=== PATIENT | female | born 1950 | race Caucasian/White ===

== ENCOUNTER 2019-08-10 14:31 | Outpatient (CLI) | payer MEDICARE, MEDICAID, SELFPAY ==
[2019-08-10 15:06] LABS: Hematocrit 40.8 % (37.0-47.0); Hemoglobin 13.3 g/dL (12.0-15.0); Mean Corpuscular HGB Conc 32.6 g/dl (32-36); Mean Corpuscular Hemoglobin 29.4 pg (26-34); Mean Corpuscular Volume 90.1 fl (80-100); Mean Platelet Volume 9.1 fl (7.4-10.4); Platelet Count Result 313 k/mm3 (150-375); Red Blood Count 4.53 M/mm3 (4.2-5.4); Red Cell Distribution Width 15.8 % (11.5-14.5); White Blood Count 11.6 K/mm3 (4.5-10.0)
[2019-08-10 15:21] LABS: Prothrombin Time 12.5 Seconds (11.1-14.7)
[2019-08-10 15:22] LABS: Partial Thromboplastin Time 32.5 SECONDS (22.3-36.8)
[2019-08-10 15:43] LABS: Blood Urea Nitrogen 17 mg/dL (7-17); Carbon Dioxide 32 mmol/L (22-30); Chloride 99 mmol/L (98-107); Estimated Glomerular Filt Rate 49; Glucose 97 mg/dL (65-105); Potassium 4.3 mmol/L (3.4-5.0); Sodium 138 mmol/L (137-145)
== END 2019-08-10 14:32 | disposition home or self-care (01) ==
PROVIDERS: PCP Family Medicine; Visit Provider Specialist
DX: I25.10 Atherosclerotic heart disease of native coronary artery without angina pectoris (principal)
CPT/HCPCS: 36415; 80048; 85027; 85610; 85730

== ENCOUNTER → 2020-06-03 10:10 | Outpatient (CLI) | payer MEDICARE, MEDICAID, SELFPAY ==
--- NOTE | ~2020-06-03 | MM_ITS ---
EXAMINATION: MM screening nils BI w tova HISTORY: Screening TECHNIQUE: Craniocaudal and mediolateral oblique 3-D tomosynthesis images were obtained and synthetic 2-D images were generated. CAD analysis was submitted and interpreted. COMPARISON: No prior mammogram is available for comparison at this institution. BREAST PARENCHYMAL COMPOSITION: There are scattered areas of fibroglandular density. FINDINGS: There is no evidence of suspicious mass, calcification, or architectural distortion to sugg est malignancy in either breast. There has been no suspicious interval change. IMPRESSION: 1. No mammographic evidence of malignancy. 2. Recommend routine screening mammography in one year. BI-RADS Category 1: Negative Reviewed, dictated and finalized at location A. RESS TRUCKER
== END ==
PROVIDERS: Visit Provider Nurse Practitioner Family
DX: Z12.31 Encounter for screening mammogram for malignant neoplasm of breast (principal); Z78.0 Asymptomatic menopausal state
CPT/HCPCS: 77063; 77067

== ENCOUNTER 2020-10-23 13:41 | Outpatient (CLI) | payer MEDICARE, MEDICAID, SELFPAY ==
--- NOTE | ~2020-10-23 | XR_ITS ---
XR foot RT min 3V DATE: 10/23/2020 14:07 INDICATION: Lateral right foot pain following recent injury TECHNIQUE: 4 views COMPARISON: None FINDINGS: There is hallux valgus and bunion deformity, mild osteoarthritis at the first metatarsophal angeal joint. There is a transverse lucency of the proximal shaft of the metatarsal bone consistent with nondisplac ed fracture. IMPRESSION: Transverse nondisplaced fracture of the proximal shaft of the fifth metatarsal bone Hallux valgus and bunion deformity Osteoarthritis at first metatarsophalangeal joint Reviewed, dictated and finalized at location A.
== END 2020-10-23 13:42 | disposition home or self-care (01) ==
LOC: ANHIMG 13:52
PROVIDERS: PCP Family Medicine; Visit Provider Family Medicine
DX: S92.354A Nondisplaced fracture of fifth metatarsal bone, right foot, initial encounter for closed fracture (principal); X58.XXXA Exposure to other specified factors, initial encounter; M20.11 Hallux valgus (acquired), right foot; M19.071 Primary osteoarthritis, right ankle and foot
CPT/HCPCS: 73630

== ENCOUNTER 2021-04-06 12:07 | Emergency (ER) | payer MEDICARE, MEDICAID, SELFPAY ==
--- NOTE | ~2021-04-06 | XR_ITS ---
EXAMINATION: XR chest 2V DATE: 04/06/2021 14:17 INDICATION: Cough and shortness of breath TECHNIQUE: frontal and lateral views of the chest were obtained. COMPARISON: Chest radiograph and CT dated 09/21/2018 FINDINGS: Opacities at the bilateral lung bases with dependent predominance. No pleural effusion or pneumothora x. The cardiomediastinal silhouette is normal. Median sternotomy wires and mediastinal surgical clips are seen, likely from prior coronary artery bypass grafting. Moderate thoracic and upper lumbar spon dylosis. IMPRESSION: 1. Bibasilar opacities which could represent pneumonia, pulmonary edema or some atelectasis or some c ombination thereof. Reviewed, dictated and finalized at location B. EDWARDS IMPRESSION: 1. Bibasilar opacities which could represent pneumonia, pulmonary edema or some atelectasis or some combination thereof.
[2021-04-06 13:57] VITALS: BP 160/73; PULSE 55; RESP 32; TEMP 36.7; O2SAT 87
--- NOTE | 2021-04-06 14:09 | ED.GENADULT ---
HPI - General Adult General Chief complaint: Upper Respiratory Infection Stated complaint: sob,cough Time Seen by Provider: 04/06/21 13:59 Source: patient, family and RN notes reviewed Mode of arrival: ambulatory Limitations: no limitations History of Present Illness HPI narrative: Patient presents today complaining of a 2-week history of cough that has been worsening since onset. She is now experiencing shortness of breath, pains in her right upper chest. Patient states she feels sputum in her chest, but cannot expectorate. Reports fevers initially, but has not had them for at least a week. She has been vaccinated against COVID-19, but has not had a flu shot. She has been taking Mucinex D. History of pneumonia. Denies history of asthma or COPD. She is a former smoker. Pulse ox upon arrival was 87% on room air, respirations were 32. MD complaint: Cough, shortness of breath Related Data Home Medications Medication Instructions Recorded Confirmed aspirin 81 mg tablet,delayed 81 mg PO DAILY 04/05/19 03/12/21 release cholecalciferol (vitamin D3) 50 50 mcg PO DAILY 03/07/20 03/12/21 mcg (2,000 unit) capsule fexofenadine 180 mg tablet 180 mg PO DAILY tablet 09/11/20 03/12/21 acetaminophen 650 mg 1,300 mg PO Q12H tablet 10/23/20 03/12/21 tablet,extended release melatonin 10 mg tablet 10 mg PO DAILY tablet 10/23/20 03/12/21 metoprolol succinate 50 mg 50 mg PO BID tablet 10/23/20 03/12/21 tablet,extended release 24 hr sertraline 100 mg tablet 100 mg PO DAILY tablet 10/23/20 03/12/21 Allergies Allergy/AdvReac Type Severity Reaction Status Date / Time Penicillins Allergy Unknown Urticaria Verified 04/06/21 14:11 Review of Systems Review of Systems: CONSTITUTIONAL: Denies body aches, fever, chills, or sweats. EYES: Denies visual changes, redness, or discharge. ENT: Denies rhinorrhea, congestion, sore throat, or otalgia. CARDIOVASCULAR: Denies palpitations, or edema.+ Right upper chest pain RESPIRATORY: + Cough, shortness of breath GASTROINTESTINAL: Denies abdominal pain, nausea, vomiting, or diarrhea. GENITOURINARY: Denies dysuria or hematuria. SKIN: Denies rash, itching, or wounds. MUSCULOSKELETAL: Denies back pain, joint pain, or myalgia. NEUROLOGIC: Denies headache, numbness, tingling, or weakness. PSYCH: Denies depression or anxiety. [facility] Past Medical History Medical History CAD (coronary artery disease) (~10/2018) Chronic low back pain CKD (chronic kidney disease) stage 3, GFR 30-59 ml/min Depression with anxiety Environmental allergies [place] (hard of hearing) Hyperkalemia Hyperlipidemia Hypertension Insomnia Normal colonoscopy (~07/2010) Normal mammography (~06/03/20) OAB (overactive bladder) Osteoarthritis Osteopenia Peripheral neuropathy Surgical History Surgical History History of left knee surgery 2017 - ORIF of left knee fracture History of surgery on left wrist 2018 - ORIF of left wrist fracture S/P CABG x 3 (~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 Pt moved in with sister in 2019, moved here from [place]. Comments At time of signature, I have reviewed and agree with nursing past medical, surgical, social and family history unless otherwise noted. Please see nursing chart for further information. There is no relevant family history pertinent to the presenting complaint Exam Narrative: GENERAL: Ill-appearing, well-nourished. HEAD: Normocephalic, atraumatic. EYES: EOMI. No redness or drainage. Conjunctivae normal. ENT: Mucous membranes pink and moist. Nares mildly congested. No
[2021-04-06 14:48] VITALS: PULSE 84; RESP 28; O2SAT 94
== END 2021-04-06 14:52 | disposition short-term general hospital (02) ==
PROVIDERS: Emergency Provider Nurse Practitioner; PCP Family Medicine
DX: R09.02 Hypoxemia (principal); J18.1 Lobar pneumonia, unspecified organism; Z20.822 Contact with and (suspected) exposure to COVID-19; I25.10 Atherosclerotic heart disease of native coronary artery without angina pectoris; I12.9 Hypertensive chronic kidney disease with stage 1 through stage 4 chronic kidney disease, or unspecified chronic kidney disease; N18.30 Chronic kidney disease, stage 3 unspecified; E78.2 Mixed hyperlipidemia; M19.90 Unspecified osteoarthritis, unspecified site; M81.0 Age-related osteoporosis without current pathological fracture; G62.9 Polyneuropathy, unspecified; Z79.82 Long term (current) use of aspirin; F41.8 Other specified anxiety disorders
CPT/HCPCS: 71046; 87426; 87804; 99215; C9803; G0463

== ENCOUNTER 2021-04-06 15:48 | Inpatient (IN) | payer MEDICARE, MEDICAID, SELFPAY ==
[2021-04-06] VITALS (7 sets, daily range): BP systolic 121–156; BP diastolic 50–57; PULSE 58–79; RESP 20–24; TEMP 36.3; O2SAT 87–99
--- NOTE | ~2021-04-06 | XR_ITS ---
EXAMINATION: XR chest 1V portable EXAM DATE: 04/06/2021 18:58 INDICATION: SOB W/ Productive Cough X 2wks. TECHNIQUE: Portable AP frontal chest x-ray was obtained. Comparison is made to prior examination from 04/06/2021. FINDINGS: Sternotomy wires are present without findings to suggest sternal dehiscence. Small amount o f bibasilar atelectasis, edema or pneumonia. Mild cardiomegaly. Mild hyperinflation. No pneumothorax. Small right effusion not excludable. No change compared to study from 2:15 this afternoon. IMPRESSION: Small amount bibasilar ill-defined atelectasis, edema or pneumonia. Reviewed, dictated and finalized at location A. E GAMES MANAGER IMPRESSION: Small amount bibasilar ill-defined atelectasis, edema or pneumonia .
--- NOTE | ~2021-04-06 | CT_ITS ---
EXAMINATION: CTA chest PE protocol EXAM DATE: 04/06/2021 21:44 INDICATION: Shortness of breath. TECHNIQUE: Spiral CTA of the chest (pulmonary arteries) was performed with 100 cc Omnipaque 350 intr avenous contrast injection. Images were acquired during the pulmonary arterial phase. Coronal maxi mum intensity projection 3D-reconstructions were created by the technologist on dedicated workstation . Axial, coronal and sagittal reformatted images were reviewed. The dose-length product (DLP) for t his examination was 261.30 mGy-cm. The exposure was tailored according to patient size (auto mA exp osure control), and iterative reconstruction (ASIR) was used as additional dose reduction technique. Comparison is made to prior examination from 09/29/2018. FINDINGS: There are no pulmonary emboli in the 1st through 3rd order (central and interlobar) pulmon yana arteries. Some loss of attenuation in the segmental pulmonary arteries from respiratory motion, some segmental regions not confidently evaluated. No intraluminal filling defects identified. No th oracic aortic dissection. There is moderate emphysema. Right lower lobe bronchus and its segments are occluded, filled with muc us. There is right lower lobe airspace disease with volume loss, multi segmental atelectasis with pos sibility of superimposed pneumonia or postobstructive pneumonia from underlying right infrahilar john paul gnancy. There is right hilar adenopathy with a lymph node measuring 2.2 x 1.4 cm, reactive versus met astatic. Subsegmental left basilar atelectasis. There are no pleural or pericardial effusions. There is no pneumothorax. Cardiomegaly. The main, central pulmonary arteries are dilated which can indicate elevated pulmonary arterial pressure, pulmo nary arterial hypertension. There are sternotomy wires, and cardiac/coronary surgical changes. Corre late with prior history. Upper abdomen is unremarkable. There is thoracic spondylosis without oste oblastic or osteolytic lesions identified. IMPRESSION: 1. Limited segmental evaluation, but no pulmonary emboli are suspected. 2. Multisegmental right lower lobe atelectasis, occluded bronchi. Superimposed pneumonia, postobstru ctive pneumonia from malignancy not excludable. Consider treating for pneumonia and obtaining 1 month follow-up, or bronchoscopy. 3. Right hilar lymphadenopathy reactive versus metastatic. 4. Cardiomegaly, pulmonary arterial hypertension. 5. Moderate emphysema. Reviewed, dictated and finalized at location A. INER IMPRESSION: 1. Limited segmental evaluation, but no pulmonary emboli are suspected. 2. Multisegmental right lower lobe atelectasis, occluded bronchi. Superimposed pneumonia, postobstructive pneumonia from malignancy not excludable. Consider treating for pneumonia and obtaining 1 month follow-up, or bronchoscopy. 3. Right hilar lymphadenopathy reactive versus metastatic. 4. Cardiomegaly, pulmonary arterial hypertension. 5. Moderate emphysema.
--- NOTE | ~2021-04-06 | XR_ITS ---
EXAMINATION: XR chest 2V DATE: 04/09/2021 08:44 INDICATION: Pneumonia TECHNIQUE: PA and lateral views of the chest were obtained. COMPARISON: Chest radiograph and CT dated 04/06/2021 FINDINGS: Bronchial wall thickening and increased interstitial pattern in the bilateral mid and lower lung zone s. Patchy airspace opacities in the right lower lung zone. No pneumothorax or pleural effusion. Cardi omegaly. Median sternotomy wires and mediastinal surgical clips are seen, likely from prior coronary artery bypass grafting. Moderate thoracic spondylosis. IMPRESSION: 1. Bilateral dependent predominant increased interstitial pattern and patchy airspace opacities in th e right lower lung zone which could represent pulmonary edema, pneumonia, atelectasis or some combina tion thereof. 2. Cardiomegaly. Reviewed, dictated and finalized at location B. ICIAN OFFICE NURSE IMPRESSION: 1. Bilateral dependent predominant increased interstitial pattern and patchy ai rspace opacities in the right lower lung zone which could represent pulmonary e frank, pneumonia, atelectasis or some combination thereof. 2. Cardiomegaly.
--- NOTE | ~2021-04-06 | XR_ITS ---
EXAMINATION: XR chest 2V DATE: 04/11/2021 14:16 INDICATION: Pneumonia. TECHNIQUE: Frontal and lateral views of the chest were obtained. COMPARISON: Chest 2 views 04/09/2021, chest CT 04/06/2021 FINDINGS: There are lucencies in the lungs, consistent with emphysema. There are airspace opacities i n right mid and lower lung zones and left lower lung zone. There is a small right pleural effusion. N o pneumothorax. The heart size is normal. Median sternotomy wires and mediastinal surgical clips are seen, likely from prior coronary artery bypass grafting. IMPRESSION: 1. Stable airspace opacities in right mid and lower lung zones and left lower lung zone, consistent w ith pneumonia. 2. Worsened small right pleural effusion. 3. Emphysema. Reviewed, dictated and finalized at location A. ERN DEVELOPER IMPRESSION: 1. Stable airspace opacities in right mid and lower lung zones and left lower l henrik zone, consistent with pneumonia. 2. Worsened small right pleural effusion. 3. Emphysema.
--- NOTE | 2021-04-06 18:45 | ECG_ITS ---
Measurements Intervals [place] Rate: 75 P: 73 ME: 164 QRS: 53 QRSD: 147 T: 22 QT: 413 QTc: 462 Interpretive Statements SINUS RHYTHM RIGHT BUNDLE BRANCH BLOCK BASELINE ARTIFACT- I, II, III, AVR, AVL, AVF, V1-V3 ABNORMAL ECG Electronically Signed On 04-06-2021 20:10:46 CONTROL EQUIPMENT ELECTRICIAN by Melvin Contreras D.O.
--- NOTE | 2021-04-06 18:55 | ED.GENADULT ---
HPI - General Adult General Chief complaint: Shortness of Breath/Dyspnea Stated complaint: dyspnea Time Seen by Provider: 04/06/21 18:39 Source: patient and RN notes reviewed History of Present Illness HPI narrative: Patient is a 70 y/o female complaining of cough, SOB for 2 week. She also has some right sided chest pain. She was seen at urgent care and found to be hypoxic with pulse ox of 87% on RA and sent here. Xray at urgent care showed bibasilar opacities. She was placed on O2. Related Data Home Medications Medication Instructions Recorded Confirmed aspirin 81 mg tablet,delayed 81 mg PO DAILY 04/05/19 04/07/21 release cholecalciferol (vitamin D3) 50 50 mcg PO DAILY 03/07/20 04/07/21 mcg (2,000 unit) capsule fexofenadine 180 mg tablet 180 mg PO DAILY tablet 09/11/20 04/07/21 acetaminophen 650 mg 1,300 mg PO Q12H tablet 10/23/20 04/07/21 tablet,extended release melatonin 10 mg tablet 10 mg PO DAILY tablet 10/23/20 04/07/21 metoprolol succinate 50 mg 50 mg PO BID tablet 10/23/20 04/07/21 tablet,extended release 24 hr sertraline 100 mg tablet 100 mg PO DAILY tablet 10/23/20 04/07/21 Allergies Allergy/AdvReac Type Severity Reaction Status Date / Time Penicillins Allergy Unknown Urticaria Verified 04/06/21 20:32 Review of Systems Constitutional: Constitutional: Denies chills, Denies fever(s), Denies headache(s) and Denies weakness Eyes: Eyes: Denies blurry vision ENT: Denies headache(s) and Denies neck pain Cardiovascular: Cardiovascular: Reports chest pain and Reports dyspnea Respiratory: Respiratory: Reports cough and Reports dyspnea Gastrointestinal: Gastrointestinal: Denies abdominal pain, Denies diarrhea, Denies nausea and Denies vomiting Genitourinary: Genitourinary: Denies hematuria and Denies dysuria Musculoskeletal: Musculoskeletal: Denies back pain and Denies neck pain Neurologic: Denies headache(s) and Denies weakness [facility] Past Medical History Medical History CAD (coronary artery disease) (~10/2018) Chronic low back pain CKD (chronic kidney disease) stage 3, GFR 30-59 ml/min Depression with anxiety Environmental allergies [place] (hard of hearing) Hyperkalemia Hyperlipidemia Hypertension Insomnia Normal colonoscopy (~07/2010) Normal mammography (~06/03/20) OAB (overactive bladder) Osteoarthritis Osteopenia Peripheral neuropathy Surgical History Surgical History History of left knee surgery 2017 - ORIF of left knee fracture History of surgery on left wrist 2018 - ORIF of left wrist fracture S/P CABG x 3 (~10/09/18) Family History Family History Father Family history of alcoholism Family history of malignant neoplasm Social History Social History Social History: , passed 2019. Pt moved in with sister in 2019, moved here from [place]. Smoking status: Never smoker Alcohol intake: never Substance use: never Substance use type: does not use Spiritual care concerns: No Exam Const: General: no acute distress and well developed Orientation/consciousness: oriented to person, oriented to place, oriented to time and patient oriented x3 HENMT: Head: normocephalic Ears: external ears normal General nose exam: Normal external nose present Eyes: General: appearance normal, both eyes and all related structures Conjunctivae: conjunctivae normal Neck: Neck: normal visual inspection and full ROM Chest: Chest palpation & inspection: normal inspection of the chest and no tenderness Resp: Effort & Inspection: normal respiratory effort Auscultation: clear to auscultation bilaterally Cardio: Rate: regular rate Rhythm: regular rhythm GI: GI Palp: No abdominal tenderness and Yes Soft to palpation Skin: General skin exam: normal color
[2021-04-06 19:46] LABS: Basophils Absolute Auto 0.1 K/mm3 (0.0-0.1); Basophils Percent Auto 0.3 % (0.2-1.2); Hematocrit 37.1 % (37.0-47.0); Hemoglobin 12.6 g/dL (12.0-15.0); Immature Granulocyte Absolute 0.16 K/mm3 (0.00-0.031); Immature Granulocyte Percent A 0.7 % (0-0.5); Lymphocytes Percent Auto 7.7 % (18.3-44.2); Mean Corpuscular Hemoglobin 28.6 pg (26-34); Mean Corpuscular Volume 84.1 fl (80-100); Mean Platelet Volume 8.7 fl (7.4-10.4); Monocytes Absolute Auto 2.4 K/mm3 (0.1-0.6); Monocytes Percent Auto 10.4 % (2.6-8.5); Neutrophils Absolute Auto 18.9 K/mm3 (1.3-6.7); Neutrophils Percent Auto 80.9 % (45.5-73.1); Platelet Count Result 351 k/mm3 (150-375); Red Blood Count 4.41 M/mm3 (4.2-5.4); Red Cell Distribution Width 14.9 % (11.5-14.5); White Blood Count 23.4 K/mm3 (4.5-10.0)
[2021-04-06 20:21] LABS: D Dimer 0.78 ug/mL (<0.48)
[2021-04-06 20:41] LABS: Alanine Aminotransferase 28 U/L (4-35); Albumin Level 4.2 g/dL (3.5-5.1); Alkaline Phosphatase 117 U/L (38-126); Anion Gap 9 mmol/L (8-16); Aspartate Amino Transferase 38 U/L (14-36); Bilirubin,Total 0.7 mg/dL (0.2-1.3); Blood Urea Nitrogen 15 mg/dL (7-17); Calcium 9.6 mg/dL (8.4-10.2); Carbon Dioxide 26 mmol/L (22-30); Chloride 95 mmol/L (98-107); Estimated CRCL calculation 43 ml/min; Estimated Glomerular Filt Rate > 60; Glucose 103 mg/dL (65-110); Potassium 4.7 mmol/L (3.4-5.0); Sodium 130 mmol/L (137-145)
[2021-04-06 20:52] LABS: NT Pro B Type Natriuretic Pept 1070 pg/mL (5-100); Troponin I < 0.012 ng/mL (0.000-0.034)
[2021-04-06 21:24] LABS: EDCOVIDSCREEN Negative (Negative)
[2021-04-07] VITALS (15 sets, daily range): BP systolic 98–163; BP diastolic 56–80; PULSE 74–92; RESP 16–20; TEMP 36.6–37.6; O2SAT 89–97; BMI 26.4
[2021-04-07 00:15] LABS: Troponin I < 0.012 ng/mL (0.000-0.034)
[2021-04-07 03:22] LABS: Troponin I < 0.012 ng/mL (0.000-0.034)
--- NOTE | 2021-04-07 08:00 | PC.NURSE ---
0605 Pt arrived from the ED per wheelchair to room 311 with a DX of dyspnea. Pt has 026L/min/nc in place , no acute respiratory difficulty. Encouraged to inform nurse if need assist with anything and plan of care discussed, verbalize understanding.
[2021-04-07 08:19] LABS: Basophils Absolute Auto 0.1 K/mm3 (0.0-0.1); Basophils Percent Auto 0.2 % (0.2-1.2); Eosinophils Percent Auto 0.1 % (0-4.4); Hematocrit 35.4 % (37.0-47.0); Hemoglobin 12.1 g/dL (12.0-15.0); Immature Granulocyte Absolute 0.22 K/mm3 (0.00-0.031); Lymphocytes Absolute Auto 1.41 K/mm3 (0.9-3.2); Lymphocytes Percent Auto 6.6 % (18.3-44.2); Mean Corpuscular HGB Conc 34.2 g/dl (32-36); Mean Corpuscular Hemoglobin 28.5 pg (26-34); Mean Corpuscular Volume 83.3 fl (80-100); Mean Platelet Volume 8.5 fl (7.4-10.4); Monocytes Absolute Auto 2.4 K/mm3 (0.1-0.6); Neutrophils Absolute Auto 17.4 K/mm3 (1.3-6.7); Neutrophils Percent Auto 81.1 % (45.5-73.1); Platelet Count Result 340 k/mm3 (150-375); Red Blood Count 4.25 M/mm3 (4.2-5.4); White Blood Count 21.4 K/mm3 (4.5-10.0)
[2021-04-07 08:27] LABS: Alanine Aminotransferase 36 U/L (4-35); Albumin Level 3.7 g/dL (3.5-5.1); Alkaline Phosphatase 126 U/L (38-126); Anion Gap 10 mmol/L (8-16); Aspartate Amino Transferase 54 U/L (14-36); Bilirubin,Total 0.6 mg/dL (0.2-1.3); Blood Urea Nitrogen 14 mg/dL (7-17); Calcium 8.8 mg/dL (8.4-10.2); Carbon Dioxide 24 mmol/L (22-30); Chloride 94 mmol/L (98-107); Estimated CRCL calculation 48 ml/min; Estimated Glomerular Filt Rate > 60; Glucose 109 mg/dL (65-110); Sodium 128 mmol/L (137-145)
[2021-04-07 08:31] LABS: Magnesium 1.9 mg/dL (1.6-2.3)
[2021-04-07 09:52] LABS: CRP 22.1 mg/dL (<1.0)
[2021-04-07] MEDS: SERTRALINE HCL 50 MG TABLET 100 MG PO (10:39)
[2021-04-07] MEDS: GABAPENTIN 300 MG CAPSULE PO ×2 (10:39→20:40)
[2021-04-07] MEDS: MAGNESIUM OXIDE 400 MG TABLET PO (10:40)
[2021-04-07] MEDS: CHOLECALCIFEROL 1,000 UNITS TABLET 2000 UNITS PO (10:40)
[2021-04-07] MEDS: CLOPIDOGREL BISULFATE 75 MG TABLET PO (10:40)
[2021-04-07] MEDS: ASPIRIN 81 MG ENTERIC TABLET PO (10:40)
--- NOTE | 2021-04-07 13:08 | PM.IMHP ---
H&P: HPI History of Present Illness Date/Time: 04/07/21 13:08 Chief Complaint: Cough Narrative: Date of service: 04/07/21 Aminah Mark is a 70-year-old female with a history of CAD, hypertension, hyperlipidemia, CKD, COPD, and tobacco abuse who presented to the emergency department on 04/06/2021 after being transported from urgent care. Her sister took her to urgent care yesterday after the patient was experiencing 2 weeks of productive cough and generally feeling unwell. She says her cough had never been so bad before in her life and she had excessive amounts of green phlegm. Notes that her cough has improved and now her phlegm is white in color. Also complained of nasal congestion with rhinorrhea. She was also endorsing shortness of breath, but states that this has improved. She notes a decreased appetite. She has been feeling lightheaded and this is worse upon standing. She has been feeling overall weak and somewhat unsteady on her feet, though states she always has poor balance due to her inner ear issues. She still has her sense of taste and smell. She denies nausea or vomiting. She denies chest pain or palpitations. She reports that she had contact with her nephew who was found to be positive for COVID-19.] Patient has been admitted to the hospitalist service as an inpatient. Supervising physician for this history and physical is Dr. Amada Levine. Review of Systems Review of Systems: All systems reviewed & are unremarkable except as noted in HPI and below PMFSH Past Medical History Medical History (Updated 04/07/21 @ 13:42 by Aneta Graham PA-C) CAD (coronary artery disease) (~10/2018) Chronic low back pain CKD (chronic kidney disease) stage 3, GFR 30-59 ml/min COPD (chronic obstructive pulmonary disease) Depression with anxiety Environmental allergies [place] (hard of hearing) Hyperlipidemia Hypertension Inner ear disease Established with ENT, awaiting surgical repair Insomnia Normal colonoscopy (~07/2010) Normal mammography (~06/03/20) OAB (overactive bladder) Osteoarthritis Osteopenia Peripheral neuropathy Tobacco abuse Surgical History Surgical History (Updated 04/07/21 @ 13:15 by Aneta Graham PA-C) History of ear surgery x4 History of left knee surgery 2017 - ORIF of left knee fracture History of surgery on left wrist 2018 - ORIF of left wrist fracture S/P CABG x 3 (~10/09/18) Family History Family History (Updated 04/07/21 @ 13:15 by Aneta Graham PA-C) Father Family history of alcoholism Family history of malignant neoplasm Heart disease Mother Diabetes mellitus Social History Social History (Updated 04/07/21 @ 13:17 by Aneta Graham PA-C) Social History: Ms. Mark lives at home with her sister. She is independent in her daily activities but no longer drives. Her PCP is Dr. Armstrong. She designates her sister, Cyndy, as her surrogate decision maker and she would like to be a DNR. Smoking packs per day: 2 Smoking cigarettes per day: 40.0 Years smoked: 30 Smoking pack-years: 60.00 Additional smoking assessment comments: Quit smoking 30 years ago at age 39. Alcohol intake: never Substance use: never Substance use type: does not use Living arrangements: with family Spiritual care concerns: No Meds Home Medications and Allergies Home Medications Medication Instructions Recorded Confirmed Type aspirin 81 mg tablet,delayed 81 mg PO DAILY 04/05/19 04/07/21 History release albuterol sulfate 90 mcg/actuation 1 inh INHALATION Q4H PRN #6.7 gm 03/06/20 04/07/21 Rx aerosol inhaler cholecalciferol (vitamin D3) 50 50 mcg PO DAILY 03/07/20 04/07/21 History mcg (2,000 unit) capsule fexofenadine 180 mg tablet 180 mg PO DAILY tablet 09/11/20 04/07/21 History acetaminophen 650 mg 1,300 mg PO Q12H tablet 10/23/20 04/07/21 History tablet,extended release melatonin 10 mg tablet 10 mg PO DAILY tablet 10/23/20 04/07/21 History meto
[2021-04-07 13:54] LABS: SARS-CoV-2 RNA PCR Negative
[2021-04-07] MEDS: IPRATROPIUM BR 0.02% INH SOLN 0.5 MG/2.5 ML VIAL INHALATION ×2 (14:11→21:00)
[2021-04-07] MEDS: ALBUTEROL SULFATE NEB 2.5 MG/0.5 ML INH INHALATION ×2 (14:11→21:00)
[2021-04-07 14:14] LABS: Sodium 128 mmol/L (137-145)
[2021-04-07] MEDS: METOPROLOL SUCCINATE EXT REL 50 MG TABCR PO (17:28)
[2021-04-07] MEDS: ATORVASTATIN 40 MG TABLET PO (20:40)
[2021-04-08] VITALS (18 sets, daily range): BP systolic 104–146; BP diastolic 50–75; PULSE 62–79; RESP 16–22; TEMP 36.9–37.9; O2SAT 92–96
[2021-04-08] MEDS: IPRATROPIUM BR 0.02% INH SOLN 0.5 MG/2.5 ML VIAL INHALATION ×4 (02:30→21:18)
[2021-04-08] MEDS: ALBUTEROL SULFATE NEB 2.5 MG/0.5 ML INH INHALATION ×4 (02:30→21:18)
[2021-04-08 07:22] LABS: Influenza Control Positive
[2021-04-08 07:41] LABS: Hematocrit 35.3 % (37.0-47.0); Hemoglobin 11.9 g/dL (12.0-15.0); Mean Corpuscular HGB Conc 33.7 g/dl (32-36); Mean Corpuscular Hemoglobin 28.3 pg (26-34); Mean Corpuscular Volume 83.8 fl (80-100); Mean Platelet Volume 8.5 fl (7.4-10.4); Platelet Count Result 396 k/mm3 (150-375); Red Blood Count 4.21 M/mm3 (4.2-5.4); Red Cell Distribution Width 15.2 % (11.5-14.5); White Blood Count 17.1 K/mm3 (4.5-10.0)
[2021-04-08 08:12] LABS: Alanine Aminotransferase 66 U/L (4-35); Albumin Level 3.7 g/dL (3.5-5.1); Alkaline Phosphatase 147 U/L (38-126); Anion Gap 11 mmol/L (8-16); Aspartate Amino Transferase 74 U/L (14-36); Bilirubin,Total 0.7 mg/dL (0.2-1.3); Blood Urea Nitrogen 13 mg/dL (7-17); CRP 23.2 mg/dL (<1.0); Calcium 8.7 mg/dL (8.4-10.2); Carbon Dioxide 26 mmol/L (22-30); Chloride 92 mmol/L (98-107); Estimated CRCL calculation 43 ml/min; Estimated Glomerular Filt Rate > 60; Glucose 103 mg/dL (65-110); Potassium 4.5 mmol/L (3.4-5.0); Sodium 129 mmol/L (137-145)
[2021-04-08] MEDS: lisinopriL 20 MG TABLET PO (08:56)
[2021-04-08] MEDS: ENOXAPARIN 40 MG/0.4 ML SYRINGE SUB-Q (08:56)
[2021-04-08] MEDS: CLOPIDOGREL BISULFATE 75 MG TABLET PO (08:56)
[2021-04-08] MEDS: CHOLECALCIFEROL 1,000 UNITS TABLET 2000 UNITS PO (08:56)
[2021-04-08] MEDS: METOPROLOL SUCCINATE EXT REL 50 MG TABCR PO ×2 (08:56→17:09)
[2021-04-08] MEDS: MAGNESIUM OXIDE 400 MG TABLET PO (08:56)
[2021-04-08] MEDS: ASPIRIN 81 MG ENTERIC TABLET PO (08:57)
[2021-04-08] MEDS: OFLOXACIN 0.3% OPHTH SOLN 5 ML BTL 5 DROP EACH EAR (08:57)
[2021-04-08] MEDS: FLUTICASONE PROPIONATE 0.05% NA SPR 16 GM BTL (*BKC) 2 SPRAY NASAL (08:57)
[2021-04-08] MEDS: SERTRALINE HCL 50 MG TABLET 100 MG PO (08:57)
[2021-04-08] MEDS: GABAPENTIN 300 MG CAPSULE PO ×2 (09:01→21:54)
[2021-04-08 11:12] LABS: Sodium Urine Random 10 meq/L
[2021-04-08 11:13] LABS: Creatinine Urine 163.3 mg/dL
[2021-04-08] MEDS: ACETAMINOPHEN 325 MG TABLET 650 MG PO (15:23)
--- NOTE | 2021-04-08 15:35 | PM.IMPN ---
Progress Note: A&P Assessment and Plan (1) Acute respiratory failure with hypoxia: Code(s): J96.01 - Acute respiratory failure with hypoxia Status: Acute Assessment and Plan: Patient hypoxic on presentation down to 87%, secondary to pneumonia. Continue supplemental O2 as needed with goal saturation 92% or above. Wean oxygen to goal Currently requiring 5 L per nasal cannula. CTA negative for PE (2) Pneumonia of right lower lobe due to infectious organism: Code(s): J18.9 - Pneumonia, unspecified organism Status: Acute Assessment and Plan: Presented with cough x2 weeks. CTA showed multi segmental right lower lobe atelectasis, occluded bronchi, superimposed pneumonia, concerning for postobstructive pneumonia from malignancy. Also with right hilar lymphadenopathy, reactive vs metastatic Continue ceftriaxone and azithromycin #3 Marked leukocytosis is improving. Low-grade fever 100.4 today Trend inflammatory markers. Concern for malignancy in light of heavy tobacco abuse. Discussed case with pulmonology. Recommend repeat CXR tomorrow to assess for improvement and contact if worsening. Follow up outpatient for CT scan in 6-8 weeks Incentive spirometry Supportive care to include bronchodilators, CPT, antipyretics Influenza negative, COVID-19 PCR negative legionella and pneumococcal antigens pending Blood cultures pending, negative to date Sputum culture pending (3) COPD (chronic obstructive pulmonary disease): Code(s): J44.9 - Chronic obstructive pulmonary disease, unspecified Status: Acute Assessment and Plan: No acute issues, no wheezing on exam. Albuterol and ipratropium nebs q6h (4) Hyponatremia: Code(s): E87.1 - Hypo-osmolality and hyponatremia Status: Acute Assessment and Plan: Sodium 129. FENa is 0.9%. Begin gentle rehydration, monitoring volume status closely given respiratory illness Monitor BMP (5) Transaminitis: Code(s): R74.01 - Elevation of levels of liver transaminase levels Status: Acute Assessment and Plan: LFTs slightly elevated May be due to acute infection Will check hepatitis panel Trend LFTs Subjective Date/time seen: 04/08/21 15:35 Interval history: Date of service: 04/08/2021 Aminah Mark is a 70-year-old female with a history of CAD, hypertension, hyperlipidemia, CKD, COPD, and tobacco abuse who is seen in follow-up for pneumonia. She is feeling ?a lot better? today. She still endorses cough productive of grayish white sputum, occasionally with faint pink streaks. Also endorses nasal congestion and has been blowing her nose frequently. She does have some pleuritic discomfort and abdominal soreness when she coughs. Denies chest pain. Denies WADE. Denies orthopnea. No palpitations. Denies fevers, chills, nausea, vomiting. States her appetite is improving and she ate a good lunch today. Denies urinary symptoms. Denies diarrhea. Review of Systems Review of Systems: All systems reviewed & are unremarkable except as noted in HPI and below Exam Narrative: Ms. Mark is a thin, well-appearing 70-year-old female who is lying supine in bed. She appears comfortable and is in NARD. Neuro: awake, alert and oriented x4, speech clear, no focal neuro deficits noted HEENMT: normocephalic, atraumatic, EOMI, sclerae anicteric, hard of hearing, wearing hearing aid in left ear Neck: supple, no lymphadenopathy Respiratory: Diminished breath sounds bilaterally with rhonchi in right lung base, no wheezes. Nonlabored breathing, able to speak in complete sentences Cardio: regular rate, regular rhythm with S1-S2 Abdomen: nondistended, normoactive bowel sounds, soft, nontender to palpation Extremities: no edema, erythema, or tenderness to palpation, DP pulses 2+ bilaterally Skin: no rashes or lesions, warm and dry Psych: appropriate mood and affect, judgment and insight intact Obj
[2021-04-08] MEDS: SODIUM CHLORIDE 0.9% IV 1,000 ML 65 ML IV CONT (17:09)
[2021-04-08] MEDS: ATORVASTATIN 40 MG TABLET PO (21:54)
[2021-04-09] VITALS (12 sets, daily range): BP systolic 108–130; BP diastolic 54–62; PULSE 62–78; RESP 18–20; TEMP 36.6–37.6; O2SAT 93–99
[2021-04-09] MEDS: ALBUTEROL SULFATE NEB 2.5 MG/0.5 ML INH INHALATION ×3 (02:33→14:15)
[2021-04-09] MEDS: IPRATROPIUM BR 0.02% INH SOLN 0.5 MG/2.5 ML VIAL INHALATION ×3 (02:33→14:15)
[2021-04-09 07:08] LABS: Hematocrit 34.3 % (37.0-47.0); Hemoglobin 11.7 g/dL (12.0-15.0); Mean Corpuscular HGB Conc 34.1 g/dl (32-36); Mean Corpuscular Hemoglobin 28.7 pg (26-34); Mean Corpuscular Volume 84.1 fl (80-100); Mean Platelet Volume 8.3 fl (7.4-10.4); Platelet Count Result 389 k/mm3 (150-375); Red Blood Count 4.08 M/mm3 (4.2-5.4); Red Cell Distribution Width 14.8 % (11.5-14.5); White Blood Count 15.9 K/mm3 (4.5-10.0)
[2021-04-09 08:08] LABS: Alanine Aminotransferase 113 U/L (4-35); Albumin Level 3.7 g/dL (3.5-5.1); Alkaline Phosphatase 161 U/L (38-126); Anion Gap 8 mmol/L (8-16); Aspartate Amino Transferase 139 U/L (14-36); Bilirubin,Total 0.6 mg/dL (0.2-1.3); Blood Urea Nitrogen 9 mg/dL (7-17); CRP 18.4 mg/dL (<1.0); Calcium 8.5 mg/dL (8.4-10.2); Carbon Dioxide 29 mmol/L (22-30); Chloride 92 mmol/L (98-107); Estimated CRCL calculation 63 ml/min; Estimated Glomerular Filt Rate > 60; Glucose 101 mg/dL (65-110); Potassium 3.8 mmol/L (3.4-5.0); Sodium 129 mmol/L (137-145)
[2021-04-09 08:19] LABS: Hepatitis B Surface Antigen Negative (Negative)
[2021-04-09 08:24] LABS: HAV RESULT Negative (Negative); Hepatitis B Core IgM Result Negative (Negative)
[2021-04-09 08:36] LABS: Hepatitis C Virus Antibody Negative (Negative)
[2021-04-09] MEDS: SODIUM CHLORIDE 0.9% IV 1,000 ML 65 ML IV CONT (09:20)
[2021-04-09] MEDS: SERTRALINE HCL 50 MG TABLET 100 MG PO (09:23)
[2021-04-09] MEDS: OFLOXACIN 0.3% OPHTH SOLN 5 ML BTL 5 DROP EACH EAR (09:23)
[2021-04-09] MEDS: CHOLECALCIFEROL 1,000 UNITS TABLET 2000 UNITS PO (09:23)
[2021-04-09] MEDS: METOPROLOL SUCCINATE EXT REL 50 MG TABCR PO ×2 (09:23→18:28)
[2021-04-09] MEDS: GABAPENTIN 300 MG CAPSULE PO ×2 (09:23→20:45)
[2021-04-09] MEDS: lisinopriL 20 MG TABLET PO (09:23)
[2021-04-09] MEDS: ENOXAPARIN 40 MG/0.4 ML SYRINGE SUB-Q (09:23)
[2021-04-09] MEDS: CLOPIDOGREL BISULFATE 75 MG TABLET PO (09:23)
[2021-04-09] MEDS: FLUTICASONE PROPIONATE 0.05% NA SPR 16 GM BTL (*BKC) 2 SPRAY NASAL (09:23)
[2021-04-09] MEDS: MAGNESIUM OXIDE 400 MG TABLET PO (09:24)
--- NOTE | 2021-04-09 10:09 | P.PNIM_ITS ---
Progress Note: A&P Assessment and Plan (1) Acute respiratory failure with hypoxia: Code(s): J96.01 - Acute respiratory failure with hypoxia Status: Acute Assessment and Plan: Patient hypoxic on presentation down to 87%, secondary to pneumonia. * Continue supplemental O2 as needed with goal saturation 92% or above. Wean oxygen to goal * Currently requiring 5 L per nasal cannula. * CTA negative for PE * She will likely require home oxygen. Plan for home O2 eval when closer to discharge (2) Pneumonia of right lower lobe due to infectious organism: Code(s): J18.9 - Pneumonia, unspecified organism Status: Acute Assessment and Plan: Presented with cough x2 weeks. CTA showed multi segmental right lower lobe atelectasis, occluded bronchi, superimposed pneumonia, concerning for postobstructive pneumonia from malignancy. Also with right hilar lymphadenop athy, reactive vs metastatic * Continue ceftriaxone and azithromycin #4 * Marked leukocytosis is improving. Low-grade fever 100.2 yesterday, afebrile today. Trend inflammatory markers. * Concern for malignancy in light of heavy tobacco abuse. Discussed case with pulmonology. Follow up outpatient for CT scan in 6-8 weeks * CXR with slightly worsening with increased interstitial pattern with patchy a irspace opacities of the right lower lung zone. Discussed with pulmonology. Clinically patient is improving. Continue treatment plan. Will plan to complete 10 days of antibiotic therapy * Supportive care to include bronchodilators, CPT, antipyretics, incentive spirometry * Influenza negative, COVID-19 PCR negative, legionella and pneumococcal antigens pending * Blood cultures pending, negative to date * Sputum culture pending (3) COPD (chronic obstructive pulmonary disease): Code(s): J44.9 - Chronic obstructive pulmonary disease, unspecified Status: Acute Assessment and Plan: No acute issues, no wheezing on exam. * Albuterol and ipratropium nebs q6h (4) Hyponatremia: Code(s): E87.1 - Hypo-osmolality and hyponatremia Status: Acute Assessment and Plan: Sodium ranging 128-130. * FENa is 0.9%. No change in sodium with IV fluid rehydration. Will discontinue fluids as patient is tolerating oral intake and do not want to overload given respiratory illness * Reviewing prior labs suggests this to be a chronic issue. May be related to sertraline use. * Monitor BMP (5) Transaminitis: Code(s): R74.01 - Elevation of levels of liver transaminase levels Status: Acute Assessment and Plan: LFTs trending upward * May be due to acute infection * Hepatitis panel negative * Trend LFTs * Consider RUQ US if worsening * Hold atorvastatin Subjective Date/time seen: 04/09/21 10:09 Interval history: Date of service: 04/09/2021 Aminah Mark is a 70-year-old female with a history of CAD, hypertension, hyperlipidemia, CKD, COPD, and tobacco abuse who is seen in follow-up for pneumonia. Continues to feel improved today. Her shortness of breath is improving, though she still endorses WADE and conversational dyspnea. Reports she is coughing less frequently but is still having coughing spells that are severe and cause her to have chest and abdominal soreness. Cough is productive of scant amount of milky white sputum. She complains of dry mouth and nasal passages. Denies chest pain or palpitations. No nausea, vomiting, fever, chills, dizziness, lightheadedness, diarrhea, abdominal pain. Eating well. Getting around independently.
--- NOTE | 2021-04-09 10:09 | PM.IMPN ---
Progress Note: A&P Assessment and Plan (1) Acute respiratory failure with hypoxia: Code(s): J96.01 - Acute respiratory failure with hypoxia Status: Acute Assessment and Plan: Patient hypoxic on presentation down to 87%, secondary to pneumonia. Continue supplemental O2 as needed with goal saturation 92% or above. Wean oxygen to goal Currently requiring 5 L per nasal cannula. CTA negative for PE She will likely require home oxygen. Plan for home O2 eval when closer to discharge (2) Pneumonia of right lower lobe due to infectious organism: Code(s): J18.9 - Pneumonia, unspecified organism Status: Acute Assessment and Plan: Presented with cough x2 weeks. CTA showed multi segmental right lower lobe atelectasis, occluded bronchi, superimposed pneumonia, concerning for postobstructive pneumonia from malignancy. Also with right hilar lymphadenopathy, reactive vs metastatic Continue ceftriaxone and azithromycin #4 Marked leukocytosis is improving. Low-grade fever 100.2 yesterday, afebrile today. Trend inflammatory markers. Concern for malignancy in light of heavy tobacco abuse. Discussed case with pulmonology. Follow up outpatient for CT scan in 6-8 weeks CXR with slightly worsening with increased interstitial pattern with patchy airspace opacities of the right lower lung zone. Discussed with pulmonology. Clinically patient is improving. Continue treatment plan. Will plan to complete 10 days of antibiotic therapy Supportive care to include bronchodilators, CPT, antipyretics, incentive spirometry Influenza negative, COVID-19 PCR negative, legionella and pneumococcal antigens pending Blood cultures pending, negative to date Sputum culture pending (3) COPD (chronic obstructive pulmonary disease): Code(s): J44.9 - Chronic obstructive pulmonary disease, unspecified Status: Acute Assessment and Plan: No acute issues, no wheezing on exam. Albuterol and ipratropium nebs q6h (4) Hyponatremia: Code(s): E87.1 - Hypo-osmolality and hyponatremia Status: Acute Assessment and Plan: Sodium ranging 128-130. FENa is 0.9%. No change in sodium with IV fluid rehydration. Will discontinue fluids as patient is tolerating oral intake and do not want to overload given respiratory illness Reviewing prior labs suggests this to be a chronic issue. May be related to sertraline use. Monitor BMP (5) Transaminitis: Code(s): R74.01 - Elevation of levels of liver transaminase levels Status: Acute Assessment and Plan: LFTs trending upward May be due to acute infection Hepatitis panel negative Trend LFTs Consider RUQ US if worsening Hold atorvastatin Subjective Date/time seen: 04/09/21 10:09 Interval history: Date of service: 04/09/2021 Aminah Mark is a 70-year-old female with a history of CAD, hypertension, hyperlipidemia, CKD, COPD, and tobacco abuse who is seen in follow-up for pneumonia. Continues to feel improved today. Her shortness of breath is improving, though she still endorses WADE and conversational dyspnea. Reports she is coughing less frequently but is still having coughing spells that are severe and cause her to have chest and abdominal soreness. Cough is productive of scant amount of milky white sputum. She complains of dry mouth and nasal passages. Denies chest pain or palpitations. No nausea, vomiting, fever, chills, dizziness, lightheadedness, diarrhea, abdominal pain. Eating well. Getting around independently. Review of Systems Review of Systems: All systems reviewed & are unremarkable except as noted in HPI and below Exam Narrative: Ms. Mark is a thin, well-appearing 70-year-old female who is lying supine in bed. She appears comfortable and is in NARD. Neuro: awake, alert and oriented x4, speech clear, no focal neuro deficits noted HEENMT: normocephalic, atraumatic, EOMI, sclerae anicteric, hard
--- NOTE | 2021-04-09 11:19 | PC.NURSE ---
patient to cxr per w/c at 0820 and returned to floor at 0830
[2021-04-09] MEDS: ACETAMINOPHEN 325 MG TABLET 650 MG PO (14:12)
[2021-04-09] MEDS: ATORVASTATIN 40 MG TABLET PO (20:45)
--- NOTE | 2021-04-09 23:26 | PCRCNOTE ---
Albuterol & atrovent nebulizer treatment scheduled for 04/09/21 at 20:00 not administered. RT unavailable due to priorities in the Emergency Department.
[2021-04-10] VITALS (16 sets, daily range): BP systolic 113–127; BP diastolic 69–77; PULSE 59–78; RESP 16–20; TEMP 36.6–37.1; O2SAT 94–96
[2021-04-10] MEDS: IPRATROPIUM BR 0.02% INH SOLN 0.5 MG/2.5 ML VIAL INHALATION ×4 (02:03→19:01)
[2021-04-10] MEDS: ALBUTEROL SULFATE NEB 2.5 MG/0.5 ML INH INHALATION ×4 (02:03→19:01)
[2021-04-10 06:41] LABS: Hematocrit 32.2 % (37.0-47.0); Mean Corpuscular HGB Conc 34.2 g/dl (32-36); Mean Corpuscular Hemoglobin 28.1 pg (26-34); Mean Corpuscular Volume 82.1 fl (80-100); Mean Platelet Volume 8.6 fl (7.4-10.4); Platelet Count Result 446 k/mm3 (150-375); Red Blood Count 3.92 M/mm3 (4.2-5.4); Red Cell Distribution Width 14.7 % (11.5-14.5); White Blood Count 14.6 K/mm3 (4.5-10.0)
[2021-04-10 07:15] LABS: Alanine Aminotransferase 105 U/L (4-35); Albumin Level 3.3 g/dL (3.5-5.1); Alkaline Phosphatase 138 U/L (38-126); Anion Gap 5 mmol/L (8-16); Aspartate Amino Transferase 97 U/L (14-36); Bilirubin,Total 0.5 mg/dL (0.2-1.3); Blood Urea Nitrogen 6 mg/dL (7-17); CRP 13.2 mg/dL (<1.0); Calcium 8.3 mg/dL (8.4-10.2); Carbon Dioxide 26 mmol/L (22-30); Chloride 96 mmol/L (98-107); Estimated CRCL calculation 63 ml/min; Estimated Glomerular Filt Rate > 60; Glucose 98 mg/dL (65-110); Sodium 127 mmol/L (137-145)
--- NOTE | 2021-04-10 09:40 | P.PNIM_ITS ---
Progress Note: A&P Assessment and Plan (1) Acute respiratory failure with hypoxia: Code(s): J96.01 - Acute respiratory failure with hypoxia Status: Acute Assessment and Plan: Patient hypoxic on presentation down to 87%, secondary to pneumonia. * Continue supplemental O2 as needed with goal saturation 92% or above. Wean oxygen to goal * Currently requiring 5 L per nasal cannula. * CTA negative for PE * She will likely require home oxygen. Plan for home O2 eval when closer to discharge (2) Pneumonia of right lower lobe due to infectious organism: Code(s): J18.9 - Pneumonia, unspecified organism Status: Acute Assessment and Plan: Presented with cough x2 weeks. CTA showed multi segmental right lower lobe atelectasis, occluded bronchi, superimposed pneumonia, concerning for postobstructive pneumonia from malignancy. Also with right hilar lymphadenop athy, reactive vs metastatic * Continue ceftriaxone and azithromycin. * Sputum culture with growth of Staph aureus. Add vancomycin. Await susceptibilities. * Marked leukocytosis is improving. Low grade fever 100.2, afebrile >24 hours. Trend inflammatory markers. * Concern for malignancy in light of heavy tobacco abuse. Discussed case with pulmonology. Follow up outpatient for CT scan in 6-8 weeks * CXR 04/09/20 with slightly worsening with increased interstitial pattern with patchy airspace opacities of the right lower lung zone. Discussed with pulmonology. Clinically patient is improving. Continue treatment plan. Will plan to complete 10 days of antibiotic therapy * Supportive care to include bronchodilators, CPT, antipyretics, incentive spirometry * Influenza negative, COVID-19 PCR negative, legionella and pneumococcal antigens pending * Blood cultures pending, negative to date (3) COPD (chronic obstructive pulmonary disease): Code(s): J44.9 - Chronic obstructive pulmonary disease, unspecified Status: Acute Assessment and Plan: No acute issues, no wheezing on exam. * Albuterol and ipratropium nebs q6h (4) Hyponatremia: Code(s): E87.1 - Hypo-osmolality and hyponatremia Status: Acute Assessment and Plan: Sodium ranging 127-130. 127 this morning. * Urine sodium 10. FENa is 0.9%. IV fluids discontinued to avoid volume overload given respiratory illness * Reviewing prior labs suggests this to be a chronic issue. May be related to sertraline use. Hold sertraline. * Recheck sodium this afternoon to ensure remaining stable. * Monitor BMP (5) Transaminitis: Code(s): R74.01 - Elevation of levels of liver transaminase levels Status: Acute Assessment and Plan: LFTs elevated with downward trend today * May be due to acute infection * Hepatitis panel negative * Trend LFTs * Consider RUQ US if worsening * Hold atorvastatin Subjective Date/time seen: 04/10/21 09:40 Interval history: Date of service: 04/10/2021 Aminah Mark is a 70-year-old female with a history of CAD, hypertension, hyperlipidemia, CKD, COPD, and tobacco abuse who is seen in follow-up for pneumonia. Overall she is feeling better today. She is coughing more frequently but cough is less productive. Still with some sputum production. She is able to breathe better when she is sitting up. She also developed a sore throat this morning and feels that she is a bit hoarse. She still endorses conversational dyspnea as well as WADE but she is able to get around without significant limitations. Denies pleuritic pain. Her appetite has improved. She denies nausea
--- NOTE | 2021-04-10 09:40 | PM.IMPN ---
Progress Note: A&P Assessment and Plan (1) Acute respiratory failure with hypoxia: Code(s): J96.01 - Acute respiratory failure with hypoxia Status: Acute Assessment and Plan: Patient hypoxic on presentation down to 87%, secondary to pneumonia. Continue supplemental O2 as needed with goal saturation 92% or above. Wean oxygen to goal Currently requiring 5 L per nasal cannula. CTA negative for PE She will likely require home oxygen. Plan for home O2 eval when closer to discharge (2) Pneumonia of right lower lobe due to infectious organism: Code(s): J18.9 - Pneumonia, unspecified organism Status: Acute Assessment and Plan: Presented with cough x2 weeks. CTA showed multi segmental right lower lobe atelectasis, occluded bronchi, superimposed pneumonia, concerning for postobstructive pneumonia from malignancy. Also with right hilar lymphadenopathy, reactive vs metastatic Continue ceftriaxone and azithromycin. Sputum culture with growth of Staph aureus. Add vancomycin. Await susceptibilities. Marked leukocytosis is improving. Low grade fever 100.2, afebrile >24 hours. Trend inflammatory markers. Concern for malignancy in light of heavy tobacco abuse. Discussed case with pulmonology. Follow up outpatient for CT scan in 6-8 weeks CXR 04/09/20 with slightly worsening with increased interstitial pattern with patchy airspace opacities of the right lower lung zone. Discussed with pulmonology. Clinically patient is improving. Continue treatment plan. Will plan to complete 10 days of antibiotic therapy Supportive care to include bronchodilators, CPT, antipyretics, incentive spirometry Influenza negative, COVID-19 PCR negative, legionella and pneumococcal antigens pending Blood cultures pending, negative to date (3) COPD (chronic obstructive pulmonary disease): Code(s): J44.9 - Chronic obstructive pulmonary disease, unspecified Status: Acute Assessment and Plan: No acute issues, no wheezing on exam. Albuterol and ipratropium nebs q6h (4) Hyponatremia: Code(s): E87.1 - Hypo-osmolality and hyponatremia Status: Acute Assessment and Plan: Sodium ranging 127-130. 127 this morning. Urine sodium 10. FENa is 0.9%. IV fluids discontinued to avoid volume overload given respiratory illness Reviewing prior labs suggests this to be a chronic issue. May be related to sertraline use. Hold sertraline. Recheck sodium this afternoon to ensure remaining stable. Monitor BMP (5) Transaminitis: Code(s): R74.01 - Elevation of levels of liver transaminase levels Status: Acute Assessment and Plan: LFTs elevated with downward trend today May be due to acute infection Hepatitis panel negative Trend LFTs Consider RUQ US if worsening Hold atorvastatin Subjective Date/time seen: 04/10/21 09:40 Interval history: Date of service: 04/10/2021 Aminah Mark is a 70-year-old female with a history of CAD, hypertension, hyperlipidemia, CKD, COPD, and tobacco abuse who is seen in follow-up for pneumonia. Overall she is feeling better today. She is coughing more frequently but cough is less productive. Still with some sputum production. She is able to breathe better when she is sitting up. She also developed a sore throat this morning and feels that she is a bit hoarse. She still endorses conversational dyspnea as well as WADE but she is able to get around without significant limitations. Denies pleuritic pain. Her appetite has improved. She denies nausea or vomiting. No fever or chills. She has been using her Cornet valve but she said she didn't know if she was doing it correctly. Educated her on proper use. Review of Systems Review of Systems: All systems reviewed & are unremarkable except as noted in HPI and below Exam Narrative: Ms. Mark is a thin, well-appearing 70-year-old female who is lying supine in bed. She appears comfort
[2021-04-10] MEDS: CLOPIDOGREL BISULFATE 75 MG TABLET PO (09:57)
[2021-04-10] MEDS: CHOLECALCIFEROL 1,000 UNITS TABLET 2000 UNITS PO (09:57)
[2021-04-10] MEDS: MAGNESIUM OXIDE 400 MG TABLET PO (09:57)
[2021-04-10] MEDS: ENOXAPARIN 40 MG/0.4 ML SYRINGE SUB-Q (09:57)
[2021-04-10] MEDS: lisinopriL 20 MG TABLET PO (09:57)
[2021-04-10] MEDS: GABAPENTIN 300 MG CAPSULE PO ×2 (09:57→20:32)
[2021-04-10] MEDS: FLUTICASONE PROPIONATE 0.05% NA SPR 16 GM BTL (*BKC) 2 SPRAY NASAL (09:58)
[2021-04-10] MEDS: METOPROLOL SUCCINATE EXT REL 50 MG TABCR PO ×2 (09:58→17:54)
[2021-04-10] MEDS: OFLOXACIN 0.3% OPHTH SOLN 5 ML BTL 5 DROP EACH EAR (09:59)
[2021-04-10 15:38] LABS: Sodium 130 mmol/L (137-145)
[2021-04-10] MEDS: ATORVASTATIN 40 MG TABLET PO (20:32)
[2021-04-10] MEDS: AZITHROMYCIN 250 MG TABLET 500 MG PO (21:32)
[2021-04-11] VITALS (13 sets, daily range): BP systolic 109–136; BP diastolic 50–64; PULSE 54–86; RESP 14–20; TEMP 36.4–36.7; O2SAT 91–97
[2021-04-11] MEDS: ALBUTEROL SULFATE NEB 2.5 MG/0.5 ML INH INHALATION ×3 (02:00→19:36)
[2021-04-11] MEDS: IPRATROPIUM BR 0.02% INH SOLN 0.5 MG/2.5 ML VIAL INHALATION ×3 (02:00→19:36)
[2021-04-11 09:22] LABS: Hematocrit 37.4 % (37.0-47.0); Hemoglobin 12.1 g/dL (12.0-15.0); Mean Corpuscular HGB Conc 32.4 g/dl (32-36); Mean Corpuscular Hemoglobin 27.8 pg (26-34); Mean Platelet Volume 8.2 fl (7.4-10.4); Platelet Count Result 470 k/mm3 (150-375); Red Blood Count 4.35 M/mm3 (4.2-5.4); Red Cell Distribution Width 15.1 % (11.5-14.5); White Blood Count 17.5 K/mm3 (4.5-10.0)
[2021-04-11] MEDS: DOXYCYCLINE IV 100 MG in SODIUM CHLORIDE 0.9% IV 100 ML IVPB ×2 (09:25→21:24)
[2021-04-11] MEDS: CLOPIDOGREL BISULFATE 75 MG TABLET PO (09:26)
[2021-04-11] MEDS: FLUTICASONE PROPIONATE 0.05% NA SPR 16 GM BTL (*BKC) 2 SPRAY NASAL (09:26)
[2021-04-11] MEDS: GABAPENTIN 300 MG CAPSULE PO ×2 (09:26→20:25)
[2021-04-11] MEDS: ENOXAPARIN 40 MG/0.4 ML SYRINGE SUB-Q (09:26)
[2021-04-11] MEDS: METOPROLOL SUCCINATE EXT REL 50 MG TABCR PO ×2 (09:27→18:17)
[2021-04-11] MEDS: MAGNESIUM OXIDE 400 MG TABLET PO (09:27)
[2021-04-11] MEDS: CHOLECALCIFEROL 1,000 UNITS TABLET 2000 UNITS PO (09:27)
[2021-04-11] MEDS: OFLOXACIN 0.3% OPHTH SOLN 5 ML BTL 5 DROP EACH EAR (09:28)
[2021-04-11] MEDS: lisinopriL 20 MG TABLET PO (09:28)
[2021-04-11 09:39] LABS: Alanine Aminotransferase 106 U/L (4-35); Albumin Level 3.7 g/dL (3.5-5.1); Alkaline Phosphatase 144 U/L (38-126); Anion Gap 10 mmol/L (8-16); Aspartate Amino Transferase 85 U/L (14-36); Bilirubin,Total 0.6 mg/dL (0.2-1.3); Blood Urea Nitrogen 5 mg/dL (7-17); Calcium 8.9 mg/dL (8.4-10.2); Carbon Dioxide 26 mmol/L (22-30); Chloride 91 mmol/L (98-107); Estimated CRCL calculation 55 ml/min; Estimated Glomerular Filt Rate > 60; Glucose 115 mg/dL (65-110); Potassium 4.3 mmol/L (3.4-5.0); Sodium 127 mmol/L (137-145)
[2021-04-11 09:43] LABS: CRP 4.7 mg/dL (<1.0)
--- NOTE | 2021-04-11 12:09 | PCRCNOTE ---
Window of time for administration has passed. See next scheduled administration.
--- NOTE | 2021-04-11 12:41 | P.PNIM_ITS ---
Progress Note: A&P Assessment and Plan (1) Acute respiratory failure with hypoxia: Code(s): J96.01 - Acute respiratory failure with hypoxia Status: Acute Assessment and Plan: Patient hypoxic on presentation down to 87%, secondary to pneumonia. * Continue supplemental O2 as needed with goal saturation 92% or above. Wean oxygen to goal * Currently requiring 5 L per nasal cannula. * CTA negative for PE * She will likely require home oxygen. Plan for home O2 eval when closer to discharge (2) Pneumonia of right lower lobe due to infectious organism: Code(s): J18.9 - Pneumonia, unspecified organism Status: Acute Assessment and Plan: Presented with cough x2 weeks. CTA showed multi segmental right lower lobe atelectasis, occluded bronchi, superimposed pneumonia, concerning for postobstructive pneumonia from malignancy. Also with right hilar lymphadenop athy, reactive vs metastatic * Continue ceftriaxone and azithromycin. * Sputum culture with growth of Staph aureus. Started on vancomycin, transition to doxycycline today based on susceptibilities * Marked leukocytosis on presentation improved with slight increased today up to 17,000. Afebrile >48 hours. CRP trending down, platelets increasing * Repeat CXR to assess for improvement * Concern for malignancy in light of heavy tobacco abuse based on CTA findings. Discussed case with pulmonology. Follow up outpatient for CT scan in 6-8 weeks * CXR 04/09/20 with slightly worsening with increased interstitial pattern with patchy airspace opacities of the right lower lung zone. Discussed with pulmonology. Clinically patient is improving. Continue treatment plan. Will plan to complete 10 days of antibiotic therapy * Supportive care to include bronchodilators, CPT, antipyretics, incentive spirometry * Influenza negative, COVID-19 PCR negative, pneumococcal antigen negative, Legionella antigen pending * Blood cultures negative to date (3) COPD (chronic obstructive pulmonary disease): Code(s): J44.9 - Chronic obstructive pulmonary disease, unspecified Status: Acute Assessment and Plan: No acute issues, no wheezing on exam. * Albuterol and ipratropium nebs q6h (4) Hyponatremia: Code(s): E87.1 - Hypo-osmolality and hyponatremia Status: Acute Assessment and Plan: Sodium ranging 127-130. * Urine sodium 10. FENa is 0.9%. IV fluids discontinued to avoid volume overload given respiratory illness * Reviewing prior labs suggests this to be a chronic issue. May be related to sertraline use. Holding sertraline. * Recheck sodium this evening to ensure remaining stable. * Monitor BMP (5) Transaminitis: Code(s): R74.01 - Elevation of levels of liver transaminase levels Status: Acute Assessment and Plan: LFTs elevated but slowly improving * May be due to acute infection * Hepatitis panel negative * Trend LFTs * Consider RUQ US if worsening * Hold atorvastatin Subjective Date/time seen: 04/11/21 12:41 Interval history: Date of service: 04/10/2021 Aminah Mark is a 70-year-old female with a history of CAD, hypertension, hyperlipidemia, CKD, COPD, and tobacco abuse who is seen in follow-up for pneumonia. Feels a bit better today. Still having significant coughing spells where she is coughing up white, milky sputum. She is able to get up and walk around, though still endorses mild WADE. Denies chest pain or palpitations. Eating and drinking well. No nausea or vomiting. Complains of dry nasal passages. No additional concerns.
--- NOTE | 2021-04-11 12:41 | PM.IMPN ---
Progress Note: A&P Assessment and Plan (1) Acute respiratory failure with hypoxia: Code(s): J96.01 - Acute respiratory failure with hypoxia Status: Acute Assessment and Plan: Patient hypoxic on presentation down to 87%, secondary to pneumonia. Continue supplemental O2 as needed with goal saturation 92% or above. Wean oxygen to goal Currently requiring 5 L per nasal cannula. CTA negative for PE She will likely require home oxygen. Plan for home O2 eval when closer to discharge (2) Pneumonia of right lower lobe due to infectious organism: Code(s): J18.9 - Pneumonia, unspecified organism Status: Acute Assessment and Plan: Presented with cough x2 weeks. CTA showed multi segmental right lower lobe atelectasis, occluded bronchi, superimposed pneumonia, concerning for postobstructive pneumonia from malignancy. Also with right hilar lymphadenopathy, reactive vs metastatic Continue ceftriaxone and azithromycin. Sputum culture with growth of Staph aureus. Started on vancomycin, transition to doxycycline today based on susceptibilities Marked leukocytosis on presentation improved with slight increased today up to 17,000. Afebrile >48 hours. CRP trending down, platelets increasing Repeat CXR to assess for improvement Concern for malignancy in light of heavy tobacco abuse based on CTA findings. Discussed case with pulmonology. Follow up outpatient for CT scan in 6-8 weeks CXR 04/09/20 with slightly worsening with increased interstitial pattern with patchy airspace opacities of the right lower lung zone. Discussed with pulmonology. Clinically patient is improving. Continue treatment plan. Will plan to complete 10 days of antibiotic therapy Supportive care to include bronchodilators, CPT, antipyretics, incentive spirometry Influenza negative, COVID-19 PCR negative, pneumococcal antigen negative, Legionella antigen pending Blood cultures negative to date (3) COPD (chronic obstructive pulmonary disease): Code(s): J44.9 - Chronic obstructive pulmonary disease, unspecified Status: Acute Assessment and Plan: No acute issues, no wheezing on exam. Albuterol and ipratropium nebs q6h (4) Hyponatremia: Code(s): E87.1 - Hypo-osmolality and hyponatremia Status: Acute Assessment and Plan: Sodium ranging 127-130. Urine sodium 10. FENa is 0.9%. IV fluids discontinued to avoid volume overload given respiratory illness Reviewing prior labs suggests this to be a chronic issue. May be related to sertraline use. Holding sertraline. Recheck sodium this evening to ensure remaining stable. Monitor BMP (5) Transaminitis: Code(s): R74.01 - Elevation of levels of liver transaminase levels Status: Acute Assessment and Plan: LFTs elevated but slowly improving May be due to acute infection Hepatitis panel negative Trend LFTs Consider RUQ US if worsening Hold atorvastatin Subjective Date/time seen: 04/11/21 12:41 Interval history: Date of service: 04/10/2021 Aminah Mark is a 70-year-old female with a history of CAD, hypertension, hyperlipidemia, CKD, COPD, and tobacco abuse who is seen in follow-up for pneumonia. Feels a bit better today. Still having significant coughing spells where she is coughing up white, milky sputum. She is able to get up and walk around, though still endorses mild WADE. Denies chest pain or palpitations. Eating and drinking well. No nausea or vomiting. Complains of dry nasal passages. No additional concerns. At the patient's request, I spoke with her sister Cyndy via phone to provide updates and answer questions. Cyndy stated that several of her family members have been calling for updates because the patient has a hard time talking on the phone due to her hearing impairment. I told her that we request one family member to be the designated contact center assistant to streamline updates. Review of Systems Leona
[2021-04-11 12:53] LABS: Pneumococcal Antigen Urine Not Detected (Not Detected)
[2021-04-11 18:41] LABS: Sodium 128 mmol/L (137-145)
[2021-04-11] MEDS: ATORVASTATIN 40 MG TABLET PO (20:25)
[2021-04-11] MEDS: AZITHROMYCIN 250 MG TABLET 500 MG PO (20:25)
[2021-04-12] VITALS (11 sets, daily range): BP systolic 129–155; BP diastolic 65–72; PULSE 62–75; RESP 16–20; TEMP 36.2–36.4; O2SAT 90–95
[2021-04-12 04:15] LABS: Legionella pneumophila Ag Ur Not Detected (Not Detected)
[2021-04-12 06:50] LABS: Basophils Absolute Auto 0.1 K/mm3 (0.0-0.1); Basophils Percent Auto 0.7 % (0.2-1.2); Eosinophils Absolute Auto 0.4 K/mm3 (0-0.3); Eosinophils Percent Auto 2.9 % (0-4.4); Hematocrit 33.9 % (37.0-47.0); Hemoglobin 11.5 g/dL (12.0-15.0); Immature Granulocyte Absolute 0.72 K/mm3 (0.00-0.031); Immature Granulocyte Percent A 4.8 % (0-0.5); Lymphocytes Absolute Auto 1.95 K/mm3 (0.9-3.2); Mean Corpuscular HGB Conc 33.9 g/dl (32-36); Mean Corpuscular Hemoglobin 28.6 pg (26-34); Mean Corpuscular Volume 84.3 fl (80-100); Mean Platelet Volume 8.3 fl (7.4-10.4); Monocytes Absolute Auto 1.4 K/mm3 (0.1-0.6); Monocytes Percent Auto 9.2 % (2.6-8.5); Neutrophils Absolute Auto 10.5 K/mm3 (1.3-6.7); Neutrophils Percent Auto 69.4 % (45.5-73.1); Platelet Count Result 453 k/mm3 (150-375); Red Blood Count 4.02 M/mm3 (4.2-5.4)
[2021-04-12 06:55] LABS: Alanine Aminotransferase 88 U/L (4-35); Albumin Level 3.2 g/dL (3.5-5.1); Alkaline Phosphatase 118 U/L (38-126); Anion Gap 8 mmol/L (8-16); Aspartate Amino Transferase 54 U/L (14-36); Bilirubin,Total 0.4 mg/dL (0.2-1.3); Blood Urea Nitrogen 6 mg/dL (7-17); Calcium 8.7 mg/dL (8.4-10.2); Carbon Dioxide 23 mmol/L (22-30); Chloride 96 mmol/L (98-107); Estimated CRCL calculation 55 ml/min; Estimated Glomerular Filt Rate > 60; Glucose 100 mg/dL (65-110); Potassium 4.4 mmol/L (3.4-5.0); Sodium 127 mmol/L (137-145)
[2021-04-12] MEDS: IPRATROPIUM BR 0.02% INH SOLN 0.5 MG/2.5 ML VIAL INHALATION ×2 (08:24→14:12)
[2021-04-12] MEDS: ALBUTEROL SULFATE NEB 2.5 MG/0.5 ML INH INHALATION ×2 (08:24→14:12)
[2021-04-12] MEDS: CLOPIDOGREL BISULFATE 75 MG TABLET PO (09:41)
[2021-04-12] MEDS: FLUTICASONE PROPIONATE 0.05% NA SPR 16 GM BTL (*BKC) 2 SPRAY NASAL (09:41)
[2021-04-12] MEDS: CHOLECALCIFEROL 1,000 UNITS TABLET 2000 UNITS PO (09:41)
[2021-04-12] MEDS: MAGNESIUM OXIDE 400 MG TABLET PO (09:42)
[2021-04-12] MEDS: lisinopriL 20 MG TABLET PO (09:42)
[2021-04-12] MEDS: METOPROLOL SUCCINATE EXT REL 50 MG TABCR PO ×2 (09:42→17:41)
[2021-04-12] MEDS: GABAPENTIN 300 MG CAPSULE PO ×2 (09:43→20:27)
[2021-04-12] MEDS: SALINE 0.65% NAS SOLN 44 ML BTL 1 SPRAY NASAL (09:43)
[2021-04-12] MEDS: ENOXAPARIN 40 MG/0.4 ML SYRINGE SUB-Q (09:44)
[2021-04-12] MEDS: DOXYCYCLINE IV 100 MG in SODIUM CHLORIDE 0.9% IV 100 ML IVPB ×2 (09:44→21:14)
[2021-04-12 10:48] LABS: Add Urine Microscopic? NO; Appearance Urine Clear (Clear); Bilirubin Urine Negative (Negative); Blood Urine Negative (Negative); Color Urine Straw (Yellow); Glucose Urine UA Negative (Negative); Ketones Urine Negative (Negative); Leukocyte Esterase Ur Negative LEU/UL (Negative); Nitrate Urine Negative (Negative); Protein Urine Negative (Negative); Specific Grav Ur 1.005 (1.001-1.035); Urobilinogen Urine Negative mg/dL (<2.0)
--- NOTE | 2021-04-12 15:37 | P.PNIM_ITS ---
Progress Note: A&P Assessment and Plan (1) Acute respiratory failure with hypoxia: Code(s): J96.01 - Acute respiratory failure with hypoxia Status: Acute Assessment and Plan: Patient hypoxic on presentation down to 87%, secondary to pneumonia. * Continue supplemental O2 as needed with goal saturation 92% or above. Wean oxygen to goal * She is requiring 5 L per nasal cannula. * CTA negative for PE * She will likely require home oxygen. Plan for home O2 eval tomorrow with plans for discharge if continued improvement (2) Pneumonia of right lower lobe due to infectious organism: Code(s): J18.9 - Pneumonia, unspecified organism Status: Acute Assessment and Plan: Presented with cough x2 weeks. CTA showed multi segmental right lower lobe atelectasis, occluded bronchi, superimposed pneumonia, concerning for postobstructive pneumonia from malignancy. Also with right hilar lymphadenopathy, reactive vs metastatic * Continue ceftriaxone and azithromycin. * Sputum culture with growth of MSSA. Continue doxycycline. * Plan to complete 10 days of antibiotic therapy * Marked leukocytosis on presentation improved with slight increased yesterday. Trending down again today. Afebrile >72 hours. CRP trending down * Repeat CXR 04/11/21 showed stable airspace opacities * Concern for malignancy in light of heavy tobacco abuse based on CTA findings. Discussed case with pulmonology. Follow up outpatient for CT scan in 6-8 weeks * Supportive care to include bronchodilators, CPT, antipyretics, incentive spirometry * Influenza negative, COVID-19 PCR negative, pneumococcal and legionella antigen negative * Blood cultures negative (3) COPD (chronic obstructive pulmonary disease): Code(s): J44.9 - Chronic obstructive pulmonary disease, unspecified Status: Acute Assessment and Plan: No acute issues, no wheezing on exam. * Albuterol and ipratropium nebs. Change to prn. She has been refusing some of the scheduled treatments (4) Hyponatremia: Code(s): E87.1 - Hypo-osmolality and hyponatremia Status: Acute Assessment and Plan: Sodium ranging 127-130. * Urine sodium 10. FENa is 0.9%. IV fluids discontinued to avoid volume overload given respiratory illness * Reviewing prior labs suggests this to be a chronic issue. May be related to sertraline use. Holding sertraline. * Monitor BMP (5) Transaminitis: Code(s): R74.01 - Elevation of levels of liver transaminase levels Status: Acute Assessment and Plan: LFTs elevated but slowly improving * May be due to acute infection * Hepatitis panel negative * Trend LFTs * Hold atorvastatin Subjective Date/time seen: 04/12/21 15:37 Interval history: Date of service: 04/12/2021 Aminah Mark is a 70-year-old female with a history of CAD, hypertension, hyperlipidemia, CKD, COPD, and tobacco abuse who is seen in follow-up for pneumonia. She is feeling pretty well today. Overall endorses improvement. Continues to endorse cough but states her sputum is now clear in color. She previously had a sore throat but this has resolved. Notes her shortness of breath has improved and now she only has very few episodes of dyspnea with exe rtion. She did have a bit of a headache this morning she thought it might be due to her oxygen. She took her nasal cannula often said that she felt a little bit better. Discussed with her she is continue her oxygen continuously and was instructed by nursing staff. She denies nasal or sinus congestion. She has been eating well. Denies nausea,
--- NOTE | 2021-04-12 15:37 | PM.IMPN ---
Progress Note: A&P Assessment and Plan (1) Acute respiratory failure with hypoxia: Code(s): J96.01 - Acute respiratory failure with hypoxia Status: Acute Assessment and Plan: Patient hypoxic on presentation down to 87%, secondary to pneumonia. Continue supplemental O2 as needed with goal saturation 92% or above. Wean oxygen to goal She is requiring 5 L per nasal cannula. CTA negative for PE She will likely require home oxygen. Plan for home O2 eval tomorrow with plans for discharge if continued improvement (2) Pneumonia of right lower lobe due to infectious organism: Code(s): J18.9 - Pneumonia, unspecified organism Status: Acute Assessment and Plan: Presented with cough x2 weeks. CTA showed multi segmental right lower lobe atelectasis, occluded bronchi, superimposed pneumonia, concerning for postobstructive pneumonia from malignancy. Also with right hilar lymphadenopathy, reactive vs metastatic Continue ceftriaxone and azithromycin. Sputum culture with growth of MSSA. Continue doxycycline. Plan to complete 10 days of antibiotic therapy Marked leukocytosis on presentation improved with slight increased yesterday. Trending down again today. Afebrile >72 hours. CRP trending down Repeat CXR 04/11/21 showed stable airspace opacities Concern for malignancy in light of heavy tobacco abuse based on CTA findings. Discussed case with pulmonology. Follow up outpatient for CT scan in 6-8 weeks Supportive care to include bronchodilators, CPT, antipyretics, incentive spirometry Influenza negative, COVID-19 PCR negative, pneumococcal and legionella antigen negative Blood cultures negative (3) COPD (chronic obstructive pulmonary disease): Code(s): J44.9 - Chronic obstructive pulmonary disease, unspecified Status: Acute Assessment and Plan: No acute issues, no wheezing on exam. Albuterol and ipratropium nebs. Change to prn. She has been refusing some of the scheduled treatments (4) Hyponatremia: Code(s): E87.1 - Hypo-osmolality and hyponatremia Status: Acute Assessment and Plan: Sodium ranging 127-130. Urine sodium 10. FENa is 0.9%. IV fluids discontinued to avoid volume overload given respiratory illness Reviewing prior labs suggests this to be a chronic issue. May be related to sertraline use. Holding sertraline. Monitor BMP (5) Transaminitis: Code(s): R74.01 - Elevation of levels of liver transaminase levels Status: Acute Assessment and Plan: LFTs elevated but slowly improving May be due to acute infection Hepatitis panel negative Trend LFTs Hold atorvastatin Subjective Date/time seen: 04/12/21 15:37 Interval history: Date of service: 04/12/2021 Aminah Mark is a 70-year-old female with a history of CAD, hypertension, hyperlipidemia, CKD, COPD, and tobacco abuse who is seen in follow-up for pneumonia. She is feeling pretty well today. Overall endorses improvement. Continues to endorse cough but states her sputum is now clear in color. She previously had a sore throat but this has resolved. Notes her shortness of breath has improved and now she only has very few episodes of dyspnea with exertion. She did have a bit of a headache this morning she thought it might be due to her oxygen. She took her nasal cannula often said that she felt a little bit better. Discussed with her she is continue her oxygen continuously and was instructed by nursing staff. She denies nasal or sinus congestion. She has been eating well. Denies nausea, vomiting. No fevers or chills. Feels a bit better today. Still having significant coughing spells where she is coughing up white, milky sputum. She is able to get up and walk around, though still endorses mild WADE. Denies chest pain or palpitations. Eating and drinking well. No nausea or vomiting. Complains of dry nasal passages. No additional concerns. Review of Systems
[2021-04-12] MEDS: ATORVASTATIN 40 MG TABLET PO (20:27)
[2021-04-12] MEDS: AZITHROMYCIN 250 MG TABLET 500 MG PO (20:28)
[2021-04-13] VITALS (10 sets, daily range): BP systolic 135–159; BP diastolic 49–59; PULSE 58–82; RESP 15–18; TEMP 36.4–36.5; O2SAT 86–96
[2021-04-13 08:13] LABS: Hematocrit 37.3 % (37.0-47.0); Hemoglobin 12.8 g/dL (12.0-15.0); Mean Corpuscular HGB Conc 34.3 g/dl (32-36); Mean Corpuscular Hemoglobin 28.3 pg (26-34); Mean Corpuscular Volume 82.3 fl (80-100); Mean Platelet Volume 8.4 fl (7.4-10.4); Platelet Count Result 582 k/mm3 (150-375); Red Blood Count 4.53 M/mm3 (4.2-5.4); Red Cell Distribution Width 14.9 % (11.5-14.5); White Blood Count 16.8 K/mm3 (4.5-10.0)
[2021-04-13 08:28] LABS: Anion Gap 12 mmol/L (8-16); Blood Urea Nitrogen 6 mg/dL (7-17); Calcium 9.4 mg/dL (8.4-10.2); Carbon Dioxide 26 mmol/L (22-30); Chloride 93 mmol/L (98-107); Estimated CRCL calculation 63 ml/min; Estimated Glomerular Filt Rate > 60; Glucose 95 mg/dL (65-110); Potassium 4.4 mmol/L (3.4-5.0); Sodium 131 mmol/L (137-145)
[2021-04-13] MEDS: OFLOXACIN 0.3% OPHTH SOLN 5 ML BTL 5 DROP EACH EAR (08:44)
[2021-04-13] MEDS: CHOLECALCIFEROL 1,000 UNITS TABLET 2000 UNITS PO (08:45)
[2021-04-13] MEDS: MAGNESIUM OXIDE 400 MG TABLET PO (08:45)
[2021-04-13] MEDS: METOPROLOL SUCCINATE EXT REL 50 MG TABCR PO ×2 (08:45→16:48)
[2021-04-13] MEDS: lisinopriL 20 MG TABLET PO (08:45)
[2021-04-13] MEDS: FLUTICASONE PROPIONATE 0.05% NA SPR 16 GM BTL (*BKC) 2 SPRAY NASAL (08:45)
[2021-04-13] MEDS: ENOXAPARIN 40 MG/0.4 ML SYRINGE SUB-Q (08:45)
[2021-04-13] MEDS: CLOPIDOGREL BISULFATE 75 MG TABLET PO (08:45)
[2021-04-13] MEDS: GABAPENTIN 300 MG CAPSULE PO (08:45)
[2021-04-13] MEDS: DOXYCYCLINE IV 100 MG in SODIUM CHLORIDE 0.9% IV 100 ML IVPB (08:54)
--- NOTE | 2021-04-13 09:57 | PCNWS ---
Weekly nutritional screen. Pt screened in for 7 day length of stay. Patient is tolerating current diet with adequate intake. No weight loss reported. Recommend reweighing pt prior to d/c. No nutritional needs at this time.
--- NOTE | 2021-04-13 13:44 | P.DS_ITS ---
DS: Admitting Diagnosis Discharge Date 04/13/2021 Admitting Diagnosis Pneumonia DS: Discharge Diagnosis Discharge Diagnosis (1) Acute respiratory failure with hypoxia: Code(s): J96.01 - Acute respiratory failure with hypoxia Status: Acute Assessment and Plan: Patient hypoxic on presentation down to 87%, secondary to pneumonia. * Required up to 5 L per nasal cannula * Home O2 eval performed and she needs 4 L of oxygen with activity and 2 L with rest * Discussed with pulmonology who recommended 4 L of oxygen when sleeping, consistent with her activity requirements * CTA negative for PE (2) Pneumonia of right lower lobe due to infectious organism: Code(s): J18.9 - Pneumonia, unspecified organism Status: Acute Assessment and Plan: Presented with cough x2 weeks. CTA showed multi segmental right lower lobe atelectasis, occluded bronchi, superimposed pneumonia, concerning for postobstructive pneumonia from malignancy. Also with right hilar lymphadenopathy, reactive vs metastatic * Case was discussed with pulmonology * She received IV ceftriaxone and azithromycin during admission * Sputum culture with growth of MSSA for which she was started on vancomycin and was transition to doxycycline based on susceptibilities * She will continue doxycycline to complete 10 days of therapy * She will also continue Levaquin to complete 10 days from initiation of ceftriaxone per pulmonology recommendations * She had marked leukocytosis on presentation which did improve overall but with some slight fluctuation. She should obtain a repeat CBC in 2 weeks with follow-up to PCP. CRP improved. * Repeat follow-up CXR was monitored which did eventually show some mild improvement/stable airspace opacities * Concern for malignancy in light of heavy tobacco abuse based on CTA findings. Discussed case with pulmonology. Follow up outpatient for CT scan in 6-8 weeks * Supportive care provided including bronchodilators, CPT, antipyretics, incent della spirometry * Influenza negative, COVID-19 PCR negative, pneumococcal and legionella antigen negative. Blood cultures negative (3) COPD (chronic obstructive pulmonary disease): Code(s): J44.9 - Chronic obstructive pulmonary disease, unspecified Status: Acute Assessment and Plan: No acute issues, no wheezing on exam. * Albuterol and ipratropium nebs administer during hospitalization * Albuterol rescue inhaler as needed (4) Hyponatremia: Code(s): E87.1 - Hypo-osmolality and hyponatremia Status: Acute Assessment and Plan: Sodium was slightly decreased ranging 127-131 * Urine sodium 10. FENa is 0.9%. She did receive IV fluids and was appropriately hydrated * Reviewing prior labs suggests this to be a chronic issue. May be related to sertraline use. (5) Transaminitis: Code(s): R74.01 - Elevation of levels of liver transaminase levels Status: Acute Assessment and Plan: LFTs elevated with slow improvement * Likely related to acute infection * Hepatitis panel negative * Atorvastatin was held but was able to be resumed on discharge as LFTs trended down DS: Summary Hospital Course Hospital Course: Date of admission: 04/07/2021 Date of discharge: 04/13/2021 Aminah Mark is a 70-year-old female with a history of CAD, hypertension, hyperlipidemia, CKD, COPD, and tobacco abuse who presented to the emergency department on 04/06/2021 after being transported from urgent care with complaints of2 weeks of productive cough and generally feeling unwell. O
--- NOTE | 2021-04-13 13:44 | PM.DS ---
DS: Admitting Diagnosis Discharge Date 04/13/2021 Admitting Diagnosis Pneumonia DS: Discharge Diagnosis Discharge Diagnosis (1) Acute respiratory failure with hypoxia: Code(s): J96.01 - Acute respiratory failure with hypoxia Status: Acute Assessment and Plan: Patient hypoxic on presentation down to 87%, secondary to pneumonia. Required up to 5 L per nasal cannula Home O2 eval performed and she needs 4 L of oxygen with activity and 2 L with rest Discussed with pulmonology who recommended 4 L of oxygen when sleeping, consistent with her activity requirements CTA negative for PE (2) Pneumonia of right lower lobe due to infectious organism: Code(s): J18.9 - Pneumonia, unspecified organism Status: Acute Assessment and Plan: Presented with cough x2 weeks. CTA showed multi segmental right lower lobe atelectasis, occluded bronchi, superimposed pneumonia, concerning for postobstructive pneumonia from malignancy. Also with right hilar lymphadenopathy, reactive vs metastatic Case was discussed with pulmonology She received IV ceftriaxone and azithromycin during admission Sputum culture with growth of MSSA for which she was started on vancomycin and was transition to doxycycline based on susceptibilities She will continue doxycycline to complete 10 days of therapy She will also continue Levaquin to complete 10 days from initiation of ceftriaxone per pulmonology recommendations She had marked leukocytosis on presentation which did improve overall but with some slight fluctuation. She should obtain a repeat CBC in 2 weeks with follow-up to PCP. CRP improved. Repeat follow-up CXR was monitored which did eventually show some mild improvement/stable airspace opacities Concern for malignancy in light of heavy tobacco abuse based on CTA findings. Discussed case with pulmonology. Follow up outpatient for CT scan in 6-8 weeks Supportive care provided including bronchodilators, CPT, antipyretics, incentive spirometry Influenza negative, COVID-19 PCR negative, pneumococcal and legionella antigen negative. Blood cultures negative (3) COPD (chronic obstructive pulmonary disease): Code(s): J44.9 - Chronic obstructive pulmonary disease, unspecified Status: Acute Assessment and Plan: No acute issues, no wheezing on exam. Albuterol and ipratropium nebs administer during hospitalization Albuterol rescue inhaler as needed (4) Hyponatremia: Code(s): E87.1 - Hypo-osmolality and hyponatremia Status: Acute Assessment and Plan: Sodium was slightly decreased ranging 127-131 Urine sodium 10. FENa is 0.9%. She did receive IV fluids and was appropriately hydrated Reviewing prior labs suggests this to be a chronic issue. May be related to sertraline use. (5) Transaminitis: Code(s): R74.01 - Elevation of levels of liver transaminase levels Status: Acute Assessment and Plan: LFTs elevated with slow improvement Likely related to acute infection Hepatitis panel negative Atorvastatin was held but was able to be resumed on discharge as LFTs trended down DS: Summary Hospital Course Hospital Course: Date of admission: 04/07/2021 Date of discharge: 04/13/2021 Aminah Mark is a 70-year-old female with a history of CAD, hypertension, hyperlipidemia, CKD, COPD, and tobacco abuse who presented to the emergency department on 04/06/2021 after being transported from urgent care with complaints of2 weeks of productive cough and generally feeling unwell. On presentation to the ER, her vital signs are stable, she was afebrile, WBC 40084, sodium 128, additional CBC and BMP unremarkable, CXR and CTA consistent with pneumonia. She was admitted to the hospitalist service for further evaluation and management. Please see above for further details. She received IV antibiotics for treatment of pneumonia and will continue antibiotics as an outpatient. Repeat CT scan
--- NOTE | 2021-04-13 14:44 | HOMEO2EVAL ---
Evaluation was performed at [facility] Home Oxygen Evaluation RC: Home Oxygen (O2) Evaluation Start: 04/13/21 11:41 Freq: ONCE Status: Active Protocol: RPE Activity Type Activity Date Activity User E-Sign Co-Sign Detail Recorded Client Recorded Date Recorded By Document 04/13/21 12:30 [email or web address] [email or web address] 04/13/21 14:44 KRM Document 04/13/21 12:31 [email or web address] [email or web address] 04/13/21 14:44 KRM Document 04/13/21 12:35 [email or web address] [email or web address] 04/13/21 14:44 KRM Document 04/13/21 12:37 [email or web address] [email or web address] 04/13/21 14:44 KRM Document 04/13/21 14:43 [email or web address] [email or web address] 04/13/21 14:44 KRM Document 04/13/21 14:44 [email or web address] [email or web address] 04/13/21 14:44 KRM 04/13/21 04/13/21 04/13/21 12:30 12:31 12:35 Home O2 Evaluation Test Phase Resting Resting Resting Oxygen Delivery Room Air Nasal Cannula Nasal Cannula Oxygen Flow Rate (L/min) 1 2 Pulse Oximetry (90-100 %) 86 L 88 L 92 Pulse Rate (60-100 beats/min) 64 64 60 Activity Tolerance Ambulation Distance (feet) Ambulation Distance (meters) Home Oxygen Evaluation Comments Treatment Charges O2 Evaluation - Inpatient 04/13/21 04/13/21 04/13/21 12:37 14:43 14:44 Home O2 Evaluation Test Phase Exercise Exercise Exercise Oxygen Delivery Nasal Cannula Nasal Cannula Nasal Cannula Oxygen Flow Rate (L/min) 2 3 4 Pulse Oximetry (90-100 %) 87 L 87 L 90 Pulse Rate (60-100 beats/min) 75 80 82 Activity Tolerance Fair Ambulation Distance (feet) 100 Ambulation Distance (meters) 30.47 Home Oxygen Evaluation Comments 2LPM AT REST, 4LPM WITH ACTIVITY. Treatment Charges
--- NOTE | 2021-04-13 14:53 | PCRCNOTE ---
PT. REQUIRES 2LPM OXYGEN AT REST AND 4LPM WITH ACTIVITY. SET PT. UP WITH [facility]. [facility] WILL DELIVER TANK TODAY.
== END 2021-04-13 17:30 | disposition home or self-care (01) | DRG 193 ==
LOC: ANHED 19:01 → ANH3MEDSUR 04-07 05:10
PROVIDERS: Admitting Provider Internal Medicine; Emergency Provider Emergency Medicine; PCP Family Medicine; Visit Provider Physician Assistant
DX: J18.9 Pneumonia, unspecified organism (principal); J96.01 Acute respiratory failure with hypoxia; J44.0 Chronic obstructive pulmonary disease with (acute) lower respiratory infection; E87.1 Hypo-osmolality and hyponatremia; T43.225A Adverse effect of selective serotonin reuptake inhibitors, initial encounter; Z20.822 Contact with and (suspected) exposure to COVID-19; B95.61 Methicillin susceptible Staphylococcus aureus infection as the cause of diseases classified elsewhere; I25.10 Atherosclerotic heart disease of native coronary artery without angina pectoris; I12.9 Hypertensive chronic kidney disease with stage 1 through stage 4 chronic kidney disease, or unspecified chronic kidney disease; N18.30 Chronic kidney disease, stage 3 unspecified; F41.8 Other specified anxiety disorders; E78.5 Hyperlipidemia, unspecified; M85.80 Other specified disorders of bone density and structure, unspecified site; G62.9 Polyneuropathy, unspecified; M19.90 Unspecified osteoarthritis, unspecified site; N32.81 Overactive bladder; Z66 Do not resuscitate; Z87.891 Personal history of nicotine dependence; Z79.82 Long term (current) use of aspirin; Z95.1 Presence of aortocoronary bypass graft
CPT/HCPCS: 36415; 71045; 71046; 71275; 80048; 80053; 80074; 81003; 82570; 82728; 83735; 83880; 84295; 84300; 84484; 85025; 85027; 85380; 86140; 87040; 87070; 87147; 87186; 87205; 87426; 87449; 87804; 87899; 93005; 94618; 94640; 96365; 96367; 99215; 99223; 99291; A9270; C9803; G0463; J0456; J0696; J1650; J3370; J7030; Q9967; U0003; U0005

== ENCOUNTER → 2021-06-04 10:22 | Outpatient (CLI) | payer MEDICARE, MEDICAID, SELFPAY ==
--- NOTE | ~2021-06-04 | CT_ITS ---
EXAMINATION:CT diagnostic chest w con DATE: 06/04/2021 10:54 INDICATION: Chronic obstructive percent pulmonary disease, unspecified. Shortness of breath. TECHNIQUE: Computed tomography (CT) of the chest was performed with 75 mL Omnipaque 350 intravenous c ontrast. Automated exposure control and iterative reconstruction technique were employed. The dose-le ngth product (DLP) was 188.49 mGy-cm. COMPARISON: Chest CT 04/06/2021 FINDINGS: There is moderate emphysema. There is peripheral septal thickening in the lungs with a lowe r lung predominance with interval worsening, consistent with mild pulmonary edema. There is a 3 mm no dule in right upper lobe, likely benign. No pleural effusion. There is left atrial enlargement of the heart. There are coronary artery calcifications. There are changes of coronary artery bypass graftin g. No pericardial effusion. There is mild mediastinal and bilateral hilar lymphadenopathy. For exampl e, a right hilar node measures 14 x 13 mm. The central pulmonary arteries are enlarged, consistent wi th pulmonary arterial hypertension. There is cortical thinning of the kidneys. There is severe cervic al and lumbar spondylosis and moderate thoracic spondylosis. IMPRESSION: 1. Mild mediastinal and bilateral hilar lymphadenopathy, likely reactive. 2. Moderate emphysema. 3. Mild pulmonary edema. Reviewed, dictated and finalized at location A. COURIER
[2021-06-04 10:42] LABS: Estimated Glomerular Filt Rate 55
== END ==
PROVIDERS: Visit Provider Family Medicine
DX: J18.9 Pneumonia, unspecified organism (principal); J44.9 Chronic obstructive pulmonary disease, unspecified; J96.01 Acute respiratory failure with hypoxia; J43.9 Emphysema, unspecified; J81.1 Chronic pulmonary edema
CPT/HCPCS: 71260; Q9967

== ENCOUNTER 2021-08-20 09:17 | Outpatient (CLI) | payer MEDICARE, MEDICAID, SELFPAY ==
--- NOTE | 2021-08-21 11:20 | WPDPFTINT ---
PFT Procedure Performed PFT Procedure Performed Spirometry with Pre/Post Bronchodilator Plethysmography (Lung Vol) Diffusing Cap (DLCO) Flow Vol Loop PFT Interpretation Lung volumes were measured with the body plethysmography method. Lung volumes are unremarkable. Spirometry showed normal expiratory flow rates and a normal FEV1 to FVC ratio of 76%. Following administration of a bronchodilator, the expiratory flow rates did not change. DLCO was not measured despite multiple attempts due to patient's lack of cooperation. Impression: Spirometry and lung volumes within the normal range.
--- NOTE | 2021-08-21 11:23 | WPDSIXMINUTE ---
Six Minute Walk Procedure Procedure Performed Pulmonary Stress Test (6 min walk) Six Minute Walk This 6 minute walk test was carried out with the patient breathing room air. At baseline, the hemoglobin saturation was 99%. The patient walked 1100 ft with no pauses during testing. During the walk, the oxyhemoglobin saturation remained over 95%. Impression: No evidence of oxyhemoglobin desaturation on this testing.
== END 2021-08-20 09:18 | disposition home or self-care (01) ==
LOC: ANHPFT 09:19
PROVIDERS: PCP Family Medicine; Visit Provider Internal Medicine Pulmonary Disease
DX: J44.9 Chronic obstructive pulmonary disease, unspecified (principal); Z87.891 Personal history of nicotine dependence
CPT/HCPCS: 94060; 94618; 94726

== ENCOUNTER 2021-09-02 13:38 | Outpatient (CLI) | payer MEDICARE, MEDICAID, SELFPAY ==
--- NOTE | ~2021-09-02 | US_ITS ---
EXAMINATION: US renal BI DATE: 09/02/2021 14:21 INDICATION: Stage III chronic kidney disease TECHNIQUE: Multiple ultrasound grayscale images of the kidneys were obtained. COMPARISON: None. FINDINGS: The right kidney measures 8.5 x 3.6 x 4.6 cm. The left kidney measures 10.8 x 4.5 x 4.7 cm. The kidne ys demonstrate normal echogenicity. Mildly prominent right renal pelvis but without dena hydronephro sis. No left-sided hydronephrosis. No stones identified. The bladder is normal. IMPRESSION: 1. Normal kidneys with mildly prominent right renal pelvis without dena hydronephrosis. Reviewed, dictated and finalized at location B. IMPRESSION: 1. Normal kidneys with mildly prominent right renal pelvis without dena hydro nephrosis.
== END 2021-09-02 13:39 | disposition home or self-care (01) ==
LOC: ANHIMG 13:41
PROVIDERS: PCP Family Medicine; Visit Provider Internal Medicine Nephrology
DX: N18.31 Chronic kidney disease, stage 3a (principal)
CPT/HCPCS: 76775

== ENCOUNTER 2021-10-10 11:14 | Emergency (ER) | payer MEDICARE, MEDICAID, SELFPAY ==
[2021-10-10 11:28] VITALS: BP 154/50; PULSE 50; RESP 20; TEMP 36.4; O2SAT 100
--- NOTE | 2021-10-10 12:02 | ED.GENADULT ---
HPI - General Adult General Chief complaint: Skin/Abscess/Foreign Body Stated complaint: spider bite Time Seen by Provider: 10/10/21 12:02 Source: patient Mode of arrival: ambulatory Limitations: no limitations History of Present Illness HPI narrative: 71-year-old female patient presents to the [facility] with complaints of a wound to the right foot. Patient states she got bit by a spider about 2 days ago. Patient states she dug out the poison and states she is here to get the rest of the poison out. Patient denies any fevers, body aches or chills. Patient states she is been putting antibiotic ointment on the area and keeping it covered. Related Data Home Medications Medication Instructions Recorded Confirmed aspirin 81 mg tablet,delayed 81 mg PO DAILY 04/05/19 09/03/21 release (Adult Aspirin Regimen) cholecalciferol (vitamin D3) 50 50 mcg PO DAILY 03/07/20 09/03/21 mcg (2,000 unit) capsule fexofenadine 180 mg tablet 180 mg PO DAILY 09/11/20 09/03/21 (Allergy Relief (fexofenadine)) acetaminophen 650 mg 1,300 mg PO Q12H 10/23/20 09/03/21 tablet,extended release melatonin 10 mg tablet 10 mg PO DAILY 10/23/20 09/03/21 ciprofloxacin 0.3 %-dexamethasone 4 drp EACH EAR Q12H 06/19/21 09/03/21 0.1 % ear drops,suspension Allergies Allergy/AdvReac Type Severity Reaction Status Date / Time Penicillins Allergy Unknown Urticaria Verified 09/23/21 11:34 Review of Systems Review of Systems: CONSTITUTIONAL: Denies fever, chills, or sweats. EYES: Denies visual changes, redness, or discharge. ENT: Denies rhinorrhea, congestion, sore throat, or otalgia. CARDIOVASCULAR: Denies chest pain, palpitations, or edema. RESPIRATORY: Denies cough or dyspnea. GASTROINTESTINAL: Denies abdominal pain, nausea, vomiting, or diarrhea. GENITOURINARY: Denies dysuria or hematuria. SKIN: Denies rash or itching. Positive wound to right top of the foot MUSCULOSKELETAL: Denies back pain, joint pain, or myalgia. NEUROLOGIC: Denies headache, numbness, or weakness. PSYCHIATRIC: Denies anxiety or depression. [facility] Past Medical History Medical History CAD (coronary artery disease) (~10/2018) Chronic low back pain CKD (chronic kidney disease) stage 3, GFR 30-59 ml/min COPD (chronic obstructive pulmonary disease) Depression with anxiety Environmental allergies [place] (hard of hearing) Hyperlipidemia Hypertension Inner ear disease Established with ENT, awaiting surgical repair Insomnia Normal colonoscopy (~07/2010) Normal mammography (~06/03/20) OAB (overactive bladder) Osteoarthritis Osteopenia Peripheral neuropathy Tobacco abuse Surgical History Surgical History History of ear surgery x4 History of left knee surgery 2017 - ORIF of left knee fracture History of surgery on left wrist 2018 - ORIF of left wrist fracture S/P CABG x 3 (~10/09/18) Family History Family History Father Family history of alcoholism Family history of malignant neoplasm Heart disease Mother Diabetes mellitus Social History Social History Social History: Ms. Mark lives at home with her sister. She is independent in her daily activities but no longer drives. Her PCP is Dr. Armstrong. She designates her sister, Cyndy, as her surrogate decision maker and she would like to be a DNR. Smoking packs per day: 2 Smoking cigarettes per day: 40.0 Years smoked: 30 Smoking pack-years: 60.00 Smoking status: Former smoker Additional smoking assessment comments: Quit smoking 30 years ago at age 39. Alcohol intake: never Substance use: never Substance use type: does not use Spiritual care concerns: No Comments At the time of my signature I agree with nursing past medical history, surgical, social, and family history. There is no
== END 2021-10-10 12:28 | disposition home or self-care (01) ==
PROVIDERS: Emergency Provider Nurse Practitioner Family; PCP Family Medicine
DX: S80.861A Insect bite (nonvenomous), right lower leg, initial encounter (principal); W57.XXXA Bitten or stung by nonvenomous insect and other nonvenomous arthropods, initial encounter; I12.9 Hypertensive chronic kidney disease with stage 1 through stage 4 chronic kidney disease, or unspecified chronic kidney disease; N18.30 Chronic kidney disease, stage 3 unspecified; J44.9 Chronic obstructive pulmonary disease, unspecified; E78.5 Hyperlipidemia, unspecified; M19.90 Unspecified osteoarthritis, unspecified site; M85.80 Other specified disorders of bone density and structure, unspecified site; G62.9 Polyneuropathy, unspecified; I25.10 Atherosclerotic heart disease of native coronary artery without angina pectoris; Z79.82 Long term (current) use of aspirin
CPT/HCPCS: 99213; G0463

== ENCOUNTER 2021-10-15 12:17 | Outpatient (CLI) | payer MEDICARE, MEDICAID, SELFPAY | END 2021-10-15 12:18 | disposition home or self-care (01) | PROVIDERS: PCP Family Medicine; Visit Provider Family Medicine | DX: I12.9 Hypertensive chronic kidney disease with stage 1 through stage 4 chronic kidney disease, or unspecified chronic kidney disease (principal); N18.30 Chronic kidney disease, stage 3 unspecified | CPT/HCPCS: 99199; 36415 ==

== ENCOUNTER 2022-03-16 12:47 | Outpatient (CLI) | payer MEDICARE, MEDICAID, SELFPAY ==
[2022-03-16 19:46] LABS: Alanine Aminotransferase 20 U/L (6-35); Albumin Level 4.1 g/dL (3.5-5.1); Alkaline Phosphatase 133 U/L (38-126); Anion Gap 5 mmol/L (8-16); Aspartate Amino Transferase 31 U/L (14-36); Bilirubin,Total 0.4 mg/dL (0.2-1.3); Blood Urea Nitrogen 18 mg/dL (7-17); Calcium 8.9 mg/dL (8.4-10.2); Carbon Dioxide 29 mmol/L (22-30); Chloride 98 mmol/L (98-107); Cholesterol 84 mg/dL (0-200); Estimated Glomerular Filt Rate > 60; Glucose 77 mg/dL (65-110); HDL Direct 37 mg/dL; Potassium 4.4 mmol/L (3.4-5.0); Sodium 132 mmol/L (137-145); Triglycerides 119 mg/dL (<150)
[2022-03-16 20:07] LABS: Basophils Absolute Auto 0.1 K/mm3 (0.0-0.1); Basophils Percent Auto 0.8 % (0.2-1.2); Eosinophils Absolute Auto 0.4 K/mm3 (0-0.3); Eosinophils Percent Auto 3.9 % (0-4.4); Hematocrit 35.2 % (37.0-47.0); Hemoglobin 11.4 g/dL (12.0-15.0); Immature Granulocyte Absolute 0.03 K/mm3 (0.00-0.031); Immature Granulocyte Percent A 0.3 % (0-0.5); Lymphocytes Absolute Auto 2.76 K/mm3 (0.9-3.2); Lymphocytes Percent Auto 26.1 % (18.3-44.2); Mean Corpuscular HGB Conc 32.4 g/dl (32-36); Mean Corpuscular Hemoglobin 26.7 pg (26-34); Mean Corpuscular Volume 82.4 fl (80-100); Mean Platelet Volume 9.4 fl (7.4-10.4); Monocytes Absolute Auto 0.9 K/mm3 (0.1-0.6); Monocytes Percent Auto 8.1 % (2.6-8.5); Neutrophils Absolute Auto 6.4 K/mm3 (1.3-6.7); Neutrophils Percent Auto 60.8 % (45.5-73.1); Platelet Count Result 355 k/mm3 (150-375); Red Blood Count 4.27 M/mm3 (4.2-5.4); Red Cell Distribution Width 15.5 % (11.5-14.5); White Blood Count 10.6 K/mm3 (4.5-10.0)
[2022-03-16 20:32] LABS: LDL Cholesterol Direct < 30 mg/dL
[2022-03-16 21:28] LABS: Vitamin D 25 Hydroxy 74.8 ng/mL
[2022-03-16 21:53] LABS: Hemoglobin A1C 5.6 % (<5.7)
== END 2022-03-16 12:48 | disposition home or self-care (01) ==
LOC: ANHGOSHLAB 12:49
PROVIDERS: PCP Family Medicine; Visit Provider Family Medicine
DX: E78.5 Hyperlipidemia, unspecified (principal); I10 Essential (primary) hypertension; E53.8 Deficiency of other specified B group vitamins; E55.9 Vitamin D deficiency, unspecified; R73.9 Hyperglycemia, unspecified
CPT/HCPCS: 36415; 80053; 80061; 82306; 82607; 83036; 84443; 85025

== ENCOUNTER → 2022-08-03 10:13 | Outpatient (CLI) | payer MEDICARE, SELFPAY ==
--- NOTE | ~2022-08-03 | MM_ITS ---
EXAMINATION: MM screening nils BI w tova HISTORY: Screening mammogram, family history of breast cancer in her sister. TECHNIQUE: Craniocaudal and mediolateral oblique 3-D tomosynthesis images were obtained and synthetic 2-D images were generated. CAD analysis was submitted and interpreted. COMPARISON: 06/03/2020 BREAST PARENCHYMAL COMPOSITION: There are scattered areas of fibroglandular density. FINDINGS: No suspicious mass, calcification, or architectural distortion are identified in either gerard ast to suggest malignancy. There has been no suspicious interval change. IMPRESSION: 1. No mammographic evidence of malignancy. 2. Recommend routine screening mammography in one year. BI-RADS Category 1: Negative Reviewed, dictated and finalized at location A.
--- NOTE | ~2022-08-03 | DEXA_ITS ---
Bone Density Report Name: PRESLEY ROWLEY I Age: 71 Sex: Female Ethnicity: White Date of : 1950 Indication: osteopenia; height loss; prior fracture; hysterectomy; postmenopausal Referring Provider: Benito Armstrong Study: Bone densitometry was performed. Exam Date: August 03, 2022 Accession number: [id number] Bone Density: Region BMD T-score Z-score Classification AP Spine (L1-L4) 1.088 0.4 2.6 Normal Femoral Neck (Left) 0.644 -1.9 0.1 Osteopenia Total Hip (Left) 0.721 -1.8 -0.2 Osteopenia Femoral Neck (Right) 0.617 -2.1 -0.1 Osteopenia Total Hip (Right) 0.727 -1.8 -0.1 Osteopenia Total Hip Mean 0.724 -1.8 -0.2 Osteopenia World Health Organization criteria for BMD impression classify patients as: Normal (T-score at or above -1.0), Osteopenia (T-score between -1.0 and -2.5), or Osteoporosis (T-score at or below -2.5). 10-year Fracture Risk(1): Major Osteoporotic Fracture 20% Hip Fracture 7.0% Reported Risk Factors: [place] (), Neck BMD=0.617, BMI=23.7, previous fracture, smoking (1) FRAX(R) Version 3.08. Fracture probability calculated for an untreated patient. Fracture probability may be lower if the patient has received treatment. Previous Exams: Region Exam Age BMD T-score BMD Change BMD Change Date g/cm2 vs Baseline vs Previous AP Spine(L1-L4) 08/03/2022 71 1.088 0.4 0.033* 0.033* 12/19/2018 68 1.054 0.1 Total Hip(Left) 08/03/2022 71 0.721 -1.8 -0.039* -0.039* 12/19/2018 68 0.760 -1.5 Total Hip(Right) 08/03/2022 71 0.727 -1.8 -0.039* -0.039* 12/19/2018 68 0.766 -1.4 *Denotes significance at 95% confidence level, LSC for AP Spine = 0.022 g/cm2, LSC for Total Hip = 0.027 g/cm2 Clinical Information Provided by Patient: Has had a low trauma fracture Smokes Has used the following medications: Vitamin D, Calcium, MTV Has the following medical conditions: Hysterectomy Patient maximum height was 65.5 Menopause Age: 31 Drinks caffeinated beverages Onset of menses at age 13 Number of children 3 Impression: The patient has low bone mass, based on the Right Femoral Neck T-score. The patient has an estimated ten-year risk of hip fracture of 7% and an estimated ten-year risk of major fracture of 20%, based on the WHO FRAX algorithm. The patient has risk factors, including: smoking, previous fracture. The BMD for the Total Hip(Left) decreased, changing b
== END ==
PROVIDERS: PCP Family Medicine; Visit Provider Family Medicine
DX: Z12.31 Encounter for screening mammogram for malignant neoplasm of breast (principal); Z78.0 Asymptomatic menopausal state; M85.852 Other specified disorders of bone density and structure, left thigh; M85.851 Other specified disorders of bone density and structure, right thigh
CPT/HCPCS: 77063; 77067; 77080

== ENCOUNTER → 2022-08-03 10:17 | Outpatient (CLI) | payer MEDICARE, SELFPAY ==
--- NOTE | ~2022-08-03 | US_ITS ---
EXAMINATION: US renal BI DATE: 08/03/2022 11:36 INDICATION: Abnormal result kidney function test TECHNIQUE: Multiple ultrasound grayscale images of the kidneys were obtained. COMPARISON: None. FINDINGS: The right kidney measures 10.3 x 4.0 x 3.8 cm. The left kidney is suboptimally visualized measuring a t least 8.1 cm in length with the cephalad margin of the upper pole of the left kidney obscured. The kidney measures 5.2 x 3.5 cm maximal orthogonal dimensions. The kidneys demonstrate normal echogenici ty. Unchanged mild increased prominence of the right renal pelvis. No dena hydronephrosis. No stone s identified. The bladder is normal. IMPRESSION: 1. Normal kidneys with no change on the prominent right renal pelvis without dena hydronephrosis.. Reviewed, dictated and finalized at location L. IMPRESSION: 1. Normal kidneys with no change on the prominent right renal pelvis without f rank hydronephrosis..
== END ==
PROVIDERS: PCP Family Medicine; Visit Provider Internal Medicine Nephrology
DX: R94.4 Abnormal results of kidney function studies (principal)
CPT/HCPCS: 76775

== ENCOUNTER 2022-09-01 13:01 | Observation (INO) | payer MEDICARE, MEDICAID, SELFPAY ==
[2022-09-01] VITALS (16 sets, daily range): BP systolic 91–127; BP diastolic 42–79; PULSE 50–60; RESP 15–20; TEMP 36.1–36.8; O2SAT 92–100
--- NOTE | ~2022-09-01 | US_ITS ---
EXAMINATION: US abdomen limited DATE: 09/02/2022 09:06 INDICATION: Abnormal liver function tests. TECHNIQUE: Multiple grayscale and Doppler ultrasound images of the abdomen were obtained. COMPARISON: Chest CT 06/04/2021 FINDINGS: The visualized portions of the head and body of the pancreas are normal. The liver is andrei l without focal lesion. No liver surface nodularity. There is biphasic, predominantly antegrade flow in main portal vein. The gallbladder is contracted. No gallstones or sonographic Smith sign. The com mon duct is normal and measures 2 mm. IMPRESSION: 1. No etiology for abnormal liver function tests. Reviewed, dictated and finalized at location A.
--- NOTE | ~2022-09-01 | US_ITS ---
EXAMINATION: US venous doppler [facility] DATE: 09/02/2022 09:01 INDICATION: Lower limb edema. TECHNIQUE: Grayscale ultrasound images without and with compression and Doppler ultrasound images of the bilateral lower extremity veins were obtained. COMPARISON: None. FINDINGS: The visualized portions of right common femoral vein, profunda (deep) femoral vein, femoral vein, pop liteal vein, peroneal veins, posterior tibial veins, and greater saphenous vein outflow are patent. The visualized portions of left common femoral vein, profunda femoral vein, femoral vein, popliteal v ein, peroneal veins, posterior tibial veins, and greater saphenous vein outflow are patent. IMPRESSION: 1. No deep venous thrombosis. Reviewed, dictated and finalized at location A.
--- NOTE | ~2022-09-01 | XR_ITS ---
Clinical Indication: Shortness of breath PA and lateral views of the chest: Comparison: 04/11/2021 Findings: The lungs are clear, without evidence of focal consolidation or pleural effusion. Possible COPD. Cardiomediastinal silhouette is stable, status post median sternotomy. Bones and soft tissues a re unremarkable. Impression: Possible COPD. No acute consolidation or pleural effusion. Reviewed, dictated and finalized at location . Impression: Possible COPD. No acute consolidation or pleural effusion.
--- NOTE | ~2022-09-01 | XR_ITS ---
EXAMINATION: XR chest 2V DATE: 09/03/2022 10:42 INDICATION: Increased oxygen demand TECHNIQUE: PA and lateral views of the chest are obtained. COMPARISON: 09/01/2022 FINDINGS: There is moderate emphysema. There are patchy opacities of the lung apices and lung bases. There are small pleural effusions. There is no pneumothorax. Median sternotomy wires and mediastinal surgical clips are seen, likely from prior coronary artery bypass grafting. The heart size is normal. IMPRESSION: 1. Moderate emphysema. 2. Patchy opacities of the lung apices and lung bases, consistent with atelectasis versus pneumonia. 3. Small pleural effusions. Reviewed, dictated and finalized at location B. IMPRESSION: 1. Moderate emphysema. 2. Patchy opacities of the lung apices and lung bases, consistent with atelecta sis versus pneumonia. 3. Small pleural effusions.
--- NOTE | ~2022-09-01 | US_ITS ---
EXAMINATION: US renal BI DATE: 09/02/2022 09:06 INDICATION: Acute kidney injury. TECHNIQUE: Multiple ultrasound grayscale images of the kidneys were obtained. COMPARISON: Ultrasound kidneys 08/03/2022 FINDINGS: The right kidney measures 11.9 x 5.7 x 4.5 cm. The left kidney measures 9.0 x 3.8 x 4.0 cm. There is cortical thinning of the kidneys. The kidneys demonstrate normal parenchymal echogenicity. There is n o hydronephrosis. The bladder is normal. IMPRESSION: 1. Cortical thinning of the kidneys. No hydronephrosis. Reviewed, dictated and finalized at location A.
--- NOTE | 2022-09-01 13:07 | ECG_ITS ---
Measurements Intervals [place] Rate: 54 P: 50 CA: 179 QRS: 87 QRSD: 149 T: -63 QT: 516 QTc: 491 Interpretive Statements SINUS BRADYCARDIA RIGHT BUNDLE BRANCH BLOCK ST-T WAVE ABNORMALITY IN ANT/INF LEADS- CONSIDER ISCHEMIA BASELINE ARTIFACT- I, III, AVR, AVL ABNORMAL ECG COMPARED TO ECG 04/06/2021 19:24:58 SINUS BRADYCARDIA NOW PRESENT ST-T WAVE ABNORMALITY NOW PRESENT Electronically Signed On 09-01-2022 14:47:13 CDT by Melvin Contreras D.O.
[2022-09-01 13:27] LABS: Basophils Percent Auto 0.3 % (0.2-1.2); Eosinophils Percent Auto 0.1 % (0-4.4); Hematocrit 21.2 % (37.0-47.0); Immature Granulocyte Absolute 0.04 K/mm3 (0.00-0.031); Immature Granulocyte Percent A 0.6 % (0-0.5); Lymphocytes Absolute Auto 0.98 K/mm3 (0.9-3.2); Lymphocytes Percent Auto 13.5 % (18.3-44.2); Mean Corpuscular HGB Conc 31.6 g/dl (32-36); Mean Corpuscular Hemoglobin 23.8 pg (26-34); Mean Corpuscular Volume 75.4 fl (80-100); Mean Platelet Volume 9.5 fl (7.4-10.4); Monocytes Absolute Auto 0.6 K/mm3 (0.1-0.6); Neutrophils Absolute Auto 5.6 K/mm3 (1.3-6.7); Neutrophils Percent Auto 77.5 % (45.5-73.1); Nucleated Red Blood Cells Absolute Auto 0.3 K/mm3 (0.0-0.012); Nucleated Red Blood Cells Perc 3.7 % (0.0-0.2); Platelet Count Result 170 k/mm3 (150-375); Red Blood Count 2.81 M/mm3 (4.2-5.4); White Blood Count 7.2 K/mm3 (4.5-10.0)
[2022-09-01 13:38] LABS: Alanine Aminotransferase 215 U/L (6-35); Albumin Level 3.7 g/dL (3.5-5.1); Alkaline Phosphatase 177 U/L (38-126); Anion Gap 12 mmol/L (8-16); Aspartate Amino Transferase 128 U/L (14-36); Bilirubin,Total 0.9 mg/dL (0.2-1.3); Blood Urea Nitrogen 53 mg/dL (7-17); Calcium 8.4 mg/dL (8.4-10.2); Carbon Dioxide 20 mmol/L (22-30); Chloride 99 mmol/L (98-107); Estimated CRCL calculation 19 ml/min; Estimated Glomerular Filt Rate 23; Glucose 100 mg/dL (65-110); Potassium 4.9 mmol/L (3.4-5.0); Sodium 131 mmol/L (137-145)
[2022-09-01 13:39] LABS: Hemoglobin 6.7 g/dL (12.0-15.0)
[2022-09-01 13:41] LABS: INR 1.5; Prothrombin Time 19.1 Seconds (11.1-14.7)
[2022-09-01 13:42] LABS: Partial Thromboplastin Time 36.2 SECONDS (22.3-36.8)
[2022-09-01 13:50] LABS: NT Pro B Type Natriuretic Pept 5230 pg/mL (19.9-100); Troponin I 0.032 ng/mL (0.000-0.034)
--- NOTE | 2022-09-01 14:37 | ED.GENADULT ---
HPI - General Adult General Chief complaint: Shortness of Breath/Dyspnea Stated complaint: SOB Time Seen by Provider: 09/01/22 13:45 History of Present Illness HPI narrative: 71-year-old female with history of COPD, CHF presented to the emergency department for evaluation of 2 weeks worsening shortness of breath and 2 days of lower extremity swelling. Patient states that she does wear 2 L of oxygen as needed at home. Patient denies any prior history of gastritis, patient denies vomiting blood and denies passing any blood in her stool. Patient denies any vaginal bleeding Related Data Home Medications Medication Instructions Recorded Confirmed aspirin 81 mg tablet,delayed 81 mg PO DAILY 04/05/19 09/01/22 release (Adult Aspirin Regimen) cholecalciferol (vitamin D3) 50 50 mcg PO DAILY 03/07/20 09/01/22 mcg (2,000 unit) capsule acetaminophen 650 mg 1,300 mg PO Q12H 10/23/20 09/01/22 tablet,extended release melatonin 10 mg tablet 10 mg PO QHS 03/16/22 09/01/22 ofloxacin 0.3 % ear drops in a 5 drp EACH EAR BID PRN Drainage 09/01/22 09/01/22 dropperette Allergies Allergy/AdvReac Type Severity Reaction Status Date / Time Penicillins Allergy Unknown Urticaria Verified 09/01/22 13:12 Review of Systems Review of Systems: All systems reviewed & are unremarkable except as noted in HPI and below PMFSH Past Medical History Medical History CAD (coronary artery disease) (~10/2018) Chronic low back pain CKD (chronic kidney disease) stage 3, GFR 30-59 ml/min COPD (chronic obstructive pulmonary disease) Depression with anxiety Environmental allergies [place] (hard of hearing) Hyperlipidemia Hypertension Inner ear disease Established with ENT, awaiting surgical repair Insomnia Normal colonoscopy (~07/2010) Normal mammography (~06/03/20) OAB (overactive bladder) Osteoarthritis Osteopenia Peripheral neuropathy Tobacco abuse Surgical History Surgical History History of ear surgery x4 History of left knee surgery 2017 - ORIF of left knee fracture History of surgery on left wrist 2018 - ORIF of left wrist fracture S/P CABG x 3 (~07/08/19) Family History Family History Father Family history of alcoholism Family history of malignant neoplasm Heart disease Mother Diabetes mellitus Social History Social History Social History: Ms. Mark lives at [facility] in [place]. She is independent in her daily activities but no longer drives. Her PCP is Dr. Armstrong. She designates her sister, Cyndy, as her surrogate decision maker and she would like to be a DNR. Smoking packs per day: 2 Smoking cigarettes per day: 40.0 Years smoked: 30 Smoking pack-years: 60.00 Smoking status: Current every day smoker Tobacco type: cigarettes Additional smoking assessment comments: 3-4 cigarettes a day Alcohol intake: current Drinks per week: 1 Substance use: never Substance use type: marijuana Lack of Transportation: YES Lack of Food: Never True Current Housing: I Have Housing Concerned About Future Housing: No Difficulty Paying Gas/Electric Bills: No Difficulty Paying for Meds: No Currently Unemployed: No Education: High School Diploma/GED Difficulty w/ Childcare or Family Care: No Living arrangements: alone Additional living arrangements comments: [facility] in [place] Occupation/Education: retired Gender identity (if verbalized by the patient): Female Spiritual care concerns: No Agree to blood products: Yes Exam Narrative: APPEARANCE: Well appearing, no pain, no distress, well-nourished. HEAD: normocephalic, atraumatic. EYES: PERRLA/EOMI, conjunctivae clear. NOSE: Normal no drainage NECK: Supple. No adenopathy, no masses. RESPIRATOR
[2022-09-01 15:04] LABS: Hematocrit 21.3 % (37.0-47.0)
[2022-09-01 15:07] LABS: Hemoglobin 6.7 g/dL (12.0-15.0)
[2022-09-01] MEDS: FUROSEMIDE INJ 40 MG/4 ML VIAL IV PUSH (16:33)
--- NOTE | 2022-09-01 17:19 | ADMGEN ---
This patient, Aminah Mark, was admitted to 2 Medical Room 240-01. Patient/family oriented to hospital policies and general routines including ID bracelet, bed and alarms, visiting hours, pain management, procedures, bathroom and other care routines, personal items, smoking policy, room service/diet, and visiting hours. Information on how to activate the Rapid Response Team has been discussed. Patient/Family are encouraged to report perceived risks to care and to ask questions if they do not understand what they are told or what they should do.
[2022-09-01] MEDS: SODIUM CHLORIDE 0.9% IV 250 ML 30 ML IV CONT (18:20)
[2022-09-01] MEDS: TUBING, BLOOD PLUM PUMP TUBING 1 EACH XX (18:20)
[2022-09-02] VITALS (14 sets, daily range): BP systolic 110–128; BP diastolic 54–88; PULSE 50–67; RESP 14–20; TEMP 36.2–36.6; O2SAT 93–100
--- NOTE | 2022-09-02 01:14 | PM.IMHP ---
H&P: HPI History of Present Illness Date/Time: 09/01/22 23:45 Chief Complaint: Shortness of breath. Narrative: This is a 71-year-old female with COPD, hypertension, hyperlipidemia, chronic kidney disease, and coronary artery disease with history of bypass who presented to the emergency department for evaluation of shortness of breath. The patient provides the following history. She gave up smoking 2 weeks ago ?because COPD hit me in the face.? With further questioning she has become increasingly short of breath and she did use did not want to go on smoking anymore if this is how her breathing was going to be. She was previously on oxygen however gave it up about a year ago because she did not want to carry it around however she think she probably needs the oxygen again. In addition to the shortness of breath the last couple of weeks she has also developed edema in her feet and legs in the last several days. Because of the symptoms she came to the ER for evaluation. Her blood pressures have been stable since arrival. Her labs were significant for microcytic anemia with a hemoglobin and hematocrit of 6.7 and 21.3% respectively, sodium 131, BUN 53, creatinine 2.10, AST 128, ALT 215, alkaline phosphatase 177, total bilirubin 0.9, proBNP 5230, albumin 3.7. She has not noticed any blood loss and specifically denies epistaxis, gingival bleeding, hemoptysis, hematemesis, melena, hematochezia, and hematuria. Stool was Hemoccult negative in the emergency department. She is being admitted in this setting for blood transfusion and further evaluation of the anemia, acute on chronic renal failure, transaminitis, and lower extremity swelling. At the time my evaluation she is resting comfortably and has no specific complaints. She denies lightheadedness, dizziness, weakness, chest pain, pleuritic pain, epigastric and abdominal pain, bloating, belching, calf pain, dysuria, and change in urine output. She also denies fever, chills, and sweats. No recent cold or flu symptoms. No recent travel or sick contacts. Review of Systems Review of Systems: Twelve systems were reviewed and are negative except for as per HPI. [facility] Past Medical History Medical History (Updated 09/02/22 @ 01:58 by Gillian Cruz PA-C) Chronic kidney disease Chronic low back pain Chronic obstructive pulmonary disease Chronic respiratory failure with hypoxia, on home oxygen therapy Coronary artery disease (10/2018) Depression with anxiety Environmental allergies Hearing loss Hyperlipidemia Hypertension Insomnia Normal colonoscopy (07/2010) Normal mammography (06/03/20) Osteoarthritis Osteopenia Overactive bladder Peripheral neuropathy Tobacco abuse Surgical History Surgical History (Updated 09/02/22 @ 01:23 by Gillian Cruz PA-C) History of arthroscopy of right knee History of cochlear implant History of coronary artery bypass graft x 3 (10/09/18) History of ear surgery x4 History of open reduction and internal fixation (ORIF) procedure Repair left knee fracture in 2017. Repair left wrist fracture in 2018. Family History Family History Father Family history of alcoholism Family history of malignant neoplasm Heart disease Mother Diabetes mellitus Social History Social History (Updated 09/02/22 @ 01:18 by Gillian Cruz PA-C) Social History: Ms. Mark lives at [facility] in [place]. She is independent in her daily activities but no longer drives. Her PCP is Dr. Armstrong. She designates her sister, Cyndy, as her surrogate decision maker and she would like to be a DNR. Smoking packs per day: 2 Smoking cigarettes per day: 40.0 Years smoked: 30 Smoking pack-years: 60.00 Smoking status: Current every day smoker Tobacco type: cigarettes Additional smoking assessment comments: 3-4 cigarettes a day Alcohol intake: current Drinks per week: 1 Substance use: never Substa
--- NOTE | 2022-09-02 02:05 | ECHO_ITS ---
Patient Info Name: Aminah Mark Age: 71 years : 1950 Gender: Female Ht: 64 in Wt: 137 lbs BSA: 1.68 m2 HR: 50 bpm BP: 128 / 88 mmHg Heart Rhythm: Bradycardia, Sinus Rhythm Technical Quality: Fair Exam Date: 09/02/2022 11:10 AM Exam Location: [facility] Pulmonary Patient Status: Outpatient Admit Date: 09/01/2022 Staff Ordering Physician: Gillian Cruz PA-C Ophthalmic Medical Technician: Petty Solorzano RDCS Attending Provider: Latonia Nino MD Referring Physician: Anthony MAGAÑA; Exam Type: CA echo doppler color flow Study Info Indications - elevated bnp/edema Complete two-dimensional, color flow and Doppler transthoracic echocardiogram is performed. Summary 1. Complete two-dimensional, color flow and Doppler transthoracic echocardiogram is performed. 2. Left ventricular chamber dimension is normal. 3. Left ventricular systolic function is normal, estimated at 50-55%. 4. The left ventricular diastolic function is grade III diastolic dysfunction. 5. Right ventricular chamber dimension is severely enlarged. 6. Right ventricular systolic function is reduced. 7. Flattening of the ventricular septum in mid to late diastole consistent with right ventricular volume overload. 8. Left atrial chamber dimension is severely enlarged. 9. Right atrial chamber dimension is severely enlarged. 10. There is mild aortic valve regurgitation. 11. There is moderate mitral valve regurgitation. 12. There is severe tricuspid valve regurgitation. 13. Pulmonary hypertension with estimated pulmonary arterial systolic pressure is 65 mmHg. 14. There is mild pulmonic regurgitation. 15. Dilated inferior vena cava with >50% collapse upon inspiration consistent with elevated right atrial pressure, 15 mmHg. Left Ventricle Left ventricular chamber dimension is normal. Left ventricular systolic function is normal, estimated at 50-55%. There is no increased left ventricular wall thickness. The left ventricular diastolic function is grade III diastolic dysfunction. Right Ventricle Flattening of the ventricular septum in mid to late diastole consistent with right ventricular volume overload. Right ventricular chamber dimension is severely enlarged. Right ventricular systolic function is reduced. Left Atria Left atrial chamber dimension is severely enlarged. Right Atria Right atrial chamber dimension is severely enlarged. Atrial Septum Intact interatrial septum visualized by color flow imaging. Aortic Valve The aortic valve is trileaflet. There is mild aortic valve sclerosis. There is no aortic valve stenosis. There is mild aortic valve regurgitation. Pulmonic Valve The pulmonic valve is not well visualized. There is mild pulmonic regurgitation. Mitral Valve There is moderate mitral valve regurgitation. Tricuspid Valve There is severe tricuspid valve regurgitation. Pulmonary hypertension with estimated pulmonary arterial systolic pressure is 65 mmHg. Pericardium/Pleural There is no pericardial effusion. Inferior Vena Cava Dilated inferior vena cava with >50% collapse upon inspiration consistent with elevated right atrial pressure, 15 mmHg. Aorta The aortic root size at the sinus of Valsalva is normal. Left Ventricular Outflow Tract Name Value Normal LVOT 2D LVOT Diameter 2.0 cm
[2022-09-02] MEDS: MELATONIN 5 MG TABLET 10 MG PO ×2 (02:21→20:29)
[2022-09-02 05:17] LABS: Hemoglobin 8.8 g/dL (12.0-15.0); Mean Corpuscular HGB Conc 32.6 g/dl (32-36); Mean Corpuscular Hemoglobin 25.7 pg (26-34); Mean Corpuscular Volume 78.7 fl (80-100); Mean Platelet Volume 9.4 fl (7.4-10.4); Platelet Count Result 149 k/mm3 (150-375); Red Blood Count 3.43 M/mm3 (4.2-5.4); Red Cell Distribution Width 18.7 % (11.5-14.5); White Blood Count 8.4 K/mm3 (4.5-10.0)
[2022-09-02 05:19] LABS: Reticulocyte Hemoglobin Conten 20.6 pg (28.2-35.7); Reticulocyte Percent 1.98 % (0.7-4.3); Reticulocytes Absolute 0.07 M/mm3 (0.02-0.1)
[2022-09-02 05:29] LABS: Lactate Dehydrogenase 292 U/L (120-246)
[2022-09-02 05:30] LABS: Bilirubin,Total 0.8 mg/dL (0.2-1.3)
[2022-09-02 05:32] LABS: Alanine Aminotransferase 192 U/L (6-35); Albumin Level 3.1 g/dL (3.5-5.1); Alkaline Phosphatase 177 U/L (38-126); Anion Gap 6 mmol/L (8-16); Aspartate Amino Transferase 96 U/L (14-36); Bilirubin,Total 0.7 mg/dL (0.2-1.3); Blood Urea Nitrogen 52 mg/dL (7-17); Carbon Dioxide 24 mmol/L (22-30); Chloride 100 mmol/L (98-107); Creatine Kinase 406 U/L (30-135); Estimated CRCL calculation 25 ml/min; Estimated Glomerular Filt Rate 28; Glucose 119 mg/dL (65-110); Potassium 4.6 mmol/L (3.4-5.0); Sodium 130 mmol/L (137-145)
[2022-09-02 05:36] LABS: Transferrin 261 mg/dL (206-381)
[2022-09-02 05:41] LABS: Iron 18 ug/dL (37-170)
[2022-09-02 05:50] LABS: Percent Iron Saturation 5 % (20-50)
[2022-09-02 06:18] LABS: Ferritin 9.51 ng/mL (11.1-264)
[2022-09-02 06:28] LABS: Hepatitis B Surface Antigen Negative (Negative)
[2022-09-02 06:34] LABS: HAV RESULT Negative (Negative); Hepatitis B Core IgM Result Negative (Negative)
[2022-09-02 06:36] LABS: Folic Acid 12.7 ng/mL (2.76->20)
[2022-09-02 06:46] LABS: Hepatitis C Virus Antibody Negative (Negative)
--- NOTE | 2022-09-02 09:00 | P.PNIM_ITS ---
Progress Note: A&P Assessment and Plan (1) Symptomatic anemia: Code(s): D64.9 - Anemia, unspecified Status: Acute Assessment and Plan: * H/H is was low upon arrival at 6.7/21.3 * Received one unit of PRBC * Current H/H is 8.8/27.0 * Continue to trend labs * Appears to be related to iron deficiency anemia * Iron infusion given * Oral iron started * Iron 18, TIBC 391, % sat 5, Transferrin 261, Ferritin 9.51, B12 969, Folate 12.7 * Transfuse as indicated (2) Transaminitis: Code(s): R74.01 - Elevation of levels of liver transaminase levels Status: Acute Assessment and Plan: * AST/ALT 128/215 on admission currently 96/192 * Hep panel is negative * RUQ ultra sound negative * Continue to trend * Currently trending down (3) Acute on chronic kidney failure: Qualifiers: Acute renal failure type: unspecified Chronic kidney disease stage: unspecified stage Qualified Code(s): N17.9 - Acute kidney failure, unspecified; N18.9 - Chronic kidney disease, unspecified Code(s): N17.9 - Acute kidney failure, unspecified; N18.9 - Chronic kidney disease, unspecified Status: Acute Assessment and Plan: * BUN/Cr elevated at 53/2.10 upon admission * Currently at 52/1.80 * Baseline creatinine appears to be 0.8-1.20 * Continue to trend labs * IV fluids continued * Avoid nephrotoxic medications * Could be related to elevated mild rhabdo, CHF exacerbation * Renal ultrasound cortical thinning (4) Congestive heart failure: Qualifiers: Heart failure type: diastolic Heart failure chronicity: acute on chronic Qualified Code(s): I50.33 - Acute on chronic diastolic (congestive) heart failure Code(s): I50.9 - Heart failure, unspecified Status: Acute Assessment and Plan: * Appears to be acute on chronic diastolic heart failure in exacerbation * Reported Shortness of breath, significant edema, hyponatremia * Echo ordered * Trend urine output * Lasix 40mg IV BID x 3 doses * Daily weights (5) Chronic obstructive pulmonary disease: Qualifiers: COPD type: unspecified COPD Qualified Code(s): J44.9 - Chronic obstructive pulmonary disease, unspecified Code(s): J44.9 - Chronic obstructive pulmonary disease, unspecified Status: Acute Assessment and Plan: * Seen on the xray * Neb treatments * Supplemental oxygen as indicated * Continue to trend resp status (6) Coronary artery disease: Onset Date: 10/2018 Qualifiers: Coronary Disease-Associated Artery/Lesion type: [place] artery [place] vs. transplanted heart: [place] heart Associated angina: without angina Qualified Code(s): I25.10 - Atherosclerotic heart disease of [place] coronary artery without angina pectoris Code(s): I25.10 - Atherosclerotic heart disease of [place] coronary artery without angina pectoris Status: Acute Time Spent With Patient Time: 51 minutes Time with patient: Greater than 35 minutes Subjective Date/time seen: 09/02/22899 Interval history: 09/02/22899 patient is lying in bed. She denies any current chest pain, shortness a breath, nausea, vomiting, diarrhea constipation. She also stated that she feels a lot better. She did state, I started smoking again, however that was really dumb of me. she also stated that when she came to the ED she she does need some oxygen. Currently oxygen has been titrated off and
--- NOTE | 2022-09-02 09:00 | PM.IMPN ---
Progress Note: A&P Assessment and Plan (1) Symptomatic anemia: Code(s): D64.9 - Anemia, unspecified Status: Acute Assessment and Plan: H/H is was low upon arrival at 6.7/21.3 Received one unit of PRBC Current H/H is 8.8/27.0 Continue to trend labs Appears to be related to iron deficiency anemia Iron infusion given Oral iron started Iron 18, TIBC 391, % sat 5, Transferrin 261, Ferritin 9.51, B12 969, Folate 12.7 Transfuse as indicated (2) Transaminitis: Code(s): R74.01 - Elevation of levels of liver transaminase levels Status: Acute Assessment and Plan: AST/ALT 128/215 on admission currently 96/192 Hep panel is negative RUQ ultra sound negative Continue to trend Currently trending down (3) Acute on chronic kidney failure: Qualifiers: Acute renal failure type: unspecified Chronic kidney disease stage: unspecified stage Qualified Code(s): N17.9 - Acute kidney failure, unspecified; N18.9 - Chronic kidney disease, unspecified Code(s): N17.9 - Acute kidney failure, unspecified; N18.9 - Chronic kidney disease, unspecified Status: Acute Assessment and Plan: BUN/Cr elevated at 53/2.10 upon admission Currently at 52/1.80 Baseline creatinine appears to be 0.8-1.20 Continue to trend labs IV fluids continued Avoid nephrotoxic medications Could be related to elevated mild rhabdo, CHF exacerbation Renal ultrasound cortical thinning (4) Congestive heart failure: Qualifiers: Heart failure type: diastolic Heart failure chronicity: acute on chronic Qualified Code(s): I50.33 - Acute on chronic diastolic (congestive) heart failure Code(s): I50.9 - Heart failure, unspecified Status: Acute Assessment and Plan: Appears to be acute on chronic diastolic heart failure in exacerbation Reported Shortness of breath, significant edema, hyponatremia Echo ordered Trend urine output Lasix 40mg IV BID x 3 doses Daily weights (5) Chronic obstructive pulmonary disease: Qualifiers: COPD type: unspecified COPD Qualified Code(s): J44.9 - Chronic obstructive pulmonary disease, unspecified Code(s): J44.9 - Chronic obstructive pulmonary disease, unspecified Status: Acute Assessment and Plan: Seen on the xray Neb treatments Supplemental oxygen as indicated Continue to trend resp status (6) Coronary artery disease: Onset Date: 10/2018 Qualifiers: Coronary Disease-Associated Artery/Lesion type: [place] artery [place] vs. transplanted heart: [place] heart Associated angina: without angina Qualified Code(s): I25.10 - Atherosclerotic heart disease of [place] coronary artery without angina pectoris Code(s): I25.10 - Atherosclerotic heart disease of [place] coronary artery without angina pectoris Status: Acute Time Spent With Patient Time: 51 minutes Time with patient: Greater than 35 minutes Subjective Date/time seen: 09/02/22899 Interval history: 09/02/22899 patient is lying in bed. She denies any current chest pain, shortness a breath, nausea, vomiting, diarrhea constipation. She also stated that she feels a lot better. She did state, I started smoking again, however that was really dumb of me. she also stated that when she came to the ED she she does need some oxygen. Currently oxygen has been titrated off and patient is currently on room air. She currently appears stable and she is doing well. 09/01/22? 23:45 This is a 71-year-old female with COPD, hypertension, hyperlipidemia, chronic kidney disease, and coronary artery disease with history of bypass who presented to the emergency department for evaluation of shortness of breath. The patient provides the following history. She gave up smoking 2 weeks ago ?because COPD hit me in the face.? With further questioning she has become increasingly short
[2022-09-02] MEDS: ESCITALOPRAM OXALATE 10 MG TABLET 20 MG PO (09:14)
[2022-09-02] MEDS: busPIRone HCL 10 MG TABLET PO ×3 (09:14→16:30)
[2022-09-02] MEDS: GABAPENTIN 300 MG CAPSULE PO ×3 (09:14→16:29)
[2022-09-02] MEDS: oxyBUTYnin CHLORIDE XL 5 MG TAB.ER.24 10 MG PO ×2 (09:14→20:29)
[2022-09-02] MEDS: IRON SUCROSE COMPLEX 500 MG in SODIUM CHLORIDE 0.9% IV 250 ML 78.57 MG IVPB (09:41)
[2022-09-02] MEDS: FERROUS SULFATE 324 MG TABLET PO (16:29)
[2022-09-02] MEDS: FUROSEMIDE INJ 40 MG/4 ML VIAL IV PUSH (16:30)
[2022-09-02 17:25] LABS: Appearance Urine Clear (Clear); Bacteria Urine None Seen /hpf; Bilirubin Urine Negative (Negative); Blood Urine Trace (Negative); Color Urine Yellow (Yellow); Glucose Urine UA Negative (Negative); Ketones Urine Negative (Negative); Leukocyte Esterase Ur 2+ LEU/UL (Negative); Nitrate Urine Negative (Negative); Non Pathogenic Casts 0-2; Protein Urine 1+ mg/dL (Negative); RBC Urine 0-2 /hpf (0-2); Specific Grav Ur 1.014 (1.001-1.035); Squamous Epithelial Cell Urine Occasional /hpf (Few); Urobilinogen Urine 0.2 mg/dL (<2.0)
[2022-09-02 17:30] LABS: Add Urine Microscopic? YES
[2022-09-02 19:30] LABS: IFOB Positive Control Positive; Immunochemical Fecal Occult Bl Negative (N)
[2022-09-03] VITALS (10 sets, daily range): BP systolic 100–124; BP diastolic 48–83; PULSE 59–77; RESP 18; TEMP 36.3–36.8; O2SAT 90–100
[2022-09-03 05:14] LABS: Basophils Percent Auto 0.3 % (0.2-1.2); Eosinophils Absolute Auto 0.3 K/mm3 (0-0.3); Eosinophils Percent Auto 2.4 % (0-4.4); Hematocrit 27.7 % (37.0-47.0); Hemoglobin 8.9 g/dL (12.0-15.0); Immature Granulocyte Absolute 0.11 K/mm3 (0.00-0.031); Lymphocytes Absolute Auto 1.34 K/mm3 (0.9-3.2); Lymphocytes Percent Auto 12.6 % (18.3-44.2); Mean Corpuscular HGB Conc 32.1 g/dl (32-36); Mean Corpuscular Hemoglobin 25.2 pg (26-34); Mean Corpuscular Volume 78.5 fl (80-100); Mean Platelet Volume 9.9 fl (7.4-10.4); Monocytes Absolute Auto 1.1 K/mm3 (0.1-0.6); Monocytes Percent Auto 10.7 % (2.6-8.5); Neutrophils Absolute Auto 7.7 K/mm3 (1.3-6.7); Nucleated Red Blood Cells Absolute Auto 0.4 K/mm3 (0.0-0.012); Nucleated Red Blood Cells Perc 3.7 % (0.0-0.2); Platelet Count Result 160 k/mm3 (150-375); Red Blood Count 3.53 M/mm3 (4.2-5.4); Red Cell Distribution Width 18.9 % (11.5-14.5); White Blood Count 10.6 K/mm3 (4.5-10.0)
[2022-09-03 05:25] LABS: Alanine Aminotransferase 160 U/L (6-35); Albumin Level 2.9 g/dL (3.5-5.1); Alkaline Phosphatase 165 U/L (38-126); Anion Gap 0 mmol/L (8-16); Aspartate Amino Transferase 74 U/L (14-36); Bilirubin,Total 0.7 mg/dL (0.2-1.3); Blood Urea Nitrogen 36 mg/dL (7-17); Calcium 7.8 mg/dL (8.4-10.2); Carbon Dioxide 32 mmol/L (22-30); Chloride 97 mmol/L (98-107); Creatine Kinase 227 U/L (30-135); Estimated CRCL calculation 35 ml/min; Estimated Glomerular Filt Rate 49; Glucose 91 mg/dL (65-110); Magnesium 1.7 mg/dL (1.6-2.3); Potassium 4.2 mmol/L (3.4-5.0); Sodium 129 mmol/L (137-145)
--- NOTE | 2022-09-03 08:15 | P.PNIM_ITS ---
Progress Note: A&P Assessment and Plan (1) Symptomatic anemia: Code(s): D64.9 - Anemia, unspecified Status: Acute Assessment and Plan: * H/H is was low upon arrival at 6.7/21.3 * Received one unit of PRBC * Current H/H is 8.9/27.7 * Continue to trend labs * Appears to be related to iron deficiency anemia * Iron infusion 09/02/22 * Oral iron started * Iron 18, TIBC 391, % sat 5, Transferrin 261, Ferritin 9.51, B12 969, Folate 12.7 * Transfuse as indicated (2) Transaminitis: Code(s): R74.01 - Elevation of levels of liver transaminase levels Status: Acute Assessment and Plan: * AST/ALT 128/215 on admission currently 74/160 * Hep panel is negative * RUQ ultra sound negative * Continue to trend * Currently trending down (3) Acute on chronic kidney failure: Qualifiers: Acute renal failure type: unspecified Chronic kidney disease stage: unspecified stage Qualified Code(s): N17.9 - Acute kidney failure, unspecified; N18.9 - Chronic kidney disease, unspecified Code(s): N17.9 - Acute kidney failure, unspecified; N18.9 - Chronic kidney disease, unspecified Status: Acute Assessment and Plan: * BUN/Cr elevated at 53/2.10 upon admission * Currently at 36/1.10 * Baseline creatinine appears to be 0.8-1.20 * Continue to trend labs * IV fluids continued * Avoid nephrotoxic medications * Could be related to elevated mild rhabdo, CHF exacerbation * Renal ultrasound cortical thinning (4) Congestive heart failure: Qualifiers: Heart failure chronicity: acute on chronic Heart failure type: diastolic Qualified Code(s): I50.33 - Acute on chronic diastolic (congestive) heart failure Code(s): I50.9 - Heart failure, unspecified Status: Acute Assessment and Plan: * Appears to be acute on chronic diastolic heart failure in exacerbation * Reported Shortness of breath, significant edema, hyponatremia * Echo ordered * Trend urine output * Lasix 40mg IV BID x 3 doses * Daily weights * Improving, edema is better (5) Chronic obstructive pulmonary disease: Qualifiers: COPD type: unspecified COPD Qualified Code(s): J44.9 - Chronic obstructive pulmonary disease, unspecified Code(s): J44.9 - Chronic obstructive pulmonary disease, unspecified Status: Acute Assessment and Plan: * Seen on the xray * Neb treatments * Supplemental oxygen as indicated * Continue to trend resp status * Requiring more oxygen * Chest xray ordered (6) Coronary artery disease: Onset Date: 10/2018 Qualifiers: Associated angina: without angina Coronary Disease-Associated Artery/Lesion type: [place] artery [place] vs. transplanted heart: [place] heart Qualified Code(s): I25.10 - Atherosclerotic heart disease of [place] coronary artery without angina pectoris Code(s): I25.10 - Atherosclerotic heart disease of [place] coronary artery without angina pectoris Status: Acute Assessment and Plan: * Stable and chronic * Continue aspirin, Plavix, metoprolol * DC tele Time Spent With Patient Time: 46 minutes Time with patient: Greater than 35 minutes Subjective Date/time seen: 09/03/22 07:22 Interval history: 09/03/22 0815 Patient is resting in bed comfortably currently. She
--- NOTE | 2022-09-03 08:15 | PM.IMPN ---
Progress Note: A&P Assessment and Plan (1) Symptomatic anemia: Code(s): D64.9 - Anemia, unspecified Status: Acute Assessment and Plan: H/H is was low upon arrival at 6.7/21.3 Received one unit of PRBC Current H/H is 8.9/27.7 Continue to trend labs Appears to be related to iron deficiency anemia Iron infusion 09/02/22 Oral iron started Iron 18, TIBC 391, % sat 5, Transferrin 261, Ferritin 9.51, B12 969, Folate 12.7 Transfuse as indicated (2) Transaminitis: Code(s): R74.01 - Elevation of levels of liver transaminase levels Status: Acute Assessment and Plan: AST/ALT 128/215 on admission currently 74/160 Hep panel is negative RUQ ultra sound negative Continue to trend Currently trending down (3) Acute on chronic kidney failure: Qualifiers: Acute renal failure type: unspecified Chronic kidney disease stage: unspecified stage Qualified Code(s): N17.9 - Acute kidney failure, unspecified; N18.9 - Chronic kidney disease, unspecified Code(s): N17.9 - Acute kidney failure, unspecified; N18.9 - Chronic kidney disease, unspecified Status: Acute Assessment and Plan: BUN/Cr elevated at 53/2.10 upon admission Currently at 36/1.10 Baseline creatinine appears to be 0.8-1.20 Continue to trend labs IV fluids continued Avoid nephrotoxic medications Could be related to elevated mild rhabdo, CHF exacerbation Renal ultrasound cortical thinning (4) Congestive heart failure: Qualifiers: Heart failure chronicity: acute on chronic Heart failure type: diastolic Qualified Code(s): I50.33 - Acute on chronic diastolic (congestive) heart failure Code(s): I50.9 - Heart failure, unspecified Status: Acute Assessment and Plan: Appears to be acute on chronic diastolic heart failure in exacerbation Reported Shortness of breath, significant edema, hyponatremia Echo ordered Trend urine output Lasix 40mg IV BID x 3 doses Daily weights Improving, edema is better (5) Chronic obstructive pulmonary disease: Qualifiers: COPD type: unspecified COPD Qualified Code(s): J44.9 - Chronic obstructive pulmonary disease, unspecified Code(s): J44.9 - Chronic obstructive pulmonary disease, unspecified Status: Acute Assessment and Plan: Seen on the xray Neb treatments Supplemental oxygen as indicated Continue to trend resp status Requiring more oxygen Chest xray ordered (6) Coronary artery disease: Onset Date: 10/2018 Qualifiers: Associated angina: without angina Coronary Disease-Associated Artery/Lesion type: [place] artery [place] vs. transplanted heart: [place] heart Qualified Code(s): I25.10 - Atherosclerotic heart disease of [place] coronary artery without angina pectoris Code(s): I25.10 - Atherosclerotic heart disease of [place] coronary artery without angina pectoris Status: Acute Assessment and Plan: Stable and chronic Continue aspirin, Plavix, metoprolol DC tele Time Spent With Patient Time: 46 minutes Time with patient: Greater than 35 minutes Subjective Date/time seen: 09/03/22 07:22 Interval history: 09/03/22 0815 Patient is resting in bed comfortably currently. She stated that her only issue was oxygenation and she figured she would need oxygen to go home. She reports her legs looking better not so swollen. She denies any current chest pain, nausea, vomiting, diarrhea constipation. Telemetry review patient has been stable will take telemetry off at this time. 09/02/22 0900 patient is lying in bed. She denies any current chest pain, shortness a breath, nausea, vomiting, diarrhea constipation. She also stated that she feels a lot better. She did state, I started smoking again, however that was really dumb of me. she also stated that when she
[2022-09-03] MEDS: ESCITALOPRAM OXALATE 10 MG TABLET 20 MG PO (08:19)
[2022-09-03] MEDS: busPIRone HCL 10 MG TABLET PO ×3 (08:19→16:45)
[2022-09-03] MEDS: FUROSEMIDE INJ 40 MG/4 ML VIAL IV PUSH ×2 (08:19→16:46)
[2022-09-03] MEDS: FERROUS SULFATE 324 MG TABLET PO ×2 (08:19→16:46)
[2022-09-03] MEDS: oxyBUTYnin CHLORIDE XL 5 MG TAB.ER.24 10 MG PO ×2 (08:20→20:31)
[2022-09-03] MEDS: GABAPENTIN 300 MG CAPSULE PO ×3 (08:20→16:46)
[2022-09-03] MEDS: TRIAMCINOLONE ACET 0.1% CREAM 15 GM TUBE 1 APPLIC TOPICAL (16:46)
[2022-09-03] MEDS: MELATONIN 5 MG TABLET 10 MG PO (20:31)
[2022-09-04 04:26] VITALS: BP 121/66; PULSE 80; RESP 18; TEMP 36.7; O2SAT 94
[2022-09-04 08:41] LABS: Basophils Percent Auto 0.4 % (0.2-1.2); Eosinophils Absolute Auto 0.2 K/mm3 (0-0.3); Eosinophils Percent Auto 2.2 % (0-4.4); Hematocrit 32.3 % (37.0-47.0); Hemoglobin 10.5 g/dL (12.0-15.0); Immature Granulocyte Absolute 0.07 K/mm3 (0.00-0.031); Immature Granulocyte Percent A 0.6 % (0-0.5); Lymphocytes Absolute Auto 1.46 K/mm3 (0.9-3.2); Lymphocytes Percent Auto 13.3 % (18.3-44.2); Mean Corpuscular HGB Conc 32.5 g/dl (32-36); Mean Corpuscular Hemoglobin 25.8 pg (26-34); Mean Corpuscular Volume 79.4 fl (80-100); Mean Platelet Volume 9.1 fl (7.4-10.4); Monocytes Absolute Auto 1.1 K/mm3 (0.1-0.6); Monocytes Percent Auto 9.8 % (2.6-8.5); Neutrophils Absolute Auto 8.1 K/mm3 (1.3-6.7); Neutrophils Percent Auto 73.7 % (45.5-73.1); Nucleated Red Blood Cells Absolute Auto 0.3 K/mm3 (0.0-0.012); Nucleated Red Blood Cells Perc 2.4 % (0.0-0.2); Platelet Count Result 195 k/mm3 (150-375); Red Blood Count 4.07 M/mm3 (4.2-5.4); Red Cell Distribution Width 19.9 % (11.5-14.5)
[2022-09-04] MEDS: FERROUS SULFATE 324 MG TABLET PO (08:59)
[2022-09-04] MEDS: ESCITALOPRAM OXALATE 10 MG TABLET 20 MG PO (09:00)
[2022-09-04] MEDS: oxyBUTYnin CHLORIDE XL 5 MG TAB.ER.24 10 MG PO (09:00)
[2022-09-04] MEDS: GABAPENTIN 300 MG CAPSULE PO ×2 (09:00→13:06)
[2022-09-04] MEDS: busPIRone HCL 10 MG TABLET PO ×2 (09:00→13:06)
[2022-09-04] MEDS: TRIAMCINOLONE ACET 0.1% CREAM 15 GM TUBE 1 APPLIC TOPICAL (09:01)
[2022-09-04 09:03] LABS: Alanine Aminotransferase 132 U/L (6-35); Albumin Level 3.6 g/dL (3.5-5.1); Alkaline Phosphatase 166 U/L (38-126); Anion Gap 7 mmol/L (8-16); Aspartate Amino Transferase 62 U/L (14-36); Bilirubin,Total 0.9 mg/dL (0.2-1.3); Blood Urea Nitrogen 20 mg/dL (7-17); Calcium 8.1 mg/dL (8.4-10.2); Carbon Dioxide 34 mmol/L (22-30); Chloride 89 mmol/L (98-107); Estimated CRCL calculation 43 ml/min; Estimated Glomerular Filt Rate > 60; Glucose 110 mg/dL (65-110); Potassium 3.6 mmol/L (3.4-5.0); Sodium 130 mmol/L (137-145)
--- NOTE | 2022-09-04 10:00 | P.DS_ITS ---
DS: Admitting Diagnosis Discharge Date 09/04/22 1000 Admitting Diagnosis Symptomatic anemia, transaminitis, ESTRELLITA DS: Discharge Diagnosis Discharge Diagnosis (1) Symptomatic anemia: Code(s): D64.9 - Anemia, unspecified Status: Acute Assessment and Plan: * H/H is was low upon arrival at 6.7/21.3 * Received one unit of PRBC * Current H/H is 10.5/32.3 * Continue to trend labs * Appears to be related to iron deficiency anemia * Iron infusion 09/02/22 * Oral iron started * Iron 18, TIBC 391, % sat 5, Transferrin 261, Ferritin 9.51, B12 969, Folate 12.7 * Transfuse as indicated (2) Transaminitis: Code(s): R74.01 - Elevation of levels of liver transaminase levels Status: Acute Assessment and Plan: * AST/ALT 128/215 on admission currently 62/132 * Hep panel is negative * RUQ ultra sound negative * Continue to trend * Currently trending down (3) Acute on chronic kidney failure: Qualifiers: Acute renal failure type: unspecified Chronic kidney disease stage: unspecified stage Qualified Code(s): N17.9 - Acute kidney failure, unspecified; N18.9 - Chronic kidney disease, unspecified Code(s): N17.9 - Acute kidney failure, unspecified; N18.9 - Chronic kidney disease, unspecified Status: Acute Assessment and Plan: * BUN/Cr elevated at 53/2.10 upon admission * Currently at 20/0.90 * Baseline creatinine appears to be 0.8-1.20 * Continue to trend labs * IV fluids continued * Avoid nephrotoxic medications * Could be related to elevated mild rhabdo, CHF exacerbation * Renal ultrasound cortical thinning (4) Congestive heart failure: Qualifiers: Heart failure chronicity: acute on chronic Heart failure type: diastolic Qualified Code(s): I50.33 - Acute on chronic diastolic (congestive) heart failure Code(s): I50.9 - Heart failure, unspecified Status: Acute Assessment and Plan: * Appears to be acute on chronic diastolic heart failure in exacerbation * Reported Shortness of breath, significant edema, hyponatremia * Echo EF 55-60% grade 3 diastolic dysfunction * Trend urine output * Lasix 40mg IV BID x 3 doses, change to PO lasix for home a small dose of 20mg PO Daily * Daily weights * Improving, edema is better (5) Chronic obstructive pulmonary disease: Qualifiers: COPD type: unspecified COPD Qualified Code(s): J44.9 - Chronic obstructive pulmonary disease, unspecified Code(s): J44.9 - Chronic obstructive pulmonary disease, unspecified Status: Acute Assessment and Plan: * Seen on the xray * Neb treatments * Supplemental oxygen as indicated * Continue to trend resp status * Requiring more oxygen * Chest xray ordered (6) Coronary artery disease: Onset Date: 10/2018 Qualifiers: Associated angina: without angina Coronary Disease-Associated Artery/Lesion type: [place] artery [place] vs. transplanted heart: [place] heart Qualified Code(s): I25.10 - Atherosclerotic heart disease of [place] coronary artery without angina pectoris Code(s): I25.10 - Atherosclerotic heart disease of [place] coronary artery without angina pectoris Status: Acute Assessment and Plan: * Stable and chronic * Continue aspirin, Plavix, metoprolol * DC tele DS: Summary Hosp
--- NOTE | 2022-09-04 10:00 | PM.DS ---
DS: Admitting Diagnosis Discharge Date 09/04/22 1000 Admitting Diagnosis Symptomatic anemia, transaminitis, ESTRELLITA DS: Discharge Diagnosis Discharge Diagnosis (1) Symptomatic anemia: Code(s): D64.9 - Anemia, unspecified Status: Acute Assessment and Plan: H/H is was low upon arrival at 6.7/21.3 Received one unit of PRBC Current H/H is 10.5/32.3 Continue to trend labs Appears to be related to iron deficiency anemia Iron infusion 09/02/22 Oral iron started Iron 18, TIBC 391, % sat 5, Transferrin 261, Ferritin 9.51, B12 969, Folate 12.7 Transfuse as indicated (2) Transaminitis: Code(s): R74.01 - Elevation of levels of liver transaminase levels Status: Acute Assessment and Plan: AST/ALT 128/215 on admission currently 62/132 Hep panel is negative RUQ ultra sound negative Continue to trend Currently trending down (3) Acute on chronic kidney failure: Qualifiers: Acute renal failure type: unspecified Chronic kidney disease stage: unspecified stage Qualified Code(s): N17.9 - Acute kidney failure, unspecified; N18.9 - Chronic kidney disease, unspecified Code(s): N17.9 - Acute kidney failure, unspecified; N18.9 - Chronic kidney disease, unspecified Status: Acute Assessment and Plan: BUN/Cr elevated at 53/2.10 upon admission Currently at 20/0.90 Baseline creatinine appears to be 0.8-1.20 Continue to trend labs IV fluids continued Avoid nephrotoxic medications Could be related to elevated mild rhabdo, CHF exacerbation Renal ultrasound cortical thinning (4) Congestive heart failure: Qualifiers: Heart failure chronicity: acute on chronic Heart failure type: diastolic Qualified Code(s): I50.33 - Acute on chronic diastolic (congestive) heart failure Code(s): I50.9 - Heart failure, unspecified Status: Acute Assessment and Plan: Appears to be acute on chronic diastolic heart failure in exacerbation Reported Shortness of breath, significant edema, hyponatremia Echo EF 55-60% grade 3 diastolic dysfunction Trend urine output Lasix 40mg IV BID x 3 doses, change to PO lasix for home a small dose of 20mg PO Daily Daily weights Improving, edema is better (5) Chronic obstructive pulmonary disease: Qualifiers: COPD type: unspecified COPD Qualified Code(s): J44.9 - Chronic obstructive pulmonary disease, unspecified Code(s): J44.9 - Chronic obstructive pulmonary disease, unspecified Status: Acute Assessment and Plan: Seen on the xray Neb treatments Supplemental oxygen as indicated Continue to trend resp status Requiring more oxygen Chest xray ordered (6) Coronary artery disease: Onset Date: 10/2018 Qualifiers: Associated angina: without angina Coronary Disease-Associated Artery/Lesion type: [place] artery [place] vs. transplanted heart: [place] heart Qualified Code(s): I25.10 - Atherosclerotic heart disease of [place] coronary artery without angina pectoris Code(s): I25.10 - Atherosclerotic heart disease of [place] coronary artery without angina pectoris Status: Acute Assessment and Plan: Stable and chronic Continue aspirin, Plavix, metoprolol DC tele DS: Summary Hospital Course Hospital Course: Patient is a 71-year-old female with a past medical history of COPD, hypertension, hyperlipidemia, chronic kidney disease and coronary artery disease that presented to the ED with complaints of shortness of breath. Upon arrival it was noted that her hemoglobin hematocrit were 6.7/21.3. Sodium was 131 BUN and creatinine were slightly elevated 53/2.10. She also displayed transaminitis and her BNP was 5230. She did have an echocardiogram while she was here which did show an EF of 55-60% with a grade 3 diastolic dysfunction. Liver enzymes have been trendin
[2022-09-04] MEDS: FUROSEMIDE 40 MG TABLET PO (10:46)
[2022-09-04 14:30] VITALS: PULSE 83; O2SAT 86
[2022-09-04 14:31] VITALS: PULSE 89; O2SAT 89
[2022-09-04 14:32] VITALS: BP 120/63; PULSE 90; RESP 18; TEMP 36.9; O2SAT 96
[2022-09-04 14:33] VITALS: PULSE 90; O2SAT 94
--- NOTE | 2022-09-04 15:16 | HOMEO2EVAL ---
Evaluation was performed at [facility] Home Oxygen Evaluation RC: Home Oxygen (O2) Evaluation Start: 09/04/22 11:48 Freq: ONCE Status: Active Protocol: RPE Activity Type Activity Date Activity User E-sign Co-sign Detail Recorded Client Recorded Date Recorded By Document 09/04/22 14:30 MDW [email or web address] 09/04/22 15:12 MDW Document 09/04/22 14:31 MDW [email or web address] 09/04/22 15:12 MDW Document 09/04/22 14:33 [email or web address] [email or web address] 09/04/22 15:12 MDW 09/04/22 09/04/22 09/04/22 14:30 14:31 14:33 Home O2 Evaluation [Oxygen] -Test Phase Resting Exercise Exercise -Oxygen Delivery Nasal Cannula Nasal Cannula Nasal Cannula -Oxygen Flow Rate (L/min) 1 2 3 -Fraction of Inspired Oxygen (%) 24 28 32 [Pulse Oximetry] -Pulse Oximetry (90-100 %) 86 L 89 L 94 [Pulse Rate] -Pulse Rate (60-100 beats/min) 83 89 90 [Evaluation] -Activity Tolerance Fair Fair Fair -Rating of Perceived Dyspnea (PD) +1 Mild, +2 Mild, Some +2 Mild, Some Noticeable to Difficulty, Difficulty, the Participant Noticeable to Noticeable to but Not to an the Observer the Observer Observer -Rate of Perceived Exertion (PE) 6 Very, very 13 Somewhat 13 Somewhat Query Text:Click the Protocol Button light Hard Hard to View the RPE Scale [Exercise] -Ambulation Distance (feet) 0 20 30 -Ambulation Distance (meters) 6.09 9.14 [Charges] -Treatment Charges O2 Evaluation - Inpatient
[2022-09-07 20:26] LABS: Haptoglobin 147 mg/dL (43-212)
== END 2022-09-04 17:00 ==
LOC: ANHED 16:16 → ANH2MED 16:55
PROVIDERS: Nurse Practitioner; Physician Assistant; Admitting Provider Family Medicine; Emergency Provider Emergency Medicine; PCP Family Medicine; Visit Provider Internal Medicine
DX: I12.9 Hypertensive chronic kidney disease with stage 1 through stage 4 chronic kidney disease, or unspecified chronic kidney disease (principal); N18.30 Chronic kidney disease, stage 3 unspecified; I50.33 Acute on chronic diastolic (congestive) heart failure; D63.1 Anemia in chronic kidney disease; N17.9 Acute kidney failure, unspecified; R74.01 Elevation of levels of liver transaminase levels; J44.9 Chronic obstructive pulmonary disease, unspecified; I25.10 Atherosclerotic heart disease of native coronary artery without angina pectoris; Z95.1 Presence of aortocoronary bypass graft; Z99.81 Dependence on supplemental oxygen; G89.29 Other chronic pain; M54.50 Low back pain, unspecified; F41.8 Other specified anxiety disorders; R91.8 Other nonspecific abnormal finding of lung field; H91.90 Unspecified hearing loss, unspecified ear; E78.5 Hyperlipidemia, unspecified; N32.81 Overactive bladder; I08.3 Combined rheumatic disorders of mitral, aortic and tricuspid valves; M19.90 Unspecified osteoarthritis, unspecified site; R94.5 Abnormal results of liver function studies; I27.20 Pulmonary hypertension, unspecified; R79.89 Other specified abnormal findings of blood chemistry; M85.80 Other specified disorders of bone density and structure, unspecified site; G62.9 Polyneuropathy, unspecified; F17.210 Nicotine dependence, cigarettes, uncomplicated; F10.90 Alcohol use, unspecified, uncomplicated; Z66 Do not resuscitate; Z79.82 Long term (current) use of aspirin; Z79.1 Long term (current) use of non-steroidal anti-inflammatories (NSAID); Z79.899 Other long term (current) drug therapy; Z82.49 Family history of ischemic heart disease and other diseases of the circulatory system
CPT/HCPCS: 36415; 36430; 71046; 76705; 76775; 80053; 80074; 81001; 82247; 82248; 82274; 82550; 82607; 82728; 82746; 83010; 83540; 83550; 83615; 83735; 83880; 84443; 84466; 84484; 85014; 85018; 85025; 85027; 85046; 85610; 85730; 86850; 86880; 86900; 86901; 86923; 87086; 87088; 93005; 93306; 93970; 94618; 96374; 96376; 99285; A9270; G0378; J1756; J1940; J7050; P9016

== ENCOUNTER 2022-09-27 11:32 | Outpatient (CLI) | payer MEDICARE, MEDICAID, SELFPAY ==
[2022-09-27 15:57] LABS: Basophils Absolute Auto 0.1 K/mm3 (0.0-0.1); Basophils Percent Auto 1.1 % (0.2-1.2); Eosinophils Absolute Auto 0.2 K/mm3 (0-0.3); Eosinophils Percent Auto 2.7 % (0-4.4); Hemoglobin 12.4 g/dL (12.0-15.0); Immature Granulocyte Absolute 0.03 K/mm3 (0.00-0.031); Immature Granulocyte Percent A 0.3 % (0-0.5); Lymphocytes Absolute Auto 1.78 K/mm3 (0.9-3.2); Mean Corpuscular Hemoglobin 27.1 pg (26-34); Mean Corpuscular Volume 87.3 fl (80-100); Mean Platelet Volume 8.9 fl (7.4-10.4); Monocytes Absolute Auto 0.8 K/mm3 (0.1-0.6); Monocytes Percent Auto 9.2 % (2.6-8.5); Neutrophils Absolute Auto 5.9 K/mm3 (1.3-6.7); Neutrophils Percent Auto 66.7 % (45.5-73.1); Platelet Count Result 302 k/mm3 (150-375); Red Blood Count 4.58 M/mm3 (4.2-5.4); White Blood Count 8.9 K/mm3 (4.5-10.0)
[2022-09-27 16:32] LABS: Platelet Estimate Adequate (Adequate); Schistocytes None Seen (NORMAL)
[2022-09-27 16:33] LABS: Anisocytosis 3+ (NORMAL); Hypochromasia 1+ (NORMAL)
[2022-09-27 17:51] LABS: Alanine Aminotransferase 24 U/L (6-35); Albumin Level 4.4 g/dL (3.5-5.1); Alkaline Phosphatase 126 U/L (38-126); Anion Gap 9 mmol/L (8-16); Aspartate Amino Transferase 43 U/L (14-36); Blood Urea Nitrogen 12 mg/dL (7-17); Calcium 9.7 mg/dL (8.4-10.2); Carbon Dioxide 32 mmol/L (22-30); Chloride 93 mmol/L (98-107); Estimated Glomerular Filt Rate > 60; Glucose 88 mg/dL (65-110); Potassium 3.9 mmol/L (3.4-5.0); Sodium 134 mmol/L (137-145)
== END 2022-09-27 11:33 | disposition home or self-care (01) ==
LOC: ANHGOSHLAB 11:34
PROVIDERS: PCP Family Medicine; Visit Provider Family Medicine
DX: I10 Essential (primary) hypertension (principal)
CPT/HCPCS: 36415; 80053; 85025

== ENCOUNTER 2022-09-27 11:43 | Outpatient (CLI) | payer MEDICARE, MEDICAID, SELFPAY ==
--- NOTE | ~2022-09-27 | XR_ITS ---
EXAM: XR knee LT min 4V DATE: 09/27/2022 12:19 HISTORY: M25.562 - Pain in left knee . COMPARISON: None available. FINDINGS: Uncomplicated tibial fixation hardware. Severe demineralization mineralization. No fracture or dislocation. No lytic or blastic lesion. Moderate medial and lateral joint space narrowing. Moder ate tricompartmental osteophytosis. Moderate volume joint fluid. No erosion or periosteal change. Sof t tissues within normal limits. IMPRESSION: No radiographic evidence of hardware-related complication. Severe osteopenia. Moderate tr icompartmental osteophytosis. Moderate joint effusion. Reviewed, dictated and finalized at [facility]. IMPRESSION: No radiographic evidence of hardware-related complication. Severe o steopenia. Moderate tricompartmental osteophytosis. Moderate joint effusion.
--- NOTE | ~2022-09-27 | XR_ITS ---
Clinical Indication: Hypoxemia PA and lateral views of the chest: Comparison: 09/03/2022 Findings: Probable minimal pulmonary edema present. No pleural effusion. Cardiomediastinal silhouett e is prominent, status post median sternotomy. Bones and soft tissues are unremarkable. Impression: Probable minimal pulmonary edema, or minimal chronic interstitial disease. Status post median sternotomy. Reviewed, dictated and finalized at [facility]. Impression: Probable minimal pulmonary edema, or minimal chronic interstitial disease. Status post median sternotomy.
== END 2022-09-27 11:44 ==
LOC: GOSHIMG 11:44
PROVIDERS: PCP Family Medicine; Visit Provider Family Medicine
DX: R09.02 Hypoxemia (principal); M85.862 Other specified disorders of bone density and structure, left lower leg; M25.462 Effusion, left knee; R91.8 Other nonspecific abnormal finding of lung field
CPT/HCPCS: 71046; 73564

== ENCOUNTER 2023-04-24 09:11 | Emergency (ER) | payer OTHER, SELFPAY ==
--- NOTE | ~2023-04-24 | CT_ITS ---
EXAMINATION: CT brain wo con DATE: 04/24/2023 09:51 INDICATION: Head trauma. Fell from couch, struck forehead. Patient taking aspiration and anticoagulan t. TECHNIQUE: Computed tomography (CT) of the head was performed without intravenous contrast. The mA wa s adjusted according to patient size. Iterative reconstruction technique was employed. Exam dose: 60 5.33 mGy-cm total exam DLP. COMPARISON: 09/29/2018 CT brain FINDINGS: Right cochlear implant with some associated streak artifact. Bilateral vertebral artery, basilar artery and bilateral carotid siphon and supraclinoid internal car otid artery calcifications. There is nonspecific diminished attenuation of the cerebral white matter, likely due to chronic small vessel ischemic changes. No intracranial mass lesion or hemorrhage, midline shift or mass effect. No subdural or epidural mono julia. There are diffuse left mastoid effusions. Unremarkable right mastoid air cells. IMPRESSION: Right cochlear implant Cerebral atherosclerosis No skull fracture or acute intracranial finding Reviewed, dictated and finalized at [facility]. Reviewed, dictated and finalized at location A. RATORY SECRETARY
[2023-04-24 09:17] VITALS: BP 159/97; PULSE 54; RESP 159; O2SAT 92
--- NOTE | 2023-04-24 09:46 | ED.WOUNDLAC ---
HPI - Wound/Laceration General Chief Complaint: Wound/Laceration Stated Complaint: L HAND INJURY Time Seen by Provider: 04/24/23 09:14 History of Present Illness HPI narrative: Patient had fallen asleep on the couch, and accidentally rolled off, with a blue caution her head with her hand when she fell but did notice that her left hand started bleeding extensively. Denies pain anywhere. Did hit her head on the carpet. Related Data Home Medications Medication Instructions Recorded Confirmed aspirin 81 mg tablet,delayed 81 mg PO DAILY 04/05/19 04/13/23 release (Adult Aspirin Regimen) cholecalciferol (vitamin D3) 50 50 mcg PO DAILY 03/07/20 04/13/23 mcg (2,000 unit) capsule acetaminophen 650 mg 1,300 mg PO Q12H 10/23/20 04/13/23 tablet,extended release melatonin 10 mg tablet 10 mg PO QHS 03/16/22 04/13/23 potassium chloride 10 mEq 10 meq PO DAILY 04/13/23 04/13/23 capsule,extended release Allergies Allergy/AdvReac Type Severity Reaction Status Date / Time Penicillins Allergy Unknown Urticaria Verified 04/13/23 11:30 Review of Systems Review of Systems: CONST: No fever. HEENT: No sore throat C/V: No chest pain RESP: No cough GI: No nausea or vomiting : No dysuria. M/S: No joint pain. SKIN: cut to left hand NEURO: [No headache or focal numbness or weakness] PSYCH: [No depression] PMFSH Past Medical History Medical History Chronic kidney disease Chronic low back pain Chronic obstructive pulmonary disease Chronic respiratory failure with hypoxia, on home oxygen therapy Coronary artery disease (10/2018) Depression with anxiety Environmental allergies Hearing loss Hyperlipidemia Hypertension Insomnia Normal colonoscopy (07/2010) Normal mammography (06/03/20) Osteoarthritis Osteopenia Overactive bladder Peripheral neuropathy Tobacco abuse Surgical History Surgical History History of arthroscopy of right knee History of cochlear implant History of coronary artery bypass graft x 3 (10/09/18) History of ear surgery x4 History of open reduction and internal fixation (ORIF) procedure Repair left knee fracture in 2017. Repair left wrist fracture in 2018. Family History Family History Father Family history of alcoholism Family history of malignant neoplasm Heart disease Mother Diabetes mellitus Social History Social History Social History: Ms. Mark lives at [facility] in [place]. She is independent in her daily activities but no longer drives. Her PCP is Dr. Armstrong. She designates her sister, Cyndy, as her surrogate decision maker and she would like to be a DNR. Smoking packs per day: 2 Smoking cigarettes per day: 40.0 Years smoked: 30 Smoking pack-years: 60.00 Smoking status: Current some day smoker Tobacco type: cigarettes Additional smoking assessment comments: 3-4 cigarettes a day Alcohol intake: current Drinks per week: 1 Substance use: never Substance use type: marijuana Lack of Transportation: YES Lack of Food: Never True Current Housing: I Have Housing Concerned About Future Housing: No Difficulty Paying Gas/Electric Bills: No Difficulty Paying for Meds: No Currently Unemployed: No Education: High School Diploma/GED Difficulty w/ Childcare or Family Care: No Living arrangements: alone Additional living arrangements comments: [facility] in [place]. Occupation/Education: retired Spiritual care concerns: No Agree to blood products: Yes Exam Narrative: EXAMINATION OF ORGAN SYSTEMS/BODY AREAS: Constitutional: Vital signs per nursing GENERAL:[No acute distress, non-toxic appearing.] HEAD: Normal with no signs of head trauma. EYES: EOMI, conjunctiva normal ENT: Heari
[2023-04-24] MEDS: TETANUS,DIPHTHERIA,AC PERTUSSIS ADULT (0.5 ML) BOOSTRIX IM (10:03)
[2023-04-24 10:56] VITALS: BP 159/97; PULSE 56; RESP 18; O2SAT 93
== END 2023-04-24 10:57 | disposition home or self-care (01) ==
LOC: ANHED 10:46
PROVIDERS: Emergency Provider Emergency Medicine; PCP Family Medicine
DX: S61.412A Laceration without foreign body of left hand, initial encounter (principal); S09.90XA Unspecified injury of head, initial encounter; Z23 Encounter for immunization; I12.9 Hypertensive chronic kidney disease with stage 1 through stage 4 chronic kidney disease, or unspecified chronic kidney disease; N18.9 Chronic kidney disease, unspecified; J44.9 Chronic obstructive pulmonary disease, unspecified; J96.11 Chronic respiratory failure with hypoxia; Z99.81 Dependence on supplemental oxygen; I25.10 Atherosclerotic heart disease of native coronary artery without angina pectoris; E78.5 Hyperlipidemia, unspecified; N32.81 Overactive bladder; M19.90 Unspecified osteoarthritis, unspecified site; M85.80 Other specified disorders of bone density and structure, unspecified site; G62.9 Polyneuropathy, unspecified; Z66 Do not resuscitate; Z96.21 Cochlear implant status; Z95.1 Presence of aortocoronary bypass graft; Z79.82 Long term (current) use of aspirin; W08.XXXA Fall from other furniture, initial encounter
CPT/HCPCS: 12002; 70450; 90471; 90715; 99284

== ENCOUNTER 2023-05-03 12:09 | Outpatient (CLI) | payer OTHER, SELFPAY ==
--- NOTE | ~2023-05-03 | CT_ITS ---
CT Scan of the Chest without Contrast: Clinical Indication: Hypoxemia Technique: Contiguous sections were acquired throughout the chest without intravenous contrast. Dose reduction technique was used on this scan by utilizing automated exposure control and iterative recon struction technique. The dose-length product (DLP) was 128.56 mGy-cm. COMPARISON: 06/04/2021 Findings: There is no evidence of any significant mediastinal, hilar or axillary lymphadenopathy. There are ath erosclerotic calcifications of the aorta and coronary arteries. There is no evidence of pleural or pericardial effusion. There is moderate emphysema. No suspicious pulmonary nodule identified. Images through the upper abdomen reveal no abnormalities. Impression: Moderate emphysema. Reviewed, dictated and finalized at location . E COVERER Impression: Moderate emphysema.
[2023-05-03 12:30] VITALS: PULSE 55; O2SAT 83
[2023-05-03 12:31] VITALS: O2SAT 86
[2023-05-03 12:32] VITALS: O2SAT 90
[2023-05-03 12:35] VITALS: PULSE 83; O2SAT 87
[2023-05-03 12:36] VITALS: O2SAT 91
[2023-05-03 12:45] VITALS: PULSE 63; O2SAT 92
--- NOTE | 2023-05-03 13:20 | HOMEO2EVAL ---
Evaluation was performed at [facility] Home Oxygen Evaluation RC: Home Oxygen (O2) Evaluation Start: 05/03/23 13:17 Freq: Status: Active Protocol: RPE Activity Type Activity Date Activity User E-sign Co-sign Detail Recorded Client Recorded Date Recorded By Document 05/03/23 12:30 JESUS [id number] 05/03/23 13:20 JESUS Document 05/03/23 12:31 JESUS [id number] 05/03/23 13:20 JESUS Document 05/03/23 12:32 JESUS [id number] 05/03/23 13:20 JESUS Document 05/03/23 12:35 JESUS [id number] 05/03/23 13:20 JESUS Document 05/03/23 12:36 JESUS [id number] 05/03/23 13:20 JESUS Document 05/03/23 12:45 JESUS [id number] 05/03/23 13:20 JESUS 05/03/23 05/03/23 05/03/23 12:30 12:31 12:32 Home O2 Evaluation [Oxygen] -Test Phase Resting Resting Resting -Oxygen Delivery Room Air Nasal Cannula Nasal Cannula -Oxygen Flow Rate (L/min) 2 3 [Pulse Oximetry] -Pulse Oximetry (90-100 %) 83 L 86 L 90 [Pulse Rate] -Pulse Rate (60-100 beats/min) 55 L [Exercise] -Ambulation Distance (feet) -Ambulation Distance (meters) [Comments] -Home Oxygen Evaluation Comments [Charges] -Evaluation Charges O2 Evaluation by Pulmonary 05/03/23 05/03/23 05/03/23 12:35 12:36 12:45 Home O2 Evaluation [Oxygen] -Test Phase Exercise Exercise Resting -Oxygen Delivery Nasal Cannula Nasal Cannula Nasal Cannula -Oxygen Flow Rate (L/min) 3 4 3 [Pulse Oximetry] -Pulse Oximetry (90-100 %) 87 L 91 92 [Pulse Rate] -Pulse Rate (60-100 beats/min) 83 63 [Exercise] -Ambulation Distance (feet) 500 -Ambulation Distance (meters) 152.39 [Comments] -Home Oxygen Evaluation Comments PT REQUIRES 3L REST AND 4 L WITH ACTIVITY [Charges] -Evaluation Charges
--- NOTE | 2023-05-03 13:20 | PCRCNOTE ---
HOME O2 EVAL COMPLETED IN PLACE OF 6MWT DUE TO THE NEED FOR O2 TITRATION. HOME O2 EVAL FAXED TO [facility]
--- NOTE | 2023-05-04 16:39 | WPDPFTINT ---
PFT Procedure Performed PFT Procedure Performed Spirometry with Pre/Post Bronchodilator Plethysmography (Lung Vol) Diffusing Cap (DLCO) Flow Vol Loop PFT Interpretation This is a pulmonary function test with pre and post-bronchodilator spirometry, plethysmography and diffusing capacity. The test was performed and results interpreted in accordance with the 2019 and 2005 ATS/ERS Task Force guidelines respectively using the Global Lung Function Initiative-2012 reference equations. Patient demonstrated good effort and cooperation. Reproducibility criteria were met. The quality of the pre bronchodilator spirometry maneuver was Grade A and post bronchodilator spirometry maneuver was Grade A. Findings: Spirometry: The contour the expiratory flow tracing is notched in all 3 pre bronchodilator efforts and in 1 of 3 post bronchodilator efforts. The contour the inspiratory flow tracing is normal. The pre bronchodilator FVC is 2.08 L, 75% predicted. The pre bronchodilator FEV1 is 1.60 L, 75% predicted. The pre bronchodilator FEV1: FVC ratio 77%. The post bronchodilator FVC is 2.29 L, representing a 10% increase. The post bronchodilator FEV1 is 1.68 L, representing a 4% increase. The post bronchodilator FEV1: FVC ratio 73%. Plethysmography: The total lung capacity is 4.58 L, 90% predicted. The functional residual capacity is 2.85 L, 98% predicted. The residual volume is 2.32 L, 103% predicted. Diffusing capacity: The diffusing capacity unadjusted for hemoglobin and carboxyhemoglobin is 6.6, 33% predicted. The diffusing capacity adjusted for alveolar volume is 1.75, 41% predicted. In comparison to previous pulmonary function testing on 08/20/2021 in which spirometry and plethysmography were performed the notched expiratory flow tracing was not present on 08/20/2021. The post bronchodilator FVC has decreased from 2.28 L to 2.29 L. The post bronchodilator FEV1 has decreased from 2.21 L to 1.68 L. The total lung capacity is unchanged from 5.04 L to 4.58 L. The functional residual capacity is unchanged from 3.10 L to 2.85 L. The residual volume is unchanged from 2.31 L to 2.32 L. Impression: The expiratory flow tracing demonstrates a reproducible notched pattern in all 3 pre bronchodilator efforts and 1 of 3 post bronchodilator efforts. The notched pattern has been described with coughing or tracheobronchomalacia. Clinical correlation is recommended. Otherwise, the spirometry is normal without evidence of an obstructive abnormality. There is no significant improvement after inhaling a single dose of albuterol. The lung volumes are normal. The diffusing capacity unadjusted for hemoglobin and carboxyhemoglobin is severely decreased and remains moderately decreased when adjusted for alveolar volume. In comparison to previous pulmonary function testing on 08/20/2021 the notched expiratory flow tracing is new. There has been a greater than anticipated time dependent decrease in the FVC and FEV1 with no significant change in the total lung capacity, functional residual capacity or residual volume. Clinical correlation is recommended.
== END 2023-05-03 12:10 | disposition home or self-care (01) ==
LOC: ANHPFT 12:10
PROVIDERS: PCP Family Medicine; Visit Provider Family Medicine
DX: J96.11 Chronic respiratory failure with hypoxia (principal); Z99.81 Dependence on supplemental oxygen; J43.9 Emphysema, unspecified; R94.2 Abnormal results of pulmonary function studies
CPT/HCPCS: 71250; 94060; 94618; 94726; 94729

== ENCOUNTER 2023-06-16 09:49 | Emergency (ER) | payer OTHER, SELFPAY ==
[2023-06-16 09:49] VITALS: BP 129/71; PULSE 52; RESP 17; TEMP 37; O2SAT 97
[2023-06-16 09:53] VITALS: O2SAT 97
--- NOTE | 2023-06-16 09:56 | ED.EPISTAXIS ---
HPI - Epistaxis General Chief complaint: Epistaxis Stated complaint: nose bleed, on blood thinners Time Seen by Provider: 06/16/23 09:54 Source: patient Mode of arrival: ambulatory Limitations: no limitations History of Present Illness HPI Narrative: Aminah is a 72-year-old female patient presenting to the ER today with complaints of right-sided epistaxis since 2:00 a.m. this morning. Reports she tried to rinse her nose out and is started bleeding. Nose clamp was applied upon evaluation. Patient has blood clots in the right nose and in her mouth. Patient is from [facility]. States she has had bypass surgery and is on Plavix. She denies any injury. Related Data Home Medications Medication Instructions Recorded Confirmed aspirin 81 mg tablet,delayed 81 mg PO DAILY 04/05/19 04/13/23 release (Adult Aspirin Regimen) cholecalciferol (vitamin D3) 50 50 mcg PO DAILY 03/07/20 04/13/23 mcg (2,000 unit) capsule acetaminophen 650 mg 1,300 mg PO Q12H 10/23/20 04/13/23 tablet,extended release melatonin 10 mg tablet 10 mg PO QHS 03/16/22 04/13/23 potassium chloride 10 mEq 10 meq PO DAILY 04/13/23 04/13/23 capsule,extended release furosemide 20 mg tablet 40 mg PO DAILY 05/11/23 Allergies Allergy/AdvReac Type Severity Reaction Status Date / Time Penicillins Allergy Unknown Urticaria Verified 06/16/23 09:54 Review of Systems Review of Systems: Pertinent positives per HPI. Patient denies any fever, chills, rash, headache, visual changes, dizziness, cough, shortness of breath, chest pain, palpitations, nausea, vomiting, diarrhea, constipation, abdominal pain, or any urinary issues. [facility] Past Medical History Medical History Chronic kidney disease Chronic low back pain Chronic obstructive pulmonary disease Chronic respiratory failure with hypoxia, on home oxygen therapy Coronary artery disease (10/2018) Depression with anxiety Environmental allergies Hearing loss Hyperlipidemia Hypertension Insomnia Normal colonoscopy (07/2010) Normal mammography (06/03/20) Osteoarthritis Osteopenia Overactive bladder Peripheral neuropathy Tobacco abuse Surgical History Surgical History History of arthroscopy of right knee History of cochlear implant History of coronary artery bypass graft x 3 (10/09/18) History of ear surgery x4 History of open reduction and internal fixation (ORIF) procedure Repair left knee fracture in 2017. Repair left wrist fracture in 2018. Family History Family History Father Family history of alcoholism Family history of malignant neoplasm Heart disease Mother Diabetes mellitus Social History Social History Social History: Ms. Mark lives at [facility]. She is independent in her daily activities but no longer drives. Her PCP is Dr. Armstrong. She designates her sister, Cyndy, as her surrogate decision maker and she would like to be a DNR. Smoking packs per day: 2 Smoking cigarettes per day: 40.0 Years smoked: 30 Smoking pack-years: 60.00 Smoking status: Current some day smoker Tobacco type: cigarettes Additional smoking assessment comments: 3-4 cigarettes a day Alcohol intake: current Drinks per week: 1 Substance use: never Substance use type: marijuana Lack of Transportation: YES Lack of Food: Never True Current Housing: I Have Housing Concerned About Future Housing: No Difficulty Paying Gas/Electric Bills: No Difficulty Paying for Meds: No Currently Unemployed: No Education: High School Diploma/GED Difficulty w/ Childcare or Family Care: No Living arrangements: alone Additional living arrangements comments: [facility] in [place]. Occupation/Education: retired Spiritual care c
[2023-06-16 11:45] LABS: Basophils Absolute Auto 0.1 K/mm3 (0.0-0.1); Basophils Percent Auto 0.6 % (0.2-1.2); Eosinophils Absolute Auto 0.2 K/mm3 (0-0.3); Eosinophils Percent Auto 1.6 % (0-4.4); Hematocrit 36.9 % (37.0-47.0); Immature Granulocyte Absolute 0.07 K/mm3 (0.00-0.031); Immature Granulocyte Percent A 0.5 % (0-0.5); Lymphocytes Absolute Auto 2.23 K/mm3 (0.9-3.2); Lymphocytes Percent Auto 16.5 % (18.3-44.2); Mean Corpuscular HGB Conc 32.5 g/dl (32-36); Mean Corpuscular Hemoglobin 30.9 pg (26-34); Mean Corpuscular Volume 95.1 fl (80-100); Mean Platelet Volume 8.9 fl (7.4-10.4); Monocytes Absolute Auto 0.8 K/mm3 (0.1-0.6); Monocytes Percent Auto 6.1 % (2.6-8.5); Neutrophils Absolute Auto 10.1 K/mm3 (1.3-6.7); Neutrophils Percent Auto 74.7 % (45.5-73.1); Platelet Count Result 242 k/mm3 (150-375); Red Blood Count 3.88 M/mm3 (4.2-5.4); Red Cell Distribution Width 14.1 % (11.5-14.5); White Blood Count 13.5 K/mm3 (4.5-10.0)
[2023-06-16 11:57] LABS: Alanine Aminotransferase 29 U/L (6-35); Alkaline Phosphatase 94 U/L (38-126); Anion Gap 1 mmol/L (8-16); Aspartate Amino Transferase 36 U/L (14-36); Bilirubin,Total 0.7 mg/dL (0.2-1.3); Blood Urea Nitrogen 33 mg/dL (7-17); Calcium 9.2 mg/dL (8.4-10.2); Carbon Dioxide 34 mmol/L (22-30); Chloride 98 mmol/L (98-107); Estimated CRCL calculation 35 ml/min; Estimated Glomerular Filt Rate 49; Glucose 93 mg/dL (65-110); Potassium 4.5 mmol/L (3.4-5.0); Sodium 133 mmol/L (137-145)
[2023-06-16 12:01] LABS: INR 1.1; Prothrombin Time 14.3 Seconds (11.1-14.7)
[2023-06-16 12:02] LABS: Partial Thromboplastin Time 32.5 Seconds (22.3-36.8)
[2023-06-16 13:27] VITALS: BP 144/80; PULSE 59; RESP 18; O2SAT 99
== END 2023-06-16 13:36 ==
PROVIDERS: Emergency Provider Nurse Practitioner Family; PCP Family Medicine
DX: R04.0 Epistaxis (principal); I12.9 Hypertensive chronic kidney disease with stage 1 through stage 4 chronic kidney disease, or unspecified chronic kidney disease; N18.9 Chronic kidney disease, unspecified; J44.9 Chronic obstructive pulmonary disease, unspecified; J96.11 Chronic respiratory failure with hypoxia; Z99.81 Dependence on supplemental oxygen; I25.10 Atherosclerotic heart disease of native coronary artery without angina pectoris; E78.5 Hyperlipidemia, unspecified; N32.81 Overactive bladder; M19.90 Unspecified osteoarthritis, unspecified site; M85.80 Other specified disorders of bone density and structure, unspecified site; G62.9 Polyneuropathy, unspecified; F41.8 Other specified anxiety disorders; F17.210 Nicotine dependence, cigarettes, uncomplicated; Z66 Do not resuscitate; Z95.1 Presence of aortocoronary bypass graft; Z79.02 Long term (current) use of antithrombotics/antiplatelets; Z79.82 Long term (current) use of aspirin
CPT/HCPCS: 30901; 36415; 80053; 85025; 85610; 85730; 99283

== ENCOUNTER 2023-07-18 14:56 | Emergency (ER) | payer OTHER, SELFPAY ==
[2023-07-18 15:54] VITALS: BP 158/90; PULSE 58; RESP 20; TEMP 36.8; O2SAT 94
[2023-07-18 20:54] VITALS: BP 216/75; PULSE 87; RESP 19; O2SAT 92
--- NOTE | 2023-07-18 21:18 | ED.EPISTAXIS ---
HPI - Epistaxis General Chief complaint: Epistaxis Stated complaint: EPISTAXIS Time Seen by Provider: 07/18/23 20:53 History of Present Illness HPI Narrative: Patient presenting with nosebleed that started this morning, she was putting a nose cream prescribed by her ENT. Denies any shortness of breath, dizziness, or any other concerns. Right nostril Related Data Home Medications Medication Instructions Recorded Confirmed aspirin 81 mg tablet,delayed 81 mg PO DAILY 04/05/19 07/11/23 release (Adult Aspirin Regimen) cholecalciferol (vitamin D3) 50 50 mcg PO DAILY 03/07/20 07/11/23 mcg (2,000 unit) capsule acetaminophen 650 mg 1,300 mg PO Q12H 10/23/20 07/11/23 tablet,extended release melatonin 10 mg tablet 10 mg PO QHS 03/16/22 07/11/23 potassium chloride 10 mEq 10 meq PO DAILY 04/13/23 07/11/23 capsule,extended release furosemide 20 mg tablet 40 mg PO DAILY 05/11/23 07/11/23 Allergies Allergy/AdvReac Type Severity Reaction Status Date / Time Penicillins Allergy Unknown Urticaria Verified 07/11/23 12:59 Review of Systems Review of Systems: CONST: No fever. HEENT: No sore throat C/V: No chest pain RESP: No cough GI: No abdominal pain : No dysuria. M/S: No joint pain. SKIN: No rash. NEURO: [No headache or focal numbness or weakness] PSYCH: [No depression] [facility] Past Medical History Medical History Chronic kidney disease Chronic low back pain Chronic obstructive pulmonary disease Chronic respiratory failure with hypoxia, on home oxygen therapy Coronary artery disease (10/2018) Depression with anxiety Environmental allergies Hearing loss Hyperlipidemia Hypertension Insomnia Normal colonoscopy (07/2010) Normal mammography (06/03/20) Osteoarthritis Osteopenia Overactive bladder Peripheral neuropathy Tobacco abuse Surgical History Surgical History History of arthroscopy of right knee History of cochlear implant History of coronary artery bypass graft x 3 (10/09/18) History of ear surgery x4 History of open reduction and internal fixation (ORIF) procedure Repair left knee fracture in 2017. Repair left wrist fracture in 2018. Family History Family History Father Family history of alcoholism Family history of malignant neoplasm Heart disease Mother Diabetes mellitus Social History Social History Social History: Ms. Mark lives at [facility] in [place]. She is independent in her daily activities but no longer drives. Her PCP is Dr. Armstrong. She designates her sister, Cyndy, as her surrogate decision maker and she would like to be a DNR. Smoking packs per day: 2 Smoking cigarettes per day: 40.0 Years smoked: 30 Smoking pack-years: 60.00 Smoking status: Current some day smoker Tobacco type: cigarettes Additional smoking assessment comments: 3-4 cigarettes a day Alcohol intake: current Drinks per week: 1 Substance use: never Substance use type: marijuana Lack of Transportation: YES Lack of Food: Never True Current Housing: I Have Housing Concerned About Future Housing: No Difficulty Paying Gas/Electric Bills: No Difficulty Paying for Meds: No Currently Unemployed: No Education: High School Diploma/GED Difficulty w/ Childcare or Family Care: No Living arrangements: alone Additional living arrangements comments: [facility] in [place]. Occupation/Education: retired Spiritual care concerns: No Agree to blood products: Yes Course Vital Signs Vital signs: Vital Signs Temperature 98.3 F 07/18/23 15:54 Pulse Rate 58 L 07/18/23 15:54 Respiratory Rate 20 07/18/23 15:54 Blood Pressure 158/90 H 07/18/23 15:54 Pulse Oximetry 94 07/18/23 15:54 Temperature 98.0 F 07/18/23 22:13
[2023-07-18 22:13] VITALS: BP 166/89; PULSE 64; RESP 16; TEMP 36.7; O2SAT 95
== END 2023-07-18 22:00 ==
LOC: ANHED 21:33
PROVIDERS: Emergency Provider Emergency Medicine; PCP Family Medicine
DX: R04.0 Epistaxis (principal); I13.0 Hypertensive heart and chronic kidney disease with heart failure and stage 1 through stage 4 chronic kidney disease, or unspecified chronic kidney disease; I50.9 Heart failure, unspecified; N18.9 Chronic kidney disease, unspecified; J44.9 Chronic obstructive pulmonary disease, unspecified; J96.11 Chronic respiratory failure with hypoxia; Z99.81 Dependence on supplemental oxygen; I25.10 Atherosclerotic heart disease of native coronary artery without angina pectoris; E78.5 Hyperlipidemia, unspecified; N32.81 Overactive bladder; M19.90 Unspecified osteoarthritis, unspecified site; M85.80 Other specified disorders of bone density and structure, unspecified site; G62.9 Polyneuropathy, unspecified; F41.8 Other specified anxiety disorders; F17.210 Nicotine dependence, cigarettes, uncomplicated; Z66 Do not resuscitate; Z95.1 Presence of aortocoronary bypass graft; Z79.02 Long term (current) use of antithrombotics/antiplatelets; Z79.82 Long term (current) use of aspirin
CPT/HCPCS: 30901; 99282

== ENCOUNTER 2023-07-27 08:46 | Emergency (ER) | payer OTHER, SELFPAY ==
--- NOTE | ~2023-07-27 | CT_ITS ---
CT head without contrast Indication: Status post fall COMPARISON: 04/24/2023 Technique: Serial scans were obtained through the brain without the administration of contrast. Dose reduction technique was used on this scan by utilizing automated exposure control and iterative recon struction technique. The dose-length product (DLP) was 605.33 mGy-cm. Findings: There is no evidence of intracranial hemorrhage, mass lesion, or acute infarct. The ventri cles and subarachnoid spaces are dilated, consistent with mild to moderate atrophy. Low attenuation regions are seen within the periventricular white matter bilaterally, likely representing changes fro m chronic microvascular ischemic disease. There is no evidence of edema, mass effect or midline shif t. There is partially imaged bilateral maxillary sinus disease. The remaining visualized paranasal si nuses and mastoid air cells are clear. Soft tissue swelling noted in the frontal scalp. Impression: No intracranial hemorrhage, mass, or acute infarct. Atrophy and chronic white matter changes, as above. Soft tissue swelling in the frontal scalp. Partially imaged bilateral maxillary sinus disease. Reviewed, dictated and finalized at location . Impression: No intracranial hemorrhage, mass, or acute infarct. Atrophy and chronic white matter changes, as above. Soft tissue swelling in the frontal scalp. Partially imaged bilateral maxillary sinus disease.
--- NOTE | ~2023-07-27 | CT_ITS ---
EXAMINATION: CT cervical spine wo con DATE: 07/27/2023 09:27 INDICATION: Neck pain TECHNIQUE: Computed tomography (CT) of the cervical spine was performed without intravenous contrast. The dose-length product was 2:15 mGy-cm. Automated exposure control and iterative reconstruction sanjuana hnique were employed. COMPARISON: None FINDINGS: There is degenerative anterolisthesis at C2-3. Odontoid process is unremarkable. Craniovert ebral junction is normal. There is moderate degenerative disc disease and endplate sclerosis at C3-4 through C6-7. There is advanced multilevel uncinate and facet hypertrophy. Severe emphysema of the penelope ng apices. There is carotid atherosclerosis. IMPRESSION: 1. No acute abnormality of the cervical spine. 2: Severe cervical spondylosis. Reviewed, dictated and finalized at location B.
[2023-07-27 08:50] VITALS: BP 123/42; PULSE 47; RESP 16; TEMP 37.1; O2SAT 97
--- NOTE | 2023-07-27 10:20 | ED.FALL ---
HPI - Fall General Chief Complaint: Fall <Roman Em PA-C - Last Filed: 07/27/23 14:33> Stated Complaint: fall last noc <Roman Em PA-C - Last Filed: 07/27/23 14:33> Time Seen by Provider: 07/27/23 10:16 <Roman Em PA-C - Last Filed: 07/27/23 14:33> Source: patient <MICHAEL Castellon Last Filed: 07/27/23 14:33> Mode of arrival: EMS <Roman Em PA-C - Last Filed: 07/27/23 14:33> Limitations: no limitations <Roman Em PA-C - Last Filed: 07/27/23 14:33> History of Present Illness HPI Narrative: This is a 72-year-old female who presents to the ED via EMS from residential for chief complaint of a fall today. Patient reports that she fell asleep while sitting on the toilet and fell over to the side. Patient reports that she has done this in the past and states ?the toilets need a seatbelt. Patient reports bruising in a cut just below the eye. She has no headache currently. Denies any site of pain or any further signs of injury. She wears 4 L nasal cannula chronically. Denies any preceding chest pain, shortness of breath or palpitations. <Roman Em PA-C - Last Filed: 07/27/23 14:33> Related Data Home Medications: Home Medications Medication Instructions Recorded Confirmed aspirin 81 mg tablet,delayed 81 mg PO DAILY 04/05/19 07/21/23 release (Adult Aspirin Regimen) cholecalciferol (vitamin D3) 50 50 mcg PO DAILY 03/07/20 07/21/23 mcg (2,000 unit) capsule acetaminophen 650 mg 1,300 mg PO Q12H 10/23/20 07/21/23 tablet,extended release melatonin 10 mg tablet 10 mg PO QHS 03/16/22 07/21/23 potassium chloride 10 mEq 10 meq PO DAILY 04/13/23 07/21/23 capsule,extended release furosemide 20 mg tablet 40 mg PO DAILY 05/11/23 07/21/23 <Roman Em PA-C - Last Filed: 07/27/23 14:33> Allergies/Adverse Reactions: Allergies Allergy/AdvReac Type Severity Reaction Status Date / Time Penicillins Allergy Unknown Urticaria Verified 07/21/23 14:06 <Roman Em PA-C - Last Filed: 07/27/23 14:33> Review of Systems Review of Systems: All systems as dictated in HPI <Roman Em PA-C - Last Filed: 07/27/23 14:33> [facility] Past Medical History Medical History: Medical History Chronic kidney disease Chronic low back pain Chronic obstructive pulmonary disease Chronic respiratory failure with hypoxia, on home oxygen therapy Coronary artery disease (10/2018) Depression with anxiety Environmental allergies Hearing loss Hyperlipidemia Hypertension Insomnia Normal colonoscopy (07/2010) Normal mammography (06/03/20) Osteoarthritis Osteopenia Overactive bladder Peripheral neuropathy Tobacco abuse <Roman Em PA-C - Last Filed: 07/27/23 14:33> Surgical History Surgical History: Surgical History History of arthroscopy of right knee History of cochlear implant History of coronary artery bypass graft x 3 (10/09/18) History of ear surgery x4 History of open reduction and internal fixation (ORIF) procedure Repair left knee fracture in 2017. Repair left wrist fracture in 2018. <Roman Em PA-C - Last Filed: 07/27/23 14:33> Family History Family History: Family History Father Family history of alcoholism Family history of malignant neoplasm Heart disease Mother Diabetes mellitus <MICHAEL Castellon Last Filed: 07/27/23 14:33> Social History Social History: Social History Social History: Ms. Mark lives at [facility] in [place]. She is independent in her daily activities but no longer drives. Her PCP is Dr. Armstrong. She designates her sister, Cyndy, as her surrogate decision maker and she would like to be a DNR. Smoking packs per day: 2 Smoking c
[2023-07-27 10:31] VITALS: PULSE 52; RESP 11; O2SAT 79
[2023-07-27 10:39] VITALS: BP 164/64; PULSE 47; RESP 14
--- NOTE | 2023-07-27 10:40 | ECG_ITS ---
SEE SCANNED COPY FOR CONFIRMED REPORT MTDD
[2023-07-27 10:45] VITALS: PULSE 50; RESP 10
[2023-07-27 10:46] VITALS: BP 174/54; PULSE 49; RESP 16
[2023-07-27 12:24] VITALS: BP 142/99; PULSE 51; RESP 27; O2SAT 92
== END 2023-07-27 12:40 | disposition home or self-care (01) ==
PROVIDERS: Emergency Provider Physician Assistant; PCP Family Medicine
DX: S01.412A Laceration without foreign body of left cheek and temporomandibular area, initial encounter (principal); S00.83XA Contusion of other part of head, initial encounter; I12.9 Hypertensive chronic kidney disease with stage 1 through stage 4 chronic kidney disease, or unspecified chronic kidney disease; N18.9 Chronic kidney disease, unspecified; J44.9 Chronic obstructive pulmonary disease, unspecified; J96.11 Chronic respiratory failure with hypoxia; Z99.81 Dependence on supplemental oxygen; I25.10 Atherosclerotic heart disease of native coronary artery without angina pectoris; E78.5 Hyperlipidemia, unspecified; M19.90 Unspecified osteoarthritis, unspecified site; M85.80 Other specified disorders of bone density and structure, unspecified site; N32.81 Overactive bladder; G62.9 Polyneuropathy, unspecified; Z66 Do not resuscitate; Z96.21 Cochlear implant status; Z95.1 Presence of aortocoronary bypass graft; Z79.82 Long term (current) use of aspirin; I45.10 Unspecified right bundle-branch block; R00.1 Bradycardia, unspecified; W18.11XA Fall from or off toilet without subsequent striking against object, initial encounter
CPT/HCPCS: 12011; 70450; 72125; 93005; 99284

== ENCOUNTER 2023-11-17 07:07 | Outpatient (CLI) | payer OTHER, SELFPAY ==
--- NOTE | 2023-12-08 13:15 | WPDSLEEPSTUD ---
Sleep Study Date of Study: 11/17/23 Ordering Provider: RAYA Rosa Interpreting Physician: Mary Silva DO Sleep Study Type: Polysomnogram Height: 1.63 m Weight: 64.864 kg Body Mass Index: 24.5 Neck Circumference (inches): 15 [place]: 0 Reason for Sleep Study Nocturnal oximetry on current oxygen settings showed low oxygen readings Sleep History The patient is a 73-year-old female with COPD oxygen dependent that a sleep study the pulmonary group for evaluation sleep a nocturnal hypoxemia despite supplemental oxygen use. The patient denies awakening from sleep short of breath. She denies awakening at with heartburn belching or. She denies snoring. She denies having trouble sleeping when she has a cold. She denies waking up gasping for air throughout. She denies having breathing problems observed by herself or others. He denies sweating excessively at. She denies having heart palpitations irregular heartbeats during. She occasionally asleep during the day she denies sleep paralysis / hallucinations. She at school work due to sleepiness. She denies feeling afraid of going to sleep. She occasionally. She occasionally remembers her dreams. She frequently has racing. She rarely feels or depressed. She constantly has anxiety. She occasionally has muscular tension. She rarely notices parts of her body. He frequently has crawling and aching feelings in her legs but rarely has leg pain during the night. She denies awakening with morning jaw pain. She is constantly bothered by pain during the day and occasionally awakened by pain during the night. She constantly wakes up feeling stiff in morning. She constantly wakes up with sore or achy muscles. She constantly wakes up with pain in the neck spine joints. She goes to bed between 2-4 a.m. on both weekdays and weekends. It takes her long time to fall asleep. She does not typically wake up during the night. The patient wakes up at 7:00 a.m. on weekdays and between 7-9 weekends. She typically does not stay in bed after waking up. She denies consuming any caffeinated beverages within 2 hours of bedtime. She denies engaging in physical exercise before bedtime. He will watch television until she feels drowsy and then will go to bed. She is a former smoker. She consumes 3 caffeinated beverages per day. She denies alcohol recreational drug use. [facility] Past Medical History Medical History Chronic kidney disease Chronic low back pain Chronic obstructive pulmonary disease with hypoxia Cochlear implant in place right ear Coronary artery disease (10/2018) Dependence on continuous supplemental oxygen Depression with anxiety Environmental allergies Hearing loss Hyperlipidemia Hypertension Insomnia Normal colonoscopy (07/2010) Normal mammography (06/03/20) Osteoarthritis Osteopenia Otorrhea, left ear Overactive bladder Peripheral neuropathy Tobacco abuse Surgical History Surgical History History of arthroscopy of right knee History of cochlear implant History of coronary artery bypass graft x 3 (10/09/18) History of ear surgery x4 History of open reduction and internal fixation (ORIF) procedure Repair left knee fracture in 2017. Repair left wrist fracture in 2018. Family History Family History Father Family history of alcoholism Family history of malignant neoplasm Heart disease Mother Diabetes mellitus Social History Social History Social History: Ms. Mark lives at [facility] in [place]. She is independent in her daily activities but no longer drives. Her PCP is Dr. Armstrong. She designates her sister, Cyndy, as her surrogate decision maker and she would like to be a DNR. Smoking packs per day: 2 Smoking ci
[2023-12-08 13:17] VITALS: BMI 24.5
== END 2023-11-18 07:23 | disposition home or self-care (01) ==
PROVIDERS: PCP Family Medicine; Visit Provider Physician Assistant
DX: R09.02 Hypoxemia (principal)
CPT/HCPCS: 95810

== ENCOUNTER 2024-01-22 04:56 | Observation (INO) | payer OTHER, SELFPAY ==
[2024-01-22] VITALS (11 sets, daily range): BP systolic 100–163; BP diastolic 54–108; PULSE 55–124; RESP 16–20; TEMP 36.2–36.6; O2SAT 91–98; BMI 25.8
--- NOTE | ~2024-01-22 | XR_ITS ---
Portable chest x-ray Comparison: 09/27/2029 Clinical History: Shortness of breath Findings: There is probable COPD pattern of the lungs. There is mild bibasilar sagittal prominence. Cardiomediastinal silhouette is stable. Bones and soft tissues are unremarkable. Impression: COPD. Possible chronic bibasilar interstitial change versus minimal interstitial edema. Correlate clinicall y. Reviewed, dictated and finalized at location . Impression: COPD. Possible chronic bibasilar interstitial change versus minimal interstitial donna a. Correlate clinically.
[2024-01-22 05:15] LABS: Basophils Absolute Auto 0.1 K/mm3 (0.0-0.1); Basophils Percent Auto 0.6 % (0.2-1.2); Eosinophils Absolute Auto 0.1 K/mm3 (0-0.3); Eosinophils Percent Auto 0.9 % (0-4.4); Hematocrit 44.9 % (37.0-47.0); Immature Granulocyte Absolute 0.03 K/mm3 (0.00-0.031); Immature Granulocyte Percent A 0.3 % (0-0.5); Immature Platelet Fraction Pct 3.4 % (0.9-11.2); Lymphocytes Absolute Auto 1.43 K/mm3 (0.9-3.2); Mean Corpuscular HGB Conc 33.4 g/dl (32-36); Mean Corpuscular Hemoglobin 32.4 pg (26-34); Mean Platelet Volume 10.4 fl (7.4-10.4); Monocytes Percent Auto 11.2 % (2.6-8.5); Neutrophils Absolute Auto 6.4 K/mm3 (1.3-6.7); Platelet Count Result 87 k/mm3 (150-375); Red Blood Count 4.63 M/mm3 (4.2-5.4); Red Cell Distribution Width 18.4 % (11.5-14.5)
[2024-01-22 05:24] LABS: Alanine Aminotransferase 47 U/L (6-35); Alkaline Phosphatase 122 U/L (38-126); Anion Gap 5 mmol/L (4-12); Aspartate Amino Transferase 61 U/L (14-36); Bilirubin,Total 1.2 mg/dL (0.2-1.3); Blood Urea Nitrogen 29 mg/dL (7-17); Calcium 8.7 mg/dL (8.4-10.2); Carbon Dioxide 34 mmol/L (22-30); Chloride 93 mmol/L (98-107); Estimated CRCL calculation 34 ml/min; Estimated Glomerular Filt Rate 49; Glucose 84 mg/dL (65-110); Potassium 4.2 mmol/L (3.4-5.0); Sodium 132 mmol/L (137-145)
--- NOTE | 2024-01-22 05:28 | ED.GENADULT ---
HPI - General Adult General Chief complaint: Unspecified Stated complaint: edema Time Seen by Provider: 01/22/24 04:58 History of Present Illness HPI narrative: Patient is a 73-year-old female who presents to the emergency department this morning complaining of worsening bilateral lower extremity edema. Patient admits that she does have a history of CHF any supposed to be on Lasix but has not been taking it since she ran out of it. When asked when she ran out of her Lasix, patient states at least a month. Patient is supposed to be taking 40 mg of Lasix daily although our chart states that she was on it twice a day. Patient does wear oxygen at home 3 L all the time and up to 7 L at night. Patient's oxygen requirement has not increased. She is denying any chest pain or shortness of breath, denies any nausea, vomiting or abdominal pain. Denies any fevers or chills at home. No additional symptoms or concerns at this time. Related Data Home Medications Medication Instructions Recorded Confirmed aspirin 81 mg tablet,delayed 81 mg PO DAILY 04/05/19 01/17/24 release (Adult Aspirin Regimen) cholecalciferol (vitamin D3) 50 50 mcg PO DAILY 03/07/20 01/17/24 mcg (2,000 unit) capsule acetaminophen 650 mg 1,300 mg PO Q12H 10/23/20 01/17/24 tablet,extended release melatonin 10 mg tablet 10 mg PO QHS 03/16/22 01/17/24 guaifenesin 600 mg tablet, 600 mg PO BID 10/26/23 01/17/24 extended release 12 hr (Mucinex) cholecalciferol (vitamin D3) 50 50 mcg PO DAILY 01/17/24 01/17/24 mcg (2,000 unit) tablet furosemide 40 mg tablet 40 mg PO BID 01/17/24 01/17/24 gabapentin 300 mg capsule 300 mg PO TID 01/17/24 01/17/24 Allergies Allergy/AdvReac Type Severity Reaction Status Date / Time Penicillins Allergy Unknown Urticaria Verified 01/22/24 05:07 Review of Systems Review of Systems: All systems are reviewed and are negative unless stated otherwise in the HPI. [facility] Past Medical History Medical History Chronic kidney disease Chronic low back pain Chronic obstructive pulmonary disease with hypoxia Chronic venous insufficiency of lower extremity Cochlear implant in place right ear Coronary artery disease (10/2018) Dependence on continuous supplemental oxygen Depression with anxiety Environmental allergies Hearing loss Hyperlipidemia Hypertension Insomnia Normal colonoscopy (07/2010) Normal mammography (06/03/20) Osteoarthritis Osteopenia Otorrhea, left ear Overactive bladder Peripheral neuropathy Tobacco abuse Surgical History Surgical History History of arthroscopy of right knee History of cochlear implant History of coronary artery bypass graft x 3 (10/09/18) History of ear surgery x4 History of open reduction and internal fixation (ORIF) procedure Repair left knee fracture in 2017. Repair left wrist fracture in 2018. Family History Family History Father Family history of alcoholism Family history of malignant neoplasm Heart disease Mother Diabetes mellitus Social History Social History Social History: Ms. Mark lives at [facility] in [place]. She is independent in her daily activities but no longer drives. Her PCP is Dr. Armstrong. She designates her sister, Cyndy, as her surrogate decision maker and she would like to be a DNR. Smoking packs per day: 2 Smoking cigarettes per day: 40.0 Years smoked: 30 Smoking pack-years: 60.00 Smoking status: Former smoker Tobacco type: cigarettes Additional smoking assessment comments: 3-4 cigarettes a day Alcohol intake: current Drinks per week: 1 Substance use: never Substance use type: marijuana Lack of Transportation: YES Lack of Food: Never True Current Housing: I Have Housing Concerned About Future Ho
[2024-01-22 05:32] LABS: NT Pro B Type Natriuretic Pept 11700 pg/mL (19.9-100)
[2024-01-22 05:38] LABS: Platelet Estimate Decreased (Adequate)
[2024-01-22 05:39] LABS: Anisocytosis 1+; Crenated RBC 1+; Schistocytes None Seen
[2024-01-22] MEDS: FUROSEMIDE INJ 40 MG/4 ML VIAL IV PUSH ×2 (05:52→20:35)
--- NOTE | 2024-01-22 06:47 | PM.IMHP ---
H&P: HPI History of Present Illness Date/Time: 01/22/24 06:47 Chief Complaint: bilateral leg swelling Narrative: This is a 73-year-old female a significant past medical history of CHF, pulmonary hypertension, COPD with baseline O2 requirement of 3 L, chronic kidney disease, cochlear implant, coronary artery disease, depression with anxiety, hypertension, hyperlipidemia, osteopenia, peripheral neuropathy, chronic venous insufficiency, coronary artery bypass graft x3 vessel, former smoker, marijuana abuse who presents with worsening bilateral lower extremity edema and acute respiratory failure with hypoxia. Patient states that she ran out of her water pill medication and potassium at her living facility and has not received her Lasix for over 1 month. She recently seen her primary care doctor and her call or contact centre team leader who put her back on her regular regimen. Since that time she has lost 6 pounds of water weight. Overnight she states she was trying to ambulate to the bathroom and noticed that her clothes were all saturated from her legs weeping. She wrapped them and then called the tech to call for an ambulance to the hospital for further evaluation. Workup in the hospital included a chest x-ray which shown COPD, possible chronic bibasilar interstitial changes versus minimal interstitial edema. Last echo was reviewed from 09/02/2022 which shown normal LV systolic function with an estimated EF of 50-55%, grade 3 diastolic dysfunction, reduced RV systolic function, pulmonary hypertension with estimated pulmonary arterial systolic pressure 65 mmHg, moderate mitral valve regurgitation and severe tricuspid valve regurgitation. Initial labs showed a normal white blood cell count of 9.0, platelet count 87, sodium 132, chloride 93, bicarb 34, creatinine 1.10, EGFR 49, AST 61, ALT 47, proBNP 50347. Review of Systems Review of Systems: All systems reviewed & are unremarkable except as noted in HPI and below Constitutional: Constitutional: Reports as per HPI and Reports no additional constitutional complaints Eyes: Eyes: Reports as per HPI and Reports no additional eye complaints ENT: Reports system reviewed and no additional complaints, except as documented and Reports as per HPI Cardiovascular: Cardiovascular: Reports as per HPI and Reports no additional cardiovascular complaints Respiratory: Respiratory: Reports as per HPI and Reports no additional respiratory complaints Gastrointestinal: Gastrointestinal: Reports as per HPI and Reports no additional gastrointestinal complaints Genitourinary: Genitourinary: Reports no additional female genitourinary complaints and Reports as per HPI Musculoskeletal: Musculoskeletal: Reports no additional musculoskeletal complaints and Reports as per HPI Integumentary/Breasts: Skin/Breast: Reports system reviewed and no additional complaints, except as docu and Reports as per HPI Neurologic: Reports system reviewed and no additional complaints, except as documented and Reports as per HPI Psychiatric: Psychiatric: Reports no additional psychiatric complaints and Reports as per HPI [facility] Past Medical History Medical History Chronic kidney disease Chronic low back pain Chronic obstructive pulmonary disease with hypoxia Chronic venous insufficiency of lower extremity Cochlear implant in place right ear Coronary artery disease (10/2018) Dependence on continuous supplemental oxygen Depression with anxiety Environmental allergies Hearing loss Hyperlipidemia Hypertension Insomnia Normal colonoscopy (07/2010) Normal mammography (06/03/20) Osteoarthritis Osteopenia Otorrhea, left ear Overactive bladder Peripheral neuropathy Tobacco abuse Surgical History Surgical History History of arthroscopy of right knee History of cochlear implant History of coronary artery bypass graft x 3 (10/09/18) History of ear orellana
--- NOTE | 2024-01-22 07:00 | ADMGEN ---
This patient, Aminah Mark, was admitted to Medical Room 340-01. Patient/family oriented to hospital policies and general routines including ID bracelet, bed and alarms, visiting hours, pain management, procedures, bathroom and other care routines, personal items, smoking policy, room service/diet, and visiting hours. Information on how to activate the Rapid Response Team has been discussed. Patient/Family are encouraged to report perceived risks to care and to ask questions if they do not understand what they are told or what they should do.
[2024-01-22 07:36] LABS: Cholesterol 83 mg/dL (0-200); HDL Direct 47 mg/dL; Triglycerides 62 mg/dL (<150)
[2024-01-22 07:49] LABS: Troponin I 0.034 ng/mL (0.000-0.034)
[2024-01-22 08:01] LABS: Alveolar/Arterial O2 Gradient 157.8 mmHg; Base Excess ABG 5.2 mEq/l (+/-2.0); Fractional Inspired Oxygen 40 %; HCO3 ABG 30.1 mEq/l (22.0-26.0); Oxygen Content ABG 22.4 %vol (16.0-22.0); Oxygen Saturation ABG 95.7 % (95.0-100.0); Oxyhemoglobin 94.5 % THb (90.0-100.0); PCO2 ABG 44.6 mmHg (35.0-45.0); PO2 ABG 76.1 mmHg (80.0-100.0); Total Hemoglobin 16.9 g/dL (12.0-18.0); pH ABG 7.447 (7.350-7.450)
[2024-01-22 08:02] LABS: Modified Allen's Test Pass; Site Drawn RIGHT RADIAL
[2024-01-22 08:03] LABS: Device NASAL CANNULA
[2024-01-22] MEDS: ACETAMINOPHEN 325 MG TABLET 650 MG PO (09:10)
[2024-01-22 09:27] LABS: LDL Cholesterol Direct < 30 mg/dL
[2024-01-22 10:02] LABS: Influenza A QL RT-PCR Negative (Negative); Influenza B QL RT-PCR Negative (Negative); RSV RNA, RT-PCR Negative (Negative); SARS-CoV-2 RNA PCR Negative (Negative)
[2024-01-22] MEDS: traMADol HCL (*CRX) 50 MG TABLET PO ×2 (10:40→20:34)
[2024-01-22] MEDS: ESCITALOPRAM OXALATE 10 MG TABLET 20 MG PO (10:41)
[2024-01-22] MEDS: CLOPIDOGREL BISULFATE 75 MG TABLET PO (10:41)
[2024-01-22] MEDS: ASPIRIN 81 MG ENTERIC TABLET PO (10:42)
[2024-01-22] MEDS: MAGNESIUM OXIDE 400 MG TABLET PO (10:42)
[2024-01-22] MEDS: CHOLECALCIFEROL 1,000 UNITS TABLET 2000 UNITS PO (10:42)
[2024-01-22] MEDS: METOPROLOL SUCCINATE EXT REL 50 MG TABCR PO ×2 (10:45→20:35)
[2024-01-22] MEDS: oxyBUTYnin CHLORIDE XL 5 MG TAB.ER.24 10 MG PO ×2 (10:46→20:34)
[2024-01-22 11:04] LABS: T4 Thyroxine 5.36 ug/dL (5.53-11.0)
[2024-01-22] MEDS: busPIRone HCL 10 MG TABLET PO ×2 (12:48→16:46)
[2024-01-22] MEDS: GABAPENTIN 300 MG CAPSULE PO ×2 (12:48→20:38)
[2024-01-22] MEDS: ATORVASTATIN 40 MG TABLET PO (20:34)
[2024-01-22] MEDS: MELATONIN 5 MG TABLET 10 MG PO (20:35)
[2024-01-23] VITALS (11 sets, daily range): BP systolic 90–128; BP diastolic 54–86; PULSE 55–83; RESP 16–18; TEMP 36.2–36.8; O2SAT 92–94
[2024-01-23 06:02] LABS: Basophils Percent Auto 0.4 % (0.2-1.2); Eosinophils Absolute Auto 0.2 K/mm3 (0-0.3); Eosinophils Percent Auto 1.6 % (0-4.4); Hematocrit 43.7 % (37.0-47.0); Hemoglobin 14.7 g/dL (12.0-15.0); Immature Granulocyte Absolute 0.03 K/mm3 (0.00-0.031); Immature Granulocyte Percent A 0.3 % (0-0.5); Immature Platelet Fraction Pct 4.3 % (0.9-11.2); Lymphocytes Absolute Auto 1.22 K/mm3 (0.9-3.2); Lymphocytes Percent Auto 12.2 % (18.3-44.2); Mean Corpuscular HGB Conc 33.6 g/dl (32-36); Mean Corpuscular Hemoglobin 32.7 pg (26-34); Mean Corpuscular Volume 97.3 fl (80-100); Mean Platelet Volume 10.8 fl (7.4-10.4); Monocytes Percent Auto 10.1 % (2.6-8.5); Neutrophils Absolute Auto 7.5 K/mm3 (1.3-6.7); Neutrophils Percent Auto 75.4 % (45.5-73.1); Platelet Count Result 69 k/mm3 (150-375); Red Blood Count 4.49 M/mm3 (4.2-5.4); Red Cell Distribution Width 17.8 % (11.5-14.5)
[2024-01-23 06:14] LABS: Alanine Aminotransferase 41 U/L (6-35); Albumin Level 3.5 g/dL (3.5-5.1); Alkaline Phosphatase 110 U/L (38-126); Anion Gap 6 mmol/L (4-12); Aspartate Amino Transferase 47 U/L (14-36); Bilirubin,Total 1.5 mg/dL (0.2-1.3); Blood Urea Nitrogen 22 mg/dL (7-17); Calcium 8.3 mg/dL (8.4-10.2); Carbon Dioxide 32 mmol/L (22-30); Chloride 94 mmol/L (98-107); Estimated CRCL calculation 42 ml/min; Estimated Glomerular Filt Rate > 60; Glucose 80 mg/dL (65-110); Potassium 3.4 mmol/L (3.4-5.0); Sodium 132 mmol/L (137-145)
--- NOTE | 2024-01-23 08:53 | P.PNIM_ITS ---
Progress Note: A&P Assessment and Plan (1) Acute respiratory failure with hypoxia: Code(s): J96.01 - Acute respiratory failure with hypoxia Status: Resolved Assessment and Plan: 01/22/24: * Likely secondary to a combination of Acute CHF and Acute COPD exacerbation * Presents with hypoxia requiring increased O2 requirements and bilateral lower extremity edema * CXR revealed COPD with possible chronic bibasilar interstitial change versus minimal interstitial edema * proBNP 95265, Troponin 0.034 * Respiratory panel negative * ABG shown normal ph 7.447, pCO2 44.6, pO2 76.1, Bicarb 30.1 * Patient was given 40 mg IVP lasix while in the ER * Continue to wean O2 for a saturation greater than 92%, currently on 5L NC at rest 01/23/24: * Patient currently 3 L nasal cannula which is her baseline * Continue IV Lasix as long as blood pressure will allow (2) CHF exacerbation: Code(s): I50.9 - Heart failure, unspecified Status: Acute Assessment and Plan: 01/22/24: * Last echo was reviewed from 09/02/22 which revealed normal LV systolic function with an estimated EF of 50-55%, LV diastolic function is grade III diastolic dysfunction, severely enlarged right ventricle, moderate mitral and severe tricuspid valve regurgitation, pulmonary hypertension with estimated pulmonary artery systolic pressure of 65mmHg. * pro BNP 64067 * Continue IV lasix, hold p.o. Lasix * Continue metoprolol * Continuous cardiac monitoring ordered * Heart healthy diet 01/23/24: * No change to current treatment plan (3) Chronic obstructive pulmonary disease with hypoxia: Code(s): J44.9 - Chronic obstructive pulmonary disease, unspecified Status: Acute Assessment and Plan: 01/22/24: * Former 2 pack per day smoker * Currently on 5L NC. * Baseline O2 requirement is 3L during the day and up to 7L at night. 01/23/24: * Currently on 3 L nasal cannula which is her baseline (4) Pulmonary hypertension: Code(s): I27.20 - Pulmonary hypertension, unspecified Status: Chronic Assessment and Plan: 01/22/24: * history of pulmonary hypertension diagnosed on last Echo, see above for details. 01/23/24: * No change (5) Hypertension: Qualifiers: Hypertension type: primary hypertension Qualified Code(s): I10 - Essential (primary) hypertension Code(s): I10 - Essential (primary) hypertension Status: Chronic Assessment and Plan: 01/22/24: * Blood pressures [id number] * Continue metoprolol 50 mg extended release b.i.d. 01/23/24: * Continue with current treatment plan (6) Hyperlipidemia: Qualifiers: Hyperlipidemia type: mixed hyperlipidemia Qualified Code(s): E78.2 - Mixed hyperlipidemia Code(s): E78.5 - Hyperlipidemia, unspecified Status: Chronic Assessment and Plan: 01/22/24: * Continue aspirin and atorvastatin 01/23/24: * Continue with current treatment plan (7) Depression with anxiety: Code(s): F41.8 - Other specified anxiety disorders Status: Chronic Assessment and Plan: 01/22/24: * Continue BuSpar, hydroxyzine, Lexapro 01/23/24: * Continue with current treatment plan (8) Elevated liver enzymes: Code(s): R74.8 - Abnormal levels of other serum enzymes Status: Chronic Assessment and Plan: 01/22/24: * Appears to be chronic * Hepatitis panel in the past was negative * Ultrasound of the abdomen showed no etiology for abnormal liver fun
--- NOTE | 2024-01-23 08:53 | PM.IMPN ---
Progress Note: A&P Assessment and Plan (1) Acute respiratory failure with hypoxia: Code(s): J96.01 - Acute respiratory failure with hypoxia Status: Resolved Assessment and Plan: 01/22/24: Likely secondary to a combination of Acute CHF and Acute COPD exacerbation Presents with hypoxia requiring increased O2 requirements and bilateral lower extremity edema CXR revealed COPD with possible chronic bibasilar interstitial change versus minimal interstitial edema proBNP 19109, Troponin 0.034 Respiratory panel negative ABG shown normal ph 7.447, pCO2 44.6, pO2 76.1, Bicarb 30.1 Patient was given 40 mg IVP lasix while in the ER Continue to wean O2 for a saturation greater than 92%, currently on 5L NC at rest 01/23/24: Patient currently 3 L nasal cannula which is her baseline Continue IV Lasix as long as blood pressure will allow (2) CHF exacerbation: Code(s): I50.9 - Heart failure, unspecified Status: Acute Assessment and Plan: 01/22/24: Last echo was reviewed from 09/02/22 which revealed normal LV systolic function with an estimated EF of 50-55%, LV diastolic function is grade III diastolic dysfunction, severely enlarged right ventricle, moderate mitral and severe tricuspid valve regurgitation, pulmonary hypertension with estimated pulmonary artery systolic pressure of 65mmHg. pro BNP 98914 Continue IV lasix, hold p.o. Lasix Continue metoprolol Continuous cardiac monitoring ordered Heart healthy diet 01/23/24: No change to current treatment plan (3) Chronic obstructive pulmonary disease with hypoxia: Code(s): J44.9 - Chronic obstructive pulmonary disease, unspecified Status: Acute Assessment and Plan: 01/22/24: Former 2 pack per day smoker Currently on 5L NC. Baseline O2 requirement is 3L during the day and up to 7L at night. 01/23/24: Currently on 3 L nasal cannula which is her baseline (4) Pulmonary hypertension: Code(s): I27.20 - Pulmonary hypertension, unspecified Status: Chronic Assessment and Plan: 01/22/24: history of pulmonary hypertension diagnosed on last Echo, see above for details. 01/23/24: No change (5) Hypertension: Qualifiers: Hypertension type: primary hypertension Qualified Code(s): I10 - Essential (primary) hypertension Code(s): I10 - Essential (primary) hypertension Status: Chronic Assessment and Plan: 01/22/24: Blood pressures [id number] Continue metoprolol 50 mg extended release b.i.d. 01/23/24: Continue with current treatment plan (6) Hyperlipidemia: Qualifiers: Hyperlipidemia type: mixed hyperlipidemia Qualified Code(s): E78.2 - Mixed hyperlipidemia Code(s): E78.5 - Hyperlipidemia, unspecified Status: Chronic Assessment and Plan: 01/22/24: Continue aspirin and atorvastatin 01/23/24: Continue with current treatment plan (7) Depression with anxiety: Code(s): F41.8 - Other specified anxiety disorders Status: Chronic Assessment and Plan: 01/22/24: Continue BuSpar, hydroxyzine, Lexapro 01/23/24: Continue with current treatment plan (8) Elevated liver enzymes: Code(s): R74.8 - Abnormal levels of other serum enzymes Status: Chronic Assessment and Plan: 01/22/24: Appears to be chronic Hepatitis panel in the past was negative Ultrasound of the abdomen showed no etiology for abnormal liver function tests Patient does drink alcohol on occasion AST 61, ALT 47 01/23/24: AST 47, ALT 41, total bilirubin 1.5 Time Spent With Patient Time with patient: 25 - 35 minutes Subjective Date/time seen: 01/23/24 08:53 Interval history: Interval history: This is a 73-year-old female a significant past medical history of CHF, pulmonary hypertension, COPD with baseline O2 requirement of 3 L, chronic kidney disease, cochlear implant, coronary artery disease, depression with
[2024-01-23] MEDS: traMADol HCL (*CRX) 50 MG TABLET PO ×3 (09:40→20:57)
[2024-01-23] MEDS: ESCITALOPRAM OXALATE 10 MG TABLET 20 MG PO (09:41)
[2024-01-23] MEDS: oxyBUTYnin CHLORIDE XL 5 MG TAB.ER.24 10 MG PO ×2 (09:41→20:57)
[2024-01-23] MEDS: FUROSEMIDE INJ 40 MG/4 ML VIAL IV PUSH (09:41)
[2024-01-23] MEDS: CHOLECALCIFEROL 1,000 UNITS TABLET 2000 UNITS PO (09:42)
[2024-01-23] MEDS: MAGNESIUM OXIDE 400 MG TABLET PO (09:42)
[2024-01-23] MEDS: ASPIRIN 81 MG ENTERIC TABLET PO (09:42)
[2024-01-23] MEDS: CLOPIDOGREL BISULFATE 75 MG TABLET PO (09:42)
[2024-01-23] MEDS: METOPROLOL SUCCINATE EXT REL 50 MG TABCR PO ×2 (09:42→20:57)
[2024-01-23] MEDS: busPIRone HCL 10 MG TABLET PO ×3 (09:42→17:48)
[2024-01-23] MEDS: GABAPENTIN 300 MG CAPSULE PO ×2 (09:47→13:07)
[2024-01-23] MEDS: MELATONIN 5 MG TABLET 10 MG PO (20:57)
[2024-01-23] MEDS: ATORVASTATIN 40 MG TABLET PO (20:57)
[2024-01-23] MEDS: GABAPENTIN 300 MG CAPSULE 600 MG PO (21:01)
[2024-01-24] VITALS (12 sets, daily range): BP systolic 136–140; BP diastolic 70–81; PULSE 56–74; RESP 19–20; TEMP 36.6–36.9; O2SAT 92–98
--- NOTE | 2024-01-24 | ECHO_ITS ---
Patient Info Name: Aminah Mark Age: 73 years : 1950 Gender: Female Ht: 64 in Wt: 144 lbs BSA: 1.73 m2 HR: 63 bpm BP: 136 / 81 mmHg Heart Rhythm: Sinus Rhythm Technical Quality: Fair Exam Date: 01/24/2024 11:24 AM Exam Location: Echo Lab Patient Status: Inpatient Admit Date: 01/22/2024 Staff Ordering Physician: Cheryl Grace PA-C Flame Gouger: Nancy Adams RDCS Attending Provider: Cheryl Grace PA-C Referring Physician: Sanjay ALVA; Exam Type: CA echo doppler color flow Study Info Indications I50.20 - Unspecified systolic (congestive) heart failure Complete two-dimensional, color flow and Doppler transthoracic echocardiogram is performed. Summary 1. Left ventricular chamber dimension is normal. 2. Left ventricular systolic function is normal, estimated at 55-60%. 3. The left ventricular diastolic function is grade I diastolic dysfunction. 4. Right ventricular chamber dimension is severely enlarged. 5. Flattening of the septum in systole consistent with right ventricular pressure overload. 6. Right ventricular systolic function is reduced. 7. Severe biatrial enlargement, right > left. 8. There is mild aortic valve regurgitation. 9. There is severe tricuspid valve regurgitation. 10. Severe pulmonary hypertension, estimated pulmonary arterial systolic pressure is 69 mmHg. Left Ventricle Left ventricular chamber dimension is normal. Left ventricular systolic function is normal, estimated at 55-60%. There is no increased left ventricular wall thickness. Left ventricular septal wall motion is abnormal with septal motion related to bundle branch block. The left ventricular diastolic function is grade I diastolic dysfunction. Right Ventricle Flattening of the septum in systole consistent with right ventricular pressure overload. Right ventricular chamber dimension is severely enlarged. Right ventricular systolic function is reduced. Left Atria Left atrial chamber dimension is severely enlarged. Right Atria Right atrial chamber dimension is severely enlarged. Atrial Septum Intact interatrial septum visualized by color flow imaging. Aortic Valve The aortic valve is trileaflet. There is no aortic valve stenosis. There is mild aortic valve regurgitation. Pulmonic Valve The pulmonic valve is normal. There is trace pulmonic regurgitation. Mitral Valve There is trace mitral valve regurgitation. Tricuspid Valve There is severe tricuspid valve regurgitation. Severe pulmonary hypertension, estimated pulmonary arterial systolic pressure is 69 mmHg. Pericardium/Pleural There is no pericardial effusion. Inferior Vena Cava Normal inferior vena cava with >50% collapse upon inspiration consistent with normal right atrial pressure, 3 mmHg. Aorta The aortic root size at the sinus of Valsalva is normal. Left Ventricular Outflow Tract Name Value Normal LVOT 2D LVOT Diameter 2.0 cm LVOT Doppler LVOT Peak Gradient 4 mmHg LVOT Mean Gradient 1 mmHg LVOT VTI 19 cm LVOT VTI/AV VTI Ratio 0.8 LVOT Stroke Volume 58 ml
[2024-01-24 05:33] LABS: Basophils Absolute Auto 0.1 K/mm3 (0.0-0.1); Basophils Percent Auto 0.7 % (0.2-1.2); Eosinophils Absolute Auto 0.2 K/mm3 (0-0.3); Eosinophils Percent Auto 2.1 % (0-4.4); Hematocrit 47.3 % (37.0-47.0); Hemoglobin 15.3 g/dL (12.0-15.0); Immature Granulocyte Absolute 0.05 K/mm3 (0.00-0.031); Immature Granulocyte Percent A 0.5 % (0-0.5); Immature Platelet Fraction Pct 6.1 % (0.9-11.2); Lymphocytes Absolute Auto 1.68 K/mm3 (0.9-3.2); Lymphocytes Percent Auto 16.6 % (18.3-44.2); Mean Corpuscular HGB Conc 32.3 g/dl (32-36); Mean Corpuscular Hemoglobin 31.7 pg (26-34); Mean Corpuscular Volume 98.1 fl (80-100); Mean Platelet Volume 10.9 fl (7.4-10.4); Monocytes Absolute Auto 1.1 K/mm3 (0.1-0.6); Monocytes Percent Auto 10.7 % (2.6-8.5); Neutrophils Absolute Auto 7.1 K/mm3 (1.3-6.7); Neutrophils Percent Auto 69.4 % (45.5-73.1); Platelet Count Result 69 k/mm3 (150-375); Red Blood Count 4.82 M/mm3 (4.2-5.4); Red Cell Distribution Width 18.2 % (11.5-14.5); White Blood Count 10.2 K/mm3 (4.5-10.0)
[2024-01-24 05:46] LABS: Alanine Aminotransferase 47 U/L (6-35); Alkaline Phosphatase 139 U/L (38-126); Anion Gap 6 mmol/L (4-12); Aspartate Amino Transferase 51 U/L (14-36); Bilirubin,Total 1.4 mg/dL (0.2-1.3); Blood Urea Nitrogen 23 mg/dL (7-17); Calcium 9.3 mg/dL (8.4-10.2); Carbon Dioxide 35 mmol/L (22-30); Chloride 92 mmol/L (98-107); Estimated CRCL calculation 38 ml/min; Estimated Glomerular Filt Rate 54; Glucose 105 mg/dL (65-110); Potassium 4.6 mmol/L (3.4-5.0); Sodium 133 mmol/L (137-145)
[2024-01-24] MEDS: oxyBUTYnin CHLORIDE XL 5 MG TAB.ER.24 10 MG PO ×2 (08:33→20:05)
[2024-01-24] MEDS: ESCITALOPRAM OXALATE 10 MG TABLET 20 MG PO (08:33)
[2024-01-24] MEDS: busPIRone HCL 10 MG TABLET PO ×3 (08:33→17:06)
--- NOTE | 2024-01-24 08:33 | P.PNIM_ITS ---
Progress Note: A&P Assessment and Plan (1) Acute respiratory failure with hypoxia: Code(s): J96.01 - Acute respiratory failure with hypoxia Status: Resolved Assessment and Plan: Presents with hypoxia requiring increased O2 requirements of 5 L NC (3 L NC baseline) and bilateral lower extremity edema. Likely secondary to a combination of Acute CHF and Acute COPD exacerbation * CXR revealed COPD with possible chronic bibasilar interstitial change versus minimal interstitial edema * proBNP 18026, Troponin 0.034 * Respiratory panel negative * ABG shown normal ph 7.447, pCO2 44.6, pO2 76.1, Bicarb 30.1 * Patient was given 40 mg IVP lasix while in the ER, remains on lasix 40 IV daily * Continue to wean O2 for a saturation greater than 92%, back to baseline 3 L NC * Continue IV Lasix as long as blood pressure will allow (2) CHF exacerbation: Code(s): I50.9 - Heart failure, unspecified Status: Acute Assessment and Plan: Presents with hypoxia requiring increased O2 requirements of 5 L NC (3 L NC baseline) and bilateral lower extremity edema. Likely secondary to a combination of Acute CHF and Acute COPD exacerbation - pro BNP 10948 - Chest XR:COPD. Possible chronic bibasilar interstitial change versus minimal interstitial edema. Correlate clinically. - Last echo was reviewed from 09/02/22 which revealed normal LV systolic function with an estimated EF of 50-55%, LV diastolic function is grade III diastolic dysfunction, severely enlarged right ventricle, moderate mitral and severe tricuspid valve regurgitation, pulmonary hypertension with estimated pulmonary artery systolic pressure of 65mmHg. - Echo LVEF 55-60% with grade I diastolic dysfunction and severe pulmonary hypertension with PAS 69 - Lasix 40 mg IV daily, holding home lasix - Metoprolol 50 mg daily - Tele monitor - Heart healthy diet - Monitor vital signs, I&Os, BUN/creatinine, daily weights, neuro status and patient is a fall risk - Monitor serum electrolytes, Keep serum Potassium>4 and serum Magnesium>2 and CBC (3) Chronic obstructive pulmonary disease with hypoxia: Code(s): J44.9 - Chronic obstructive pulmonary disease, unspecified Status: Acute Assessment and Plan: 01/22/24: * Former 2 pack per day smoker * Currently on 5L NC. * Baseline O2 requirement is 3L during the day and up to 7L at night. 01/24/24: * Currently on 3 L nasal cannula which is her baseline (4) Pulmonary hypertension: Code(s): I27.20 - Pulmonary hypertension, unspecified Status: Chronic Assessment and Plan: * history of pulmonary hypertension diagnosed on last Echo, see above for details. (5) Hypertension: Qualifiers: Hypertension type: primary hypertension Qualified Code(s): I10 - Essential (primary) hypertension Code(s): I10 - Essential (primary) hypertension Status: Chronic Assessment and Plan: Chronic, continue home medications. * Lasix 40 mg daily IV for CHF exacerbation * Continue metoprolol 50 mg extended release b.i.d. * Monitor (6) Elevated liver enzymes: Code(s): R74.8 - Abnormal levels of other serum enzymes Status: Chronic Assessment and Plan: 01/22/24: * Appears to be chronic * Tot bili 1.4, AST 51, ALT 47, Alk phos 139 on am labs * Hepatitis panel 09/2022 in the past was negative * Ultrasound of the abdomen 09/2022 showed no etiology for abnormal liver function tests * Patient does drink alcohol on occasion (7) Hyperlipidemia: Qualifiers: Hyperlipidemia type: mix
--- NOTE | 2024-01-24 08:33 | PM.IMPN ---
Progress Note: A&P Assessment and Plan (1) Acute respiratory failure with hypoxia: Code(s): J96.01 - Acute respiratory failure with hypoxia Status: Resolved Assessment and Plan: Presents with hypoxia requiring increased O2 requirements of 5 L NC (3 L NC baseline) and bilateral lower extremity edema. Likely secondary to a combination of Acute CHF and Acute COPD exacerbation CXR revealed COPD with possible chronic bibasilar interstitial change versus minimal interstitial edema proBNP 57939, Troponin 0.034 Respiratory panel negative ABG shown normal ph 7.447, pCO2 44.6, pO2 76.1, Bicarb 30.1 Patient was given 40 mg IVP lasix while in the ER, remains on lasix 40 IV daily Continue to wean O2 for a saturation greater than 92%, back to baseline 3 L NC Continue IV Lasix as long as blood pressure will allow (2) CHF exacerbation: Code(s): I50.9 - Heart failure, unspecified Status: Acute Assessment and Plan: Presents with hypoxia requiring increased O2 requirements of 5 L NC (3 L NC baseline) and bilateral lower extremity edema. Likely secondary to a combination of Acute CHF and Acute COPD exacerbation - pro BNP 38333 - Chest XR:COPD. Possible chronic bibasilar interstitial change versus minimal interstitial edema. Correlate clinically. - Last echo was reviewed from 09/02/22 which revealed normal LV systolic function with an estimated EF of 50-55%, LV diastolic function is grade III diastolic dysfunction, severely enlarged right ventricle, moderate mitral and severe tricuspid valve regurgitation, pulmonary hypertension with estimated pulmonary artery systolic pressure of 65mmHg. - Echo LVEF 55-60% with grade I diastolic dysfunction and severe pulmonary hypertension with PAS 69 - Lasix 40 mg IV daily, holding home lasix - Metoprolol 50 mg daily - Tele monitor - Heart healthy diet - Monitor vital signs, I&Os, BUN/creatinine, daily weights, neuro status and patient is a fall risk - Monitor serum electrolytes, Keep serum Potassium>4 and serum Magnesium>2 and CBC (3) Chronic obstructive pulmonary disease with hypoxia: Code(s): J44.9 - Chronic obstructive pulmonary disease, unspecified Status: Acute Assessment and Plan: 01/22/24: Former 2 pack per day smoker Currently on 5L NC. Baseline O2 requirement is 3L during the day and up to 7L at night. 01/24/24: Currently on 3 L nasal cannula which is her baseline (4) Pulmonary hypertension: Code(s): I27.20 - Pulmonary hypertension, unspecified Status: Chronic Assessment and Plan: history of pulmonary hypertension diagnosed on last Echo, see above for details. (5) Hypertension: Qualifiers: Hypertension type: primary hypertension Qualified Code(s): I10 - Essential (primary) hypertension Code(s): I10 - Essential (primary) hypertension Status: Chronic Assessment and Plan: Chronic, continue home medications. Lasix 40 mg daily IV for CHF exacerbation Continue metoprolol 50 mg extended release b.i.d. Monitor (6) Elevated liver enzymes: Code(s): R74.8 - Abnormal levels of other serum enzymes Status: Chronic Assessment and Plan: 01/22/24: Appears to be chronic Tot bili 1.4, AST 51, ALT 47, Alk phos 139 on am labs Hepatitis panel 09/2022 in the past was negative Ultrasound of the abdomen 09/2022 showed no etiology for abnormal liver function tests Patient does drink alcohol on occasion (7) Hyperlipidemia: Qualifiers: Hyperlipidemia type: mixed hyperlipidemia Qualified Code(s): E78.2 - Mixed hyperlipidemia Code(s): E78.5 - Hyperlipidemia, unspecified Status: Chronic Assessment and Plan: Continue aspirin and atorvastatin (8) Depression with anxiety: Code(s): F41.8 - Other specified anxiety disorders Status: Chronic Assessment and Plan: Continue BuSpar, hydroxyzine, Lexapro Time Spent With P
[2024-01-24] MEDS: METOPROLOL SUCCINATE EXT REL 50 MG TABCR PO ×2 (08:34→20:05)
[2024-01-24] MEDS: MAGNESIUM OXIDE 400 MG TABLET PO (08:34)
[2024-01-24] MEDS: CLOPIDOGREL BISULFATE 75 MG TABLET PO (08:34)
[2024-01-24] MEDS: ASPIRIN 81 MG ENTERIC TABLET PO (08:34)
[2024-01-24] MEDS: CHOLECALCIFEROL 1,000 UNITS TABLET 2000 UNITS PO (08:34)
[2024-01-24] MEDS: GABAPENTIN 300 MG CAPSULE PO ×2 (08:40→12:27)
[2024-01-24] MEDS: traMADol HCL (*CRX) 50 MG TABLET PO ×2 (08:41→20:05)
[2024-01-24] MEDS: MELATONIN 5 MG TABLET 10 MG PO (20:05)
[2024-01-24] MEDS: ATORVASTATIN 40 MG TABLET PO (20:05)
[2024-01-24] MEDS: GABAPENTIN 300 MG CAPSULE 600 MG PO (20:06)
[2024-01-25] VITALS (8 sets, daily range): BP systolic 139–140; BP diastolic 67–70; PULSE 62–72; RESP 16–18; TEMP 36.6–36.7; O2SAT 93–95
[2024-01-25 06:04] LABS: Basophils Absolute Auto 0.1 K/mm3 (0.0-0.1); Basophils Percent Auto 0.8 % (0.2-1.2); Eosinophils Absolute Auto 0.2 K/mm3 (0-0.3); Eosinophils Percent Auto 2.2 % (0-4.4); Hematocrit 46.7 % (37.0-47.0); Immature Granulocyte Absolute 0.03 K/mm3 (0.00-0.031); Immature Granulocyte Percent A 0.4 % (0-0.5); Lymphocytes Absolute Auto 1.46 K/mm3 (0.9-3.2); Lymphocytes Percent Auto 17.1 % (18.3-44.2); Mean Corpuscular HGB Conc 32.1 g/dl (32-36); Mean Corpuscular Hemoglobin 31.7 pg (26-34); Mean Corpuscular Volume 98.7 fl (80-100); Mean Platelet Volume 10.2 fl (7.4-10.4); Monocytes Absolute Auto 1.1 K/mm3 (0.1-0.6); Monocytes Percent Auto 12.3 % (2.6-8.5); Neutrophils Absolute Auto 5.8 K/mm3 (1.3-6.7); Neutrophils Percent Auto 67.2 % (45.5-73.1); Platelet Count Result 61 k/mm3 (150-375); Red Blood Count 4.73 M/mm3 (4.2-5.4); Red Cell Distribution Width 17.7 % (11.5-14.5); White Blood Count 8.6 K/mm3 (4.5-10.0)
[2024-01-25 06:17] LABS: Alanine Aminotransferase 44 U/L (6-35); Albumin Level 3.7 g/dL (3.5-5.1); Alkaline Phosphatase 110 U/L (38-126); Anion Gap 2 mmol/L (4-12); Aspartate Amino Transferase 46 U/L (14-36); Bilirubin,Total 1.5 mg/dL (0.2-1.3); Blood Urea Nitrogen 22 mg/dL (7-17); Calcium 9.2 mg/dL (8.4-10.2); Carbon Dioxide 37 mmol/L (22-30); Chloride 92 mmol/L (98-107); Estimated CRCL calculation 38 ml/min; Estimated Glomerular Filt Rate 54; Glucose 87 mg/dL (65-110); Potassium 4.6 mmol/L (3.4-5.0); Sodium 131 mmol/L (137-145)
[2024-01-25] MEDS: busPIRone HCL 10 MG TABLET PO ×2 (08:41→12:03)
[2024-01-25] MEDS: METOPROLOL SUCCINATE EXT REL 50 MG TABCR PO (08:41)
[2024-01-25] MEDS: ESCITALOPRAM OXALATE 10 MG TABLET 20 MG PO (08:41)
[2024-01-25] MEDS: traMADol HCL (*CRX) 50 MG TABLET PO (08:41)
[2024-01-25] MEDS: CHOLECALCIFEROL 1,000 UNITS TABLET 2000 UNITS PO (08:41)
[2024-01-25] MEDS: MAGNESIUM OXIDE 400 MG TABLET PO (08:42)
[2024-01-25] MEDS: CLOPIDOGREL BISULFATE 75 MG TABLET PO (08:42)
[2024-01-25] MEDS: GABAPENTIN 300 MG CAPSULE PO ×2 (08:42→12:03)
[2024-01-25] MEDS: ASPIRIN 81 MG ENTERIC TABLET PO (08:42)
[2024-01-25] MEDS: oxyBUTYnin CHLORIDE XL 5 MG TAB.ER.24 10 MG PO (08:42)
[2024-01-25] MEDS: FUROSEMIDE 40 MG TABLET PO (10:42)
--- NOTE | 2024-01-25 14:11 | PM.IMPN ---
Progress Note: A&P Assessment and Plan (1) Acute respiratory failure with hypoxia: Code(s): J96.01 - Acute respiratory failure with hypoxia Status: Resolved Assessment and Plan: Presents with hypoxia requiring increased O2 requirements of 5 L NC (3 L NC baseline) and bilateral lower extremity edema. Likely secondary to a combination of Acute CHF and Acute COPD exacerbation CXR revealed COPD with possible chronic bibasilar interstitial change versus minimal interstitial edema proBNP 21994, Troponin 0.034 Respiratory panel negative ABG shown normal ph 7.447, pCO2 44.6, pO2 76.1, Bicarb 30.1 Patient was given 40 mg IVP lasix while in the ER, remains on lasix 40 IV daily Continue to wean O2 for a saturation greater than 92%, back to baseline 3 L NC Continue IV Lasix as long as blood pressure will allow (2) CHF exacerbation: Code(s): I50.9 - Heart failure, unspecified Status: Acute Assessment and Plan: Presents with hypoxia requiring increased O2 requirements of 5 L NC (3 L NC baseline) and bilateral lower extremity edema. Likely secondary to a combination of Acute CHF and Acute COPD exacerbation - pro BNP 65908 - Chest XR:COPD. Possible chronic bibasilar interstitial change versus minimal interstitial edema. Correlate clinically. - Last echo was reviewed from 09/02/22 which revealed normal LV systolic function with an estimated EF of 50-55%, LV diastolic function is grade III diastolic dysfunction, severely enlarged right ventricle, moderate mitral and severe tricuspid valve regurgitation, pulmonary hypertension with estimated pulmonary artery systolic pressure of 65mmHg. - Echo LVEF 55-60% with grade I diastolic dysfunction and severe pulmonary hypertension with PAS 69 - Lasix 40 mg IV daily, holding home lasix - Metoprolol 50 mg daily - Tele monitor - Heart healthy diet - Monitor vital signs, I&Os, BUN/creatinine, daily weights, neuro status and patient is a fall risk - Monitor serum electrolytes, Keep serum Potassium>4 and serum Magnesium>2 and CBC (3) Chronic obstructive pulmonary disease with hypoxia: Code(s): J44.9 - Chronic obstructive pulmonary disease, unspecified Status: Acute Assessment and Plan: 01/22/24: Former 2 pack per day smoker Currently on 5L NC. Baseline O2 requirement is 3L during the day and up to 7L at night. 01/24/24: Currently on 3 L nasal cannula which is her baseline (4) Pulmonary hypertension: Code(s): I27.20 - Pulmonary hypertension, unspecified Status: Chronic Assessment and Plan: history of pulmonary hypertension diagnosed on last Echo, see above for details. (5) Hypertension: Qualifiers: Hypertension type: primary hypertension Qualified Code(s): I10 - Essential (primary) hypertension Code(s): I10 - Essential (primary) hypertension Status: Chronic Assessment and Plan: Chronic, continue home medications. Lasix 40 mg daily IV for CHF exacerbation Continue metoprolol 50 mg extended release b.i.d. Monitor 01/24- po lasix now- monitor i/o, electrolytes (6) Elevated liver enzymes: Code(s): R74.8 - Abnormal levels of other serum enzymes Status: Chronic Assessment and Plan: 01/22/24: Appears to be chronic Tot bili 1.4, AST 51, ALT 47, Alk phos 139 on am labs Hepatitis panel 09/2022 in the past was negative Ultrasound of the abdomen 09/2022 showed no etiology for abnormal liver function tests Patient does drink alcohol on occasion (7) Hyperlipidemia: Qualifiers: Hyperlipidemia type: mixed hyperlipidemia Qualified Code(s): E78.2 - Mixed hyperlipidemia Code(s): E78.5 - Hyperlipidemia, unspecified Status: Chronic Assessment and Plan: Continue aspirin and atorvastatin (8) Depression with anxiety: Code(s): F41.8 - Other specified anxiety disorders Status: Chronic Assessment and Plan: Continue B
--- NOTE | 2024-01-25 14:51 | PM.DS ---
DS: Admitting Diagnosis Discharge Date 01/24 Admitting Diagnosis sob DS: Discharge Diagnosis Discharge Diagnosis (1) Acute respiratory failure with hypoxia: Code(s): J96.01 - Acute respiratory failure with hypoxia Status: Resolved Assessment and Plan: Presents with hypoxia requiring increased O2 requirements of 5 L NC (3 L NC baseline) and bilateral lower extremity edema. Likely secondary to a combination of Acute CHF and Acute COPD exacerbation CXR revealed COPD with possible chronic bibasilar interstitial change versus minimal interstitial edema proBNP 50275, Troponin 0.034 Respiratory panel negative ABG shown normal ph 7.447, pCO2 44.6, pO2 76.1, Bicarb 30.1 Patient was given 40 mg IVP lasix while in the ER, remains on lasix 40 IV daily Continue to wean O2 for a saturation greater than 92%, back to baseline 3 L NC Continue IV Lasix as long as blood pressure will allow (2) CHF exacerbation: Code(s): I50.9 - Heart failure, unspecified Status: Acute Assessment and Plan: Presents with hypoxia requiring increased O2 requirements of 5 L NC (3 L NC baseline) and bilateral lower extremity edema. Likely secondary to a combination of Acute CHF and Acute COPD exacerbation - pro BNP 39349 - Chest XR:COPD. Possible chronic bibasilar interstitial change versus minimal interstitial edema. Correlate clinically. - Last echo was reviewed from 09/02/22 which revealed normal LV systolic function with an estimated EF of 50-55%, LV diastolic function is grade III diastolic dysfunction, severely enlarged right ventricle, moderate mitral and severe tricuspid valve regurgitation, pulmonary hypertension with estimated pulmonary artery systolic pressure of 65mmHg. - Echo LVEF 55-60% with grade I diastolic dysfunction and severe pulmonary hypertension with PAS 69 - Lasix 40 mg IV daily, holding home lasix - Metoprolol 50 mg daily - Tele monitor - Heart healthy diet - Monitor vital signs, I&Os, BUN/creatinine, daily weights, neuro status and patient is a fall risk - Monitor serum electrolytes, Keep serum Potassium>4 and serum Magnesium>2 and CBC (3) Chronic obstructive pulmonary disease with hypoxia: Code(s): J44.9 - Chronic obstructive pulmonary disease, unspecified Status: Acute Assessment and Plan: 01/22/24: Former 2 pack per day smoker Currently on 5L NC. Baseline O2 requirement is 3L during the day and up to 7L at night. 01/24/24: Currently on 3 L nasal cannula which is her baseline (4) Pulmonary hypertension: Code(s): I27.20 - Pulmonary hypertension, unspecified Status: Chronic Assessment and Plan: history of pulmonary hypertension diagnosed on last Echo, see above for details. (5) Hypertension: Qualifiers: Hypertension type: primary hypertension Qualified Code(s): I10 - Essential (primary) hypertension Code(s): I10 - Essential (primary) hypertension Status: Chronic Assessment and Plan: Chronic, continue home medications. Lasix 40 mg daily IV for CHF exacerbation Continue metoprolol 50 mg extended release b.i.d. Monitor 01/24- po lasix now- monitor i/o, electrolytes (6) Elevated liver enzymes: Code(s): R74.8 - Abnormal levels of other serum enzymes Status: Chronic Assessment and Plan: 01/22/24: Appears to be chronic Tot bili 1.4, AST 51, ALT 47, Alk phos 139 on am labs Hepatitis panel 09/2022 in the past was negative Ultrasound of the abdomen 09/2022 showed no etiology for abnormal liver function tests Patient does drink alcohol on occasion (7) Hyperlipidemia: Qualifiers: Hyperlipidemia type: mixed hyperlipidemia Qualified Code(s): E78.2 - Mixed hyperlipidemia Code(s): E78.5 - Hyperlipidemia, unspecified Status: Chronic Assessment and Plan: Continue aspirin and atorvastatin (8) Depression with anxiety: Code(s): F41.8 - Other specified anx
== END 2024-01-25 16:05 ==
LOC: ANHED 05:53 → ANH3MED 07:42
PROVIDERS: Nurse Practitioner Acute Care; Admitting Provider Internal Medicine; Emergency Provider Emergency Medicine; PCP Family Medicine; Visit Provider Student in an Organized Health Care Education/Training Program
DX: J96.01 Acute respiratory failure with hypoxia (principal); I11.0 Hypertensive heart disease with heart failure; I50.9 Heart failure, unspecified; J44.1 Chronic obstructive pulmonary disease with (acute) exacerbation; R60.0 Localized edema; I27.20 Pulmonary hypertension, unspecified; R74.8 Abnormal levels of other serum enzymes; R53.1 Weakness; E78.5 Hyperlipidemia, unspecified; G62.9 Polyneuropathy, unspecified; I25.10 Atherosclerotic heart disease of native coronary artery without angina pectoris; F41.8 Other specified anxiety disorders; I87.2 Venous insufficiency (chronic) (peripheral); I08.1 Rheumatic disorders of both mitral and tricuspid valves; N32.81 Overactive bladder; Z20.822 Contact with and (suspected) exposure to COVID-19; Z95.1 Presence of aortocoronary bypass graft; Z91.148 Patient's other noncompliance with medication regimen for other reason; Z99.81 Dependence on supplemental oxygen; Z79.82 Long term (current) use of aspirin; Z79.51 Long term (current) use of inhaled steroids; Z79.02 Long term (current) use of antithrombotics/antiplatelets; Z96.21 Cochlear implant status; Z87.891 Personal history of nicotine dependence
CPT/HCPCS: 36415; 36600; 71045; 80053; 80061; 82805; 83880; 84436; 84443; 84480; 84484; 85018; 85025; 85055; 87637; 93306; 96374; 96376; 97161; 97165; 99285; A9270; G0378; J1940

== ENCOUNTER 2024-01-29 12:46 | Emergency (ER) | payer OTHER, SELFPAY ==
[2024-01-29] VITALS (24 sets, daily range): BP systolic 95–148; BP diastolic 58–127; PULSE 58–67; RESP 12–23; TEMP 36.6; O2SAT 92–98
--- NOTE | ~2024-01-29 | CT_ITS ---
EXAMINATION: CT brain wo con DATE: 01/29/2024 14:44 INDICATION: Head injury TECHNIQUE: Computed tomography (CT) of the head was performed without intravenous contrast. The mA wa s adjusted according to patient size. Iterative reconstruction technique was employed. Exam dose: 60 5.33 mGy-cm total exam DLP. COMPARISON: 07/27/2023 CT brain FINDINGS: Bilateral vertebral artery, basilar artery and bilateral carotid siphon internal carotid ar bel calcifications. There is nonspecific diminished attenuation of the cerebral white matter, likely due to chronic small vessel ischemic changes. No intracranial mass lesion or hemorrhage or cerebrovascular accident is evident. No midline shift or mass effect. No subdural or epidural hematoma is detected. There is severe almost complete opacification of the right maxillary sinus and prominent posterior ri ght ethmoid air cell opacification. The included paranasal sinuses are otherwise unremarkable. Status post right mastoidectomy. There is limited development and complete opacification of the left mastoid air cells. No fracture or bone destruction of the cranial vault. IMPRESSION: Cerebral atherosclerosis and chronic small vessel ischemic changes of the cerebral white matter No acute intracranial finding No skull fracture Status post right mastoidectomy Chronic left mastoiditis Nearly complete opacification of right maxillary sinus and prominent posterior right ethmoid air cell opacification Reviewed, dictated and finalized at [facility] Reviewed, dictated and finalized at [facility].
--- NOTE | ~2024-01-29 | XR_ITS ---
XR knee LT 3V DATE: 01/29/2024 17:22 INDICATION: Anterior bruising TECHNIQUE: 3 views COMPARISON: 09/27/2022 left knee FINDINGS: There is osteopenia. There is a plate along the medial tibial plateau and proximal shaft of the tibia and another smaller plate with screws situated along the posteromedial proximal diametaphyseal area of the tibia. There is tricompartment osteoarthritis. There is superior pole patellar enthesopathy at the quadriceps tendon insertion. There is mild suprapatellar knee joint effusion. No recent fracture, dislocation, periosteal reaction or bone destruction is evident. Chronic mild calcification along the lower medial margin of the medial femoral condyle, unchanged sin ce 09/27/2022, likely some calcification of the medial collateral ligament (Leni-Stieda). IMPRESSION: Mild suprapatellar knee joint effusion Chronic mild calcification of the medial collateral ligament No recent fracture or dislocation Postoperative changes of the tibia Tricompartment osteoarthritis Osteopenia Reviewed, dictated and finalized at location [facility].
--- NOTE | ~2024-01-29 | US_ITS ---
US venous doppler [facility] DATE: 01/29/2024 14:59 INDICATION: Swelling of the lower extremities TECHNIQUE: Real-time and color flow imaging and Doppler analysis of the veins of lower extremities COMPARISON: None FINDINGS: Greater saphenous veins are patent. There is spontaneous and phasic flow and normal augment ation and color flow signal and normal compression of the deep veins of both lower extremities. IMPRESSION: No evidence of deep venous thrombosis of the lower extremities Reviewed, dictated and finalized at [facility]. Reviewed, dictated and finalized at location [facility].
[2024-01-29 13:40] LABS: Basophils Absolute Auto 0.1 K/mm3 (0.0-0.1); Basophils Percent Auto 0.6 % (0.2-1.2); Eosinophils Absolute Auto 0.1 K/mm3 (0-0.3); Eosinophils Percent Auto 0.8 % (0-4.4); Hematocrit 44.2 % (37.0-47.0); Hemoglobin 14.8 g/dL (12.0-15.0); Immature Granulocyte Absolute 0.03 K/mm3 (0.00-0.031); Immature Granulocyte Percent A 0.3 % (0-0.5); Lymphocytes Absolute Auto 1.24 K/mm3 (0.9-3.2); Lymphocytes Percent Auto 12.5 % (18.3-44.2); Mean Corpuscular HGB Conc 33.5 g/dl (32-36); Mean Corpuscular Volume 95.5 fl (80-100); Mean Platelet Volume 10.4 fl (7.4-10.4); Monocytes Absolute Auto 1.1 K/mm3 (0.1-0.6); Monocytes Percent Auto 11.4 % (2.6-8.5); Neutrophils Absolute Auto 7.4 K/mm3 (1.3-6.7); Neutrophils Percent Auto 74.4 % (45.5-73.1); Platelet Count Result 157 k/mm3 (150-375); Red Blood Count 4.63 M/mm3 (4.2-5.4); Red Cell Distribution Width 16.6 % (11.5-14.5); White Blood Count 9.9 K/mm3 (4.5-10.0)
[2024-01-29] MEDS: MORPHINE SULFATE (*CRX) 4 MG/ML INJ IV PUSH (13:46)
[2024-01-29 13:51] LABS: Alanine Aminotransferase 46 U/L (6-35); Albumin Level 3.8 g/dL (3.5-5.1); Alkaline Phosphatase 131 U/L (38-126); Anion Gap 7 mmol/L (4-12); Aspartate Amino Transferase 61 U/L (14-36); Bilirubin,Total 1.1 mg/dL (0.2-1.3); Blood Urea Nitrogen 30 mg/dL (7-17); Carbon Dioxide 32 mmol/L (22-30); Chloride 91 mmol/L (98-107); Estimated CRCL calculation 41 ml/min; Estimated Glomerular Filt Rate 54; Glucose 87 mg/dL (65-110); INR 1.1; Potassium 4.8 mmol/L (3.4-5.0); Prothrombin Time 14.7 Seconds (11.1-14.7); Sodium 130 mmol/L (137-145)
[2024-01-29 13:52] LABS: Partial Thromboplastin Time 31.2 Seconds (22.3-36.8)
[2024-01-29 14:04] LABS: NT Pro B Type Natriuretic Pept 8570 pg/mL (19.9-100)
--- NOTE | 2024-01-29 17:49 | ED_ITS ---
HPI - Extremity Injury (Lower) General Chief Complaint: Extremity Injury, Lower Stated Complaint: concern for cellulitis of BLE Time Seen by Provider: 01/29/24 12:52 History of Present Illness HPI Narrative: Patient is a 73-year-old female who presents ER with discomfort in her bilater al lower extremities. Patient was recently admitted to hospital for volume overload and was diuresed. While she is here she had Lovenox and she had her legs wrapped. Apparently the wrapping cause discoloration of the lower extremities from the mid calf down to the feet. She reports that her legs are itchy. No fevers or chills. She is to have weeping but no longer has any weeping from her legs. She reports her legs are the same color on the day of discharge as they are now which is a reddish purple. There is some linear aspects to this discoloration as well. It is nonblanching. patient also reports she has had a fall at her assisted living. She has a bruise to her forehead but denies LOC. She is on Plavix. She also has bruising to the left knee. Patient is chronically O2 dependent on 5 L. Related Data Home Medications Medication Instructions Recorded Confirmed aspirin 81 mg tablet,delayed 81 mg PO DAILY 04/05/19 01/22/24 release (Adult Aspirin Regimen) cholecalciferol (vitamin D3) 50 50 mcg PO DAILY 03/07/20 01/22/24 mcg (2,000 unit) capsule acetaminophen 650 mg 1,300 mg PO Q12H 10/23/20 01/22/24 tablet,extended release melatonin 10 mg tablet 10 mg PO QHS 03/16/22 01/22/24 gabapentin 300 mg capsule 300 mg PO TID 01/17/24 01/22/24 tramadol 50 mg tablet 50 mg PO BID PRN Pain (Scale Score 01/22/24 01/22/24 4-6) Allergies Allergy/AdvReac Type Severity Reaction Status Date / Time Penicillins Allergy Unknown Urticaria Verified 01/29/24 13:16 Review of Systems Review of Systems: All systems reviewed & are unremarkable except as noted in HPI and below Constitutional: Constitutional: Reports no additional constitutional complaints Cardiovascular: Cardiovascular: Reports no additional cardiovascular complaints Respiratory: Respiratory: Reports no additional respiratory complaints Musculoskeletal: Musculoskeletal: Reports arthralgias ( Left knee, recent fall, new bruising) [facility] Past Medical History Medical History Chronic kidney disease Chronic low back pain Chronic obstructive pulmonary disease with hypoxia Chronic venous insufficiency of lower extremity Cochlear implant in place right ear Coronary artery disease (10/2018) Dependence on continuous supplemental oxygen Depression with anxiety Environmental allergies Hearing loss Hyperlipidemia Hypertension Insomnia Normal colonoscopy (07/2010) Normal mammography (06/03/20) Osteoarthritis Osteopenia Otorrhea, left ear Overactive bladder Peripheral neuropathy Tobacco abuse Surgical History Surgical History History of arthroscopy of right knee History of cochlear implant History of coronary artery bypass graft x 3 (10/09/18) History of ear surgery x4 History of open reduction and internal fixation (ORIF) procedure Repair left knee fracture in 2017. Repair left wrist fracture in 2018. Family History Family History Father Family history of alcoholism Family history of malignant neoplasm Heart disease Mother Diabetes mellitus Social History Social History Social History: Ms. Mark lives at [facility] in [place]. She is independent in her daily activities but no longer drives. Her PCP is Dr. Armstrong. She designates her sister, Cyndy, as her surrogate decision maker and she would like to be a DNR. Smoking packs per day: 2 Smoking cigarettes per day: 40.0 Years smoked: 30 Smoking pack-years: 60.00 Smoking status: Former smoker Additional smoking assessment comments: 3-4 cigarettes a day Alcohol intake: current Drinks per week: 1 Substance use: never Substance use type: marijuana Do You Feel Safe in your Home?: Yes Lack of Transportation: YES Lack of Food: Never True Current Housing: I Have Housing Concerned About Future Housing: No Difficulty Paying Gas/Electric Bills: No Difficulty Paying for Meds: No Currently Unemployed: No Education: High School Diploma/GED Difficulty w/ Childcare or Family Care: No Living arrangements: alone Additional living arrangements comments: [facility] in [place]. Occupation/Education: retired Spiritual care concerns: No Agree to blood products: Yes Exam Narrative: GENERAL: chronically ill-appearing, well-nourished, and in no acute distress. HEAD: Normocephalic, atraumatic. ENT: Mucous membranes moist. CHEST: Clear to auscultation. No respiratory distress. HEART: Regular rate and rhythm. Normal peripheral pulses. ABDOMEN: Soft, nontender, nondistended. EXTREMITIES: Normal range of motion. 1+ edema. SKIN: Warm, dry. Nonblanching pro brought to lower extremities. There is some linear streaks to it consistent with the skin being pinched. There also areas are patient has scratched herself but bruised. NEURO: Alert and oriented x3. PSYCH: Normal mood and affect. Course Course Emergency Course: discoloration of the legs felt to be due to anticoagulation tight leg wraps from the previous hospitalization since they are unchanged since her discharge. She does have increased burning. Patient has no neuropathy. It is felt she may have increased fluid in her legs worsening the symptoms. I would like to add an additional 20 mg of Lasix to her medication regimen and have her follow-up with her PCP. Her sisters are present verbalized understanding of the treatment plan. I have been in there for prolonged period of time discussing the labs and treatment plan with both the patient and the sisters. Vital Signs Vital signs: Vital Signs Temperature 97.8 F 01/29/24 13:02 Pulse Rate 64 01/29/24 13:02 Respiratory Rate 13 01/29/24 13:02 Blood Pressure 132/58 L 01/29/24 13:02 Pulse Oximetry 93 01/29/24 13:02 Oxygen Delivery Nasal Cannula 01/29/24 13:02 Oxygen Flow Rate 3 01/29/24 13:02 Temperature 97.8 F 01/29/24 13:02 Pulse Rate 67 01/29/24 13:58 Respiratory Rate 18 01/29/24 13:58 Blood Pressure 101/90 01/29/24 13:58 Pulse Oximetry 95 01/29/24 13:58 Oxygen Delivery Nasal Cannula 01/29/24 13:02 Oxygen Flow Rate 3 01/29/24 13:02 MDM - Extremity Injury (Lower) Lab Data 01/29/24 13:29 01/29/24 13:29 Labs: Lab Results 01/29/24 Range/Units 13:29 WBC 9.9 (4.5-10.0) K/mm3 RBC 4.63 (4.2-5.4) M/mm3 Hgb 14.8 (12.0-15.0) g/dL Hct 44.2 (37.0-47.0) % MCV 95.5 (80-100) fl MCH 32.0 (26-34) pg MCHC 33.5 (32-36) g/dl RDW 16.6 H (11.5-14.5) % Plt Count 157 D (150-375) k/mm3 MPV 10.4 (7.4-10.4) fl Immature Gran % (Auto) 0.3 (0-0.5) % Neut % (Auto) 74.4 H (45.5-73.1) % Lymph % (Auto) 12.5 L (18.3-44.2) % [place] % (Auto) 11.4 H (2.6-8.5) % Eos % (Auto) 0.8 (0-4.4) % Baso % (Auto) 0.6 (0.2-1.2) % Lymph # (Auto) 1.24 (0.9-3.2) K/mm3 [place] # (Auto) 1.1 H (0.1-0.6) K/mm3 Eos # (Auto) 0.1 (0-0.3) K/mm3 Baso # (Auto) 0.1 (0.0-0.1) K/mm3 Abs Immat Gran (auto) 0.03 (0.00-0.031) K/mm3 Absolute Neuts (auto) 7.4 H (1.3-6.7) K/mm3 Absolute Nucleated RBC 0.000 (0.0-0.012) K/mm3 Nucleated RBC % 0.0 (0.0-0.2) % PT 14.7 (11.1-14.7) Seconds INR 1.1 APTT 31.2 (22.3-36.8) Seconds Sodium 130 L (137-145) mmol/L Potassium 4.8 (3.4-5.0) mmol/L Chloride 91 L (98-107) mmol/L Carbon Dioxide 32 H (22-30) mmol/L Anion Gap 7 (4-12) mmol/L BUN 30 H (7-17) mg/dL Creatinine 1.00 (0.7-1.0) mg/dL Estim Creat Clear Calc 41 ml/min Estimated GFR 54 L (59 - ) Glucose 87 (65-110) mg/dL Calcium 9.0 (8.4-10.2) mg/dL Total Bilirubin 1.1 (0.2-1.3) mg/dL AST 61 H (14-36) U/L ALT 46 H (6-35) U/L Alkaline Phosphatase 131 H (38-126) U/L NT-Pro-B Natriuret Pep 8570 H (19.9-100) pg/mL Total Protein 7.0 (6.3-8.2) g/dL Albumin 3.8 (3.5-5.1) g/dL Imaging Data Radiologist's impression: ITS Impressions Venous Doppler Study 01/29/24 15:03 IMPRESSION: No evidence of deep venous thrombosis of the lower extremities Head CT 01/29/24 15:06 IMPRESSION: Cerebral atherosclerosis and chronic small vessel ischemic changes of the cerebral white matter No acute intracranial finding No skull fracture Status post right mastoidectomy Chronic left mastoiditis Nearly complete opacification of right maxillary sinus and prominent posterior right ethmoid air cell opacification Knee X-Ray 01/29/24 17:42 IMPRESSION: Mild suprapatellar knee joint effusion Chronic mild calcification of the medial collateral ligament No recent fracture or dislocation Postoperative changes of the tibia Tricompartment osteoarthritis Osteopenia Discharge Plan Discharge Clinical Impression: Edema, Neuropathy Patient Disposition: Home, Self-Care Condition: Stable Instructions: Peripheral Neuropathy (ED), Edema (ED) Additional Instructions: Take additional dose of Lasix 20 mg in the afternoon around 2:00 p.m. so you have eaten lunch but this will not affect you at night when you try to sleep. return ER if you have chest pain shortness of breath, you can not keep down food water, you lose consciousness, or you have additional concerns. Prescriptions: New furosemide [Lasix] 20 mg tablet See Rx Instructions .ROUTE .COMPLEX Qty: 7 0RF Rx Instructions: 20 mg orally at 2p No Action aspirin [Adult Aspirin Regimen] 81 mg tablet,delayed release (DR/EC) 81 mg PO DAILY acetaminophen 650 mg tablet extended release 1,300 mg PO Q12H melatonin 10 mg tablet 10 mg PO QHS buspirone 10 mg tablet 10 mg PO TID Qty: 270 1RF escitalopram oxalate [Lexapro] 20 mg tablet 20 mg PO DAILY Qty: 90 0RF albuterol sulfate 90 mcg/actuation HFA aerosol inhaler 1 - 2 puff INHALATION Q4-6H PRN (Reason: shortness of breath or wheezing) Qty: 8.5 5RF Rx Instructions: SCIPIO STAFF: PLEASE ALLOW PATIENT TO KEEP ALBUTEROL ON HAND WITH HER TO USE PRN. cholecalciferol (vitamin D3) 50 mcg (2,000 unit) capsule 50 mcg PO DAILY triamcinolone acetonide 0.1 % cream 1 applic topical BID Qty: 30 1RF ferrous sulfate 325 mg (65 mg iron) tablet 325 mg PO BID Qty: 180 1RF (DME) portable oxygen concentrator See Rx Instructions .Route .MEDSUPPLY Qty: 1 0RF Rx Instructions: use 3 L of oxygen per minute. pulsed dose is okay gabapentin 300 mg capsule 300 mg PO TID Rx Instructions: Take 1 capsule at 0800 and 1200, and at 2000 potassium chloride 10 mEq capsule, extended release 10 meq PO DAILY Qty: 90 0RF Hold Instructions: Patient Condition tramadol 50 mg tablet 50 mg PO BID PRN (Reason: Pain (Scale Score 4-6)) furosemide 40 mg Tablet 40 mg PO DAILY Qty: 60 0RF oxybutynin chloride 10 mg tablet extended release 24hr 10 mg PO BID Qty: 180 1RF magnesium oxide 400 mg magnesium tablet 400 mg PO DAILY Qty: 90 1RF clopidogrel 75 mg tablet 75 mg PO DAILY Qty: 90 1RF metoprolol succinate 50 mg tablet extended release 24 hr 50 mg PO BID Qty: 180 2RF atorvastatin [Lipitor] 40 mg tablet 40 mg PO QHS Qty: 90 1RF loratadine 10 mg tablet 10 mg PO DAILY PRN (Reason: allergic symptoms) Qty: 30 0RF calcium carbonate 600 mg calcium (1,500 mg) tablet 600 mg PO DAILY Qty: 90 0RF hydroxyzine HCl 25 mg tablet 25 mg PO Q8H PRN (Reason: anxiety) Qty: 90 1RF tramadol 50 mg tablet 50 mg PO BID PRN (Reason: pain) Qty: 60 1RF Follow-up/Referrals: Benito Armstrong MD [Primary Care Provider] - 1 Week
== END 2024-01-29 18:34 | disposition home or self-care (01) ==
PROVIDERS: Emergency Provider Emergency Medicine; PCP Family Medicine
DX: R60.0 Localized edema (principal); G62.9 Polyneuropathy, unspecified; Z79.82 Long term (current) use of aspirin; Z79.02 Long term (current) use of antithrombotics/antiplatelets; Z99.81 Dependence on supplemental oxygen; N18.9 Chronic kidney disease, unspecified; J44.9 Chronic obstructive pulmonary disease, unspecified; I25.10 Atherosclerotic heart disease of native coronary artery without angina pectoris; E78.5 Hyperlipidemia, unspecified; I12.9 Hypertensive chronic kidney disease with stage 1 through stage 4 chronic kidney disease, or unspecified chronic kidney disease; Z87.891 Personal history of nicotine dependence
CPT/HCPCS: 36415; 70450; 73562; 80053; 83880; 85025; 85610; 85730; 93970; 96374; 99284; J2270

== ENCOUNTER 2024-02-10 09:41 | Inpatient (IN) | payer OTHER, SELFPAY ==
[2024-02-10] VITALS (8 sets, daily range): BP systolic 90–125; BP diastolic 48–78; PULSE 52–73; RESP 14–18; TEMP 35.9–36.6; O2SAT 91–100; BMI 22.5
--- NOTE | ~2024-02-10 | CT_ITS ---
EXAMINATION: CT facial & cervical spine wo DATE: 02/10/2024 10:21 INDICATION: Head injury. TECHNIQUE: Computed tomography (CT) of the maxillofacial region and cervical spine was performed with out intravenous contrast. Automated exposure control and iterative reconstruction technique were empl oyed. The dose-length product was 162.98 mGy-cm. COMPARISON: CT cervical spine 07/27/2023, head CT 01/29/2024 FINDINGS: MAXILLOFACIAL CT: There is left frontal scalp soft tissue swelling. The orbits are normal. There is rightward deviation of the nasal septum. There is an old fracture of left nasal bone. There is mucosal thickening in the paranasal sinuses including complete opacification of right maxillary sinus. The patient is a dentul ous. CERVICAL SPINE CT: Emphysema is noted. There is a right-sided cochlear implant. There is a chronic right mastoid effusio n. There is a chronic left otomastoid effusion. The left-sided ossicles are absent. There is 24 degre es levoscoliosis of cervical spine. There is 2 mm retrolisthesis of C3 and C4 and 2 mm anterolisthesi s of C5 on C6. There is a compression fracture of T3 with less than 1/5 loss of height, new from 07/26. There is severely decreased disc height from C3-C4 through C6-C7. The following disc levels ar e specifically discussed: C2-C3: There is moderate right and mild left uncovertebral joint osteoarthritis. There is severe bila teral facet joint osteoarthritis. There is no neural foraminal stenosis. There is no central canal st enosis. C3-C4: There is severe bilateral uncovertebral joint osteoarthritis. There is severe bilateral facet joint osteoarthritis. There is mild bilateral neural foraminal stenosis. There is mild central canal stenosis. C4-C5: There is severe bilateral uncovertebral joint osteoarthritis. There is severe bilateral facet joint osteoarthritis. There is mild bilateral neural foraminal stenosis. There is mild central canal stenosis. C5-C6: There is moderate right and severe left uncovertebral joint osteoarthritis. There is severe bi lateral facet joint osteoarthritis. There is mild bilateral neural foraminal stenosis. There is mild central canal stenosis. C6-C7: There is severe bilateral uncovertebral joint osteoarthritis. There is severe bilateral facet joint osteoarthritis. There is mild bilateral neural foraminal stenosis. There is mild central canal stenosis. C7-T1: There is no uncovertebral joint osteoarthritis. There is severe bilateral facet joint osteoart hritis. There is mild bilateral neural foraminal stenosis. There is no central canal stenosis. IMPRESSION: 1. T3 compression fracture, likely acute or subacute. 2. Severe cervical spondylosis. 3. Cervical levoscoliosis. Reviewed, dictated and finalized at location A. ILE TECHNICAL OFFICER
--- NOTE | ~2024-02-10 | XR_ITS ---
Portable chest x-ray Comparison: 02/10/2024 Clinical History: Hypoxia Findings: Probable mild central congestive change and mild interstitial edema. Probable underlying c hronic disease and/or COPD. Cardiomediastinal silhouette is stable. Bones and soft tissues are unrem arkable. Impression: Mild pulmonary edema pattern. Underlying COPD and/or chronic interstitial disease. Reviewed, dictated and finalized at location . S ANALYST Impression: Mild pulmonary edema pattern. Underlying COPD and/or chronic interstitial disease.
--- NOTE | ~2024-02-10 | XR_ITS ---
EXAMINATION: XR elbow LT min 3V DATE: 02/10/2024 11:40 INDICATION: Left elbow pain. Fall. TECHNIQUE: 4 views of left elbow were obtained. COMPARISON: None. FINDINGS: Alignment is normal. No fracture. There is mild osteoarthritis of ulnohumeral joint. No elb ow joint effusion. IMPRESSION: 1. Mild elbow joint osteoarthritis. Reviewed, dictated and finalized at location A. L STOCK FACER
--- NOTE | ~2024-02-10 | XR_ITS ---
XR chest 2V 02/10/2024 11:40 Indication: Weakness and dyspnea Procedure: AP and lateral views the chest Comparison: Comparison to multiple prior studies sequentially, with oldest reviewed study dated 09/01. Findings: Cardiomegaly with interstitial edema. Status post median sternotomy for CABG. No pleural ef fusion or pneumothorax. No acute osseous abnormality. Impression: 1: Cardiomegaly with mild interstitial edema. Reviewed, dictated and finalized at location B. [employer] FACTORY WORKER Impression: 1: Cardiomegaly with mild interstitial edema.
--- NOTE | ~2024-02-10 | CT_ITS ---
EXAMINATION: CTA chest abdomen pelvis DATE: 02/18/2024 16:47 INDICATION: Elevated WBC, nausea, tachypnea . TECHNIQUE: Computed tomography (CT) of the chest, abdomen, and pelvis was performed with 100 mL Omnip aque-350 intravenous contrast in the arterial phase. Automated exposure control and iterative reconst ruction technique were employed. The dose-length product was 411.47 mGy-cm. COMPARISON: X-ray chest 02/17/2024; CT abdomen pelvis 02/11/2024. FINDINGS: CHEST: Thoracic aorta: No significant dilation. No dissection. Moderate arch calcifications. Lung parenchyma and airways: Emphysematous change. Diffuse septal thickening and mild scattered groun dglass opacities. Dependent atelectasis. Thoracic inlet, axillae and chest wall: No thyroid or soft tissue mass. No axillary lymphadenopathy. Mediastinum: No mass. Mediastinal and bilateral hilar lymph node enlargement. Dilated central pulmona ry arteries as can be seen with pulmonary arterial hypertension. Heart and pericardium: Cardiomegaly. No pericardial effusion. Coronary artery calcifications: Moderate. Pleura: Small bilateral pleural fluid collections. Thoracic bones: No acute osseous finding in the chest. ABDOMEN/PELVIS: Liver: Normal. Biliary/Gallbladder: Gallbladder is normal. No bile duct dilation. Pancreas: No mass or duct dilation. Spleen: Normal. Adrenals:No mass. Kidneys: No suspicious mass, obstructing stone, or hydronephrosis. Left renal atrophy. Right renal co rtical thinning. GI tract: No small or large bowel dilation. Appendix not visualized. Mesentery/Peritoneum: No ascites, mass, or free air. Retroperitoneum: No mass Atherosclerotic abdominal aortic and/or arterial calcifications. No severe s tenosis of the aortic branch vessel origins. Pelvis: Normal urinary bladder. Absent uterus. Bilateral ovaries not confidently identified. Soft Tissues: Mild diffuse body wall edema. Abdominopelvic bones: No acute osseous finding in the abdomen/pelvis. IMPRESSION: Interstitial pulmonary edema with small bilateral pleural effusions. Cardiomegaly. Mediastinal and bilateral hilar lymphadenopathy. No CT evidence of aortic dissection or aneurysm. No acute process detected in the abdomen/pelvis. Mild body wall edema. Reviewed, dictated and finalized at location K. H TRUCK OPERATOR
--- NOTE | ~2024-02-10 | CT_ITS ---
EXAMINATION: CT abdomen pelvis w con DATE: 02/11/2024 20:12 INDICATION: mulitple falls, anemia, brusing left flank/hip TECHNIQUE: Computed tomography (CT) of the abdomen and pelvis was performed with 100 mL Omnipaque-350 intravenous contrast. Automated exposure control and iterative reconstruction technique were employe d. The dose-length product was 300.90 mGy-cm. COMPARISON: None. FINDINGS: Mild motion artifact. Lower thorax: Dependent atelectasis and septal thickening. Small bilateral pleural effusions. Marked cardiomegaly. Coronary artery calcifications. Liver: Small volume perihepatic fluid. Biliary/Gallbladder: Gallbladder is partially collapsed. Mild gallbladder mucosal hyperemia. Small vo lume pericholecystic fluid. No bile duct dilation. Pancreas: No mass or duct dilation. Spleen: Normal. Adrenals:No mass. Kidneys: No suspicious mass, obstructing stone, or hydronephrosis. Left renal atrophy. Right renal co rtical thinning. Excreted contrast in the right renal pelvis. GI tract: No small or large bowel dilation. Appendix not visualized. Mesentery/Peritoneum: No ascites, mass, or free air. Retroperitoneum: No mass. Atherosclerotic abdominal aortic and/or arterial calcifications. Pelvis: Normal urinary bladder. Absent uterus. Ovaries not visualized. Small volume free pelvic fluid . Soft Tissues: Mild diffuse body wall edema Bones: No acute osseous finding. IMPRESSION: Mild pulmonary edema and small bilateral pleural effusions. Gallbladder mucosal hyperemia with pericholecystic fluid, correlate with biliary labs and right upper quadrant pain. Consider right upper quadrant ultrasound for further evaluation. Mild ascites. No acute traumatic finding in the abdomen. Reviewed, dictated and finalized at location K. UP PERSON IMPRESSION: Mild pulmonary edema and small bilateral pleural effusions. Gallbladder mucosal hyperemia with pericholecystic fluid, correlate with biliar y labs and right upper quadrant pain. Consider right upper quadrant ultrasound for further evaluation. Mild ascites. No acute traumatic finding in the abdomen.
--- NOTE | ~2024-02-10 | XR_ITS ---
CHEST RADIOGRAPH CLINICAL HISTORY: increased O2 requirement . COMPARISON: 02/14/2024 TECHNIQUE: Single portable view of the chest. FINDINGS Sternal wires and mediastinal clips are identified, the wires are midline and intact. The remainder of the cardiomediastinal silhouette is otherwise unremarkable. Coarse interstitial lung markings are redemonstrated, likely chronic. The remainder of the lungs are clear. Visualized osseous structures and soft tissues are unremarkable. IMPRESSION: Findings suggesting chronic interstitial lung disease without focal infiltrate or effusion. If clinical suspicion persists, cross-sectional imaging (noncontrast enhanced CT examination of the c hest) is suggested for further evaluation. Reviewed, dictated and finalized at location A. CY SPECIALIST IMPRESSION: Findings suggesting chronic interstitial lung disease without focal infiltrate or effusion. If clinical suspicion persists, cross-sectional imaging (noncontrast enhanced C T examination of the chest) is suggested for further evaluation.
--- NOTE | ~2024-02-10 | CT_ITS ---
EXAMINATION: CT brain wo con DATE: 02/10/2024 10:21 INDICATION: Head injury. TECHNIQUE: Computed tomography (CT) of the head was performed without intravenous contrast. The mA wa s adjusted according to patient size. Iterative reconstruction technique was employed. The dose-lengt h product was 605.33 mGy-cm. COMPARISON: Head CT 01/29/2024 FINDINGS: There are scattered areas of low attenuation in the cerebral white matter. There is no intr acranial hemorrhage, acute infarction, or abnormal intracranial mass lesion. The ventricles are andrei l in size. The orbits are normal. There is mucosal thickening in the paranasal sinuses. There is a ri ght-sided cochlear implant. Again seen is a right mastoid effusion. Again seen is a left otomastoid e ffusion. The left-sided ossicles are absent. IMPRESSION: 1. Stable moderate nonspecific cerebral white matter disease, which likely represents chronic small v essel ischemic disease. Reviewed, dictated and finalized at location A. MAKER IMPRESSION: 1. Stable moderate nonspecific cerebral white matter disease, which likely repr esents chronic small vessel ischemic disease.
--- NOTE | ~2024-02-10 | US_ITS ---
EXAMINATION: US venous doppler LE DATE: 02/18/2024 17:28 INDICATION: redness to LLE . TECHNIQUE: Grayscale images without and with compression and Doppler images of the bilateral lower ex tremity veins were obtained. COMPARISON: 01/29/2024 FINDINGS: The right common femoral vein, profunda (deep) femoral vein, femoral vein, popliteal vein, peroneal v ein, posterior tibial veins, gastrocnemius vein, and greater saphenous vein are patent. The left common femoral vein, profunda (deep) femoral vein, femoral vein, popliteal vein, peroneal v ein, posterior tibial veins, gastrocnemius vein, and greater saphenous vein are patent. IMPRESSION: Patent bilateral lower extremity veins. No evidence of deep venous thrombosis. Reviewed, dictated and finalized at location K. BOTOMY COORDINATOR
--- NOTE | ~2024-02-10 | XR_ITS ---
EXAMINATION: XR chest 1V portable DATE: 02/17/2024 09:39 INDICATION: Leukocytosis. Fever. TECHNIQUE: A single frontal view of the chest was obtained. COMPARISON: Chest single view 02/15/2024 FINDINGS: There is a diffuse interstitial pattern in the lungs. There are mild airspace opacities in the lower lung zones. There is a small right pleural effusion. No pneumothorax. Cardiomegaly is noted . Median sternotomy wires and mediastinal surgical clips are seen, likely from prior coronary artery bypass grafting. IMPRESSION: 1. Diffuse lung disease, likely mild pulmonary edema. 2. Small right pleural effusion. 3. Cardiomegaly. Reviewed, dictated and finalized at location A. OMER EXPERIENCE ANALYST
[2024-02-10 10:18] LABS: Basophils Absolute Auto 0.1 K/mm3 (0.0-0.1); Basophils Percent Auto 0.5 % (0.2-1.2); Eosinophils Absolute Auto 0.1 K/mm3 (0-0.3); Eosinophils Percent Auto 0.6 % (0-4.4); Hematocrit 26.7 % (37.0-47.0); Hemoglobin 8.6 g/dL (12.0-15.0); Immature Granulocyte Absolute 0.19 K/mm3 (0.00-0.031); Immature Granulocyte Percent A 1.5 % (0-0.5); Lymphocytes Absolute Auto 1.48 K/mm3 (0.9-3.2); Lymphocytes Percent Auto 11.8 % (18.3-44.2); Mean Corpuscular HGB Conc 32.2 g/dl (32-36); Mean Corpuscular Hemoglobin 32.5 pg (26-34); Mean Corpuscular Volume 100.8 fl (80-100); Mean Platelet Volume 9.2 fl (7.4-10.4); Monocytes Absolute Auto 1.2 K/mm3 (0.1-0.6); Monocytes Percent Auto 9.3 % (2.6-8.5); Neutrophils Absolute Auto 9.6 K/mm3 (1.3-6.7); Neutrophils Percent Auto 76.3 % (45.5-73.1); Nucleated Red Blood Cells Perc 0.6 % (0.0-0.2); Platelet Count Result 291 k/mm3 (150-375); Red Blood Count 2.65 M/mm3 (4.2-5.4); Red Cell Distribution Width 18.2 % (11.5-14.5); White Blood Count 12.5 K/mm3 (4.5-10.0)
[2024-02-10 10:30] LABS: Alanine Aminotransferase 33 U/L (6-35); Albumin Level 3.4 g/dL (3.5-5.1); Alkaline Phosphatase 116 U/L (38-126); Anion Gap 9 mmol/L (4-12); Aspartate Amino Transferase 58 U/L (14-36); Bilirubin,Total 0.8 mg/dL (0.2-1.3); Blood Urea Nitrogen 33 mg/dL (7-17); Calcium 8.8 mg/dL (8.4-10.2); Carbon Dioxide 25 mmol/L (22-30); Chloride 99 mmol/L (98-107); Estimated Glomerular Filt Rate 40; Glucose 82 mg/dL (65-110); Potassium 4.1 mmol/L (3.4-5.0); Sodium 133 mmol/L (137-145)
--- NOTE | 2024-02-10 10:44 | ED.GENADULT ---
HPI - General Adult General Chief complaint: Fall Stated complaint: fall Time Seen by Provider: 02/10/24 09:53 History of Present Illness HPI narrative: patient is a 73-year-old female presents emergency department with chief complaint of fall. Patient had a fall while she was sitting on the toilet last night and fell asleep on the toilet fell off the toilet the patient has multiple bruises over her body and reports that she currently does not have any real complaints the patient originally did not want to come to the emergency department but was talked into coming to the ER by EMS Related Data Home Medications Medication Instructions Recorded Confirmed aspirin 81 mg tablet,delayed 81 mg PO DAILY 04/05/19 01/22/24 release (Adult Aspirin Regimen) cholecalciferol (vitamin D3) 50 50 mcg PO DAILY 03/07/20 01/22/24 mcg (2,000 unit) capsule acetaminophen 650 mg 1,300 mg PO Q12H 10/23/20 01/22/24 tablet,extended release melatonin 10 mg tablet 10 mg PO QHS 03/16/22 01/22/24 gabapentin 300 mg capsule 300 mg PO TID 01/17/24 01/22/24 Allergies Allergy/AdvReac Type Severity Reaction Status Date / Time Penicillins Allergy Unknown Urticaria Verified 01/29/24 13:16 Review of Systems Review of Systems: A 10 system review of systems was completed on the patient and is negative except for what is stated in the HPI. Nursing and ancillary documentation was reviewed. [facility] Past Medical History Medical History Chronic kidney disease Chronic low back pain Chronic obstructive pulmonary disease with hypoxia Chronic venous insufficiency of lower extremity Cochlear implant in place right ear Coronary artery disease (10/2018) Dependence on continuous supplemental oxygen Depression with anxiety Environmental allergies Hearing loss Hyperlipidemia Hypertension Insomnia Normal colonoscopy (07/2010) Normal mammography (06/03/20) Osteoarthritis Osteopenia Otorrhea, left ear Overactive bladder Peripheral neuropathy Tobacco abuse Surgical History Surgical History History of arthroscopy of right knee History of cochlear implant History of coronary artery bypass graft x 3 (10/09/18) History of ear surgery x4 History of open reduction and internal fixation (ORIF) procedure Repair left knee fracture in 2017. Repair left wrist fracture in 2018. Family History Family History Father Family history of alcoholism Family history of malignant neoplasm Heart disease Mother Diabetes mellitus Social History Social History Social History: Ms. Mark lives at [facility] in [place]. She is independent in her daily activities but no longer drives. Her PCP is Dr. Armstrong. She designates her sister, Cyndy, as her surrogate decision maker and she would like to be a DNR. Smoking packs per day: 2 Smoking cigarettes per day: 40.0 Years smoked: 30 Smoking pack-years: 60.00 Smoking status: Former smoker Additional smoking assessment comments: 3-4 cigarettes a day Alcohol intake: current Drinks per week: 1 Substance use: never Substance use type: marijuana Do You Feel Safe in your Home?: Yes Lack of Transportation: YES Lack of Food: Never True Current Housing: I Have Housing Concerned About Future Housing: No Difficulty Paying Gas/Electric Bills: No Difficulty Paying for Meds: No Currently Unemployed: No Education: High School Diploma/GED Difficulty w/ Childcare or Family Care: No Living arrangements: alone Additional living arrangements comments: [facility] in [place]. Occupation/Education: retired Spiritual care concerns: No Agree to blood products: Yes Exam Narrative: GENERAL: Well-appearing, well-nourished, and in no acute distress. HEAD: Normocephalic, several bruises to the face. EYES: PERRLA and EOMI. ENT: Nares clear, no rhinorrhea or epistaxis. Mucous membranes moist. NECK: Supple. CHEST: Clear to auscultation. No respiratory distress. HEART: Regular rate and rhythm. No murmur heard. Normal peripheral pulses. ABDOMEN: Soft, nontender, nondistended, normal active bowel sounds. : Guaiac-positive black stool EXTREMITIES: Normal range of motion. No edema. SKIN: Warm, dry, no rash. multiple bruises over the body NEURO: No focal deficits. Alert and oriented x3. PSYCH: Normal mood and affect. Course Vital Signs Vital signs: Vital Signs Temperature 36.6 C 02/10/24 09:49 Pulse Rate 64 02/10/24 09:49 Respiratory Rate 18 02/10/24 09:49 Blood Pressure 96/57 L 02/10/24 09:49 Pulse Oximetry 94 02/10/24 09:49 Oxygen Delivery Room Air 02/10/24 09:49 Temperature 36.4 C 02/10/24 11:00 Pulse Rate 68 02/10/24 11:00 Respiratory Rate 16 02/10/24 11:00 Blood Pressure 92/62 L 02/10/24 11:00 Pulse Oximetry 95 02/10/24 11:00 Oxygen Delivery Room Air 02/10/24 09:49 Medical Decision Making MDM Narrative Medical decision making narrative: differential diagnosis includes head injury, cervical spine fracture, electrolyte abnormality, CT head showed no evidence of intracranial hemorrhage CT facial bones showed no evidence of facial fracture there was evidence of a T3 compression fracture laboratory studies showed hemoglobin of 8.6 the patient was previously 14.8 on the of last month the patient had black colored stool and was guaiac positive on exam the case was discussed with GI on-call who will consult and case will be discussed with the hospitalist for admission Vital Signs Vital Signs: Vital Signs Temperature 36.6 C 02/10/24 09:49 Pulse Rate 64 02/10/24 09:49 Respiratory Rate 18 02/10/24 09:49 Blood Pressure 96/57 L 02/10/24 09:49 Pulse Oximetry 94 02/10/24 09:49 Oxygen Delivery Room Air 02/10/24 09:49 Temperature 36.4 C 02/10/24 11:00 Pulse Rate 68 02/10/24 11:00 Respiratory Rate 16 02/10/24 11:00 Blood Pressure 92/62 L 02/10/24 11:00 Pulse Oximetry 95 02/10/24 11:00 Oxygen Delivery Room Air 02/10/24 09:49 Lab Data 02/10/24 10:08 02/10/24 10:08 Labs: Lab Results 02/10/24 Range/Units 10:08 WBC 12.5 H (4.5-10.0) K/mm3 RBC 2.65 L (4.2-5.4) M/mm3 Hgb 8.6 L D (12.0-15.0) g/dL Hct 26.7 L (37.0-47.0) % MCV 100.8 H (80-100) fl MCH 32.5 (26-34) pg MCHC 32.2 (32-36) g/dl RDW 18.2 H (11.5-14.5) % Plt Count 291 D (150-375) k/mm3 MPV 9.2 (7.4-10.4) fl Immature Gran % (Auto) 1.5 H (0-0.5) % Neut % (Auto) 76.3 H (45.5-73.1) % Lymph % (Auto) 11.8 L (18.3-44.2) % Cass % (Auto) 9.3 H (2.6-8.5) % Eos % (Auto) 0.6 (0-4.4) % Baso % (Auto) 0.5 (0.2-1.2) % Lymph # (Auto) 1.48 (0.9-3.2) K/mm3 Cass # (Auto) 1.2 H (0.1-0.6) K/mm3 Eos # (Auto) 0.1 (0-0.3) K/mm3 Baso # (Auto) 0.1 (0.0-0.1) K/mm3 Abs Immat Gran (auto) 0.19 H (0.00-0.031) K/mm3 Absolute Neuts (auto) 9.6 H (1.3-6.7) K/mm3 Absolute Nucleated RBC 0.080 H (0.0-0.012) K/mm3 Nucleated RBC % 0.6 H (0.0-0.2) % Sodium 133 L (137-145) mmol/L Potassium 4.1 (3.4-5.0) mmol/L Chloride 99 (98-107) mmol/L Carbon Dioxide 25 (22-30) mmol/L Anion Gap 9 (4-12) mmol/L BUN 33 H (7-17) mg/dL Creatinine 1.30 H (0.7-1.0) mg/dL Estim Creat Clear Calc Not Reportable Estimated GFR 40 L (59 - ) Glucose 82 (65-110) mg/dL Calcium 8.8 (8.4-10.2) mg/dL Total Bilirubin 0.8 (0.2-1.3) mg/dL AST 58 H (14-36) U/L ALT 33 (6-35) U/L Alkaline Phosphatase 116 (38-126) U/L Total Protein 6.0 L (6.3-8.2) g/dL Albumin 3.4 L (3.5-5.1) g/dL Discharge Plan Discharge Clinical Impression: Falls frequently, Anemia, Head injury, Multiple bruises, GI bleed Patient Disposition: Still a Patient Condition: Stable Prescriptions: No Action aspirin [Adult Aspirin Regimen] 81 mg tablet,delayed release (DR/EC) 81 mg PO DAILY acetaminophen 650 mg tablet extended release 1,300 mg PO Q12H melatonin 10 mg tablet 10 mg PO QHS buspirone 10 mg tablet 10 mg PO TID Qty: 270 1RF escitalopram oxalate [Lexapro] 20 mg tablet 20 mg PO DAILY Qty: 90 0RF albuterol sulfate 90 mcg/actuation HFA aerosol inhaler 1 - 2 puff INHALATION Q4-6H PRN (Reason: shortness of breath or wheezing) Qty: 8.5 5RF Rx Instructions: [facility] STAFF: PLEASE ALLOW PATIENT TO KEEP ALBUTEROL ON HAND WITH HER TO USE PRN. cholecalciferol (vitamin D3) 50 mcg (2,000 unit) capsule 50 mcg PO DAILY triamcinolone acetonide 0.1 % cream 1 applic topical BID Qty: 30 1RF ferrous sulfate 325 mg (65 mg iron) tablet 325 mg PO BID Qty: 180 1RF (DME) portable oxygen concentrator See Rx Instructions .Route .MEDSUPPLY Qty: 1 0RF Rx Instructions: use 3 L of oxygen per minute. pulsed dose is okay gabapentin 300 mg capsule 300 mg PO TID Rx Instructions: Take 1 capsule at 0800 and 1200, and at 2000 potassium chloride 10 mEq capsule, extended release 10 meq PO DAILY Qty: 90 0RF Hold Instructions: Patient Condition furosemide 40 mg Tablet 40 mg PO DAILY Qty: 60 0RF furosemide [Lasix] 20 mg tablet See Rx Instructions .ROUTE .COMPLEX Qty: 7 0RF Rx Instructions: 20 mg orally at 2p oxybutynin chloride 10 mg tablet extended release 24hr 10 mg PO BID Qty: 180 1RF magnesium oxide 400 mg magnesium tablet 400 mg PO DAILY Qty: 90 1RF clopidogrel 75 mg tablet 75 mg PO DAILY Qty: 90 1RF metoprolol succinate 50 mg tablet extended release 24 hr 50 mg PO BID Qty: 180 2RF atorvastatin [Lipitor] 40 mg tablet 40 mg PO QHS Qty: 90 1RF loratadine 10 mg tablet 10 mg PO DAILY PRN (Reason: allergic symptoms) Qty: 30 0RF calcium carbonate 600 mg calcium (1,500 mg) tablet 600 mg PO DAILY Qty: 90 0RF hydroxyzine HCl 25 mg tablet 25 mg PO Q8H PRN (Reason: anxiety) Qty: 90 1RF tramadol 50 mg tablet 50 mg PO BID PRN (Reason: pain) Qty: 60 1RF tramadol 50 mg tablet 50 mg PO BID PRN (Reason: Pain (Scale Score 4-6)) Qty: 60 2RF Follow-up/Referrals: Benito Armstrong MD [Primary Care Provider] - Time of Disposition: 10:48
--- NOTE | 2024-02-10 12:22 | ADMGEN ---
This patient, Aminah Mark, was admitted to [facility] Surg Room 314-02. Patient/family oriented to hospital policies and general routines including ID bracelet, bed and alarms, visiting hours, pain management, procedures, bathroom and other care routines, personal items, smoking policy, room service/diet, and visiting hours. Information on how to activate the Rapid Response Team has been discussed. Patient/Family are encouraged to report perceived risks to care and to ask questions if they do not understand what they are told or what they should do.
--- NOTE | 2024-02-10 13:05 | PM.IMHP ---
H&P: HPI History of Present Illness Date/Time: 02/10/24 13:05 Chief Complaint: Fall. Narrative: This is a 73-year-old female with chronic respiratory failure on home oxygen, chronic obstructive pulmonary disease, pulmonary hypertension, coronary artery disease status post bypass, right ventricular systolic dysfunction, grade 1 diastolic dysfunction, moderate mitral valve regurgitation, severe tricuspid valve regurgitation, chronic kidney disease, hypertension, and hyperlipidemia who presented to the emergency department via EMS from [facility] for evaluation after a fall.?The patient provides the following history. She has had several falls recently which she attributes to poor balance and staff at her assisted living facility wanted her to come in today for evaluation. Initially the patient did not want to come but she acquiesced. She says her last fall was sometime early on in the week when she fell off the toilet. She has hit her head on several occasions but denies having loss of consciousness. She has no complaints of pain and reports that she is feeling just fine. She denies syncope, near syncope, visual changes, focal weakness, paresthesias, chest pain, shortness of breath, abdominal pain, nausea, vomiting, diarrhea, dysuria, back pain, urine retention, bowel incontinence, saddle anesthesia, and lower extremity weakness/paresthesias. In the ED: She was afebrile on arrival. Blood pressures have been as low as 90/54. Labs were significant for a WBC count of 12.5, hemoglobin 8.6, hematocrit 26.7, sodium 133, BUN 33, creatinine 1.30, total protein 6.0, albumin 3.0. While in the ED she had a dark stool which was guaiac positive. With further questioning she mentions that her stools are frequently dark which she attributes to her iron supplementation. She is being admitted in this setting for GI consultation. Review of Systems Review of Systems: 12 systems were reviewed and are negative except for as per HPI. [facility] Past Medical History Medical History (Updated 02/10/24 @ 22:05 by Gillian Cruz PA-C) Chronic kidney disease Chronic low back pain Chronic respiratory failure with hypoxia, on home oxygen therapy Chronic venous insufficiency of lower extremity Cochlear implant in place right ear Coronary artery disease (10/2018) Depression with anxiety Diastolic congestive heart failure Environmental allergies Hearing loss Hyperlipidemia Hypertension Insomnia Moderate mitral valve regurgitation Normal colonoscopy (07/2010) Normal mammography (06/03/20) Osteoarthritis Osteopenia Overactive bladder Peripheral neuropathy Pulmonary hypertension Right ventricular systolic dysfunction Severe tricuspid valve regurgitation Tobacco abuse Surgical History Surgical History History of arthroscopy of right knee History of cochlear implant History of coronary artery bypass graft x 3 (10/09/18) History of ear surgery x4 History of open reduction and internal fixation (ORIF) procedure Repair left knee fracture in 2017. Repair left wrist fracture in 2018. Family History Family History Father Family history of alcoholism Family history of malignant neoplasm Heart disease Mother Diabetes mellitus Social History Social History Social History: Surrogate medical decision maker: Trevor Kc, marlena. Code status: Do not resuscitate. Smoking packs per day: 2 Smoking cigarettes per day: 40.0 Years smoked: 30 Smoking pack-years: 60.00 Smoking status: Former smoker Additional smoking assessment comments: 3-4 cigarettes a day Alcohol intake: current Drinks per week: 1 Substance use: former Substance use type: marijuana and prescription drug Do You Feel Safe in your Home?: Yes Lack of Transportation: YES Lack of Food: Never True Current Housing: I Have Housing Concerned About Future Housing: No Difficulty Paying Gas/Electric Bills: No Difficulty Paying for Meds: No Currently Unemployed: No Education: High School Diploma/GED Difficulty w/ Childcare or Family Care: No Living arrangements: assisted living Additional living arrangements comments: [facility] in [place]. Occupation/Education: retired Spiritual care concerns: No Agree to blood products: Yes Meds Home Medications and Allergies Home Medications Medication Instructions Recorded Confirmed Type aspirin 81 mg tablet,delayed 81 mg PO DAILY 04/05/19 02/10/24 History release (Adult Aspirin Regimen) cholecalciferol (vitamin D3) 50 50 mcg PO DAILY 03/07/20 02/10/24 History mcg (2,000 unit) capsule acetaminophen 650 mg 1,300 mg PO Q12H 10/23/20 02/10/24 History tablet,extended release oxybutynin chloride 10 mg 10 mg PO BID #180 tabs 02/04/21 02/10/24 Rx tablet,extended release 24 hr magnesium oxide 400 mg PO DAILY #90 tabs 04/06/21 02/10/24 Rx clopidogrel 75 mg tablet 75 mg PO DAILY #90 tabs 05/26/21 02/10/24 Rx buspirone 10 mg tablet 10 mg PO TID #270 tabs 09/03/21 02/10/24 Rx escitalopram oxalate 20 mg tablet 20 mg PO DAILY #90 tabs 09/03/21 02/10/24 Rx (Lexapro) metoprolol succinate 50 mg 50 mg PO BID #180 tabs 09/21/21 02/10/24 Rx tablet,extended release 24 hr atorvastatin 40 mg tablet (Lipitor) 40 mg PO QHS #90 tabs 10/23/21 02/10/24 Rx melatonin 10 mg tablet 10 mg PO QHS 03/16/22 02/10/24 History triamcinolone acetonide 0.1 % 1 applic topical BID #30 grams 03/16/22 02/10/24 Rx topical cream loratadine 10 mg tablet 10 mg PO DAILY PRN allergic 05/10/22 02/10/24 Rx symptoms #30 tabs calcium carbonate 600 mg PO DAILY #90 tabs 06/28/22 02/10/24 Rx portable oxygen concentrator #1 ea 09/14/22 02/10/24 Rx ferrous sulfate 325 mg (65 mg 325 mg PO BID #180 tabs 09/14/22 02/10/24 Rx iron) tablet hydroxyzine HCl 25 mg tablet 25 mg PO Q8H PRN anxiety #90 tabs 01/18/23 02/10/24 Rx albuterol sulfate 90 mcg/actuation 1 - 2 puff inhalation Q4-6H PRN 01/04/24 02/10/24 Rx aerosol inhaler shortness of breath or wheezing #8.5 grams tramadol 50 mg tablet 50 mg PO BID PRN pain #60 tabs 01/10/24 02/10/24 Rx gabapentin 300 mg capsule 300 mg PO USEASDIRECTD 01/17/24 02/10/24 History potassium chloride 10 mEq 10 meq PO DAILY #90 caps 01/17/24 02/10/24 Rx capsule,extended release furosemide 40 mg tablet 40 mg PO DAILY #60 tabs 01/25/24 02/10/24 Rx Allergies Allergy/AdvReac Type Severity Reaction Status Date / Time Penicillins Allergy Unknown Urticaria Verified 01/29/24 13:16 Vital Signs Vital Signs - 24 hr 02/10/24 09:49 02/10/24 10:00 02/10/24 11:00 Temperature 97.9 F 97.7 F 97.6 F Pulse Rate 64 66 68 Respiratory Rate 18 16 16 Blood Pressure 96/57 L 90/54 L 92/62 L Pulse Oximetry 94 95 95 Oxygen Delivery Room Air 02/10/24 12:36 Temperature 96.6 F L Pulse Rate 64 Respiratory Rate 18 Blood Pressure 111/58 L Pulse Oximetry 100 Oxygen Delivery Exam Narrative: General: Nontoxic-appearing female in the semi-Quinones position in bed. Weight: 59.6 kg. BMI: 22.6. HEENT: Bruising on the forehead. Wearing corrective lenses. She has a right-sided cochlear implant. PERRL, EOMI. Sclera anicteric. Moist mucous membranes. Edentulous. Neck: Supple. Respiratory: Respirations are nonlabored. Lung sounds are a bit diminished better otherwise clear to auscultation. Cardiovascular: Regular rate and rhythm with normal S1-S2. Systolic murmur at the left sternal border. Gastrointestinal: Abdomen is soft, nontender, and nondistended with positive bowel sounds. No guarding or rebound tenderness. Skin: Warm and dry. Bruising in multiple stages of healing on the forehead, forearms, elbows, posterior arms, and left flank/hip. There are chronic skin changes of the bilateral lower legs with a few shallow ulcerations. There is callused and cracking of the heels. Extremities: No cyanosis or clubbing. 2+ elia ankle edema softening to the calves. Pedal pulses diminished. Neurological: Alert. Cranial nerves 2-12 are grossly intact. No facial asymmetry. No gross focal deficits to casual conversation. Psychiatric: Pleasant and cooperative with appropriate mood and affect. H&P: Results Labs Labs: Short CBC 02/10/24 Range/Units 10:08 WBC 12.5 H (4.5-10.0) K/mm3 Hgb 8.6 L D (12.0-15.0) g/dL Hct 26.7 L (37.0-47.0) % Plt Count 291 D (150-375) k/mm3 BMP 02/10/24 10:08 Sodium 133 L Potassium 4.1 Chloride 99 Carbon Dioxide 25 BUN 33 H Creatinine 1.30 H Glucose 82 Calcium 8.8 Liver Function 02/10/24 Range/Units 10:08 Total Bilirubin 0.8 (0.2-1.3) mg/dL AST 58 H (14-36) U/L ALT 33 (6-35) U/L Alkaline Phosphatase 116 (38-126) U/L Albumin 3.4 L (3.5-5.1) g/dL Imaging Head CT 02/10/24 10:23 IMPRESSION: 1. Stable moderate nonspecific cerebral white matter disease, which likely represents chronic small vessel ischemic disease. Head/Cervical Spine/Facial Bones CT 02/10/24 10:25 IMPRESSION: 1. T3 compression fracture, likely acute or subacute. 2. Severe cervical spondylosis. 3. Cervical levoscoliosis. Elbow X-Ray 02/10/24 11:53 IMPRESSION: 1. Mild elbow joint osteoarthritis. Chest X-Ray 02/10/24 12:04 Impression: 1: Cardiomegaly with mild interstitial edema. Assessment and Plan Assessment and plan (1) Heme positive stool: Code(s): R19.5 - Other fecal abnormalities Status: Acute (2) Anemia: Code(s): D64.9 - Anemia, unspecified Status: Acute (3) Compression fracture of T3 vertebra: Code(s): S22.030A - Wedge compression fracture of third thoracic vertebra, initial encounter for closed fracture Status: Acute (4) Frequent falls: Code(s): R29.6 - Repeated falls Status: Acute (5) Right ventricular systolic dysfunction: Code(s): I51.89 - Other ill-defined heart diseases Status: Acute (6) Diastolic congestive heart failure: Code(s): I50.30 - Unspecified diastolic (congestive) heart failure Status: Acute (7) Chronic kidney disease, stage 3a: Code(s): N18.31 - Chronic kidney disease, stage 3a Status: Acute (8) Chronic obstructive pulmonary disease with hypoxia: Code(s): J44.9 - Chronic obstructive pulmonary disease, unspecified Status: Acute (9) Coronary artery disease: Onset Date: 10/2018 Qualifiers: Associated angina: without angina Coronary Disease-Associated Artery/Lesion type: jamul artery [place] vs. transplanted heart: jamul heart Qualified Code(s): I25.10 - Atherosclerotic heart disease of jamul coronary artery without angina pectoris Code(s): I25.10 - Atherosclerotic heart disease of jamul coronary artery without angina pectoris Status: Acute (10) Hypertension: Qualifiers: Hypertension type: primary hypertension Qualified Code(s): I10 - Essential (primary) hypertension Code(s): I10 - Essential (primary) hypertension Status: Chronic Plan The patient presented to the emergency department for evaluation after several falls as detailed in HPI. Labs, imaging, EKG, and all reports were personally reviewed. Blood pressures were a bit soft on arrival and she was found to have a hemoglobin of 8.6 which is 6 gm lower compared to labs drawn just several weeks ago. Stool was dark and Hemoccult positive and GI has been consulted. CT of the abdomen and pelvis ordered given multiple bruises and anemia. She will be NPO after midnight for probable EGD tomorrow. Hold dual antiplatelet therapy for now. Iron studies, B12, and folate levels are pending. Trend hemoglobin and hematocrit and transfuse if indicated. Multiple images were obtained and she was found to have an acute or subacute T3 compression fracture. TLSO brace has been ordered. Analgesics available as needed. Initiate fall precautions. Consult PT/OT. Blood pressures are running at the lower end of normal. Continue furosemide and metoprolol with parameters. She is euvolemic currently and her volume status will be monitored closely. Renal function is stable on review of previous labs. There are no findings to suggest COPD exacerbation. Her medications will be reviewed and resumed as appropriate. Findings and treatment plan were discussed with the patient. Questions were solicited and answered to satisfaction. The patient's medical management will be taken over by the hospitalist team in a.m. Quality VTE Prophylaxis VTE prophylaxis: mechanical ordered If No VTE Prophylaxis Answer both mechanical and pharmacologic: Reason no pharmacologic proph: medical contraindication (anemia, heme positive stool) The patient has been admitted under observation status. Hospitalist MIPS Advance Care Plan I have confirmed that the patient's Advanced Care Plan is present, code status is documented, or surrogate decision maker is listed in patient medical record.: Yes Medication Reconciliation I have utilized all available resources to obtain, update and review the patients current medications (includes all prescriptions, OTC, herbals, cannabis, and nutritional supplements).: Yes
[2024-02-10 13:36] LABS: Hematocrit 27.8 % (37.0-47.0); Hemoglobin 9.1 g/dL (12.0-15.0)
[2024-02-10 15:04] LABS: Add Urine Microscopic? YES; Appearance Urine Cloudy (Clear); Bacteria Urine 4+ /hpf; Bilirubin Urine Negative (Negative); Blood Urine Negative (Negative); Color Urine Yellow (Yellow); Glucose Urine UA Negative (Negative); Ketones Urine Negative (Negative); Leukocyte Esterase Ur 1+ LEU/UL (Negative); Nitrate Urine Positive (Negative); Non Pathogenic Casts 0-2; Protein Urine Negative (Negative); RBC Urine 0-2 /hpf (0-2); Specific Grav Ur 1.015 (1.001-1.035); Squamous Epithelial Cell Urine None Seen /hpf (Few); Urobilinogen Urine 0.2 mg/dL (<2.0); pH Urine 6.5 (5.0-9.0)
--- NOTE | 2024-02-10 15:24 | WPDGICN ---
Assessment and Plan Assessment and plan (1) Heme positive stool: Code(s): R19.5 - Other fecal abnormalities Status: Acute Assessment and Plan: noted acute anemia- recent hospital stay with normal h/h, also noted bruises (she is on asa and plavix)- on hold now egd tomorrow to assess if also gib (dark stool and + FIBT), patient is agreeable iv protonix for now (2) Acute anemia: Code(s): D64.9 - Anemia, unspecified Status: Acute Assessment and Plan: monitor for signs of bleeding transfuse if hgb<7 (3) GI bleed: Code(s): K92.2 - Gastrointestinal hemorrhage, unspecified Status: Acute (4) Frequent falls: Code(s): R29.6 - Repeated falls Status: Acute (5) Chronic respiratory failure with hypoxia, on home oxygen therapy: Code(s): J96.11 - Chronic respiratory failure with hypoxia; Z99.81 - Dependence on supplemental oxygen Status: Acute (6) CAD (coronary artery disease): Onset Date: ~10/2018 Qualifiers: Coronary Disease-Associated Artery/Lesion type: unspecified vessel or lesion type [place] vs. transplanted heart: [place] heart Associated angina: without angina Qualified Code(s): I25.10 - Atherosclerotic heart disease of [place] coronary artery without angina pectoris Code(s): I25.10 - Atherosclerotic heart disease of [place] coronary artery without angina pectoris Status: Chronic GI Consult Note Consult date/time: 02/10/24 15:24 Reason for consult: acute anemia, dark stool HPI: Aminah Mark is a 73 year old female with chronic respiratory failure on home oxygen, chronic obstructive pulmonary disease, pulmonary hypertension, coronary artery disease status post bypass, grade 1 diastolic dysfunction, moderate mitral valve regurgitation, severe tricuspid valve regurgitation, hypertension who presented to the emergency department via EMS from [facility] for evaluation after a fall.?She had a fall last night in the bathroom after falling asleep on the toilet, staff noted multiple bruises over her body and originally did not want to come to the emergency. Finally she was brought here, hgb down to 8.6 from 15 (recently in the hospital), she also had dark stools and + FOBT (patient says that is taking iron and stools tend to be dark). Admitted to hospital, given iv ppi. Never had EGD. She is taking baby asa and plavix. Family members at bedside, she is hard of hearing and difficult to give good history. Review of Systems Constitutional: Constitutional: Reports fatigue Eyes: Eyes: Denies blurry vision ENT: Comments: hard of hearing Cardiovascular: Cardiovascular: Denies chest pain Respiratory: Respiratory: Denies cough Gastrointestinal: Gastrointestinal: Reports melena Genitourinary: Genitourinary: Denies dysuria Integumentary/Breasts: Comments: bruises Neurologic: Denies Abnormal speech present Psychiatric: Psychiatric: Denies behavioral changes [facility] Past Medical History Medical History (Updated 02/10/24 @ 15:35 by Lreoy Cleveland MD) Acute anemia Chronic kidney disease Chronic low back pain Chronic respiratory failure with hypoxia, on home oxygen therapy Chronic venous insufficiency of lower extremity Cochlear implant in place right ear Coronary artery disease (10/2018) Depression with anxiety Diastolic congestive heart failure Environmental allergies Hearing loss Hyperlipidemia Hypertension Insomnia Moderate mitral valve regurgitation Normal colonoscopy (07/2010) Normal mammography (06/03/20) Osteoarthritis Osteopenia Overactive bladder Peripheral neuropathy Pulmonary hypertension Right ventricular systolic dysfunction Severe tricuspid valve regurgitation Tobacco abuse Surgical History Surgical History History of arthroscopy of right knee History of cochlear implant History of coronary artery bypass graft x 3 (10/09/18) History of ear surgery x4 History of open reduction and internal fixation (ORIF) procedure Repair left knee fracture in 2017. Repair left wrist fracture in 2018. Family History Family History Father Family history of alcoholism Family history of malignant neoplasm Heart disease Mother Diabetes mellitus Social History Social History (Updated 02/10/24 @ 13:16 by Gillian Cruz PA-C) Social History: Surrogate medical decision maker: Trevor Kc, son. Code status: Full code. Smoking packs per day: 2 Smoking cigarettes per day: 40.0 Years smoked: 30 Smoking pack-years: 60.00 Smoking status: Former smoker Additional smoking assessment comments: 3-4 cigarettes a day Alcohol intake: current Drinks per week: 1 Substance use: former Substance use type: marijuana and prescription drug Do You Feel Safe in your Home?: Yes Lack of Transportation: YES Lack of Food: Never True Current Housing: I Have Housing Concerned About Future Housing: No Difficulty Paying Gas/Electric Bills: No Difficulty Paying for Meds: No Currently Unemployed: No Education: High School Diploma/GED Difficulty w/ Childcare or Family Care: No Living arrangements: assisted living Additional living arrangements comments: [facility] in [place]. Occupation/Education: retired Spiritual care concerns: No Agree to blood products: Yes Meds Home Medications and Allergies Home Medications Medication Instructions Recorded Confirmed Type aspirin 81 mg tablet,delayed 81 mg PO DAILY 04/05/19 02/10/24 History release (Adult Aspirin Regimen) cholecalciferol (vitamin D3) 50 50 mcg PO DAILY 03/07/20 02/10/24 History mcg (2,000 unit) capsule acetaminophen 650 mg 1,300 mg PO Q12H 10/23/20 02/10/24 History tablet,extended release oxybutynin chloride 10 mg 10 mg PO BID #180 tabs 02/04/21 02/10/24 Rx tablet,extended release 24 hr magnesium oxide 400 mg PO DAILY #90 tabs 04/06/21 02/10/24 Rx clopidogrel 75 mg tablet 75 mg PO DAILY #90 tabs 05/26/21 02/10/24 Rx buspirone 10 mg tablet 10 mg PO TID #270 tabs 09/03/21 02/10/24 Rx escitalopram oxalate 20 mg tablet 20 mg PO DAILY #90 tabs 09/03/21 02/10/24 Rx (Lexapro) metoprolol succinate 50 mg 50 mg PO BID #180 tabs 09/21/21 02/10/24 Rx tablet,extended release 24 hr atorvastatin 40 mg tablet (Lipitor) 40 mg PO QHS #90 tabs 10/23/21 02/10/24 Rx melatonin 10 mg tablet 10 mg PO QHS 03/16/22 02/10/24 History triamcinolone acetonide 0.1 % 1 applic topical BID #30 grams 03/16/22 02/10/24 Rx topical cream loratadine 10 mg tablet 10 mg PO DAILY PRN allergic 05/10/22 02/10/24 Rx symptoms #30 tabs calcium carbonate 600 mg PO DAILY #90 tabs 06/28/22 02/10/24 Rx portable oxygen concentrator #1 ea 09/14/22 02/10/24 Rx ferrous sulfate 325 mg (65 mg 325 mg PO BID #180 tabs 09/14/22 02/10/24 Rx iron) tablet hydroxyzine HCl 25 mg tablet 25 mg PO Q8H PRN anxiety #90 tabs 01/18/23 02/10/24 Rx albuterol sulfate 90 mcg/actuation 1 - 2 puff inhalation Q4-6H PRN 01/04/24 02/10/24 Rx aerosol inhaler shortness of breath or wheezing #8.5 grams tramadol 50 mg tablet 50 mg PO BID PRN pain #60 tabs 01/10/24 02/10/24 Rx gabapentin 300 mg capsule 300 mg PO USEASDIRECTD 01/17/24 02/10/24 History potassium chloride 10 mEq 10 meq PO DAILY #90 caps 01/17/24 02/10/24 Rx capsule,extended release furosemide 40 mg tablet 40 mg PO DAILY #60 tabs 01/25/24 02/10/24 Rx Allergies Allergy/AdvReac Type Severity Reaction Status Date / Time Penicillins Allergy Unknown Urticaria Verified 01/29/24 13:16 Vital Signs Vital Signs - 24 hr 02/10/24 09:49 02/10/24 10:00 02/10/24 11:00 Temperature 97.9 F 97.7 F 97.6 F Pulse Rate 64 66 68 Respiratory Rate 18 16 16 Blood Pressure 96/57 L 90/54 L 92/62 L Pulse Oximetry 94 95 95 Oxygen Delivery Room Air Oxygen Flow Rate 02/10/24 12:36 02/10/24 13:08 Temperature 96.6 F L Pulse Rate 64 Respiratory Rate 18 Blood Pressure 111/58 L Pulse Oximetry 100 100 Oxygen Delivery Nasal Cannula Oxygen Flow Rate 3 Exam Const: Other: awake and alert HENMT: Face/Nose/Sinus: Normal nares present Other: hard of hearing, using cochlear implant Eyes: General: appearance normal, both eyes and all related structures Neck: Neck: supple Resp: Effort & Inspection: normal respiratory effort Cardio: Rate: regular rate GI: GI Palp: Yes Soft to palpation and No Tenderness to palpation present (GI) Auscultation: normal bowel sounds Skin: Other: bruises Neuro: Speech: normal speech Motor exam (neuro): 5/5 motor strength present throughout Extrem: General: normal to inspection Psych: Mental Status: mental status grossly normal Results Labs 02/10/24 13:00 02/10/24 10:08 Labs: Short CBC 02/10/24 02/10/24 Range/Units 10:08 13:00 WBC 12.5 H (4.5-10.0) K/mm3 Hgb 8.6 L D 9.1 L (12.0-15.0) g/dL Hct 26.7 L 27.8 L (37.0-47.0) % Plt Count 291 D (150-375) k/mm3 BMP 02/10/24 10:08 Sodium 133 L Potassium 4.1 Chloride 99 Carbon Dioxide 25 BUN 33 H Creatinine 1.30 H Glucose 82 Calcium 8.8 Liver Function 02/10/24 Range/Units 10:08 Total Bilirubin 0.8 (0.2-1.3) mg/dL AST 58 H (14-36) U/L ALT 33 (6-35) U/L Alkaline Phosphatase 116 (38-126) U/L Albumin 3.4 L (3.5-5.1) g/dL Urine 02/10/24 Range/Units 11:13 Urine Color Yellow (Yellow) Urine Appearance Cloudy H (Clear) Urine pH 6.5 (5.0-9.0) Ur Specific [place] 1.015 (1.001-1.035) Urine Protein Negative (Negative) mg/dL Urine Glucose (UA) Negative (Negative) mg/dL
[2024-02-10] MEDS: oxyBUTYnin CHLORIDE XL 5 MG TAB.ER.24 10 MG PO (16:33)
[2024-02-10] MEDS: busPIRone HCL 10 MG TABLET PO (16:33)
[2024-02-10] MEDS: hydrOXYzine HCL 25 MG TABLET PO (16:33)
[2024-02-10] MEDS: FERROUS SULFATE 325 MG TABLET DR BY MOUTH (16:33)
[2024-02-10 16:46] LABS: Folic Acid 8.1 ng/mL (2.76->20)
[2024-02-10] MEDS: GABAPENTIN 300 MG CAPSULE PO (20:10)
[2024-02-10] MEDS: traMADol HCL (*CRX) 50 MG TABLET PO (20:10)
[2024-02-10] MEDS: METOPROLOL SUCCINATE EXT REL 50 MG TABCR PO (20:11)
[2024-02-10] MEDS: ATORVASTATIN 40 MG TABLET PO (20:11)
[2024-02-10] MEDS: MELATONIN 5 MG TABLET 10 MG PO (20:12)
[2024-02-10] MEDS: TRIAMCINOLONE ACET 0.1% CREAM 15 GM TUBE 1 APPLIC TOPICAL (20:28)
[2024-02-10 20:29] LABS: Hematocrit 27.1 % (37.0-47.0); Hemoglobin 8.9 g/dL (12.0-15.0)
[2024-02-10 20:38] LABS: Iron 38 ug/dL (37-170)
[2024-02-10 20:47] LABS: Percent Iron Saturation 12 % (20-50)
[2024-02-10 21:42] LABS: Free T4 Free Thyroxine Reflex 1.23 ng/dL (0.78-2.19)
[2024-02-11] VITALS (28 sets, daily range): BP systolic 93–123; BP diastolic 40–72; PULSE 51–66; RESP 14–24; TEMP 36–36.8; O2SAT 84–100
[2024-02-11 01:05] LABS: Hematocrit 27.5 % (37.0-47.0); Hemoglobin 8.9 g/dL (12.0-15.0); Mean Corpuscular HGB Conc 32.4 g/dl (32-36); Mean Corpuscular Hemoglobin 32.8 pg (26-34); Mean Corpuscular Volume 101.5 fl (80-100); Mean Platelet Volume 9.6 fl (7.4-10.4); Platelet Count Result 268 k/mm3 (150-375); Red Blood Count 2.71 M/mm3 (4.2-5.4); Red Cell Distribution Width 18.5 % (11.5-14.5); White Blood Count 13.8 K/mm3 (4.5-10.0)
[2024-02-11 01:18] LABS: Alanine Aminotransferase 34 U/L (6-35); Albumin Level 3.1 g/dL (3.5-5.1); Alkaline Phosphatase 130 U/L (38-126); Anion Gap 4 mmol/L (4-12); Aspartate Amino Transferase 64 U/L (14-36); Bilirubin,Total 0.8 mg/dL (0.2-1.3); Blood Urea Nitrogen 31 mg/dL (7-17); Calcium 8.8 mg/dL (8.4-10.2); Carbon Dioxide 28 mmol/L (22-30); Chloride 101 mmol/L (98-107); Estimated CRCL calculation 32 ml/min; Estimated Glomerular Filt Rate 44; Glucose 90 mg/dL (65-110); Magnesium 2.4 mg/dL (1.6-2.3); Potassium 5.6 mmol/L (3.4-5.0); Sodium 133 mmol/L (137-145)
[2024-02-11 06:12] LABS: Hematocrit 27.1 % (37.0-47.0); Hemoglobin 8.8 g/dL (12.0-15.0)
[2024-02-11 06:56] LABS: Total Triiodothyronine (T3) 0.87 NG/ML (0.97-1.69)
--- NOTE | 2024-02-11 07:24 | P.PNAN_ITS ---
Anes - Initial Pre Proc Eval Procedure: Operation Date: 02/11/24 07:30 Proposed Procedures p Esophagogastroduodenoscopy - Leroy Celveland MD Date/Time: 02/11/24 07:24 Surgeon: Melissa Tyson APRN Pre Op Diagnosis: Frequent falls, GI Bleed, Anemia Patient Data Age: 73 Gender: F Height: 1.63 m Weight: 59.9 kg Last Vital Signs Temp 36.8 C 02/11/24 04:00 Pulse 57 L 02/11/24 04:00 Resp 14 02/11/24 04:00 BP 100/48 L 02/11/24 04:00 Pulse Ox 92 02/11/24 04:00 O2 Del Method Nasal Cannula 02/10/24 13:08 O2 Flow Rate 3 02/10/24 13:08 Allergies Allergy/AdvReac Type Severity Reaction Status Date / Time Penicillins Allergy Unknown Urticaria Verified 02/11/24 07:25 Home Medications Medication Instructions Recorded Confirmed Type aspirin 81 mg tablet,delayed 81 mg PO DAILY 04/05/19 02/11/24 History release (Adult Aspirin Regimen) cholecalciferol (vitamin D3) 50 50 mcg PO DAILY 03/07/20 02/11/24 History mcg (2,000 unit) capsule acetaminophen 650 mg 1,300 mg PO Q12H 10/23/20 02/11/24 History tablet,extended release oxybutynin chloride 10 mg 10 mg PO BID #180 tabs 02/04/21 02/11/24 Rx tablet,extended release 24 hr magnesium oxide 400 mg PO DAILY #90 tabs 04/06/21 02/11/24 Rx clopidogrel 75 mg tablet 75 mg PO DAILY #90 tabs 05/26/21 02/11/24 Rx buspirone 10 mg tablet 10 mg PO TID #270 tabs 09/03/21 02/11/24 Rx escitalopram oxalate 20 mg tablet 20 mg PO DAILY #90 tabs 09/03/21 02/11/24 Rx (Lexapro) metoprolol succinate 50 mg 50 mg PO BID #180 tabs 09/21/21 02/11/24 Rx tablet,extended release 24 hr atorvastatin 40 mg tablet (Lipitor) 40 mg PO QHS #90 tabs 10/23/21 02/11/24 Rx melatonin 10 mg tablet 10 mg PO QHS 03/16/22 02/11/24 History triamcinolone acetonide 0.1 % 1 applic topical BID #30 grams 03/16/22 02/11/24 Rx topical cream loratadine 10 mg tablet 10 mg PO DAILY PRN allergic 05/10/22 02/11/24 Rx symptoms #30 tabs calcium carbonate 600 mg PO DAILY #90 tabs 06/28/22 02/11/24 Rx portable oxygen concentrator #1 ea 09/14/22 02/11/24 Rx ferrous sulfate 325 mg (65 mg 325 mg PO BID #180 tabs 09/14/22 02/11/24 Rx iron) tablet hydroxyzine HCl 25 mg tablet 25 mg PO Q8H PRN anxiety #90 tabs 01/18/23 02/11/24 Rx albuterol sulfate 90 mcg/actuation 1 - 2 puff inhalation Q4-6H PRN 01/04/24 02/11/24 Rx aerosol inhaler shortness of breath or wheezing #8.5 grams tramadol 50 mg tablet 50 mg PO BID PRN pain #60 tabs 01/10/24 02/11/24 Rx gabapentin 300 mg capsule 300 mg PO USEASDIRECTD 01/17/24 02/11/24 History potassium chloride 10 mEq 10 meq PO DAILY #90 caps 01/17/24 02/11/24 Rx capsule,extended release furosemide 40 mg tablet 40 mg PO DAILY #60 tabs 01/25/24 02/11/24 Rx Laboratory Tests 02/10/24 02/10/24 02/10/24 10:08 11:13 11:18 WBC 12.5 H K/mm3 (4.5-10.0) RBC 2.65 L M/mm3 (4.2-5.4) Hgb 8.6 L D g/dL (12.0-15.0) Hct 26.7 L % (37.0-47.0) MCV 100.8 H fl (80-100) MCH 32.5 pg (26-34) MCHC 32.2 g/dl (32-36) RDW 18.2 H % (11.5-14.5) Plt Count 291 D k/mm3 (150-375) MPV 9.2 fl (7.4-10.4) Immature Gran % (Auto) 1.5 H % (0-0.5) Neut % (Auto) 76.3 H % (45.5-73.1) Lymph % (Auto) 11.8 L % (18.3-44.2) [place] % (Auto) 9.3 H % (2.6-8.5) Eos % (Auto) 0.6 % (0-4.4) Baso % (Auto) 0.5 % (0.2-1.2) Lymph # (Auto) 1.48 K/mm3 (0.9-3.2) [place] # (Auto) 1.2 H K/mm3 (0.1-0.6) Eos # (Auto) 0.1 K/mm3 (0-0.3) Baso # (Auto) 0.1 K/mm3 (0.0-0.1) Abs Immat Gran (auto) 0.19 H K/mm3 (0.00-0.031) Absolute Neuts (auto) 9.6 H K/mm3 (1.3-6.7) Absolute Nucleated RBC 0.080 H K/mm3 (0.0-0.012) Nucleated RBC % 0.6 H % (0.0-0.2) Sodium 133 L mmol/L (137-145) Potassium 4.1 mmol/L (3.4-5.0) Chloride 99 mmol/L (98-107) Carbon Dioxide 25 mmol/L (22-30) Anion Gap 9 mmol/L (4-12) BUN 33 H mg/dL (7-17) Creatinine 1.30 H mg/dL (0.7-1.0) Estim Creat Clear Calc Not Reportable Estimated GFR 40 L (59 - ) Glucose 82 mg/dL (65-110) Calcium 8.8 mg/dL (8.4-10.2) Magnesium Iron TIBC % Saturation Ferritin Total Bilirubin 0.8 mg/dL (0.2-1.3) AST 58 H U/L (14-36) ALT 33 U/L (6-35) Alkaline Phosphatase 116 U/L (38-126) Total Protein 6.0 L g/dL (6.3-8.2) Albumin 3.4 L g/dL (3.5-5.1) Vitamin B12 540.0 pg/mL (239-931) Folate 8.1 ng/mL (2.76->20) TSH (Reflex) Free T4 Total T3 Urine Color Yellow (Yellow) Urine Appearance Cloudy H (Clear) Urine pH 6.5 (5.0-9.0) Ur Specific [place] 1.015 (1.001-1.035) Urine Protein Negative mg/dL (Negative) Urine Glucose (UA) Negative mg/dL (Negative) Urine Ketones Negative mg/dL (Negative) Ur Blood (Man) Negative (Negative) Urine Nitrate Positive H (Negative) Urine Bilirubin Negative (Negative) Urine Urobilinogen 0.2 mg/dL (<2.0) Leukocyte Esterase Rfl 1+ H WILLIAN/UL (Negative) Urine RBC 0-2 /hpf (0-2) Urine WBC 6-10 H /hpf (0-3) Ur Squamous Epith Cells None seen /hpf (Few) Urine Bacteria 4+ H /hpf Urine Casts 0-2 Blood Type O Positive Antibody Screen Negative 02/10/24 02/10/24 02/11/24 13:00 20:23 00:36 WBC RBC Hgb 9.1 L g/dL 8.9 L g/dL (12.0-15.0) (12.0-15.0) Hct 27.8 L % 27.1 L % (37.0-47.0) (37.0-47.0) MCV MCH MCHC RDW Plt Count MPV Immature Gran % (Auto) Neut % (Auto) Lymph % (Auto) [place] % (Auto) Eos % (Auto) Baso % (Auto) Lymph # (Auto) [place] # (Auto) Eos # (Auto) Baso # (Auto) Abs Immat Gran (auto) Absolute Neuts (auto) Absolute Nucleated RBC Nucleated RBC % Sodium Potassium Chloride Carbon Dioxide Anion Gap BUN Creatinine Estim Creat Clear Calc Estimated GFR Glucose Calcium Magnesium Iron 38 ug/dL (37-170) TIBC 305 ug/dL (261-462) % Saturation 12 L % (20-50) Ferritin 71.90 ng/mL (11.1-264) Total Bilirubin AST ALT Alkaline Phosphatase Total Protein Albumin Vitamin B12 Folate TSH (Reflex) 5.570 H uIU/mL (0.465-4.68) Free T4 1.23 ng/dL (0.78-2.19) Total T3 0.87 L NG/ML (0.97-1.69) Urine Color Urine Appearance Urine pH Ur Specific [place] Urine Protein Urine Glucose (UA) Urine Ketones Ur Blood (Man) Urine Nitrate Urine Bilirubin Urine Urobilinogen Leukocyte Esterase Rfl Urine RBC Urine WBC Ur Squamous Epith Cells Urine Bacteria Urine Casts Blood Type Antibody Screen 02/11/24 02/11/24 02/11/24 00:59 00:59 00:59 WBC 13.8 H K/mm3 (4.5-10.0) RBC 2.71 L M/mm3 (4.2-5.4) Hgb 8.8 L g/dL 8.9 L g/dL (12.0-15.0) (12.0-15.0) Hct 27.1 L % 27.5 L % (37.0-47.0) (37.0-47.0) MCV 101.5 H fl (80-100) MCH 32.8 pg (26-34) MCHC 32.4 g/dl (32-36) RDW 18.5 H % (11.5-14.5) Plt Count 268 k/mm3 (150-375) MPV 9.6 fl (7.4-10.4) Immature Gran % (Auto) Neut % (Auto) Lymph % (Auto) [place] % (Auto) Eos % (Auto) Baso % (Auto) Lymph # (Auto) [place] # (Auto) Eos # (Auto) Baso # (Auto) Abs Immat Gran (auto) Absolute Neuts (auto) Absolute Nucleated RBC Nucleated RBC % Sodium 133 L mmol/L (137-145) Potassium 5.6 H mmol/L (3.4-5.0) Chloride 101 mmol/L (98-107) Carbon Dioxide 28 mmol/L (22-30) Anion Gap 4 mmol/L (4-12) BUN 31 H mg/dL (7-17) Creatinine 1.20 H mg/dL (0.7-1.0) Estim Creat Clear Calc 32 ml/min Estimated GFR 44 L (59 - ) Glucose 90 mg/dL (65-110) Calcium 8.8 mg/dL (8.4-10.2) Magnesium 2.4 H mg/dL (1.6-2.3) Iron TIBC % Saturation Ferritin Total Bilirubin 0.8 mg/dL (0.2-1.3) AST 64 H U/L (14-36) ALT 34 U/L (6-35) Alkaline Phosphatase 130 H U/L (38-126) Total Protein 6.0 L g/dL (6.3-8.2) Albumin 3.1 L g/dL (3.5-5.1) Vitamin B12 Folate TSH (Reflex) Free T4 Total T3 Urine Color Urine Appearance Urine pH Ur Specific [place] Urine Protein Urine Glucose (UA) Urine Ketones Ur Blood (Man) Urine Nitrate Urine Bilirubin Urine Urobilinogen Leukocyte Esterase Rfl Urine RBC Urine WBC Ur Squamous Epith Cells Urine Bacteria Urine Casts Blood Type Antibody Screen Patient hx anesthesia problems: none Family hx anesthesia problems: none Results Review: All pre-operative results and documents have been reviewed as part of the pre- operative evaluation. [facility] Past Medical History Medical History (Updated 02/10/24 @ 22:05 by Gillian Cruz PA-C) Chronic kidney disease Chronic low back pain Chronic respiratory failure with hypoxia, on home oxygen therapy Chronic venous insufficiency of lower extremity Cochlear implant in place right ear Coronary artery disease (10/2018) Depression with anxiety Diastolic congestive heart failure Environmental allergies Hearing loss Hyperlipidemia Hypertension Insomnia Moderate mitral valve regurgitation Normal colonoscopy (07/2010) Normal mammography (06/03/20) Osteoarthritis Osteopenia Overactive bladder Peripheral neuropathy Pulmonary hypertension Right ventricular systolic dysfunction Severe tricuspid valve regurgitation Tobacco abuse Surgical History Surgical History History of arthroscopy of right knee History of cochlear implant History of coronary artery bypass graft x 3 (10/09/18) History of ear surgery x4 History of open reduction and internal fixation (ORIF) procedure Repair left knee fracture in 2017. Repair left wrist fracture in 2018. Family History Family History Father Family history of alcoholism Family history of malignant neoplasm Heart disease Mother Diabetes mellitus Social History Social History Social History: Surrogate medical decision maker: Trevor Kc, marlena. Code status: Do not resuscitate. Smoking packs per day: 2 Smoking cigarettes per day: 40.0 Years smoked: 30 Smoking pack-years: 60.00 Smoking status: Former smoker Additional smoking assessment comments: 3-4 cigarettes a day Alcohol intake: current Drinks per week: 1 Substance use: former Substance use type: marijuana and prescription drug Do You Feel Safe in your Home?: Yes Lack of Transportation: YES Lack of Food: Never True Current Housing: I Have Housing Concerned About Future Housing: No Difficulty Paying Gas/Electric Bills: No Difficulty Paying for Meds: No Currently Unemployed: No Education: High School Diploma/GED Difficulty w/ Childcare or Family Care: No Living arrangements: assisted living Additional living arrangements comments: [facility] in [place]. Occupation/Education: retired Spiritual care concerns: No Agree to blood products: Yes Anes - Eval Final PreProcedure Day of Procedure 02/11/24 07:24 Patient weight: normal Heart: regular rate and rhythm Lungs: clear to auscultation and normal air movement Airway: Mallampati scale class II Neurological: alert and oriented Last oral intake: >/= 8 hours ASA classification: IV Emergent: no Anesthetic plan: proceed Anesthesia type and monitoring: general GIVS and standard monitoring Results Review: All pre-operative results and documents have been reviewed as part of the pre- operative evaluation. Informed Consent: The patient's anesthetic plan and its attendant risks and benefits were discussed with the patient/family/POA. Questions were solicited and answers provided to the satisfaction of the patient/family/POA.
[2024-02-11] MEDS: LACTATED RINGERS 1,000 ML 150 ML IV CONT (07:37)
--- NOTE | 2024-02-11 08:32 | PC.NURSE ---
Returned from GI Lab. Report received from [jayden ].
--- NOTE | 2024-02-11 08:54 | SUR.PHASEII ---
Addendum entered by Kimi Hand RN 02/11/24 09:25: Respiratory therapy at bedside attempting to draw an ABG, pt on 10L O2. Sat at 100%. Patient drowsy but arousable Original Note: Difficulty getting O2 sat on finger and forehead probe. Anesthesia notified
[2024-02-11 08:59] LABS: HPYLORIRESULT Negative (Negative)
--- NOTE | 2024-02-11 09:28 | SUR.PHASEII ---
Respiratory therapy ABG unsuccessful, vaportherm ordered per anesthesia
--- NOTE | 2024-02-11 09:56 | PC.NURSE ---
Spoke with Francheska about pt now being on VAPOTHERM 15 L after EGD. Awaiting orders on if pt can come back to this floor.
--- NOTE | 2024-02-11 10:48 | SUR.PHASEII ---
Anesthesia and respiratory therapy and warehouse handler at bedside. Patient awake and alert on vapotherm 15mL. Pt okay to transfer back to floor per anesthesia
[2024-02-11] MEDS: ESCITALOPRAM OXALATE 10 MG TABLET 20 MG PO (10:49)
[2024-02-11] MEDS: CHOLECALCIFEROL 1,000 UNITS TABLET 2000 UNITS PO (10:49)
[2024-02-11] MEDS: FERROUS SULFATE 325 MG TABLET DR BY MOUTH ×2 (10:51→17:06)
[2024-02-11] MEDS: FUROSEMIDE 40 MG TABLET PO (10:57)
[2024-02-11] MEDS: CALCIUM CARBONATE (OSCAL) 500 MG TABLET PO (10:58)
[2024-02-11] MEDS: oxyBUTYnin CHLORIDE XL 5 MG TAB.ER.24 10 MG PO ×2 (10:58→17:05)
[2024-02-11] MEDS: MAGNESIUM OXIDE 400 MG TABLET PO (10:58)
[2024-02-11] MEDS: PANTOPRAZOLE SODIUM IV 40 MG VIAL IV PUSH (10:59)
[2024-02-11] MEDS: METOPROLOL SUCCINATE EXT REL 50 MG TABCR PO ×2 (10:59→20:51)
[2024-02-11] MEDS: TRIAMCINOLONE ACET 0.1% CREAM 15 GM TUBE 1 APPLIC TOPICAL ×2 (11:00→20:51)
[2024-02-11] MEDS: GABAPENTIN 300 MG CAPSULE PO ×2 (11:34→20:51)
[2024-02-11 12:22] LABS: Hematocrit 26.8 % (37.0-47.0); Hemoglobin 8.8 g/dL (12.0-15.0)
[2024-02-11] MEDS: busPIRone HCL 10 MG TABLET PO ×2 (12:37→17:06)
--- NOTE | 2024-02-11 13:14 | PCPTNOTE ---
attempted PT eval, per RN pt is currently on 20L high flow NC, will follow
--- NOTE | 2024-02-11 14:02 | P.PNIM_ITS ---
Progress Note: A&P Assessment and Plan (1) Heme positive stool: Code(s): R19.5 - Other fecal abnormalities Status: Acute Assessment and Plan: * GI consulted * Patient went for EGD today and shown gastritis with a non bleeding duodenal ulcer * Continue Protonix 40 mg b.i.d. per GI recommendation (2) Anemia: Code(s): D64.9 - Anemia, unspecified Status: Acute Assessment and Plan: * Likely secondary to bleeding ulcer * Hemoglobin today is 8.8 * On 01/29/2024 she was 14.8 * GI following * See above plan of care (3) Frequent falls: Code(s): R29.6 - Repeated falls Status: Acute Assessment and Plan: * Reporting frequent falls at home * PT and OT ordered * TLSO brace while out of bed * Will discuss with Case coordination tomorrow regarding rehab placement verses [facility] placement (4) Acute urinary tract infection: Code(s): N39.0 - Urinary tract infection, site not specified Status: Acute Assessment and Plan: * UA showed cloudy appearance, positive nitrate, 1+ leukocyte, 6-10 urine WBC, 4+ urine bacteria * Urine culture showing g negative bacilli isolated on preliminary read * Rocephin started * UTI could be contributing to her frequent falls (5) Compression fracture of T3 vertebra: Code(s): S22.030A - Wedge compression fracture of third thoracic vertebra, initial encounter for closed fracture Status: Acute Assessment and Plan: * Continue to wear TLSO brace while out of bed * Continue PT and OT (6) Diastolic congestive heart failure: Code(s): I50.30 - Unspecified diastolic (congestive) heart failure Status: Acute Assessment and Plan: * Echo from 01/24/24 shown normal LV systolic function with an estimated EF of 55-60%, grade 1 diastolic dysfunction, flattening of the septum in systole consistent with right ventricle pressure overload, severe pulmonary hypertension with an estimated pulmonary arterial systolic pressure of 69 mm Hg, severe biatrial enlargement right greater than left * Continue Lasix 40 mg p.o. daily * Continue metoprolol (7) Chronic kidney disease, stage 3a: Code(s): N18.31 - Chronic kidney disease, stage 3a Status: Acute Assessment and Plan: * Creatinine 1.20, EGFR 44 * Baseline creatinine around 0.9-1.0 * Continue to trend (8) Chronic obstructive pulmonary disease with hypoxia: Code(s): J44.9 - Chronic obstructive pulmonary disease, unspecified Status: Acute Assessment and Plan: * Continue albuterol rescue inhaler as needed (9) Coronary artery disease: Onset Date: 10/2018 Qualifiers: Coronary Disease-Associated Artery/Lesion type: [place] artery [place] vs. transplanted heart: [place] heart Associated angina: without angina Qualified Code(s): I25.10 - Atherosclerotic heart disease of [place] coronary artery without angina pectoris Code(s): I25.10 - Atherosclerotic heart disease of [place] coronary artery without angina pectoris Status: Acute Assessment and Plan: * Continue atorvastatin (10) Hypertension: Qualifiers: Hypertension type: primary hypertension Qualified Code(s): I10 - Essential (primary) hypertension Code(s): I10 - Essential (primary) hypertension Status: Chronic Assessment and Plan: * Blood pressure ranging 101/51 to 110/60 * Continue metoprolol Time Spent With Patient Time with patient: Greater than 35 minutes Subjective Date/time seen: 02/11/24 14:02 Interval history: Patient denies any fever, chills, nausea, vomiting, diarrhea, abdominal pain, chest pain or shortness of breath. She does admit to frequent falls and has had numerous admissions in the past month. Family concerned with history of falls and being argumentative to the staff at [facility] and periods of confusion. They feel this is out of character for her. Labs and imaging reviewed. UA showing 1+ leukocytes and positive nitrates. UC showing gram negative bacilli isolated on preliminary read. Review of Systems Review of Systems: All systems reviewed & are unremarkable except as noted in HPI and below Constitutional: Constitutional: Reports as per HPI and Reports no additional constitutional complaints Eyes: Eyes: Reports as per HPI and Reports no additional eye complaints ENT: Reports system reviewed and no additional complaints, except as documented and Reports as per HPI Cardiovascular: Cardiovascular: Reports as per HPI and Reports no additional cardiovascular complaints Respiratory: Respiratory: Reports as per HPI and Reports no additional respiratory complaints Gastrointestinal: Gastrointestinal: Reports as per HPI and Reports no additional gastrointestinal complaints Genitourinary: Genitourinary: Reports no additional female genitourinary complaints and Reports as per HPI Musculoskeletal: Musculoskeletal: Reports no additional musculoskeletal complaints and Reports as per HPI Integumentary/Breasts: Skin/Breast: Reports system reviewed and no additional complaints, except as docu and Reports as per HPI Neurologic: Reports system reviewed and no additional complaints, except as documented and Reports as per HPI Psychiatric: Psychiatric: Reports no additional psychiatric complaints and Reports as per HPI Exam Narrative: General: In no acute distress Head: no encephalopathy Eyes: PERRLA, sclera clear, wears glass ENT: moist mucous membranes, nasal passages clear Neck: supple, no JVD, no adenopathy, trachea midline Cardiac: Normal S1 and S2. No murmur, gallops or friction rubs, peripheral pulses intact. Respiratory: Lungs clear to auscultation, no adventitious lung sounds, currently 5L NC post EGD Gastrointestinal: soft, non-distended, non-tender, normoactive bowel sounds. : voiding without difficulty. Extremities: moves all extremities well, no edema, good ROM, strength 5/5 Skin: Bruising noted to her forehead, bilateral arms, and back. She also has open wounds bilateral lower extremity with redness which is chronic. Neuro: Alert and oriented x3, cranial nerves intact, no neuro deficits. Psych: normal mood, normal affect, interactive Objective Data Vital Signs Vital Signs: Vital Signs - 24 hr 02/10/24 16:00 02/10/24 16:00 02/10/24 20:00 Temperature 97.6 F 97.2 F L Pulse Rate 68 60 52 L Respiratory Rate 18 14 Blood Pressure 120/48 L 104/78 Pulse Oximetry 100 91 Oxygen Delivery Oxygen Flow Rate Fraction of Inspired Oxygen 02/10/24 20:00 02/11/24 00:00 02/11/24 00:00 Temperature 97.5 F L Pulse Rate 62 60 61 Respiratory Rate 16 Blood Pressure 104/52 L Pulse Oximetry 95 Oxygen Delivery Oxygen Flow Rate Fraction of Inspired Oxygen 02/11/24 00:00 02/11/24 04:00 02/11/24 04:00 Temperature 97.5 F L 98.2 F Pulse Rate 61 56 L 57 L Respiratory Rate 16 14 Blood Pressure 100/48 L Pulse Oximetry 95 92 Oxygen Delivery Oxygen Flow Rate Fraction of Inspired Oxygen 02/11/24 07:18 02/11/24 07:50 02/11/24 08:00 Temperature 97.4 F L Pulse Rate 66 53 L 54 L Respiratory Rate 16 16 16 Blood Pressure 114/43 L 93/48 L 109/47 L Pulse Oximetry 93 90 93 Oxygen Delivery Nasal Cannula Nasal Cannula Nasal Cannula Oxygen Flow Rate 3 3 4 Fraction of Inspired Oxygen 02/11/24 08:10 02/11/24 08:20 02/11/24 08:30 Temperature Pulse Rate 51 L 53 L 52 L Respiratory Rate 16 16 16 Blood Pressure 98/50 L 109/47 L 98/50 L Pulse Oximetry 95 94 93 Oxygen Delivery Nasal Cannula Nasal Cannula Nasal Cannula Oxygen Flow Rate 6 6 6 Fraction of Inspired Oxygen 02/11/24 08:40 02/11/24 08:50 02/11/24 09:00 Temperature Pulse Rate 54 L 56 L 56 L Respiratory Rate 22 H 16 16 Blood Pressure 100/44 L 105/42 L 104/55 L Pulse Oximetry 97 86 L 84 L Oxygen Delivery Nasal Cannula Nasal Cannula Simple Face Mask Oxygen Flow Rate 6 6 10 Fraction of Inspired Oxygen 02/11/24 09:10 02/11/24 09:20 02/11/24 09:30 Temperature Pulse Rate 56 L 55 L Respiratory Rate 16 16 Blood Pressure 98/72 L 123/41 L Pulse Oximetry 100 98 96 Oxygen Delivery Simple Face Mask Simple Face Mask Simple Face Mask Oxygen Flow Rate 10 10 10 Fraction of Inspired Oxygen 02/11/24 09:40 02/11/24 09:50 02/11/24 10:00 Temperature Pulse Rate 55 L 52 L 52 L Respiratory Rate 18 24 H 24 H Blood Pressure 103/40 L 106/57 L 93/55 L Pulse Oximetry 89 L 95 88 L Oxygen Delivery Simple Face Mask High Flow Therapy with Na High Flow Therapy with Na Oxygen Flow Rate 10 15 15 Fraction of Inspired Oxygen 02/11/24 10:10 02/11/24 10:59 02/11/24 09:50 Temperature Pulse Rate 55 L 56 L 53 L Respiratory Rate 18 18 Blood Pressure 102/45 L Pulse Oximetry 90 95 Oxygen Delivery High Flow Therapy with Na High Flow Therapy with Na Oxygen Flow Rate 20 15 Fraction of Inspired Oxygen 30 02/11/24 10:50 02/11/24 12:00 02/11/24 12:44 Temperature Pulse Rate 62 55 L Respiratory Rate 18 Blood Pressure Pulse Oximetry 97 91 Oxygen Delivery High Flow Therapy with Na High Flow Therapy with Na Oxygen Flow Rate 20 20 Fraction of Inspired Oxygen 35 35 02/11/24 12:00 Temperature 96.8 F L Pulse Rate 56 L Respiratory Rate 14 Blood Pressure 110/60 Pulse Oximetry 92 Oxygen Delivery Oxygen Flow Rate Fraction of Inspired Oxygen Intake/Output Intake/Output: Intake & Output 02/08/24 02/09/24 02/10/24 02/11/24 23:59 23:59 23:59 23:59 Intake Total 550 350 Balance 550 350 Meds/Results Medications: Active Medications Generic Name Dose Route Start Last Admin Trade Name Freq PRN Reason Stop Dose Admin Acetaminophen 650 mg 02/10/24 13:22 Acetaminophen 325 Mg Tablet PO Q6H PRN Mild Pain (1-3) or Fever Albuterol 1 - 2 puff 02/10/24 13:26 Albuterol Sulfate (*Sp) Aerosol 1 Puff INHALATION Q4HRT PRN shortness of breath or wheezing Atorvastatin Calcium 40 mg 02/10/24 21:00 02/10/24 20:11 Atorvastatin 40 Mg Tablet PO 40 mg QHS KATE Administration Buspirone HCl 10 mg 02/10/24 17:00 02/11/24 12:37 Buspirone Hcl 10 Mg Tablet PO 10 mg TID KATE Administration Calcium Carbonate 500 mg 02/11/24 09:00 02/11/24 10:58 Calcium Carbonate (Oscal) 500 Mg Tablet PO 500 mg QAM KATE Administration Escitalopram Oxalate 20 mg 02/11/24 09:00 02/11/24 10:49 Escitalopram Oxalate 10 Mg Tablet PO 20 mg DAILY KATE Administration Ferrous Sulfate 325 mg 02/10/24 17:00 02/11/24 10:51 Ferrous Sulfate [address] BY MOUTH 325 mg BID KATE Administration Furosemide 40 mg 02/11/24 09:00 02/11/24 10:57 Furosemide 40 Mg Tablet PO 40 mg DAILY KATE Administration Gabapentin 300 mg 02/10/24 13:30 02/11/24 11:34 Gabapentin 300 Mg Capsule PO 300 mg DAILY@0800,1200,2000 KATE Administration Hydroxyzine HCl 25 mg 02/10/24 13:26 02/10/24 16:33 Hydroxyzine Hcl 25 Mg Tablet PO 25 mg Q8H PRN Administration anxiety Loratadine 10 mg 02/10/24 13:26 Loratadine 10 Mg Tablet PO DAILY PRN allergic symptoms Magnesium Oxide 400 mg 02/11/24 09:00 02/11/24 10:58 Magnesium Oxide 400 Mg Tablet PO 400 mg DAILY KATE Administration Melatonin 10 mg 02/10/24 21:00 02/10/24 20:12 Melatonin 5 Mg Tablet PO 10 mg QHS KATE Administration Metoprolol Succinate 50 mg 02/10/24 21:00 02/11/24 10:59 Metoprolol Succinate Ext Rel 50 Mg Tabcr PO 50 mg Q12HR KATE Administration Ondansetron HCl 4 mg 02/10/24 11:12 Ondansetron Inj 4 Mg/2 Ml Vial IV PUSH Q4H PRN Nausea Oxybutynin Chloride 10 mg 02/10/24 17:00 02/11/24 10:58 Oxybutynin Chloride Xl 5 Mg Tab.Er.24 PO 10 mg BID KATE Administration Pantoprazole Sodium 40 mg 02/11/24 09:00 02/11/24 10:59 Pantoprazole Sodium Iv 40 Mg Vial IV PUSH 40 mg Q12HR KATE Administration Potassium Chloride 10 meq 02/11/24 09:00 02/11/24 10:58 Potassium Chloride 10 Meq Er Tablet PO 03/12/24 08:59 Not Given DAILY KATE Tramadol HCl 50 mg 02/10/24 13:26 02/10/24 20:10 Tramadol Hcl (*Crx) 50 Mg Tablet PO 50 mg BID PRN Administration pain 4-10 Triamcinolone Acetonide 1 applic 02/10/24 21:00 02/11/24 11:00 Triamcinolone Acet 0.1% Cream 15 Gm Tube TOPICAL 1 applic Q12HR KATE Administration Vitamin D 2,000 units 02/11/24 09:00 02/11/24 10:49 Cholecalciferol 1,000 Units Tablet PO 2,000 units DAILY KATE Administration Radiology Results: ITS Impressions Head CT 02/10/24 10:23 IMPRESSION: 1. Stable moderate nonspecific cerebral white matter disease, which likely represents chronic small vessel ischemic disease. Head/Cervical Spine/Facial Bones CT 02/10/24 10:25 IMPRESSION: 1. T3 compression fracture, likely acute or subacute. 2. Severe cervical spondylosis. 3. Cervical levoscoliosis. Elbow X-Ray 02/10/24 11:53 IMPRESSION: 1. Mild elbow joint osteoarthritis. Chest X-Ray 02/10/24 12:04 Impression: 1: Cardiomegaly with mild interstitial edema. Labs Labs: Laboratory Results - last 24 hr 02/10/24 02/10/24 02/10/24 10:08 11:13 20:23 WBC RBC Hgb 8.9 L Hct 27.1 L MCV MCH MCHC RDW Plt Count MPV Sodium Potassium Chloride Carbon Dioxide Anion Gap BUN Creatinine Estim Creat Clear Calc Estimated GFR Glucose Calcium Magnesium Iron 38 TIBC 305 % Saturation 12 L Ferritin 71.90 Total Bilirubin AST ALT Alkaline Phosphatase Total Protein Albumin Vitamin B12 540.0 Folate 8.1 TSH (Reflex) 5.570 H Free T4 1.23 Total T3 Urine Color Yellow Urine Appearance Cloudy H Urine pH 6.5 Ur Specific [place] 1.015 Urine Protein Negative Urine Glucose (UA) Negative Urine Ketones Negative Ur Blood (Man) Negative Urine Nitrate Positive H Urine Bilirubin Negative Urine Urobilinogen 0.2 Leukocyte Esterase Rfl 1+ H Urine RBC 0-2 Urine WBC 6-10 H Ur Squamous Epith Cells None seen Urine Bacteria 4+ H Urine Casts 0-2 POC H. pylori Urease 02/11/24 02/11/24 02/11/24 00:36 00:59 00:59 WBC 13.8 H RBC 2.71 L Hgb 8.8 L 8.9 L Hct 27.1 L MCV MCH MCHC RDW Plt Count MPV Sodium Potassium Chloride Carbon Dioxide Anion Gap BUN Creatinine Estim Creat Clear Calc Estimated GFR Glucose Calcium Magnesium Iron TIBC % Saturation Ferritin Total Bilirubin AST ALT Alkaline Phosphatase Total Protein Albumin Vitamin B12 Folate TSH (Reflex) Free T4 Total T3 0.87 L Urine Color Urine Appearance Urine pH Ur Specific [place] Urine Protein Urine Glucose (UA) Urine Ketones Ur Blood (Man) Urine Nitrate Urine Bilirubin Urine Urobilinogen Leukocyte Esterase Rfl Urine RBC Urine WBC Ur Squamous Epith Cells Urine Bacteria Urine Casts POC H. pylori Urease 02/11/24 02/11/24 02/11/24 00:59 08:57 12:17 WBC RBC Hgb 8.8 L Hct 27.5 L 26.8 L MCV 101.5 H MCH 32.8 MCHC 32.4 RDW 18.5 H Plt Count 268 MPV 9.6 Sodium 133 L Potassium 5.6 H Chloride 101 Carbon Dioxide 28 Anion Gap 4 BUN 31 H Creatinine 1.20 H Estim Creat Clear Calc 32 Estimated GFR 44 L Glucose 90 Calcium 8.8 Magnesium 2.4 H Iron TIBC % Saturation Ferritin Total Bilirubin 0.8 AST 64 H ALT 34 Alkaline Phosphatase 130 H Total Protein 6.0 L Albumin 3.1 L Vitamin B12 Folate TSH (Reflex) Free T4 Total T3 Urine Color Urine Appearance Urine pH Ur Specific [place] Urine Protein Urine Glucose (UA) Urine Ketones Ur Blood (Man) Urine Nitrate Urine Bilirubin Urine Urobilinogen Leukocyte Esterase Rfl Urine RBC Urine WBC Ur Squamous Epith Cells Urine Bacteria Urine Casts POC H. pylori Urease Negative Quality VTE Prophylaxis VTE prophylaxis: mechanical ordered
--- NOTE | 2024-02-11 14:13 | PCOTNOTE ---
Attempted OT evaluation. Per RN pt. is now on 20L of high flow oxygen. Will hold until tomorrow.
[2024-02-11] MEDS: MELATONIN 5 MG TABLET 10 MG PO (20:51)
[2024-02-11] MEDS: hydrOXYzine HCL 25 MG TABLET PO (20:51)
[2024-02-11] MEDS: ATORVASTATIN 40 MG TABLET PO (20:51)
[2024-02-11] MEDS: ACETAMINOPHEN 325 MG TABLET 650 MG PO (20:52)
[2024-02-12] VITALS (16 sets, daily range): BP systolic 83–136; BP diastolic 39–77; PULSE 49–68; RESP 14–19; TEMP 35.9–36.9; O2SAT 4–98
[2024-02-12 06:28] LABS: Basophils Absolute Auto 0.1 K/mm3 (0.0-0.1); Basophils Percent Auto 0.5 % (0.2-1.2); Eosinophils Absolute Auto 0.2 K/mm3 (0-0.3); Eosinophils Percent Auto 1.9 % (0-4.4); Hematocrit 26.6 % (37.0-47.0); Hemoglobin 8.6 g/dL (12.0-15.0); Immature Granulocyte Absolute 0.21 K/mm3 (0.00-0.031); Immature Granulocyte Percent A 1.9 % (0-0.5); Lymphocytes Absolute Auto 1.68 K/mm3 (0.9-3.2); Lymphocytes Percent Auto 15.6 % (18.3-44.2); Mean Corpuscular HGB Conc 32.3 g/dl (32-36); Mean Corpuscular Hemoglobin 32.7 pg (26-34); Mean Corpuscular Volume 101.1 fl (80-100); Mean Platelet Volume 9.4 fl (7.4-10.4); Monocytes Absolute Auto 1.3 K/mm3 (0.1-0.6); Neutrophils Absolute Auto 7.4 K/mm3 (1.3-6.7); Neutrophils Percent Auto 68.1 % (45.5-73.1); Nucleated Red Blood Cells Perc 0.6 % (0.0-0.2); Platelet Count Result 258 k/mm3 (150-375); Red Blood Count 2.63 M/mm3 (4.2-5.4); Red Cell Distribution Width 18.6 % (11.5-14.5); White Blood Count 10.8 K/mm3 (4.5-10.0)
[2024-02-12 06:41] LABS: Alanine Aminotransferase 32 U/L (6-35); Albumin Level 2.9 g/dL (3.5-5.1); Alkaline Phosphatase 136 U/L (38-126); Anion Gap 3 mmol/L (4-12); Aspartate Amino Transferase 52 U/L (14-36); Bilirubin,Total 0.6 mg/dL (0.2-1.3); Blood Urea Nitrogen 24 mg/dL (7-17); Calcium 7.9 mg/dL (8.4-10.2); Carbon Dioxide 28 mmol/L (22-30); Chloride 99 mmol/L (98-107); Estimated CRCL calculation 38 ml/min; Estimated Glomerular Filt Rate 54; Glucose 96 mg/dL (65-110); Potassium 4.3 mmol/L (3.4-5.0); Sodium 130 mmol/L (137-145)
[2024-02-12] MEDS: POTASSIUM CHLORIDE 10 MEQ ER TABLET PO (08:32)
[2024-02-12] MEDS: ESCITALOPRAM OXALATE 10 MG TABLET 20 MG PO (08:32)
[2024-02-12] MEDS: CALCIUM CARBONATE (OSCAL) 500 MG TABLET PO (08:32)
[2024-02-12] MEDS: busPIRone HCL 10 MG TABLET PO ×3 (08:32→16:50)
[2024-02-12] MEDS: FUROSEMIDE 40 MG TABLET PO (08:37)
[2024-02-12] MEDS: CHOLECALCIFEROL 1,000 UNITS TABLET 2000 UNITS PO (08:37)
[2024-02-12] MEDS: PANTOPRAZOLE SODIUM IV 40 MG VIAL IV PUSH (08:38)
[2024-02-12] MEDS: FERROUS SULFATE 325 MG TABLET DR BY MOUTH ×2 (08:38→16:50)
[2024-02-12] MEDS: MAGNESIUM OXIDE 400 MG TABLET PO (08:38)
[2024-02-12] MEDS: oxyBUTYnin CHLORIDE XL 5 MG TAB.ER.24 10 MG PO ×2 (08:38→16:48)
[2024-02-12] MEDS: METOPROLOL SUCCINATE EXT REL 50 MG TABCR PO (08:38)
[2024-02-12] MEDS: GABAPENTIN 300 MG CAPSULE PO ×3 (08:47→20:30)
[2024-02-12] MEDS: traMADol HCL (*CRX) 50 MG TABLET PO ×2 (08:47→20:29)
--- NOTE | 2024-02-12 09:10 | WPDANESPN ---
Anes - Prog Note Post-Op Date/Time: 02/12/24 09:10 Cardiovascular status: normal Respiratory status: normal Airway patency: baseline Mental status: baseline Post-Op hydration status: normal Vital Signs: Last Vital Signs Temp 36.8 C 02/12/24 06:00 Pulse 56 L 02/12/24 08:38 Resp 18 02/12/24 06:00 BP 116/53 L 02/12/24 08:37 Pulse Ox 4 L 02/12/24 06:00 O2 Del Method Nasal Cannula 02/11/24 20:00 O2 Flow Rate 4 02/11/24 20:00 FiO2 35 02/11/24 20:00 Pain Score (VAS): 0/10 I/O: Intake & Output 02/11/24 02/12/24 02/12/24 23:59 07:59 15:59 Intake Total 408 200 Balance 408 200 Laboratory Tests 02/12/24 05:59 02/12/24 05:59 02/11/24 02/12/24 12:17 05:59 WBC 10.8 H RBC 2.63 L Hgb 8.8 L 8.6 L Hct 26.8 L 26.6 L MCV 101.1 H MCH 32.7 MCHC 32.3 RDW 18.6 H Plt Count 258 MPV 9.4 Immature Gran % (Auto) 1.9 H Neut % (Auto) 68.1 Lymph % (Auto) 15.6 L [place] % (Auto) 12.0 H Eos % (Auto) 1.9 Baso % (Auto) 0.5 Lymph # (Auto) 1.68 [place] # (Auto) 1.3 H Eos # (Auto) 0.2 Baso # (Auto) 0.1 Abs Immat Gran (auto) 0.21 H Absolute Neuts (auto) 7.4 H Absolute Nucleated RBC 0.070 H Nucleated RBC % 0.6 H Sodium 130 L Potassium 4.3 Chloride 99 Carbon Dioxide 28 Anion Gap 3 L BUN 24 H Creatinine 1.00 Estim Creat Clear Calc 38 Estimated GFR 54 L Glucose 96 Calcium 7.9 L Total Bilirubin 0.6 AST 52 H ALT 32 Alkaline Phosphatase 136 H Total Protein 6.0 L Albumin 2.9 L Microbiology 02/10/24 11:13 Unspecified Urine Culture - Preliminary Gram negative bacilli isolated Post-procedural complaints: none Patient Feedback: Patient satisfied with anesthetic care.
[2024-02-12] MEDS: TRIAMCINOLONE ACET 0.1% CREAM 80 GM TUBE 1 APPLIC TOPICAL ×2 (09:53→20:31)
--- NOTE | 2024-02-12 12:21 | P.PNGI_ITS ---
Progress Note: A&P Assessment and Plan (1) Duodenal ulcer: Code(s): K26.9 - Duodenal ulcer, unspecified as acute or chronic, without hemorrhage or perforation Status: Acute Assessment and Plan: noted 4 ulcers in duodenum, did not required endoscopic intervention ok to switch to oral protonix twice daily do not use nsaid's she is tolerating diet h/h stable (2) Acute anemia: Code(s): D64.9 - Anemia, unspecified Status: Acute Assessment and Plan: partially from duodenal ulcers monitor will need to go home with ppi twice daily (3) Heme positive stool: Code(s): R19.5 - Other fecal abnormalities Status: Acute (4) Melena: Code(s): K92.1 - Melena Status: Acute (5) GI bleed: Code(s): K92.2 - Gastrointestinal hemorrhage, unspecified Status: Acute (6) Multiple bruises: Code(s): T07.XXXA - Unspecified multiple injuries, initial encounter Status: Acute Subjective Date/time seen: 02/12/24 12:21 Interval history: she is eating, no report of gib egd yesterday noted ulcers in duodenum, no active bleeding Review of Systems Review of Systems: All systems reviewed & are unremarkable except as noted in HPI and below Exam Const: Other: awake and alert HENMT: Face/Nose/Sinus: Normal nares present Other: hard of hearing, using cochlear implant Eyes: General: appearance normal, both eyes and all related structures Neck: Neck: supple Resp: Effort & Inspection: normal respiratory effort Cardio: Rate: regular rate GI: GI Palp: Yes Soft to palpation and No Tenderness to palpation present (GI) Auscultation: normal bowel sounds Skin: Other: bruises Neuro: Speech: normal speech Motor exam (neuro): 5/5 motor strength present throughout Extrem: General: normal to inspection Psych: Mental Status: mental status grossly normal Objective Data Vital Signs Vital Signs: Vital Signs - 24 hr 02/11/24 12:44 02/11/24 16:00 02/11/24 16:00 Temperature 97.4 F L Pulse Rate 60 55 L Respiratory Rate 14 Blood Pressure 101/51 L Pulse Oximetry 91 95 Oxygen Delivery High Flow Therapy with Na Oxygen Flow Rate 20 Fraction of Inspired Oxygen 35 02/11/24 17:34 02/11/24 17:44 02/11/24 20:51 Temperature Pulse Rate 60 Respiratory Rate Blood Pressure Pulse Oximetry 98 94 Oxygen Delivery Nasal Cannula Nasal Cannula Oxygen Flow Rate 5 3 Fraction of Inspired Oxygen 02/11/24 20:00 02/11/24 20:00 02/11/24 22:00 Temperature 98.3 F Pulse Rate 60 60 56 L Respiratory Rate 14 20 Blood Pressure 115/52 L Pulse Oximetry 94 92 Oxygen Delivery Nasal Cannula Oxygen Flow Rate 4 Fraction of Inspired Oxygen 35 02/12/24 00:00 02/12/24 02:00 02/12/24 04:00 Temperature 98.4 F Pulse Rate 54 L 52 L 54 L Respiratory Rate 18 Blood Pressure 83/49 L Pulse Oximetry 90 Oxygen Delivery Oxygen Flow Rate Fraction of Inspired Oxygen 02/12/24 06:00 02/12/24 08:37 02/12/24 08:38 Temperature 98.3 F Pulse Rate 50 L 56 L Respiratory Rate 18 Blood Pressure 105/58 L 116/53 L Pulse Oximetry 4 L Oxygen Delivery Oxygen Flow Rate Fraction of Inspired Oxygen 02/12/24 09:23 02/12/24 08:00 02/12/24 08:00 Temperature Pulse Rate 56 L 49 L Respiratory Rate Blood Pressure 120/64 Pulse Oximetry 95 Oxygen Delivery Nasal Cannula Oxygen Flow Rate 3 Fraction of Inspired Oxygen Intake/Output Intake/Output: Intake & Output 02/09/24 02/10/24 02/11/24 02/12/24 23:59 23:59 23:59 23:59 Intake Total 550 998 200 Balance 550 998 200 Meds/Results Medications: Active Medications Generic Name Dose Route Start Last Admin Trade Name Freq PRN Reason Stop Dose Admin Acetaminophen 650 mg 02/10/24 13:22 02/11/24 20:52 Acetaminophen 325 Mg Tablet PO 650 mg Q6H PRN Administration Mild Pain (1-3) or Fever Albuterol 1 - 2 puff 02/10/24 13:26 Albuterol Sulfate (*Sp) Aerosol 1 Puff INHALATION Q4HRT PRN shortness of breath or wheezing Atorvastatin Calcium 40 mg 02/10/24 21:00 02/11/24 20:51 Atorvastatin 40 Mg Tablet PO 40 mg QHS KATE Administration Buspirone HCl 10 mg 02/10/24 17:00 02/12/24 12:09 Buspirone Hcl 10 Mg Tablet PO 10 mg TID KATE Administration Calcium Carbonate 500 mg 02/11/24 09:00 02/12/24 08:32 Calcium Carbonate (Oscal) 500 Mg Tablet PO 500 mg QAM KATE Administration Escitalopram Oxalate 20 mg 02/11/24 09:00 02/12/24 08:32 Escitalopram Oxalate 10 Mg Tablet PO 20 mg DAILY KATE Administration Ferrous Sulfate 325 mg 02/10/24 17:00 02/12/24 08:38 Ferrous Sulfate [address] BY MOUTH 325 mg BID KATE Administration Furosemide 40 mg 02/11/24 09:00 02/12/24 08:37 Furosemide 40 Mg Tablet PO 40 mg DAILY KATE Administration Gabapentin 300 mg 02/10/24 13:30 02/12/24 11:18 Gabapentin 300 Mg Capsule PO 300 mg DAILY@0800,1200,2000 [facility] Administration Hydroxyzine HCl 25 mg 02/10/24 13:26 02/11/24 20:51 Hydroxyzine Hcl 25 Mg Tablet PO 25 mg Q8H PRN Administration anxiety Ceftriaxone Sodium 1 gm in 50 mls @ 100 mls/hr 02/11/24 18:00 02/11/24 18:15 Rocephin 1 Gm/Ns 50 Ml IVPB Infused Q24H KATE Infusion Loratadine 10 mg 02/10/24 13:26 Loratadine 10 Mg Tablet PO DAILY PRN allergic symptoms Magnesium Oxide 400 mg 02/11/24 09:00 02/12/24 08:38 Magnesium Oxide 400 Mg Tablet PO 400 mg DAILY KATE Administration Melatonin 10 mg 02/10/24 21:00 02/11/24 20:51 Melatonin 5 Mg Tablet PO 10 mg QHS KATE Administration Metoprolol Succinate 50 mg 02/10/24 21:00 02/12/24 08:38 Metoprolol Succinate Ext Rel 50 Mg Tabcr PO 50 mg Q12HR [facility] Administration Ondansetron HCl 4 mg 02/10/24 11:12 Ondansetron Inj 4 Mg/2 Ml Vial IV PUSH Q4H PRN Nausea Oxybutynin Chloride 10 mg 02/10/24 17:00 02/12/24 08:38 Oxybutynin Chloride Xl 5 Mg Tab.Er.24 PO 10 mg BID KATE Administration Potassium Chloride 10 meq 02/11/24 09:00 02/12/24 08:32 Potassium Chloride 10 Meq Er Tablet PO 03/12/24 08:59 10 meq DAILY AKTE Administration Tramadol HCl 50 mg 02/10/24 13:26 02/12/24 08:47 Tramadol Hcl (*Crx) 50 Mg Tablet PO 50 mg BID PRN Administration pain 4-10 Triamcinolone Acetonide 1 applic 02/12/24 09:00 02/12/24 09:53 Triamcinolone Acet 0.1% Cream 80 Gm Tube TOPICAL 1 applic Q12HR KATE Administration Vitamin D 2,000 units 02/11/24 09:00 02/12/24 08:37 Cholecalciferol 1,000 Units Tablet PO 2,000 units DAILY KATE Administration Radiology Results: ITS Impressions Head CT 02/10/24 10:23 IMPRESSION: 1. Stable moderate nonspecific cerebral white matter disease, which likely represents chronic small vessel ischemic disease. Head/Cervical Spine/Facial Bones CT 02/10/24 10:25 IMPRESSION: 1. T3 compression fracture, likely acute or subacute. 2. Severe cervical spondylosis. 3. Cervical levoscoliosis. Elbow X-Ray 02/10/24 11:53 IMPRESSION: 1. Mild elbow joint osteoarthritis. Chest X-Ray 02/10/24 12:04 Impression: 1: Cardiomegaly with mild interstitial edema. Abdomen/Pelvis CT 02/11/24 20:17 IMPRESSION: Mild pulmonary edema and small bilateral pleural effusions. Gallbladder mucosal hyperemia with pericholecystic fluid, correlate with biliary labs and right upper quadrant pain. Consider right upper quadrant ultrasound for further evaluation. Mild ascites. No acute traumatic finding in the abdomen. Labs Labs: Laboratory Results - last 24 hr 02/11/24 02/12/24 12:17 05:59 WBC 10.8 H RBC 2.63 L Hgb 8.8 L 8.6 L Hct 26.8 L 26.6 L MCV 101.1 H MCH 32.7 MCHC 32.3 RDW 18.6 H Plt Count 258 MPV 9.4 Immature Gran % (Auto) 1.9 H Neut % (Auto) 68.1 Lymph % (Auto) 15.6 L [place] % (Auto) 12.0 H Eos % (Auto) 1.9 Baso % (Auto) 0.5 Lymph # (Auto) 1.68 [place] # (Auto) 1.3 H Eos # (Auto) 0.2 Baso # (Auto) 0.1 Abs Immat Gran (auto) 0.21 H Absolute Neuts (auto) 7.4 H Absolute Nucleated RBC 0.070 H Nucleated RBC % 0.6 H Sodium 130 L Potassium 4.3 Chloride 99 Carbon Dioxide 28 Anion Gap 3 L BUN 24 H Creatinine 1.00 Estim Creat Clear Calc 38 Estimated GFR 54 L Glucose 96 Calcium 7.9 L Total Bilirubin 0.6 AST 52 H ALT 32 Alkaline Phosphatase 136 H Total Protein 6.0 L Albumin 2.9 L
--- NOTE | 2024-02-12 12:27 | PCOTNOTE ---
Attempted OT evaluation. While moving to side of the bed pt.'s oxygen dropped to 50% and her hear rate was up to 140. Will hold for today. Will attempt again as able tomorrow.
--- NOTE | 2024-02-12 15:02 | P.PNIM_ITS ---
Progress Note: A&P Assessment and Plan (1) Heme positive stool: Code(s): R19.5 - Other fecal abnormalities Status: Acute Assessment and Plan: * GI consulted * Patient went for EGD today and shown gastritis with a non bleeding duodenal ulcer * Continue Protonix 40 mg b.i.d. per GI recommendation (2) Anemia: Code(s): D64.9 - Anemia, unspecified Status: Acute Assessment and Plan: * Likely secondary to bleeding ulcer * Hemoglobin today is 8.8 * On 01/29/2024 she was 14.8 * GI following * See above plan of care (3) Frequent falls: Code(s): R29.6 - Repeated falls Status: Acute Assessment and Plan: * Reporting frequent falls at home * PT and OT ordered * TLSO brace while out of bed * Case coordination following for potential rehab needs * Will also obtain a mini mental examination (4) Acute urinary tract infection: Code(s): N39.0 - Urinary tract infection, site not specified Status: Acute Assessment and Plan: * UA showed cloudy appearance, positive nitrate, 1+ leukocyte, 6-10 urine WBC, 4+ urine bacteria * Urine culture showing e. coli on final read * Rocephin changed to Nitrofurantoin * UTI could be contributing to her frequent falls (5) Compression fracture of T3 vertebra: Code(s): S22.030A - Wedge compression fracture of third thoracic vertebra, initial encounter for closed fracture Status: Acute Assessment and Plan: * Continue to wear TLSO brace while out of bed * Continue PT and OT (6) Diastolic congestive heart failure: Code(s): I50.30 - Unspecified diastolic (congestive) heart failure Status: Acute Assessment and Plan: * Echo from 01/24/24 shown normal LV systolic function with an estimated EF of 55-60%, grade 1 diastolic dysfunction, flattening of the septum in systole consistent with right ventricle pressure overload, severe pulmonary hypertension with an estimated pulmonary arterial systolic pressure of 69 mm Hg, severe biatrial enlargement right greater than left * Continue Lasix 40 mg p.o. daily * Continue metoprolol (7) Chronic kidney disease, stage 3a: Code(s): N18.31 - Chronic kidney disease, stage 3a Status: Acute Assessment and Plan: * Creatinine 1.00, EGFR 54 * Baseline creatinine around 0.9-1.0 * Continue to trend (8) Chronic obstructive pulmonary disease with hypoxia: Code(s): J44.9 - Chronic obstructive pulmonary disease, unspecified Status: Acute Assessment and Plan: * Continue albuterol rescue inhaler as needed (9) Coronary artery disease: Onset Date: 10/2018 Qualifiers: Coronary Disease-Associated Artery/Lesion type: [place] artery [place] vs. transplanted heart: [place] heart Associated angina: without angina Qualified Code(s): I25.10 - Atherosclerotic heart disease of [place] coronary artery without angina pectoris Code(s): I25.10 - Atherosclerotic heart disease of [place] coronary artery without angina pectoris Status: Acute Assessment and Plan: * Continue atorvastatin (10) Hypertension: Qualifiers: Hypertension type: primary hypertension Qualified Code(s): I10 - Essential (primary) hypertension Code(s): I10 - Essential (primary) hypertension Status: Chronic Assessment and Plan: * Blood pressure ranging 116/53-136//39 * Continue metoprolol Time Spent With Patient Time with patient: 25 - 35 minutes Subjective Date/time seen: 02/12/24 15:02 Interval history: Patient denies any new complaints today. Labs reviewed. Review of Systems Review of Systems: 12 systems were reviewed and are negativ e except for as per HPI. All systems reviewed & are unremarkable except as noted in HPI and below Constitutional: Constitutional: Reports as per HPI and Reports no additional constitutional complaints Eyes: Eyes: Reports as per HPI and Reports no additional eye complaints ENT: Reports system reviewed and no additional complaints, except as documented and Reports as per HPI Cardiovascular: Cardiovascular: Reports as per HPI and Reports no additional cardiovascular complaints Respiratory: Respiratory: Reports as per HPI and Reports no additional respiratory complaints Gastrointestinal: Gastrointestinal: Reports as per HPI and Reports no additional gastrointestinal complaints Genitourinary: Genitourinary: Reports no additional female genitourinary complaints and Reports as per HPI Musculoskeletal: Musculoskeletal: Reports no additional musculoskeletal complaints and Reports as per HPI Integumentary/Breasts: Skin/Breast: Reports system reviewed and no additional complaints, except as docu and Reports as per HPI Neurologic: Reports system reviewed and no additional complaints, except as documented and Reports as per HPI Psychiatric: Psychiatric: Reports no additional psychiatric complaints and Reports as per HPI Exam Narrative: General: In no acute distress Cardiac: Normal S1 and S2. No murmur, gallops or friction rubs, peripheral pulses intact. Respiratory: Lungs clear to auscultation, no adventitious lung sounds, currently on 3L NC Gastrointestinal: soft, non-distended, non-tender, normoactive bowel sounds. Skin: Bruising noted to her forehead, bilateral arms, and back. She also has open wounds bilateral lower extremity with redness which is chronic. Neuro: Alert and oriented x3 Objective Data Vital Signs Vital Signs: Vital Signs - 24 hr 02/11/24 16:00 02/11/24 16:00 02/11/24 17:34 Temperature 97.4 F L Pulse Rate 60 55 L Respiratory Rate 14 Blood Pressure 101/51 L Pulse Oximetry 95 98 Oxygen Delivery Nasal Cannula Oxygen Flow Rate 5 Fraction of Inspired Oxygen 02/11/24 17:44 02/11/24 20:51 02/11/24 20:00 Temperature Pulse Rate 60 60 Respiratory Rate 14 Blood Pressure Pulse Oximetry 94 94 Oxygen Delivery Nasal Cannula Nasal Cannula Oxygen Flow Rate 3 4 Fraction of Inspired Oxygen 35 02/11/24 20:00 02/11/24 22:00 02/12/24 00:00 Temperature 98.3 F Pulse Rate 60 56 L 54 L Respiratory Rate 20 Blood Pressure 115/52 L Pulse Oximetry 92 Oxygen Delivery Oxygen Flow Rate Fraction of Inspired Oxygen 02/12/24 02:00 02/12/24 04:00 02/12/24 06:00 Temperature 98.4 F 98.3 F Pulse Rate 52 L 54 L 50 L Respiratory Rate 18 18 Blood Pressure 83/49 L 105/58 L Pulse Oximetry 90 4 L Oxygen Delivery Oxygen Flow Rate Fraction of Inspired Oxygen 02/12/24 08:37 02/12/24 08:38 02/12/24 09:23 Temperature Pulse Rate 56 L Respiratory Rate Blood Pressure 116/53 L 120/64 Pulse Oximetry Oxygen Delivery Oxygen Flow Rate Fraction of Inspired Oxygen 02/12/24 08:00 02/12/24 08:00 02/12/24 12:00 Temperature Pulse Rate 56 L 49 L 53 L Respiratory Rate Blood Pressure Pulse Oximetry 95 Oxygen Delivery Nasal Cannula Oxygen Flow Rate 3 Fraction of Inspired Oxygen 02/12/24 07:34 Temperature Pulse Rate Respiratory Rate Blood Pressure Pulse Oximetry 98 Oxygen Delivery Nasal Cannula Oxygen Flow Rate 4 Fraction of Inspired Oxygen Intake/Output Intake/Output: Intake & Output 02/09/24 02/10/24 02/11/24 02/12/24 23:59 23:59 23:59 23:59 Intake Total 727 603 4667 Balance 780 104 9419 Meds/Results Medications: Active Medications Generic Name Dose Route Start Last Admin Trade Name Freq PRN Reason Stop Dose Admin Acetaminophen 650 mg 02/10/24 13:22 02/11/24 20:52 Acetaminophen 325 Mg Tablet PO 650 mg Q6H PRN Administration Mild Pain (1-3) or Fever Albuterol 1 - 2 puff 02/10/24 13:26 Albuterol Sulfate (*Sp) Aerosol 1 Puff INHALATION Q4HRT PRN shortness of breath or wheezing Atorvastatin Calcium 40 mg 02/10/24 21:00 02/11/24 20:51 Atorvastatin 40 Mg Tablet PO 40 mg QHS KATE Administration Buspirone HCl 10 mg 02/10/24 17:00 02/12/24 12:09 Buspirone Hcl 10 Mg Tablet PO 10 mg TID KATE Administration Calcium Carbonate 500 mg 02/11/24 09:00 02/12/24 08:32 Calcium Carbonate (Oscal) 500 Mg Tablet PO 500 mg QAM KATE Administration Ciprofloxacin/Hydrocortisone 3 drop 02/12/24 14:40 Ciprofloxacin Hc Otic 10 Ml LEFT EAR Q12HR KATE Escitalopram Oxalate 20 mg 02/11/24 09:00 02/12/24 08:32 Escitalopram Oxalate 10 Mg Tablet PO 20 mg DAILY KATE Administration Ferrous Sulfate 325 mg 02/10/24 17:00 02/12/24 08:38 Ferrous Sulfate [address] BY MOUTH 325 mg BID KATE Administration Furosemide 40 mg 02/11/24 09:00 02/12/24 08:37 Furosemide 40 Mg Tablet PO 40 mg DAILY KATE Administration Gabapentin 300 mg 02/10/24 13:30 02/12/24 11:18 Gabapentin 300 Mg Capsule PO 300 mg DAILY@0800,1200,2000 KATE Administration Hydroxyzine HCl 25 mg 02/10/24 13:26 02/11/24 20:51 Hydroxyzine Hcl 25 Mg Tablet PO 25 mg Q8H PRN Administration anxiety Ceftriaxone Sodium 1 gm in 50 mls @ 100 mls/hr 02/11/24 18:00 02/11/24 18:15 Rocephin 1 Gm/Ns 50 Ml IVPB Infused Q24H KATE Infusion Loratadine 10 mg 02/10/24 13:26 Loratadine 10 Mg Tablet PO DAILY PRN allergic symptoms Magnesium Oxide 400 mg 02/11/24 09:00 02/12/24 08:38 Magnesium Oxide 400 Mg Tablet PO 400 mg DAILY KATE Administration Melatonin 10 mg 02/10/24 21:00 02/11/24 20:51 Melatonin 5 Mg Tablet PO 10 mg QHS KATE Administration Metoprolol Succinate 50 mg 02/10/24 21:00 02/12/24 08:38 Metoprolol Succinate Ext Rel 50 Mg Tabcr PO 50 mg Q12HR KATE Administration Ondansetron HCl 4 mg 02/10/24 11:12 Ondansetron Inj 4 Mg/2 Ml Vial IV PUSH Q4H PRN Nausea Oxybutynin Chloride 10 mg 02/10/24 17:00 02/12/24 08:38 Oxybutynin Chloride Xl 5 Mg Tab.Er.24 PO 10 mg BID KATE Administration Pantoprazole Sodium 40 mg 02/12/24 21:00 Pantoprazole 40 Mg Tablet PO Q12HR [facility] Potassium Chloride 10 meq 02/11/24 09:00 02/12/24 08:32 Potassium Chloride 10 Meq Er Tablet PO 03/12/24 08:59 10 meq DAILY KATE Administration Tramadol HCl 50 mg 02/10/24 13:26 02/12/24 08:47 Tramadol Hcl (*Crx) 50 Mg Tablet PO 50 mg BID PRN Administration pain 4-10 Triamcinolone Acetonide 1 applic 02/12/24 09:00 02/12/24 09:53 Triamcinolone Acet 0.1% Cream 80 Gm Tube TOPICAL 1 applic Q12HR KATE Administration Vitamin D 2,000 units 02/11/24 09:00 02/12/24 08:37 Cholecalciferol 1,000 Units Tablet PO 2,000 units DAILY KATE Administration Radiology Results: ITS Impressions Head CT 02/10/24 10:23 IMPRESSION: 1. Stable moderate nonspecific cerebral white matter disease, which likely represents chronic small vessel ischemic disease. Head/Cervical Spine/Facial Bones CT 02/10/24 10:25 IMPRESSION: 1. T3 compression fracture, likely acute or subacute. 2. Severe cervical spondylosis. 3. Cervical levoscoliosis. Elbow X-Ray 02/10/24 11:53 IMPRESSION: 1. Mild elbow joint osteoarthritis. Chest X-Ray 02/10/24 12:04 Impression: 1: Cardiomegaly with mild interstitial edema. Abdomen/Pelvis CT 02/11/24 20:17 IMPRESSION: Mild pulmonary edema and small bilateral pleural effusions. Gallbladder mucosal hyperemia with pericholecystic fluid, correlate with biliary labs and right upper quadrant pain. Consider right upper quadrant ultrasound for further evaluation. Mild ascites. No acute traumatic finding in the abdomen. Labs Labs: Laboratory Results - last 24 hr 02/12/24 05:59 WBC 10.8 H RBC 2.63 L Hgb 8.6 L Hct 26.6 L MCV 101.1 H MCH 32.7 MCHC 32.3 RDW 18.6 H Plt Count 258 MPV 9.4 Immature Gran % (Auto) 1.9 H Neut % (Auto) 68.1 Lymph % (Auto) 15.6 L [place] % (Auto) 12.0 H Eos % (Auto) 1.9 Baso % (Auto) 0.5 Lymph # (Auto) 1.68 [place] # (Auto) 1.3 H Eos # (Auto) 0.2 Baso # (Auto) 0.1 Abs Immat Gran (auto) 0.21 H Absolute Neuts (auto) 7.4 H Absolute Nucleated RBC 0.070 H Nucleated RBC % 0.6 H Sodium 130 L Potassium 4.3 Chloride 99 Carbon Dioxide 28 Anion Gap 3 L BUN 24 H Creatinine 1.00 Estim Creat Clear Calc 38 Estimated GFR 54 L Glucose 96 Calcium 7.9 L Total Bilirubin 0.6 AST 52 H ALT 32 Alkaline Phosphatase 136 H Total Protein 6.0 L Albumin 2.9 L Quality VTE Prophylaxis VTE prophylaxis: mechanical ordered
[2024-02-12] MEDS: CIPROFLOXACIN HC OTIC 10 ML 3 DROP LEFT EAR ×2 (15:17→20:32)
[2024-02-12] MEDS: ATORVASTATIN 40 MG TABLET PO (20:29)
[2024-02-12] MEDS: hydrOXYzine HCL 25 MG TABLET PO (20:29)
[2024-02-12] MEDS: NITROFURANTOIN MONOHYD MACROCR 100 MG CAP PO (20:29)
[2024-02-12] MEDS: PANTOPRAZOLE 40 MG TABLET PO (20:30)
[2024-02-12] MEDS: MELATONIN 5 MG TABLET 10 MG PO (20:30)
[2024-02-13] VITALS (17 sets, daily range): BP systolic 96–117; BP diastolic 47–76; PULSE 47–72; RESP 14–16; TEMP 35.8–36.6; O2SAT 89–98
[2024-02-13 06:10] LABS: Basophils Percent Auto 0.4 % (0.2-1.2); Eosinophils Absolute Auto 0.2 K/mm3 (0-0.3); Eosinophils Percent Auto 2.2 % (0-4.4); Hematocrit 26.8 % (37.0-47.0); Hemoglobin 8.6 g/dL (12.0-15.0); Immature Granulocyte Absolute 0.18 K/mm3 (0.00-0.031); Immature Granulocyte Percent A 1.7 % (0-0.5); Lymphocytes Absolute Auto 1.48 K/mm3 (0.9-3.2); Lymphocytes Percent Auto 14.1 % (18.3-44.2); Mean Corpuscular HGB Conc 32.1 g/dl (32-36); Mean Corpuscular Hemoglobin 32.6 pg (26-34); Mean Corpuscular Volume 101.5 fl (80-100); Mean Platelet Volume 9.6 fl (7.4-10.4); Monocytes Absolute Auto 1.2 K/mm3 (0.1-0.6); Monocytes Percent Auto 11.7 % (2.6-8.5); Neutrophils Absolute Auto 7.3 K/mm3 (1.3-6.7); Neutrophils Percent Auto 69.9 % (45.5-73.1); Nucleated Red Blood Cells Perc 0.3 % (0.0-0.2); Platelet Count Result 244 k/mm3 (150-375); Red Blood Count 2.64 M/mm3 (4.2-5.4); Red Cell Distribution Width 18.6 % (11.5-14.5); White Blood Count 10.5 K/mm3 (4.5-10.0)
[2024-02-13 06:36] LABS: Alanine Aminotransferase 31 U/L (6-35); Albumin Level 3.1 g/dL (3.5-5.1); Alkaline Phosphatase 127 U/L (38-126); Anion Gap 5 mmol/L (4-12); Aspartate Amino Transferase 42 U/L (14-36); Bilirubin,Total 0.5 mg/dL (0.2-1.3); Blood Urea Nitrogen 22 mg/dL (7-17); Carbon Dioxide 29 mmol/L (22-30); Chloride 97 mmol/L (98-107); Estimated CRCL calculation 42 ml/min; Estimated Glomerular Filt Rate > 60; Glucose 81 mg/dL (65-110); Potassium 4.5 mmol/L (3.4-5.0); Sodium 131 mmol/L (137-145)
[2024-02-13] MEDS: CIPROFLOXACIN HC OTIC 10 ML 3 DROP LEFT EAR ×2 (08:35→20:43)
[2024-02-13] MEDS: TRIAMCINOLONE ACET 0.1% CREAM 80 GM TUBE 1 APPLIC TOPICAL ×2 (08:35→20:43)
[2024-02-13] MEDS: NITROFURANTOIN MONOHYD MACROCR 100 MG CAP PO ×2 (08:36→20:42)
[2024-02-13] MEDS: ESCITALOPRAM OXALATE 10 MG TABLET 20 MG PO (08:37)
[2024-02-13] MEDS: GABAPENTIN 300 MG CAPSULE PO ×3 (08:37→20:42)
[2024-02-13] MEDS: FERROUS SULFATE 325 MG TABLET DR BY MOUTH ×2 (08:38→17:37)
[2024-02-13] MEDS: oxyBUTYnin CHLORIDE XL 5 MG TAB.ER.24 10 MG PO ×2 (08:38→17:37)
[2024-02-13] MEDS: CHOLECALCIFEROL 1,000 UNITS TABLET 2000 UNITS PO (08:38)
[2024-02-13] MEDS: POTASSIUM CHLORIDE 10 MEQ ER TABLET PO (08:39)
[2024-02-13] MEDS: CALCIUM CARBONATE (OSCAL) 500 MG TABLET PO (08:39)
[2024-02-13] MEDS: busPIRone HCL 10 MG TABLET PO ×3 (08:39→17:37)
[2024-02-13] MEDS: PANTOPRAZOLE 40 MG TABLET PO ×2 (08:39→20:42)
[2024-02-13] MEDS: MAGNESIUM OXIDE 400 MG TABLET PO (08:40)
[2024-02-13] MEDS: METOPROLOL SUCCINATE EXT REL 50 MG TABCR PO ×2 (08:40→20:42)
[2024-02-13] MEDS: FUROSEMIDE 40 MG TABLET PO (08:40)
--- NOTE | 2024-02-13 08:43 | P.PNIM_ITS ---
Progress Note: A&P Assessment and Plan (1) Heme positive stool: Code(s): R19.5 - Other fecal abnormalities Status: Acute Assessment and Plan: * GI consulted * Patient went for EGD today and shown gastritis with a non bleeding duodenal ulcer * Continue Protonix 40 mg b.i.d. per GI recommendation * H/H remain stable, no signs of active bleeding (2) Anemia: Code(s): D64.9 - Anemia, unspecified Status: Acute Assessment and Plan: * Likely secondary to bleeding ulcer * Hemoglobin today is 8.6 * On 01/29/2024 she was 14.8 * Continue ferrous sulfate * GI following * See above plan of care (3) Frequent falls: Code(s): R29.6 - Repeated falls Status: Acute Assessment and Plan: * Reporting frequent falls at home * PT and OT ordered and recommending SNF * TLSO brace while out of bed * Case coordination following for potential rehab needs * Will also obtain a mini mental examination (4) Acute urinary tract infection: Code(s): N39.0 - Urinary tract infection, site not specified Status: Acute Assessment and Plan: * UA showed cloudy appearance, positive nitrate, 1+ leukocyte, 6-10 urine WBC, 4+ urine bacteria * Urine culture showing e. coli on final read * Rocephin changed to Nitrofurantoin * UTI could be contributing to her frequent falls (5) Compression fracture of T3 vertebra: Code(s): S22.030A - Wedge compression fracture of third thoracic vertebra, initial encounter for closed fracture Status: Acute Assessment and Plan: * Continue to wear TLSO brace while out of bed * Continue PT and OT (6) Diastolic congestive heart failure: Code(s): I50.30 - Unspecified diastolic (congestive) heart failure Status: Acute Assessment and Plan: * Echo from 01/24/24 shown normal LV systolic function with an estimated EF of 55-60%, grade 1 diastolic dysfunction, flattening of the septum in systole consistent with right ventricle pressure overload, severe pulmonary hyperte nsion with an estimated pulmonary arterial systolic pressure of 69 mm Hg, severe biatrial enlargement right greater than left * Continue Lasix 40 mg p.o. daily * Continue metoprolol (7) Chronic kidney disease, stage 3a: Code(s): N18.31 - Chronic kidney disease, stage 3a Status: Acute Assessment and Plan: * Creatinine 1.00, EGFR 54 * Baseline creatinine around 0.9-1.0 * Continue to trend (8) Chronic obstructive pulmonary disease with hypoxia: Code(s): J44.9 - Chronic obstructive pulmonary disease, unspecified Status: Acute Assessment and Plan: * Continue albuterol rescue inhaler as needed (9) Coronary artery disease: Onset Date: 10/2018 Qualifiers: Associated angina: without angina Coronary Disease-Associated Artery/Lesion type: [place] artery [place] vs. transplanted heart: [place] heart Qualified Code(s): I25.10 - Atherosclerotic heart disease of [place] coronary artery without angina pectoris Code(s): I25.10 - Atherosclerotic heart disease of [place] coronary artery without angina pectoris Status: Acute Assessment and Plan: * Continue atorvastatin (10) Hypertension: Qualifiers: Hypertension type: primary hypertension Qualified Code(s): I10 - Essential (primary) hypertension Code(s): I10 - Essential (primary) hypertension Status: Chronic Assessment and Plan: * Blood pressure ranging 116/53-136//39 * Continue metoprolol Time Spent With Patient Time with patient: 25 - 35 minutes Subjective Date/time seen: 02/13/24 08:43 Interval history: Patient denies any new complaints today. Labs reviewed. Review of Systems Review of Systems: 12 systems were reviewed and are negativ e except for as per HPI. All systems reviewed & are unremarkable except as noted in HPI and below Constitutional: Constitutional: Reports as per HPI and Reports no additional constitutional complaints Eyes: Eyes: Reports as per HPI and Reports no additional eye complaints ENT: Reports system reviewed and no additional complaints, except as documented and Reports as per HPI Cardiovascular: Cardiovascular: Reports as per HPI and Reports no additional cardiovascular complaints Respiratory: Respiratory: Reports as per HPI and Reports no additional respiratory complaints Gastrointestinal: Gastrointestinal: Reports as per HPI and Reports no additional gastrointestinal complaints Genitourinary: Genitourinary: Reports no additional female genitourinary complaints and Reports as per HPI Musculoskeletal: Musculoskeletal: Reports no additional musculoskeletal complaints and Reports as per HPI Integumentary/Breasts: Skin/Breast: Reports system reviewed and no additional complaints, except as docu and Reports as per HPI Neurologic: Reports system reviewed and no additional complaints, except as documented and Reports as per HPI Psychiatric: Psychiatric: Reports no additional psychiatric complaints and Reports as per HPI Exam Narrative: General: In no acute distress Cardiac: Normal S1 and S2. No murmur, gallops or friction rubs, peripheral pulses intact. Respiratory: Lungs clear to auscultation, no adventitious lung sounds, currently on 3L NC Gastrointestinal: soft, non-distended, non-tender, normoactive bowel sounds. Skin: Bruising noted to her forehead, bilateral arms, and back. She also has open wounds bilateral lower extremity with redness which is chronic. Neuro: Alert and oriented x3 Objective Data Vital Signs Vital Signs: Vital Signs - 24 hr 02/12/24 09:23 02/12/24 12:00 02/12/24 14:00 Temperature 96.7 F L Pulse Rate 53 L 55 L Respiratory Rate 14 Blood Pressure 120/64 136/39 L Pulse Oximetry 90 Oxygen Delivery Oxygen Flow Rate 02/12/24 16:00 02/12/24 18:00 02/12/24 20:30 Temperature 97 F L Pulse Rate 54 L 68 49 L Respiratory Rate 19 Blood Pressure 110/64 Pulse Oximetry 91 Oxygen Delivery Oxygen Flow Rate 02/12/24 22:00 02/12/24 20:00 02/12/24 20:00 Temperature 97.9 F Pulse Rate 58 L 58 L Respiratory Rate 14 Blood Pressure 120/77 Pulse Oximetry 89 L 92 Oxygen Delivery Nasal Cannula Oxygen Flow Rate 4 02/13/24 00:00 02/13/24 02:00 02/13/24 04:00 Temperature 96.8 F L Pulse Rate 57 L 51 L 47 L Respiratory Rate 16 Blood Pressure 106/47 L Pulse Oximetry 98 Oxygen Delivery Oxygen Flow Rate 02/13/24 06:00 02/13/24 08:00 02/13/24 08:08 Temperature 96.9 F L 96.4 F L Pulse Rate 49 L 72 Respiratory Rate 16 14 Blood Pressure 96/66 L 108/72 98/63 L Pulse Oximetry 95 94 Oxygen Delivery Oxygen Flow Rate 02/13/24 08:08 02/13/24 08:22 02/13/24 08:40 Temperature Pulse Rate 51 L 53 L Respiratory Rate Blood Pressure 100/55 L 110/60 Pulse Oximetry 91 Oxygen Delivery Oxygen Flow Rate Intake/Output Intake/Output: Intake & Output 02/10/24 02/11/24 02/12/24 02/13/24 23:59 23:59 23:59 23:59 Intake Total 527 227 3167 250 Balance 636 487 1466 250 Meds/Results Medications: Active Medications Generic Name Dose Route Start Last Admin Trade Name Freq PRN Reason Stop Dose Admin Acetaminophen 650 mg 02/10/24 13:22 02/11/24 20:52 Acetaminophen 325 Mg Tablet PO 650 mg Q6H PRN Administration Mild Pain (1-3) or Fever Albuterol 1 - 2 puff 02/10/24 13:26 Albuterol Sulfate (*Sp) Aerosol 1 Puff INHALATION Q4HRT PRN shortness of breath or wheezing Atorvastatin Calcium 40 mg 02/10/24 21:00 02/12/24 20:29 Atorvastatin 40 Mg Tablet PO 40 mg QHS KATE Administration Buspirone HCl 10 mg 02/10/24 17:00 02/13/24 08:39 Buspirone Hcl 10 Mg Tablet PO 10 mg TID KATE Administration Calcium Carbonate 500 mg 02/11/24 09:00 02/13/24 08:39 Calcium Carbonate (Oscal) 500 Mg Tablet PO 500 mg QAM KATE Administration Ciprofloxacin/Hydrocortisone 3 drop 02/12/24 14:40 02/13/24 08:35 Ciprofloxacin Hc Otic 10 Ml LEFT EAR 3 drop Q12HR KATE Administration Escitalopram Oxalate 20 mg 02/11/24 09:00 02/13/24 08:37 Escitalopram Oxalate 10 Mg Tablet PO 20 mg DAILY KATE Administration Ferrous Sulfate 325 mg 02/10/24 17:00 02/13/24 08:38 Ferrous Sulfate [address] BY MOUTH 325 mg BID KATE Administration Furosemide 40 mg 02/11/24 09:00 02/13/24 08:40 Furosemide 40 Mg Tablet PO 40 mg DAILY KATE Administration Gabapentin 300 mg 02/10/24 13:30 02/13/24 08:37 Gabapentin 300 Mg Capsule PO 300 mg DAILY@0800,1200,2000 KATE Administration Hydroxyzine HCl 25 mg 02/10/24 13:26 02/12/24 20:29 Hydroxyzine Hcl 25 Mg Tablet PO 25 mg Q8H PRN Administration anxiety Loratadine 10 mg 02/10/24 13:26 Loratadine 10 Mg Tablet PO DAILY PRN allergic symptoms Magnesium Oxide 400 mg 02/11/24 09:00 02/13/24 08:40 Magnesium Oxide 400 Mg Tablet PO 400 mg DAILY KATE Administration Melatonin 10 mg 02/10/24 21:00 02/12/24 20:30 Melatonin 5 Mg Tablet PO 10 mg QHS KATE Administration Metoprolol Succinate 50 mg 02/10/24 21:00 02/13/24 08:40 Metoprolol Succinate Ext Rel 50 Mg Tabcr PO 50 mg Q12HR KATE Administration Nitrofurantoin Macrocrystals 100 mg 02/12/24 21:00 02/13/24 08:36 Nitrofurantoin Monohyd Macrocr 100 Mg Cap PO 100 mg Q12HR KATE Administration Ondansetron HCl 4 mg 02/10/24 11:12 Ondansetron Inj 4 Mg/2 Ml Vial IV PUSH Q4H PRN Nausea Oxybutynin Chloride 10 mg 02/10/24 17:00 02/13/24 08:38 Oxybutynin Chloride Xl 5 Mg Tab.Er.24 PO 10 mg BID KATE Administration Pantoprazole Sodium 40 mg 02/12/24 21:00 02/13/24 08:39 Pantoprazole 40 Mg Tablet PO 40 mg Q12HR KATE Administration Potassium Chloride 10 meq 02/11/24 09:00 02/13/24 08:39 Potassium Chloride 10 Meq Er Tablet PO 03/12/24 08:59 10 meq DAILY KATE Administration Tramadol HCl 50 mg 02/10/24 13:26 02/12/24 20:29 Tramadol Hcl (*Crx) 50 Mg Tablet PO 50 mg BID PRN Administration pain 4-10 Triamcinolone Acetonide 1 applic 02/12/24 09:00 02/13/24 08:35 Triamcinolone Acet 0.1% Cream 80 Gm Tube TOPICAL 1 applic Q12HR KATE Administration Vitamin D 2,000 units 02/11/24 09:00 02/13/24 08:38 Cholecalciferol 1,000 Units Tablet PO 2,000 units DAILY KATE Administration Radiology Results: ITS Impressions Head CT 02/10/24 10:23 IMPRESSION: 1. Stable moderate nonspecific cerebral white matter disease, which likely represents chronic small vessel ischemic disease. Head/Cervical Spine/Facial Bones CT 02/10/24 10:25 IMPRESSION: 1. T3 compression fracture, likely acute or subacute. 2. Severe cervical spondylosis. 3. Cervical levoscoliosis. Elbow X-Ray 02/10/24 11:53 IMPRESSION: 1. Mild elbow joint osteoarthritis. Chest X-Ray 02/10/24 12:04 Impression: 1: Cardiomegaly with mild interstitial edema. Abdomen/Pelvis CT 02/11/24 20:17 IMPRESSION: Mild pulmonary edema and small bilateral pleural effusions. Gallbladder mucosal hyperemia with pericholecystic fluid, correlate with biliary labs and right upper quadrant pain. Consider right upper quadrant ultrasound for further evaluation. Mild ascites. No acute traumatic finding in the abdomen. Labs Labs: Laboratory Results - last 24 hr 02/13/24 05:49 WBC 10.5 H RBC 2.64 L Hgb 8.6 L Hct 26.8 L MCV 101.5 H MCH 32.6 MCHC 32.1 RDW 18.6 H Plt Count 244 MPV 9.6 Immature Gran % (Auto) 1.7 H Neut % (Auto) 69.9 Lymph % (Auto) 14.1 L [place] % (Auto) 11.7 H Eos % (Auto) 2.2 Baso % (Auto) 0.4 Lymph # (Auto) 1.48 [place] # (Auto) 1.2 H Eos # (Auto) 0.2 Baso # (Auto) 0.0 Abs Immat Gran (auto) 0.18 H Absolute Neuts (auto) 7.3 H Absolute Nucleated RBC 0.030 H Nucleated RBC % 0.3 H Sodium 131 L Potassium 4.5 Chloride 97 L Carbon Dioxide 29 Anion Gap 5 BUN 22 H Creatinine 0.90 Estim Creat Clear Calc 42 Estimated GFR > 60 Glucose 81 Calcium 8.0 L Total Bilirubin 0.5 AST 42 H ALT 31 Alkaline Phosphatase 127 H Total Protein 6.0 L Albumin 3.1 L Quality VTE Prophylaxis VTE prophylaxis: mechanical ordered
--- NOTE | 2024-02-13 10:28 | PCNFU ---
Nutrition Follow-Up Complete: Severe malnutrition related to chronic loss of appetite, self care deficit as evidenced by weight loss 12%/1 month; inadequate intake <75% needs >1 month; moderate muscle wasting and fat loss Goal:Adequate PO intake when diet is advanced Pt current nutrition is Heart healthy diet, Ensure compact BID. Nutrition recommendation: encourage po intake Last recorded weight is 58.7 kg. Bowel Motility: +BM 02/10 Labs Reviewed: Hgb:8.6, HCT:26.8, Alb:3.1, NA:131, BUN:22 Meds Noted: lasix, KCL Skin: WNL Additional Notes: Pt diet advanced to heart healthy, Ensure compact BID in place, prefers vanilla. Reports good appetite and intake and is eating well. Agree with oders Monitoring diet order, intakes, weights, labs, plan of care Follow up in 7 days
--- NOTE | 2024-02-13 14:20 | WPDGIPROGNO ---
Progress Note: A&P Assessment and Plan (1) Duodenal ulcer: Code(s): K26.9 - Duodenal ulcer, unspecified as acute or chronic, without hemorrhage or perforation Status: Acute Assessment and Plan: noted 4 ulcers in duodenum, did not required endoscopic intervention once she leaves the hospital will need to keep taking protonix twice daily do not use nsaid's she is tolerating diet h/h stable will follow as needed (2) Acute anemia: Code(s): D64.9 - Anemia, unspecified Status: Acute Assessment and Plan: partially from duodenal ulcers monitor (3) Heme positive stool: Code(s): R19.5 - Other fecal abnormalities Status: Acute (4) Melena: Code(s): K92.1 - Melena Status: Acute (5) GI bleed: Code(s): K92.2 - Gastrointestinal hemorrhage, unspecified Status: Acute (6) Frequent falls: Code(s): R29.6 - Repeated falls Status: Acute Subjective Date/time seen: 02/13/24 14:20 Interval history: no events Review of Systems Review of Systems: All systems reviewed & are unremarkable except as noted in HPI and below Exam Const: Other: awake and alert HENMT: Face/Nose/Sinus: Normal nares present Other: hard of hearing, using cochlear implant Eyes: General: appearance normal, both eyes and all related structures Neck: Neck: supple Resp: Effort & Inspection: normal respiratory effort Cardio: Rate: regular rate GI: GI Palp: Yes Soft to palpation and No Tenderness to palpation present (GI) Auscultation: normal bowel sounds Skin: Other: bruises Neuro: Speech: normal speech Motor exam (neuro): 5/5 motor strength present throughout Extrem: General: normal to inspection Psych: Mental Status: mental status grossly normal Objective Data Vital Signs Vital Signs: Vital Signs - 24 hr 02/12/24 16:00 02/12/24 18:00 02/12/24 20:30 Temperature 97 F L Pulse Rate 54 L 68 49 L Respiratory Rate 19 Blood Pressure 110/64 Pulse Oximetry 91 Oxygen Delivery Oxygen Flow Rate 02/12/24 22:00 02/12/24 20:00 02/12/24 20:00 Temperature 97.9 F Pulse Rate 58 L 58 L Respiratory Rate 14 Blood Pressure 120/77 Pulse Oximetry 89 L 92 Oxygen Delivery Nasal Cannula Oxygen Flow Rate 4 02/13/24 00:00 02/13/24 02:00 02/13/24 04:00 Temperature 96.8 F L Pulse Rate 57 L 51 L 47 L Respiratory Rate 16 Blood Pressure 106/47 L Pulse Oximetry 98 Oxygen Delivery Oxygen Flow Rate 02/13/24 06:00 02/13/24 08:00 02/13/24 08:08 Temperature 96.9 F L 96.4 F L Pulse Rate 49 L 72 Respiratory Rate 16 14 Blood Pressure 96/66 L 108/72 98/63 L Pulse Oximetry 95 94 Oxygen Delivery Oxygen Flow Rate 02/13/24 08:08 02/13/24 08:22 02/13/24 08:40 Temperature Pulse Rate 51 L 53 L Respiratory Rate Blood Pressure 100/55 L 110/60 Pulse Oximetry 91 Oxygen Delivery Oxygen Flow Rate 02/13/24 08:48 02/13/24 10:12 02/13/24 08:00 Temperature Pulse Rate 53 L Respiratory Rate Blood Pressure Pulse Oximetry 91 91 Oxygen Delivery Nasal Cannula Nasal Cannula Nasal Cannula Oxygen Flow Rate 4 4 4 02/13/24 08:00 02/13/24 11:20 02/13/24 10:00 Temperature 96.4 F L Pulse Rate 48 L 72 Respiratory Rate 14 Blood Pressure 108/48 L Pulse Oximetry 94 Oxygen Delivery Nasal Cannula Oxygen Flow Rate 3 02/13/24 12:00 Temperature Pulse Rate 62 Respiratory Rate Blood Pressure Pulse Oximetry Oxygen Delivery Oxygen Flow Rate Intake/Output Intake/Output: Intake & Output 02/10/24 02/11/24 02/12/24 02/13/24 23:59 23:59 23:59 23:59 Intake Total 389 329 1475 490 Balance 124 741 6241 490 Meds/Results Medications: Active Medications Generic Name Dose Route Start Last Admin Trade Name Freq PRN Reason Stop Dose Admin Acetaminophen 650 mg 02/10/24 13:22 02/11/24 20:52 Acetaminophen 325 Mg Tablet PO 650 mg Q6H PRN Administration Mild Pain (1-3) or Fever Albuterol 1 - 2 puff 02/10/24 13:26 Albuterol Sulfate (*Sp) Aerosol 1 Puff INHALATION Q4HRT PRN shortness of breath or wheezing Atorvastatin Calcium 40 mg 02/10/24 21:00 02/12/24 20:29 Atorvastatin 40 Mg Tablet PO 40 mg QHS KATE Administration Buspirone HCl 10 mg 02/10/24 17:00 02/13/24 12:01 Buspirone Hcl 10 Mg Tablet PO 10 mg TID [facility] Administration Calcium Carbonate 500 mg 02/11/24 09:00 02/13/24 08:39 Calcium Carbonate (Oscal) 500 Mg Tablet PO 500 mg QAM KATE Administration Ciprofloxacin/Hydrocortisone 3 drop 02/12/24 14:40 02/13/24 08:35 Ciprofloxacin Hc Otic 10 Ml LEFT EAR 3 drop Q12HR [facility] Administration Escitalopram Oxalate 20 mg 02/11/24 09:00 02/13/24 08:37 Escitalopram Oxalate 10 Mg Tablet PO 20 mg DAILY KATE Administration Ferrous Sulfate 325 mg 02/10/24 17:00 02/13/24 08:38 Ferrous Sulfate [address] BY MOUTH 325 mg BID KATE Administration Furosemide 40 mg 02/11/24 09:00 02/13/24 08:40 Furosemide 40 Mg Tablet PO 40 mg DAILY KATE Administration Gabapentin 300 mg 02/10/24 13:30 02/13/24 12:01 Gabapentin 300 Mg Capsule PO 300 mg DAILY@0800,1200,2000 [facility] Administration Hydroxyzine HCl 25 mg 02/10/24 13:26 02/12/24 20:29 Hydroxyzine Hcl 25 Mg Tablet PO 25 mg Q8H PRN Administration anxiety Loratadine 10 mg 02/10/24 13:26 Loratadine 10 Mg Tablet PO DAILY PRN allergic symptoms Magnesium Oxide 400 mg 02/11/24 09:00 02/13/24 08:40 Magnesium Oxide 400 Mg Tablet PO 400 mg DAILY [facility] Administration Melatonin 10 mg 02/10/24 21:00 02/12/24 20:30 Melatonin 5 Mg Tablet PO 10 mg QHS [facility] Administration Metoprolol Succinate 50 mg 02/10/24 21:00 02/13/24 08:40 Metoprolol Succinate Ext Rel 50 Mg Tabcr PO 50 mg Q12HR [facility] Administration Nitrofurantoin Macrocrystals 100 mg 02/12/24 21:00 02/13/24 08:36 Nitrofurantoin Monohyd Macrocr 100 Mg Cap PO 100 mg Q12HR KATE Administration Ondansetron HCl 4 mg 02/10/24 11:12 Ondansetron Inj 4 Mg/2 Ml Vial IV PUSH Q4H PRN Nausea Oxybutynin Chloride 10 mg 02/10/24 17:00 02/13/24 08:38 Oxybutynin Chloride Xl 5 Mg Tab.Er.24 PO 10 mg BID KATE Administration Pantoprazole Sodium 40 mg 02/12/24 21:00 02/13/24 08:39 Pantoprazole 40 Mg Tablet PO 40 mg Q12HR KATE Administration Potassium Chloride 10 meq 02/11/24 09:00 02/13/24 08:39 Potassium Chloride 10 Meq Er Tablet PO 03/12/24 08:59 10 meq DAILY KATE Administration Tramadol HCl 50 mg 02/10/24 13:26 02/12/24 20:29 Tramadol Hcl (*Crx) 50 Mg Tablet PO 50 mg BID PRN Administration pain 4-10 Triamcinolone Acetonide 1 applic 02/12/24 09:00 02/13/24 08:35 Triamcinolone Acet 0.1% Cream 80 Gm Tube TOPICAL 1 applic Q12HR KATE Administration Vitamin D 2,000 units 02/11/24 09:00 02/13/24 08:38 Cholecalciferol 1,000 Units Tablet PO 2,000 units DAILY KATE Administration Radiology Results: ITS Impressions Head CT 02/10/24 10:23 IMPRESSION: 1. Stable moderate nonspecific cerebral white matter disease, which likely represents chronic small vessel ischemic disease. Head/Cervical Spine/Facial Bones CT 02/10/24 10:25 IMPRESSION: 1. T3 compression fracture, likely acute or subacute. 2. Severe cervical spondylosis. 3. Cervical levoscoliosis. Elbow X-Ray 02/10/24 11:53 IMPRESSION: 1. Mild elbow joint osteoarthritis. Chest X-Ray 02/10/24 12:04 Impression: 1: Cardiomegaly with mild interstitial edema. Abdomen/Pelvis CT 02/11/24 20:17 IMPRESSION: Mild pulmonary edema and small bilateral pleural effusions. Gallbladder mucosal hyperemia with pericholecystic fluid, correlate with biliary labs and right upper quadrant pain. Consider right upper quadrant ultrasound for further evaluation. Mild ascites. No acute traumatic finding in the abdomen. Labs Labs: Laboratory Results - last 24 hr 02/13/24 05:49 WBC 10.5 H RBC 2.64 L Hgb 8.6 L Hct 26.8 L MCV 101.5 H MCH 32.6 MCHC 32.1 RDW 18.6 H Plt Count 244 MPV 9.6 Immature Gran % (Auto) 1.7 H Neut % (Auto) 69.9 Lymph % (Auto) 14.1 L [place] % (Auto) 11.7 H Eos % (Auto) 2.2 Baso % (Auto) 0.4 Lymph # (Auto) 1.48 [place] # (Auto) 1.2 H Eos # (Auto) 0.2 Baso # (Auto) 0.0 Abs Immat Gran (auto) 0.18 H Absolute Neuts (auto) 7.3 H Absolute Nucleated RBC 0.030 H Nucleated RBC % 0.3 H Sodium 131 L Potassium 4.5 Chloride 97 L Carbon Dioxide 29 Anion Gap 5 BUN 22 H Creatinine 0.90 Estim Creat Clear Calc 42 Estimated GFR > 60 Glucose 81 Calcium 8.0 L Total Bilirubin 0.5 AST 42 H ALT 31 Alkaline Phosphatase 127 H Total Protein 6.0 L Albumin 3.1 L
[2024-02-13] MEDS: traMADol HCL (*CRX) 50 MG TABLET PO (20:42)
[2024-02-13] MEDS: MELATONIN 5 MG TABLET 10 MG PO (20:43)
[2024-02-13] MEDS: ATORVASTATIN 40 MG TABLET PO (20:43)
[2024-02-13] MEDS: SALINE 0.65% NAS SOLN 44 ML BTL 1 SPRAY NASAL (21:32)
[2024-02-14] VITALS (20 sets, daily range): BP systolic 82–119; BP diastolic 41–66; PULSE 24–64; RESP 12–53; TEMP 36.2–37.1; O2SAT 90–100
[2024-02-14] MEDS: FUROSEMIDE INJ 40 MG/4 ML VIAL IV PUSH (01:54)
--- NOTE | 2024-02-14 04:17 | PM.EVENT ---
Event Note Event Note Event Note: 02/14/2024 approximately 01:00 Patient has history of severe pulmonary hypertension, chronic lung disease, severe tricuspid regurgitation, reduced right ventricular systolic function/cor pulmonale and chronic hypoxic respiratory failure. Nursing staff reports that the patient has been having a multiple episodes of hypoxia at night. They report patient's home O2 at night is post be 5 L. Sleep study report from December 2019 for recommended patient be on 7 L at night. Despite patient being placed on a high-flow nasal cannula the patient was still having hypoxia with sats in the 70s. However the pulse ox was poor waveform. Stat chest x-ray was ordered and that time my review appeared consistent with increasing interstitial edema compared to prior exam. Radiologic interpretation is pending. Patient was placed on BiPAP settings 03/11 and initially was on 70% FiO2. At the time my evaluation patient's respiratory rate had improved down to 15 she was pulling tidal volumes for the most part between 380-450. She had a backup rate of 14. Her pulse ox had improved and was ranging between 92-100%. I did wean the patient's FiO2 down to 60%. She was actually resting comfortably and not moving around in the bed. Nursing staff had reported the patient had been restless in that they were unable to place a pure wick catheter earlier in the stay because she was moving all around in the bed. Nursing staff reported the patient had been having good urine output but we do not have strict I&O's available due to above factors. Patient did have JVD noted on exam. The patient's An order was given for 40 mg of IV Lasix x1. 1. Acute on chronic hypoxic respiratory failure due to CHF/cor pulmonale--the patient oxygenation has improved with BiPAP and IV Lasix. Will attempt placement of pure wick catheter to monitor strict I&O's. 35 minute spent in critical care activities. Due to a high probability of clinically significant, life threatening deterioration, the patient required my highest level of preparedness to intervene emergently and I personally spent this critical care time directly and personally managing the patient. This critical care time included obtaining a history; examining the patient; pulse oximetry; ordering and review of studies; arranging urgent treatment with development of a management plan; evaluation of patient's response to treatment; frequent reassessment; and discussions with other providers. It was exclusive of separately billable procedures and treating other patients and teaching time. Please see Assessment and Plan section and the rest of the note for further information on patient assessment and treatment.
[2024-02-14 06:53] LABS: Basophils Absolute Auto 0.1 K/mm3 (0.0-0.1); Basophils Percent Auto 0.7 % (0.2-1.2); Eosinophils Absolute Auto 0.2 K/mm3 (0-0.3); Eosinophils Percent Auto 1.8 % (0-4.4); Hematocrit 33.3 % (37.0-47.0); Hemoglobin 10.6 g/dL (12.0-15.0); Immature Granulocyte Absolute 0.16 K/mm3 (0.00-0.031); Immature Granulocyte Percent A 1.6 % (0-0.5); Lymphocytes Absolute Auto 1.02 K/mm3 (0.9-3.2); Lymphocytes Percent Auto 10.5 % (18.3-44.2); Mean Corpuscular HGB Conc 31.8 g/dl (32-36); Mean Corpuscular Hemoglobin 32.6 pg (26-34); Mean Corpuscular Volume 102.5 fl (80-100); Mean Platelet Volume 9.5 fl (7.4-10.4); Monocytes Absolute Auto 1.1 K/mm3 (0.1-0.6); Monocytes Percent Auto 11.7 % (2.6-8.5); Neutrophils Absolute Auto 7.2 K/mm3 (1.3-6.7); Neutrophils Percent Auto 73.7 % (45.5-73.1); Nucleated Red Blood Cells Perc 0.2 % (0.0-0.2); Platelet Count Result 239 k/mm3 (150-375); Red Blood Count 3.25 M/mm3 (4.2-5.4); Red Cell Distribution Width 18.3 % (11.5-14.5); White Blood Count 9.7 K/mm3 (4.5-10.0)
[2024-02-14 07:00] LABS: Alanine Aminotransferase 30 U/L (6-35); Albumin Level 3.5 g/dL (3.5-5.1); Alkaline Phosphatase 142 U/L (38-126); Anion Gap 5 mmol/L (4-12); Aspartate Amino Transferase 39 U/L (14-36); Bilirubin,Total 0.8 mg/dL (0.2-1.3); Blood Urea Nitrogen 18 mg/dL (7-17); Calcium 8.2 mg/dL (8.4-10.2); Carbon Dioxide 29 mmol/L (22-30); Chloride 95 mmol/L (98-107); Estimated CRCL calculation 46 ml/min; Estimated Glomerular Filt Rate > 60; Glucose 78 mg/dL (65-110); Sodium 129 mmol/L (137-145)
--- NOTE | 2024-02-14 09:30 | PC.NURSE ---
difficult to get pulse ox to read on pt's fingers or ear due to low profusion, probe on chest is in place but positional, sats are WNL when reading properly, will continue to monitor closely
[2024-02-14] MEDS: CALCIUM CARBONATE (OSCAL) 500 MG TABLET PO (09:57)
[2024-02-14] MEDS: FERROUS SULFATE 325 MG TABLET DR BY MOUTH ×2 (09:58→16:52)
[2024-02-14] MEDS: MAGNESIUM OXIDE 400 MG TABLET PO (09:58)
[2024-02-14] MEDS: CHOLECALCIFEROL 1,000 UNITS TABLET 2000 UNITS PO (09:59)
[2024-02-14] MEDS: POTASSIUM CHLORIDE 10 MEQ ER TABLET PO (09:59)
[2024-02-14] MEDS: NITROFURANTOIN MONOHYD MACROCR 100 MG CAP PO ×2 (09:59→20:08)
[2024-02-14] MEDS: PANTOPRAZOLE 40 MG TABLET PO ×2 (09:59→20:08)
[2024-02-14] MEDS: oxyBUTYnin CHLORIDE XL 5 MG TAB.ER.24 10 MG PO ×2 (09:59→16:52)
[2024-02-14] MEDS: ESCITALOPRAM OXALATE 10 MG TABLET 20 MG PO (09:59)
[2024-02-14] MEDS: busPIRone HCL 10 MG TABLET PO ×3 (09:59→16:52)
[2024-02-14] MEDS: CIPROFLOXACIN HC OTIC 10 ML 3 DROP LEFT EAR ×2 (10:00→20:12)
[2024-02-14] MEDS: TRIAMCINOLONE ACET 0.1% CREAM 80 GM TUBE 1 APPLIC TOPICAL ×2 (10:01→20:09)
[2024-02-14] MEDS: GABAPENTIN 300 MG CAPSULE PO ×3 (10:03→20:08)
--- NOTE | 2024-02-14 10:08 | PCOTNOTE ---
Per RN, Patient unable to be seen for therapy this A.M. Patient having to low of blood pressures at this time.
--- NOTE | 2024-02-14 10:30 | PC.NURSE ---
RT to room to assist in placing O2 sensor on a more reliable source, we placed a nasal probe to pt's left nare, it is reading and is not as positional
--- NOTE | 2024-02-14 10:44 | PCPTNOTE ---
The patient treatment was not able to be completed at this time per RN due to low BP. Will plan to continue treatment per plan of care.
--- NOTE | 2024-02-14 12:50 | P.PNIM_ITS ---
Progress Note: A&P Assessment and Plan (1) Heme positive stool: Code(s): R19.5 - Other fecal abnormalities Status: Acute Assessment and Plan: * GI following * Patient went for EGD shown gastritis with a non bleeding duodenal ulcer * Continue Protonix 40 mg b.i.d. per GI recommendation * H/H remain stable, no signs of active bleeding (2) Anemia: Code(s): D64.9 - Anemia, unspecified Status: Acute Assessment and Plan: * Likely secondary to bleeding ulcer * Hemoglobin today is 10.6 * On 01/29/2024 she was 14.8 * Continue ferrous sulfate * GI following * See above plan of care (3) Frequent falls: Code(s): R29.6 - Repeated falls Status: Acute Assessment and Plan: * Reporting frequent falls at home * PT and OT ordered and recommending SNF * TLSO brace while out of bed * Case coordination working on SNF placement (4) Acute urinary tract infection: Code(s): N39.0 - Urinary tract infection, site not specified Status: Acute Assessment and Plan: * UA showed cloudy appearance, positive nitrate, 1+ leukocyte, 6-10 urine WBC, 4+ urine bacteria * Urine culture showing e. coli on final read * Rocephin changed to Nitrofurantoin * UTI could be contributing to her frequent falls (5) Compression fracture of T3 vertebra: Code(s): S22.030A - Wedge compression fracture of third thoracic vertebra, initial encounter for closed fracture Status: Acute Assessment and Plan: * Continue to wear TLSO brace while out of bed * Continue PT and OT (6) Diastolic congestive heart failure: Code(s): I50.30 - Unspecified diastolic (congestive) heart failure Status: Acute Assessment and Plan: * Echo from 01/24/24 shown normal LV systolic function with an estimated EF of 55-60%, grade 1 diastolic dysfunction, flattening of the septum in systole consistent with right ventricle pressure overload, severe pulmonary hypertension with an estimated pulmonary arterial systolic pressure of 69 mm Hg, severe biatrial enlargement right greater than left * Continue Lasix 40mg on hold due to low blood pressures * Continue metoprolol (7) Chronic kidney disease, stage 3a: Code(s): N18.31 - Chronic kidney disease, stage 3a Status: Acute Assessment and Plan: * Creatinine 0.8, EGFR 60 * Baseline creatinine around 0.9-1.0 * Continue to trend (8) Chronic obstructive pulmonary disease with hypoxia: Code(s): J44.9 - Chronic obstructive pulmonary disease, unspecified Status: Acute Assessment and Plan: * Continue albuterol rescue inhaler as needed (9) Coronary artery disease: Onset Date: 10/2018 Qualifiers: Coronary Disease-Associated Artery/Lesion type: [place] artery Tribe vs. transplanted heart: [place] heart Associated angina: without angina Qualified Code(s): I25.10 - Atherosclerotic heart disease of [place] coronary artery without angina pectoris Code(s): I25.10 - Atherosclerotic heart disease of [place] coronary artery without angina pectoris Status: Acute Assessment and Plan: * Continue atorvastatin (10) Hypertension: Qualifiers: Hypertension type: primary hypertension Qualified Code(s): I10 - Essential (primary) hypertension Code(s): I10 - Essential (primary) hypertension Status: Chronic Assessment and Plan: * Blood pressures are soft today * Metoprolol and Lasix held today Time Spent With Patient Time with patient: 25 - 35 minutes Subjective Date/time seen: 02/14/24 12:50 Interval history: no events overnight. Labs reviewed. Case coordination working on SNF placement. Review of Systems Review of Systems: All systems reviewed & are unremarkable except as noted in HPI and below Constitutional: Constitutional: Reports as per HPI and Reports no additional constitutional complaints Eyes: Eyes: Reports as per HPI and Reports no additional eye complaints ENT: Reports system reviewed and no additional complaints, except as documented and Reports as per HPI Cardiovascular: Cardiovascular: Reports as per HPI and Reports no additional cardiovascular complaints Respiratory: Respiratory: Reports as per HPI and Reports no additional respiratory complaints Gastrointestinal: Gastrointestinal: Reports as per HPI and Reports no additional gastrointestinal complaints Genitourinary: Genitourinary: Reports no additional female genitourinary compl aints and Reports as per HPI Musculoskeletal: Musculoskeletal: Reports no additional musculoskeletal complaints and Reports as per HPI Integumentary/Breasts: Skin/Breast: Reports system reviewed and no additional complaints, except as docu and Reports as per HPI Neurologic: Reports system reviewed and no additional complaints, except as documented and Reports as per HPI Psychiatric: Psychiatric: Reports no additional psychiatric complaints and Reports as per HPI Exam Narrative: General: In no acute distress Cardiac: Normal S1 and S2. No murmur, gallops or friction rubs, peripheral pulses intact. Respiratory: Lungs clear to auscultation, no adventitious lung sounds, currently on 3L NC Gastrointestinal: soft, non-distended, non-tender, normoactive bowel sounds. Skin: Bruising noted to her forehead, bilateral arms, and back. She also has open wounds bilateral lower extremity with redness which is chronic. Neuro: Alert and oriented x3 Objective Data Vital Signs Vital Signs: Vital Signs - 24 hr 02/13/24 14:00 02/13/24 16:00 02/13/24 18:00 Temperature 97.7 F 97.9 F Pulse Rate 58 L 59 L 61 Respiratory Rate 14 14 Blood Pressure 101/58 L 101/60 Pulse Oximetry 93 89 L Oxygen Delivery Oxygen Flow Rate Fraction of Inspired Oxygen 02/13/24 20:42 02/13/24 21:29 02/13/24 20:00 Temperature 97.8 F Pulse Rate 66 61 Respiratory Rate 14 Blood Pressure 117/76 Pulse Oximetry 90 90 Oxygen Delivery Nasal Cannula Oxygen Flow Rate 3 Fraction of Inspired Oxygen 02/13/24 20:00 02/14/24 01:17 02/14/24 00:00 Temperature Pulse Rate 60 63 56 L Respiratory Rate 23 H Blood Pressure Pulse Oximetry 94 Oxygen Delivery BiPAP Oxygen Flow Rate Fraction of Inspired Oxygen 02/14/24 02:00 02/14/24 04:00 02/14/24 05:21 Temperature 97.6 F 97.8 F Pulse Rate 51 L 48 L 57 L Respiratory Rate 17 16 Blood Pressure 94/66 L 119/59 L Pulse Oximetry 100 100 Oxygen Delivery Oxygen Flow Rate Fraction of Inspired Oxygen 02/14/24 05:39 02/14/24 07:59 02/14/24 08:20 Temperature Pulse Rate 60 Respiratory Rate 15 Blood Pressure 111/43 L Pulse Oximetry 93 96 Oxygen Delivery BiPAP High Flow Nasal Cannula Oxygen Flow Rate 5 Fraction of Inspired Oxygen 02/14/24 08:23 02/14/24 09:58 02/14/24 10:00 Temperature 97.1 F L Pulse Rate 56 L 24 L Respiratory Rate 53 H Blood Pressure 87/41 L 84/50 L Pulse Oximetry 95 Oxygen Delivery Oxygen Flow Rate Fraction of Inspired Oxygen 02/14/24 08:00 02/14/24 08:00 Temperature Pulse Rate 58 L 58 L Respiratory Rate 22 H Blood Pressure Pulse Oximetry 93 Oxygen Delivery High Flow Nasal Cannula Oxygen Flow Rate 4 Fraction of Inspired Oxygen 35 Intake/Output Intake/Output: Intake & Output 02/11/24 02/12/24 02/13/24 02/14/24 23:59 23:59 23:59 23:59 Intake Total 998 1279 970 120 Balance 998 1279 970 120 Meds/Results Medications: Active Medications Generic Name Dose Route Start Last Admin Trade Name Freq PRN Reason Stop Dose Admin Acetaminophen 650 mg 02/10/24 13:22 02/11/24 20:52 Acetaminophen 325 Mg Tablet PO 650 mg Q6H PRN Administration Mild Pain (1-3) or Fever Albuterol 1 - 2 puff 02/10/24 13:26 Albuterol Sulfate (*Sp) Aerosol 1 Puff INHALATION Q4HRT PRN shortness of breath or wheezing Atorvastatin Calcium 40 mg 02/10/24 21:00 02/13/24 20:43 Atorvastatin 40 Mg Tablet PO 40 mg QHS KATE Administration Buspirone HCl 10 mg 02/10/24 17:00 02/14/24 09:59 Buspirone Hcl 10 Mg Tablet PO 10 mg TID KATE Administration Calcium Carbonate 500 mg 02/11/24 09:00 02/14/24 09:57 Calcium Carbonate (Oscal) 500 Mg Tablet PO 500 mg QAM KATE Administration Ciprofloxacin/Hydrocortisone 3 drop 02/12/24 14:40 02/14/24 10:00 Ciprofloxacin Hc Otic 10 Ml LEFT EAR 3 drop Q12HR KATE Administration Escitalopram Oxalate 20 mg 02/11/24 09:00 02/14/24 09:59 Escitalopram Oxalate 10 Mg Tablet PO 20 mg DAILY KATE Administration Ferrous Sulfate 325 mg 02/10/24 17:00 02/14/24 09:58 Ferrous Sulfate [address] BY MOUTH 325 mg BID KATE Administration Furosemide 40 mg 02/11/24 09:00 02/14/24 10:25 Furosemide 40 Mg Tablet PO Not Given DAILY KATE Gabapentin 300 mg 02/10/24 13:30 02/14/24 10:03 Gabapentin 300 Mg Capsule PO 300 mg DAILY@0800,1200,2000 KATE Administration Hydroxyzine HCl 25 mg 02/10/24 13:26 02/12/24 20:29 Hydroxyzine Hcl 25 Mg Tablet PO 25 mg Q8H PRN Administration anxiety Loratadine 10 mg 02/10/24 13:26 Loratadine 10 Mg Tablet PO DAILY PRN allergic symptoms Magnesium Oxide 400 mg 02/11/24 09:00 02/14/24 09:58 Magnesium Oxide 400 Mg Tablet PO 400 mg DAILY KATE Administration Melatonin 10 mg 02/10/24 21:00 02/13/24 20:43 Melatonin 5 Mg Tablet PO 10 mg QHS KATE Administration Metoprolol Succinate 50 mg 02/10/24 21:00 02/14/24 09:58 Metoprolol Succinate Ext Rel 50 Mg Tabcr PO Not Given Q12HR [facility] Nitrofurantoin Macrocrystals 100 mg 02/12/24 21:00 02/14/24 09:59 Nitrofurantoin Monohyd Macrocr 100 Mg Cap PO 100 mg Q12HR KATE Administration Ondansetron HCl 4 mg 02/10/24 11:12 Ondansetron Inj 4 Mg/2 Ml Vial IV PUSH Q4H PRN Nausea Oxybutynin Chloride 10 mg 02/10/24 17:00 02/14/24 09:59 Oxybutynin Chloride Xl 5 Mg Tab.Er.24 PO 10 mg BID KATE Administration Pantoprazole Sodium 40 mg 02/12/24 21:00 02/14/24 09:59 Pantoprazole 40 Mg Tablet PO 40 mg Q12HR KATE Administration Potassium Chloride 10 meq 02/11/24 09:00 02/14/24 09:59 Potassium Chloride 10 Meq Er Tablet PO 03/12/24 08:59 10 meq DAILY KATE Administration Sodium Chloride 1 spray 02/13/24 20:58 02/13/24 21:32 Saline 0.65% Aj Soln 44 Ml Btl NASAL 1 spray Q6HR PRN Administration Congestion Tramadol HCl 50 mg 02/10/24 13:26 02/13/24 20:42 Tramadol Hcl (*Crx) 50 Mg Tablet PO 50 mg BID PRN Administration pain 4-10 Triamcinolone Acetonide 1 applic 02/12/24 09:00 02/14/24 10:01 Triamcinolone Acet 0.1% Cream 80 Gm Tube TOPICAL 1 applic Q12HR KATE Administration Vitamin D 2,000 units 02/11/24 09:00 02/14/24 09:59 Cholecalciferol 1,000 Units Tablet PO 2,000 units DAILY KATE Administration Radiology Results: ITS Impressions Head CT 02/10/24 10:23 IMPRESSION: 1. Stable moderate nonspecific cerebral white matter disease, which likely represents chronic small vessel ischemic disease. Head/Cervical Spine/Facial Bones CT 02/10/24 10:25 IMPRESSION: 1. T3 compression fracture, likely acute or subacute. 2. Severe cervical spondylosis. 3. Cervical levoscoliosis. Elbow X-Ray 02/10/24 11:53 IMPRESSION: 1. Mild elbow joint osteoarthritis. Abdomen/Pelvis CT 02/11/24 20:17 IMPRESSION: Mild pulmonary edema and small bilateral pleural effusions. Gallbladder mucosal hyperemia with pericholecystic fluid, correlate with biliary labs and right upper quadrant pain. Consider right upper quadrant ultrasound for further evaluation. Mild ascites. No acute traumatic finding in the abdomen. Chest X-Ray 02/14/24 06:08 Impression: Mild pulmonary edema pattern. Underlying COPD and/or chronic interstitial disease. Labs Labs: Laboratory Results - last 24 hr 02/14/24 06:23 WBC 9.7 RBC 3.25 L Hgb 10.6 L Hct 33.3 L MCV 102.5 H MCH 32.6 MCHC 31.8 L RDW 18.3 H Plt Count 239 MPV 9.5 Immature Gran % (Auto) 1.6 H Neut % (Auto) 73.7 H Lymph % (Auto) 10.5 L [place] % (Auto) 11.7 H Eos % (Auto) 1.8 Baso % (Auto) 0.7 Lymph # (Auto) 1.02 [place] # (Auto) 1.1 H Eos # (Auto) 0.2 Baso # (Auto) 0.1 Abs Immat Gran (auto) 0.16 H Absolute Neuts (auto) 7.2 H Absolute Nucleated RBC 0.020 H Nucleated RBC % 0.2 Sodium 129 L Potassium 4.0 Chloride 95 L Carbon Dioxide 29 Anion Gap 5 BUN 18 H Creatinine 0.80 Estim Creat Clear Calc 46 Estimated GFR > 60 Glucose 78 Calcium 8.2 L Total Bilirubin 0.8 AST 39 H ALT 30 Alkaline Phosphatase 142 H Total Protein 7.0 Albumin 3.5 Quality VTE Prophylaxis VTE prophylaxis: mechanical ordered
[2024-02-14] MEDS: traMADol HCL (*CRX) 50 MG TABLET PO (13:04)
--- NOTE | 2024-02-14 14:25 | PCOTNOTE ---
Per RN, Patient still having low blood pressure, not to be seen this afternoon.
--- NOTE | 2024-02-14 14:35 | PCPTNOTE ---
Attempted to see patient this afternoon for PT, however RN reports patient continues to have low BP. PT will continue to follow per plan of care.
--- NOTE | 2024-02-14 18:27 | PC.NURSE ---
throughout shift O2 sensor has been positional, nasal probe has worked better but at times has been affected by pt eating or moving in bed, sats have remained within the ordered parameters when probe is properly positioned
[2024-02-14] MEDS: MELATONIN 5 MG TABLET 10 MG PO (20:08)
[2024-02-14] MEDS: ATORVASTATIN 40 MG TABLET PO (20:08)
[2024-02-14] MEDS: ACETAMINOPHEN 325 MG TABLET 650 MG PO (20:15)
[2024-02-15] VITALS (14 sets, daily range): BP systolic 90–145; BP diastolic 48–89; PULSE 53–88; RESP 18–24; TEMP 36–36.7; O2SAT 91–98
--- NOTE | 2024-02-15 01:50 | PC.NURSE ---
Patient has been found several times taking her oxygen off. Patient states I'm clearing my nose. Educated patient that when she removes her oxygen her SPO2 decreases. Educated patient to leave oxygen in her nose, stop picking at and in her nose with her fingers, and to leave continuous SPO2 monitor on.
[2024-02-15] MEDS: traMADol HCL (*CRX) 50 MG TABLET PO ×2 (02:19→09:36)
[2024-02-15 06:27] LABS: Basophils Absolute Auto 0.1 K/mm3 (0.0-0.1); Basophils Percent Auto 0.7 % (0.2-1.2); Eosinophils Absolute Auto 0.3 K/mm3 (0-0.3); Eosinophils Percent Auto 2.6 % (0-4.4); Hematocrit 28.7 % (37.0-47.0); Hemoglobin 9.1 g/dL (12.0-15.0); Immature Granulocyte Absolute 0.16 K/mm3 (0.00-0.031); Immature Granulocyte Percent A 1.6 % (0-0.5); Lymphocytes Absolute Auto 0.83 K/mm3 (0.9-3.2); Lymphocytes Percent Auto 8.1 % (18.3-44.2); Mean Corpuscular HGB Conc 31.7 g/dl (32-36); Mean Corpuscular Hemoglobin 31.7 pg (26-34); Mean Platelet Volume 9.6 fl (7.4-10.4); Monocytes Absolute Auto 1.2 K/mm3 (0.1-0.6); Monocytes Percent Auto 11.9 % (2.6-8.5); Neutrophils Absolute Auto 7.7 K/mm3 (1.3-6.7); Neutrophils Percent Auto 75.1 % (45.5-73.1); Platelet Count Result 188 k/mm3 (150-375); Red Blood Count 2.87 M/mm3 (4.2-5.4); Red Cell Distribution Width 17.6 % (11.5-14.5); White Blood Count 10.3 K/mm3 (4.5-10.0)
[2024-02-15 06:37] LABS: Alanine Aminotransferase 25 U/L (6-35); Albumin Level 3.1 g/dL (3.5-5.1); Alkaline Phosphatase 130 U/L (38-126); Anion Gap 5 mmol/L (4-12); Aspartate Amino Transferase 32 U/L (14-36); Bilirubin,Total 0.5 mg/dL (0.2-1.3); Blood Urea Nitrogen 16 mg/dL (7-17); Calcium 7.9 mg/dL (8.4-10.2); Carbon Dioxide 31 mmol/L (22-30); Chloride 94 mmol/L (98-107); Estimated CRCL calculation 52 ml/min; Estimated Glomerular Filt Rate > 60; Glucose 91 mg/dL (65-110); Potassium 4.1 mmol/L (3.4-5.0); Sodium 130 mmol/L (137-145)
[2024-02-15] MEDS: busPIRone HCL 10 MG TABLET PO ×3 (09:37→17:08)
[2024-02-15] MEDS: POTASSIUM CHLORIDE 10 MEQ ER TABLET PO (09:37)
[2024-02-15] MEDS: NITROFURANTOIN MONOHYD MACROCR 100 MG CAP PO ×2 (09:37→20:19)
[2024-02-15] MEDS: FERROUS SULFATE 325 MG TABLET DR BY MOUTH ×2 (09:37→17:08)
[2024-02-15] MEDS: PANTOPRAZOLE 40 MG TABLET PO ×2 (09:37→20:19)
[2024-02-15] MEDS: oxyBUTYnin CHLORIDE XL 5 MG TAB.ER.24 10 MG PO ×2 (09:37→17:08)
[2024-02-15] MEDS: CALCIUM CARBONATE (OSCAL) 500 MG TABLET PO (09:37)
[2024-02-15] MEDS: MAGNESIUM OXIDE 400 MG TABLET PO (09:37)
[2024-02-15] MEDS: ESCITALOPRAM OXALATE 10 MG TABLET 20 MG PO (09:37)
[2024-02-15] MEDS: CHOLECALCIFEROL 1,000 UNITS TABLET 2000 UNITS PO (09:37)
[2024-02-15] MEDS: TRIAMCINOLONE ACET 0.1% CREAM 80 GM TUBE 1 APPLIC TOPICAL ×2 (09:37→20:20)
[2024-02-15] MEDS: GABAPENTIN 300 MG CAPSULE PO ×3 (09:40→20:19)
[2024-02-15] MEDS: CIPROFLOXACIN HC OTIC 10 ML 3 DROP LEFT EAR ×2 (09:42→21:50)
--- NOTE | 2024-02-15 11:01 | PM.IMPN ---
Progress Note: A&P Assessment and Plan (1) Heme positive stool: Code(s): R19.5 - Other fecal abnormalities Status: Acute Assessment and Plan: GI will follow up on a outpatient basis Patient went for EGD shown gastritis with a non bleeding duodenal ulcer Continue Protonix 40 mg b.i.d. per GI recommendation H/H remain stable, no signs of active bleeding (2) Anemia: Code(s): D64.9 - Anemia, unspecified Status: Acute Assessment and Plan: Likely secondary to bleeding ulcer Hemoglobin today is 9.1 On 01/29/2024 she was 14.8 Continue ferrous sulfate GI following See above plan of care (3) Frequent falls: Code(s): R29.6 - Repeated falls Status: Acute Assessment and Plan: Reporting frequent falls at home PT and OT ordered and recommending SNF TLSO brace while out of bed Case coordination working on SNF placement (4) Acute urinary tract infection: Code(s): N39.0 - Urinary tract infection, site not specified Status: Acute Assessment and Plan: UA showed cloudy appearance, positive nitrate, 1+ leukocyte, 6-10 urine WBC, 4+ urine bacteria Urine culture showing e. coli on final read Rocephin changed to Nitrofurantoin UTI could be contributing to her frequent falls (5) Compression fracture of T3 vertebra: Code(s): S22.030A - Wedge compression fracture of third thoracic vertebra, initial encounter for closed fracture Status: Acute Assessment and Plan: Continue to wear TLSO brace while out of bed Continue PT and OT (6) Diastolic congestive heart failure: Code(s): I50.30 - Unspecified diastolic (congestive) heart failure Status: Acute Assessment and Plan: Echo from 01/24/24 shown normal LV systolic function with an estimated EF of 55-60%, grade 1 diastolic dysfunction, flattening of the septum in systole consistent with right ventricle pressure overload, severe pulmonary hypertension with an estimated pulmonary arterial systolic pressure of 69 mm Hg, severe biatrial enlargement right greater than left Lasix 40 mg currently on hold due to hypotension Continue metoprolol ER (7) Chronic kidney disease, stage 3a: Code(s): N18.31 - Chronic kidney disease, stage 3a Status: Acute Assessment and Plan: Creatinine 0.7, EGFR 60 Baseline creatinine around 0.9-1.0 Continue to trend (8) Chronic obstructive pulmonary disease with hypoxia: Code(s): J44.9 - Chronic obstructive pulmonary disease, unspecified Status: Acute Assessment and Plan: Continue albuterol rescue inhaler as needed (9) Coronary artery disease: Onset Date: 10/2018 Qualifiers: Associated angina: without angina Coronary Disease-Associated Artery/Lesion type: [place] artery [place] vs. transplanted heart: [place] heart Qualified Code(s): I25.10 - Atherosclerotic heart disease of [place] coronary artery without angina pectoris Code(s): I25.10 - Atherosclerotic heart disease of [place] coronary artery without angina pectoris Status: Acute Assessment and Plan: Continue atorvastatin (10) Hypertension: Qualifiers: Hypertension type: primary hypertension Qualified Code(s): I10 - Essential (primary) hypertension Code(s): I10 - Essential (primary) hypertension Status: Chronic Assessment and Plan: Blood pressures are soft today Metoprolol and Lasix held today Subjective Date/time seen: 02/15/24 11:01 Interval history: No events overnight. Labs reviewed. Case coordination working on SNF placement. Review of Systems Review of Systems: All systems reviewed & are unremarkable except as noted in HPI and below Constitutional: Constitutional: Reports as per HPI and Reports no additional constitutional complaints Eyes: Eyes: Reports as per HPI and Reports no additional eye complaints ENT: Reports system reviewed and no additional complaints, except as documented and Reports as per HPI Cardiovascular: Cardiovascular: Reports as per HPI and Reports no additional cardiovascular complaints Respiratory: Respiratory: Reports as per HPI and Reports no additional respiratory complaints Gastrointestinal: Gastrointestinal: Reports as per HPI and Reports no additional gastrointestinal complaints Genitourinary: Genitourinary: Reports no additional female genitourinary complaints and Reports as per HPI Musculoskeletal: Musculoskeletal: Reports no additional musculoskeletal complaints and Reports as per HPI Integumentary/Breasts: Skin/Breast: Reports system reviewed and no additional complaints, except as docu and Reports as per HPI Neurologic: Reports system reviewed and no additional complaints, except as documented and Reports as per HPI Psychiatric: Psychiatric: Reports no additional psychiatric complaints and Reports as per HPI Exam Narrative: General: In no acute distress Cardiac: Normal S1 and S2. No murmur, gallops or friction rubs, peripheral pulses intact. Respiratory: Lungs clear to auscultation, no adventitious lung sounds, currently on 7L [place] Gastrointestinal: soft, non-distended, non-tender, normoactive bowel sounds. Skin: Bruising noted to her forehead, bilateral arms, and back. She also has open wounds bilateral lower extremity with redness which is chronic. Neuro: Alert and oriented x3 Objective Data Vital Signs Vital Signs: Vital Signs - 24 hr 02/14/24 14:00 02/14/24 12:00 02/14/24 16:00 Temperature 97.6 F Pulse Rate 57 L 56 L 59 L Respiratory Rate 18 Blood Pressure 96/48 L Pulse Oximetry 96 Oxygen Delivery Oxygen Flow Rate 02/14/24 18:00 02/14/24 20:13 02/14/24 20:00 Temperature 98.8 F 98.1 F 98.1 F Pulse Rate 64 59 L 59 L Respiratory Rate 20 12 12 Blood Pressure 94/52 L 82/44 L 82/44 L Pulse Oximetry 91 91 91 Oxygen Delivery Oxygen Flow Rate 02/14/24 20:15 02/14/24 20:16 02/14/24 20:00 Temperature Pulse Rate Respiratory Rate Blood Pressure 91/58 L 88/57 L Pulse Oximetry 90 Oxygen Delivery High Flow Nasal Cannula Oxygen Flow Rate 4 02/14/24 20:00 02/15/24 00:00 02/15/24 01:12 Temperature 97.8 F Pulse Rate 64 64 55 L Respiratory Rate 22 H Blood Pressure 106/72 Pulse Oximetry 95 Oxygen Delivery Oxygen Flow Rate 02/15/24 04:00 02/15/24 05:56 02/15/24 10:16 Temperature 96.9 F L Pulse Rate 55 L 53 L Respiratory Rate 22 H Blood Pressure 90/64 L Pulse Oximetry 93 93 Oxygen Delivery High Flow Nasal Cannula Oxygen Flow Rate 7 Intake/Output Intake/Output: Intake & Output 02/12/24 02/13/24 02/14/24 02/15/24 23:59 23:59 23:59 23:59 Intake Total 1279 970 240 920 Balance 1279 970 240 920 Meds/Results Medications: Active Medications Generic Name Dose Route Start Last Admin Trade Name Freq PRN Reason Stop Dose Admin Acetaminophen 650 mg 02/10/24 13:22 02/14/24 20:15 Acetaminophen 325 Mg Tablet PO 650 mg Q6H PRN Administration Mild Pain (1-3) or Fever Albuterol 1 - 2 puff 02/10/24 13:26 Albuterol Sulfate (*Sp) Aerosol 1 Puff INHALATION Q4HRT PRN shortness of breath or wheezing Atorvastatin Calcium 40 mg 02/10/24 21:00 02/14/24 20:08 Atorvastatin 40 Mg Tablet PO 40 mg QHS [facility] Administration Buspirone HCl 10 mg 02/10/24 17:00 02/15/24 09:37 Buspirone Hcl 10 Mg Tablet PO 10 mg TID [facility] Administration Calcium Carbonate 500 mg 02/11/24 09:00 02/15/24 09:37 Calcium Carbonate (Oscal) 500 Mg Tablet PO 500 mg QAM [facility] Administration Ciprofloxacin/Hydrocortisone 3 drop 02/12/24 14:40 02/15/24 09:42 Ciprofloxacin Hc Otic 10 Ml LEFT EAR 3 drop Q12HR [facility] Administration Escitalopram Oxalate 20 mg 02/11/24 09:00 02/15/24 09:37 Escitalopram Oxalate 10 Mg Tablet PO 20 mg DAILY [facility] Administration Ferrous Sulfate 325 mg 02/10/24 17:00 02/15/24 09:37 Ferrous Sulfate [address] BY MOUTH 325 mg BID [facility] Administration Furosemide 40 mg 02/11/24 09:00 02/14/24 10:25 Furosemide 40 Mg Tablet PO Not Given DAILY [facility] Gabapentin 300 mg 02/10/24 13:30 02/15/24 09:40 Gabapentin 300 Mg Capsule PO 300 mg DAILY@0800,1200,2000 [facility] Administration Hydroxyzine HCl 25 mg 02/10/24 13:26 02/12/24 20:29 Hydroxyzine Hcl 25 Mg Tablet PO 25 mg Q8H PRN Administration anxiety Loratadine 10 mg 02/10/24 13:26 Loratadine 10 Mg Tablet PO DAILY PRN allergic symptoms Magnesium Oxide 400 mg 02/11/24 09:00 02/15/24 09:37 Magnesium Oxide 400 Mg Tablet PO 400 mg DAILY [facility] Administration Melatonin 10 mg 02/10/24 21:00 02/14/24 20:08 Melatonin 5 Mg Tablet PO 10 mg QHS [facility] Administration Metoprolol Succinate 50 mg 02/10/24 21:00 02/15/24 08:27 Metoprolol Succinate Ext Rel 50 Mg Tabcr PO Not Given Q12HR [facility] Nitrofurantoin Macrocrystals 100 mg 02/12/24 21:00 02/15/24 09:37 Nitrofurantoin Monohyd Macrocr 100 Mg Cap PO 100 mg Q12HR [facility] Administration Ondansetron HCl 4 mg 02/10/24 11:12 Ondansetron Inj 4 Mg/2 Ml Vial IV PUSH Q4H PRN Nausea Oxybutynin Chloride 10 mg 02/10/24 17:00 02/15/24 09:37 Oxybutynin Chloride Xl 5 Mg Tab.Er.24 PO 10 mg BID [facility] Administration Pantoprazole Sodium 40 mg 02/12/24 21:00 02/15/24 09:37 Pantoprazole 40 Mg Tablet PO 40 mg Q12HR [facility] Administration Potassium Chloride 10 meq 02/11/24 09:00 02/15/24 09:37 Potassium Chloride 10 Meq Er Tablet PO 03/12/24 08:59 10 meq DAILY [facility] Administration Sodium Chloride 1 spray 02/13/24 20:58 02/13/24 21:32 Saline 0.65% Aj Soln 44 Ml Btl NASAL 1 spray Q6HR PRN Administration Congestion Tramadol HCl 50 mg 02/10/24 13:26 02/15/24 09:36 Tramadol Hcl (*Crx) 50 Mg Tablet PO 50 mg BID PRN Administration pain 4-10 Triamcinolone Acetonide 1 applic 02/12/24 09:00 02/15/24 09:37 Triamcinolone Acet 0.1% Cream 80 Gm Tube TOPICAL 1 applic Q12HR [facility] Administration Vitamin D 2,000 units 02/11/24 09:00 02/15/24 09:37 Cholecalciferol 1,000 Units Tablet PO 2,000 units DAILY [facility] Administration Radiology Results: ITS Impressions Head CT 02/10/24 10:23 IMPRESSION: 1. Stable moderate nonspecific cerebral white matter disease, which likely represents chronic small vessel ischemic disease. Head/Cervical Spine/Facial Bones CT 02/10/24 10:25 IMPRESSION: 1. T3 compression fracture, likely acute or subacute. 2. Severe cervical spondylosis. 3. Cervical levoscoliosis. Elbow X-Ray 02/10/24 11:53 IMPRESSION: 1. Mild elbow joint osteoarthritis. Abdomen/Pelvis CT 02/11/24 20:17 IMPRESSION: Mild pulmonary edema and small bilateral pleural effusions. Gallbladder mucosal hyperemia with pericholecystic fluid, correlate with biliary labs and right upper quadrant pain. Consider right upper quadrant ultrasound for further evaluation. Mild ascites. No acute traumatic finding in the abdomen. Chest X-Ray 02/14/24 06:08 Impression: Mild pulmonary edema pattern. Underlying COPD and/or chronic interstitial disease. Labs Labs: Laboratory Results - last 24 hr 02/15/24 06:03 WBC 10.3 H RBC 2.87 L Hgb 9.1 L Hct 28.7 L MCV 100.0 MCH 31.7 MCHC 31.7 L RDW 17.6 H Plt Count 188 MPV 9.6 Immature Gran % (Auto) 1.6 H Neut % (Auto) 75.1 H Lymph % (Auto) 8.1 L [place] % (Auto) 11.9 H Eos % (Auto) 2.6 Baso % (Auto) 0.7 Lymph # (Auto) 0.83 L [place] # (Auto) 1.2 H Eos # (Auto) 0.3 Baso # (Auto) 0.1 Abs Immat Gran (auto) 0.16 H Absolute Neuts (auto) 7.7 H Absolute Nucleated RBC 0.000 Nucleated RBC % 0.0 Sodium 130 L Potassium 4.1 Chloride 94 L Carbon Dioxide 31 H Anion Gap 5 BUN 16 Creatinine 0.70 Estim Creat Clear Calc 52 Estimated GFR > 60 Glucose 91 Calcium 7.9 L Total Bilirubin 0.5 AST 32 ALT 25 Alkaline Phosphatase 130 H Total Protein 6.0 L Albumin 3.1 L Quality VTE Prophylaxis VTE prophylaxis: mechanical ordered
[2024-02-15] MEDS: MELATONIN 5 MG TABLET 10 MG PO (20:18)
[2024-02-15] MEDS: METOPROLOL SUCCINATE EXT REL 50 MG TABCR PO (20:18)
[2024-02-15] MEDS: ACETAMINOPHEN 325 MG TABLET 650 MG PO (20:19)
[2024-02-15] MEDS: ATORVASTATIN 40 MG TABLET PO (20:19)
[2024-02-16] VITALS (9 sets, daily range): BP systolic 86–124; BP diastolic 47–76; PULSE 59–87; RESP 18–22; TEMP 36.4–37.2; O2SAT 91–100
[2024-02-16] MEDS: WATER FOR IRRIGATION, STERILE 1,000 ML BOTTLE 1000 ML (00:12)
[2024-02-16 07:42] LABS: Basophils Percent Auto 0.4 % (0.2-1.2); Eosinophils Absolute Auto 0.3 K/mm3 (0-0.3); Eosinophils Percent Auto 3.1 % (0-4.4); Hematocrit 30.6 % (37.0-47.0); Hemoglobin 9.9 g/dL (12.0-15.0); Immature Granulocyte Absolute 0.12 K/mm3 (0.00-0.031); Immature Granulocyte Percent A 1.2 % (0-0.5); Lymphocytes Absolute Auto 0.73 K/mm3 (0.9-3.2); Lymphocytes Percent Auto 7.5 % (18.3-44.2); Mean Corpuscular HGB Conc 32.4 g/dl (32-36); Mean Corpuscular Hemoglobin 32.5 pg (26-34); Mean Corpuscular Volume 100.3 fl (80-100); Mean Platelet Volume 9.8 fl (7.4-10.4); Monocytes Absolute Auto 1.1 K/mm3 (0.1-0.6); Monocytes Percent Auto 11.6 % (2.6-8.5); Neutrophils Absolute Auto 7.4 K/mm3 (1.3-6.7); Neutrophils Percent Auto 76.2 % (45.5-73.1); Platelet Count Result 140 k/mm3 (150-375); Red Blood Count 3.05 M/mm3 (4.2-5.4); Red Cell Distribution Width 17.2 % (11.5-14.5); White Blood Count 9.7 K/mm3 (4.5-10.0)
[2024-02-16 07:57] LABS: Alanine Aminotransferase 25 U/L (6-35); Albumin Level 3.2 g/dL (3.5-5.1); Alkaline Phosphatase 136 U/L (38-126); Anion Gap 4 mmol/L (4-12); Aspartate Amino Transferase 34 U/L (14-36); Bilirubin,Total 0.6 mg/dL (0.2-1.3); Blood Urea Nitrogen 14 mg/dL (7-17); Calcium 8.5 mg/dL (8.4-10.2); Carbon Dioxide 30 mmol/L (22-30); Chloride 95 mmol/L (98-107); Estimated CRCL calculation 52 ml/min; Estimated Glomerular Filt Rate > 60; Glucose 89 mg/dL (65-110); Potassium 4.6 mmol/L (3.4-5.0); Sodium 129 mmol/L (137-145)
[2024-02-16] MEDS: FUROSEMIDE INJ 40 MG/4 ML VIAL IM (09:04)
[2024-02-16] MEDS: CALCIUM CARBONATE (OSCAL) 500 MG TABLET PO (09:07)
[2024-02-16] MEDS: CHOLECALCIFEROL 1,000 UNITS TABLET 2000 UNITS PO (09:07)
[2024-02-16] MEDS: NITROFURANTOIN MONOHYD MACROCR 100 MG CAP PO ×2 (09:07→20:33)
[2024-02-16] MEDS: oxyBUTYnin CHLORIDE XL 5 MG TAB.ER.24 10 MG PO ×2 (09:07→16:58)
[2024-02-16] MEDS: ESCITALOPRAM OXALATE 10 MG TABLET 20 MG PO (09:07)
[2024-02-16] MEDS: PANTOPRAZOLE 40 MG TABLET PO ×2 (09:08→20:33)
[2024-02-16] MEDS: FERROUS SULFATE 325 MG TABLET DR BY MOUTH ×2 (09:08→16:58)
[2024-02-16] MEDS: POTASSIUM CHLORIDE 10 MEQ ER TABLET PO (09:09)
[2024-02-16] MEDS: METOPROLOL SUCCINATE EXT REL 50 MG TABCR PO ×2 (09:09→20:33)
[2024-02-16] MEDS: MAGNESIUM OXIDE 400 MG TABLET PO (09:09)
[2024-02-16] MEDS: busPIRone HCL 10 MG TABLET PO ×3 (09:12→16:58)
[2024-02-16] MEDS: TRIAMCINOLONE ACET 0.1% CREAM 80 GM TUBE 1 APPLIC TOPICAL ×2 (09:14→20:37)
[2024-02-16] MEDS: CIPROFLOXACIN HC OTIC 10 ML 3 DROP LEFT EAR ×2 (09:14→20:37)
[2024-02-16] MEDS: GABAPENTIN 300 MG CAPSULE PO ×3 (09:22→20:33)
[2024-02-16] MEDS: traMADol HCL (*CRX) 50 MG TABLET PO ×2 (09:26→20:34)
--- NOTE | 2024-02-16 12:58 | P.PNIM_ITS ---
Progress Note: A&P Assessment and Plan (1) Heme positive stool: Code(s): R19.5 - Other fecal abnormalities Status: Acute Assessment and Plan: * GI will follow up on a outpatient basis * Patient went for EGD shown gastritis with a non bleeding duodenal ulcer * Continue Protonix 40 mg b.i.d. per GI recommendation * H/H remain stable, no signs of active bleeding (2) Anemia: Code(s): D64.9 - Anemia, unspecified Status: Acute Assessment and Plan: * Likely secondary to bleeding ulcer * Hemoglobin today is 9.1 * On 01/29/2024 she was 14.8 * Continue ferrous sulfate * GI following * See above plan of care (3) Frequent falls: Code(s): R29.6 - Repeated falls Status: Acute Assessment and Plan: * Reporting frequent falls at home * PT and OT ordered and recommending SNF * TLSO brace while out of bed * Case coordination working on SNF placement (4) Acute urinary tract infection: Code(s): N39.0 - Urinary tract infection, site not specified Status: Acute Assessment and Plan: * UA showed cloudy appearance, positive nitrate, 1+ leukocyte, 6-10 urine WBC, 4+ urine bacteria * Urine culture showing e. coli on final read * Rocephin changed to Nitrofurantoin * UTI could be contributing to her frequent falls (5) Compression fracture of T3 vertebra: Code(s): S22.030A - Wedge compression fracture of third thoracic vertebra, initial encounter for closed fracture Status: Acute Assessment and Plan: * Continue to wear TLSO brace while out of bed * Continue PT and OT (6) Diastolic congestive heart failure: Code(s): I50.30 - Unspecified diastolic (congestive) heart failure Status: Acute Assessment and Plan: * Echo from 01/24/24 shown normal LV systolic function with an estimated EF of 55-60%, grade 1 diastolic dysfunction, flattening of the septum in systole consistent with right ventricle pressure overload, severe pulmonary hypertension with an estimated pulmonary arterial systolic pressure of 69 mm Hg, severe biatrial enlargement right greater than left * Lasix 40 mg restarted * Continue metoprolol ER (7) Chronic kidney disease, stage 3a: Code(s): N18.31 - Chronic kidney disease, stage 3a Status: Acute Assessment and Plan: * Creatinine 0.7, EGFR 60 * Baseline creatinine around 0.9-1.0 * Continue to trend (8) Chronic obstructive pulmonary disease with hypoxia: Code(s): J44.9 - Chronic obstructive pulmonary disease, unspecified Status: Acute Assessment and Plan: * Continue albuterol rescue inhaler as needed (9) Coronary artery disease: Onset Date: 10/2018 Qualifiers: Coronary Disease-Associated Artery/Lesion type: [place] artery [place] vs. transplanted heart: [place] heart Associated angina: without angina Qualified Code(s): I25.10 - Atherosclerotic heart disease of [place] coronary artery without angina pectoris Code(s): I25.10 - Atherosclerotic heart disease of [place] coronary artery without angina pectoris Status: Acute Assessment and Plan: * Continue atorvastatin (10) Hypertension: Qualifiers: Hypertension type: primary hypertension Qualified Code(s): I10 - Essential (primary) hypertension Code(s): I10 - Essential (primary) hypertension Status: Chronic Assessment and Plan: * Blood pressures are soft today * Metoprolol and Lasix held today Subjective Date/time seen: 02/16/24 12:58 Interval history: No events overnight. Labs reviewed. Case coordination working on SNF placement. Review of Systems Review of Systems: 12 systems were reviewed and are negativ e except for as per HPI. All systems reviewed & are unremarkable except as noted in HPI and below Constitutional: Constitutional: Reports as per HPI and Reports no additional constitutional complaints Eyes: Eyes: Reports as per HPI and Reports no additional eye complaints ENT: Reports system reviewed and no additional complaints, except as documented and Reports as per HPI Cardiovascular: Cardiovascular: Reports as per HPI and Reports no additional cardiovascular complaints Respiratory: Respiratory: Reports as per HPI and Reports no additional respiratory complaints Gastrointestinal: Gastrointestinal: Reports as per HPI and Reports no additional gastrointestinal complaints Genitourinary: Genitourinary: Reports no additional female genitourinary complaints and Reports as per HPI Musculoskeletal: Musculoskeletal: Reports no additional musculoskeletal complaints and Reports as per HPI Integumentary/Breasts: Skin/Breast: Reports system reviewed and no additional complaints, except as docu and Reports as per HPI Neurologic: Reports system reviewed and no additional complaints, except as documented and Reports as per HPI Psychiatric: Psychiatric: Reports no additional psychiatric complaints and Reports as per HPI Exam Narrative: General: In no acute distress Cardiac: Normal S1 and S2. No murmur, gallops or friction rubs, peripheral pulses intact. Respiratory: Lungs clear to auscultation, no adventitious lung sounds, currently on 7L [place] Gastrointestinal: soft, non-distended, non-tender, normoactive bowel sounds. Skin: Bruising noted to her forehead, bilateral arms, and back. She also has open wounds bilateral lower extremity with redness which is chronic. Neuro: Alert and oriented x3 Objective Data Vital Signs Vital Signs: Vital Signs - 24 hr 02/15/24 14:03 02/15/24 14:00 02/15/24 18:00 Temperature 97.6 F 97.0 F L Pulse Rate 64 73 Respiratory Rate 18 18 Blood Pressure 101/89 107/48 L 130/86 Pulse Oximetry 91 96 Oxygen Delivery Oxygen Flow Rate 02/15/24 20:18 02/15/24 20:19 02/15/24 20:00 Temperature 98.1 F Pulse Rate 88 67 75 Respiratory Rate 22 H Blood Pressure 136/71 Pulse Oximetry 92 94 Oxygen Delivery High Flow Nasal Cannula Oxygen Flow Rate 7 02/15/24 20:00 02/15/24 20:00 02/15/24 20:00 Temperature 98.0 F 98 F Pulse Rate 86 88 Respiratory Rate 22 H 24 H Blood Pressure 145/68 H 145/63 H Pulse Oximetry 93 94 92 Oxygen Delivery High Flow Nasal Cannula Oxygen Flow Rate 4 02/15/24 23:40 02/16/24 04:00 02/16/24 09:09 Temperature 97.6 F 98.0 F Pulse Rate 59 L 87 59 L Respiratory Rate 20 18 Blood Pressure 100/57 L 124/76 Pulse Oximetry 98 92 Oxygen Delivery Oxygen Flow Rate 02/16/24 08:00 02/16/24 09:10 02/16/24 09:10 Temperature 97.5 F L 97.5 F L 97.5 F L Pulse Rate 64 68 67 Respiratory Rate 21 H 20 20 Blood Pressure 98/61 L 95/70 L 86/67 L Pulse Oximetry 97 94 95 Oxygen Delivery Oxygen Flow Rate Intake/Output Intake/Output: Intake & Output 02/13/24 02/14/24 02/15/24 02/16/24 23:59 23:59 23:59 23:59 Intake Total 866 955 5442 1418 Balance 123 007 8823 1418 Meds/Results Medications: Active Medications Generic Name Dose Route Start Last Admin Trade Name Freq PRN Reason Stop Dose Admin Acetaminophen 650 mg 02/10/24 13:22 02/15/24 20:19 Acetaminophen 325 Mg Tablet PO 650 mg Q6H PRN Administration Mild Pain (1-3) or Fever Albuterol 1 - 2 puff 02/10/24 13:26 Albuterol Sulfate (*Sp) Aerosol 1 Puff INHALATION Q4HRT PRN shortness of breath or wheezing Atorvastatin Calcium 40 mg 02/10/24 21:00 02/15/24 20:19 Atorvastatin 40 Mg Tablet PO 40 mg QHS [facility] Administration Buspirone HCl 10 mg 02/10/24 17:00 02/16/24 12:01 Buspirone Hcl 10 Mg Tablet PO 10 mg TID [facility] Administration Calcium Carbonate 500 mg 02/11/24 09:00 02/16/24 09:07 Calcium Carbonate (Oscal) 500 Mg Tablet PO 500 mg QAM [facility] Administration Ciprofloxacin/Hydrocortisone 3 drop 02/12/24 14:40 02/16/24 09:14 Ciprofloxacin Hc Otic 10 Ml LEFT EAR 3 drop Q12HR [facility] Administration Escitalopram Oxalate 20 mg 02/11/24 09:00 02/16/24 09:07 Escitalopram Oxalate 10 Mg Tablet PO 20 mg DAILY [facility] Administration Ferrous Sulfate 325 mg 02/10/24 17:00 02/16/24 09:08 Ferrous Sulfate [address] BY MOUTH 325 mg BID [facility] Administration Furosemide 40 mg 02/11/24 09:00 02/14/24 10:25 Furosemide 40 Mg Tablet PO Not Given DAILY [facility] Gabapentin 300 mg 02/10/24 13:30 02/16/24 12:01 Gabapentin 300 Mg Capsule PO 300 mg DAILY@0800,1200,2000 [facility] Administration Hydroxyzine HCl 25 mg 02/10/24 13:26 02/12/24 20:29 Hydroxyzine Hcl 25 Mg Tablet PO 25 mg Q8H PRN Administration anxiety Loratadine 10 mg 02/10/24 13:26 Loratadine 10 Mg Tablet PO DAILY PRN allergic symptoms Magnesium Oxide 400 mg 02/11/24 09:00 02/16/24 09:09 Magnesium Oxide 400 Mg Tablet PO 400 mg DAILY [facility] Administration Melatonin 10 mg 02/10/24 21:00 02/15/24 20:18 Melatonin 5 Mg Tablet PO 10 mg QHS [facility] Administration Metoprolol Succinate 50 mg 02/10/24 21:00 02/16/24 09:09 Metoprolol Succinate Ext Rel 50 Mg Tabcr PO 50 mg Q12HR [facility] Administration Nitrofurantoin Macrocrystals 100 mg 02/12/24 21:00 02/16/24 09:07 Nitrofurantoin Monohyd Macrocr 100 Mg Cap PO 100 mg Q12HR [facility] Administration Ondansetron HCl 4 mg 02/10/24 11:12 Ondansetron Inj 4 Mg/2 Ml Vial IV PUSH Q4H PRN Nausea Oxybutynin Chloride 10 mg 02/10/24 17:00 02/16/24 09:07 Oxybutynin Chloride Xl 5 Mg Tab.Er.24 PO 10 mg BID [facility] Administration Pantoprazole Sodium 40 mg 02/12/24 21:00 02/16/24 09:08 Pantoprazole 40 Mg Tablet PO 40 mg Q12HR [facility] Administration Potassium Chloride 10 meq 02/11/24 09:00 02/16/24 09:09 Potassium Chloride 10 Meq Er Tablet PO 03/12/24 08:59 10 meq DAILY [facility] Administration Sodium Chloride 1 spray 02/13/24 20:58 02/13/24 21:32 Saline 0.65% Aj Soln 44 Ml Btl NASAL 1 spray Q6HR PRN Administration Congestion Tramadol HCl 50 mg 02/10/24 13:26 02/16/24 09:26 Tramadol Hcl (*Crx) 50 Mg Tablet PO 50 mg BID PRN Administration pain 4-10 Triamcinolone Acetonide 1 applic 02/12/24 09:00 02/16/24 09:14 Triamcinolone Acet 0.1% Cream 80 Gm Tube TOPICAL 1 applic Q12HR [facility] Administration Vitamin D 2,000 units 02/11/24 09:00 02/16/24 09:07 Cholecalciferol 1,000 Units Tablet PO 2,000 units DAILY [facility] Administration Radiology Results: ITS Impressions Head CT 02/10/24 10:23 IMPRESSION: 1. Stable moderate nonspecific cerebral white matter disease, which likely represents chronic small vessel ischemic disease. Head/Cervical Spine/Facial Bones CT 02/10/24 10:25 IMPRESSION: 1. T3 compression fracture, likely acute or subacute. 2. Severe cervical spondylosis. 3. Cervical levoscoliosis. Elbow X-Ray 02/10/24 11:53 IMPRESSION: 1. Mild elbow joint osteoarthritis. Abdomen/Pelvis CT 02/11/24 20:17 IMPRESSION: Mild pulmonary edema and small bilateral pleural effusions. Gallbladder mucosal hyperemia with pericholecystic fluid, correlate with biliary labs and right upper quadrant pain. Consider right upper quadrant ultrasound for further evaluation. Mild ascites. No acute traumatic finding in the abdomen. Chest X-Ray 02/15/24 17:14 IMPRESSION: Findings suggesting chronic interstitial lung disease without focal infiltrate or effusion. If clinical suspicion persists, cross-sectional imaging (noncontrast enhanced CT examination of the chest) is suggested for further evaluation. Labs Labs: Laboratory Results - last 24 hr 02/16/24 06:28 WBC 9.7 RBC 3.05 L Hgb 9.9 L Hct 30.6 L MCV 100.3 H MCH 32.5 MCHC 32.4 RDW 17.2 H Plt Count 140 L MPV 9.8 Immature Gran % (Auto) 1.2 H Neut % (Auto) 76.2 H Lymph % (Auto) 7.5 L [place] % (Auto) 11.6 H Eos % (Auto) 3.1 Baso % (Auto) 0.4 Lymph # (Auto) 0.73 L [place] # (Auto) 1.1 H Eos # (Auto) 0.3 Baso # (Auto) 0.0 Abs Immat Gran (auto) 0.12 H Absolute Neuts (auto) 7.4 H Absolute Nucleated RBC 0.000 Nucleated RBC % 0.0 Sodium 129 L Potassium 4.6 Chloride 95 L Carbon Dioxide 30 Anion Gap 4 BUN 14 Creatinine 0.70 Estim Creat Clear Calc 52 Estimated GFR > 60 Glucose 89 Calcium 8.5 Total Bilirubin 0.6 AST 34 ALT 25 Alkaline Phosphatase 136 H Total Protein 6.0 L Albumin 3.2 L Quality VTE Prophylaxis VTE prophylaxis: mechanical ordered
[2024-02-16] MEDS: MELATONIN 5 MG TABLET 10 MG PO (20:34)
[2024-02-16] MEDS: ATORVASTATIN 40 MG TABLET PO (20:34)
[2024-02-17] VITALS (11 sets, daily range): BP systolic 88–107; BP diastolic 44–82; PULSE 63–84; RESP 16–20; TEMP 36.6–37.8; O2SAT 92–96
[2024-02-17 07:03] LABS: Basophils Percent Auto 0.3 % (0.2-1.2); Eosinophils Absolute Auto 0.3 K/mm3 (0-0.3); Eosinophils Percent Auto 1.7 % (0-4.4); Hematocrit 28.6 % (37.0-47.0); Hemoglobin 9.4 g/dL (12.0-15.0); Immature Granulocyte Absolute 0.16 K/mm3 (0.00-0.031); Immature Granulocyte Percent A 1.1 % (0-0.5); Lymphocytes Absolute Auto 0.85 K/mm3 (0.9-3.2); Lymphocytes Percent Auto 5.9 % (18.3-44.2); Mean Corpuscular HGB Conc 32.9 g/dl (32-36); Mean Corpuscular Hemoglobin 32.4 pg (26-34); Mean Corpuscular Volume 98.6 fl (80-100); Mean Platelet Volume 9.9 fl (7.4-10.4); Monocytes Absolute Auto 1.4 K/mm3 (0.1-0.6); Monocytes Percent Auto 9.8 % (2.6-8.5); Neutrophils Absolute Auto 11.6 K/mm3 (1.3-6.7); Neutrophils Percent Auto 81.2 % (45.5-73.1); Platelet Count Result 84 k/mm3 (150-375); White Blood Count 14.3 K/mm3 (4.5-10.0)
[2024-02-17 07:15] LABS: Alanine Aminotransferase 26 U/L (6-35); Albumin Level 3.1 g/dL (3.5-5.1); Alkaline Phosphatase 140 U/L (38-126); Anion Gap 3 mmol/L (4-12); Aspartate Amino Transferase 36 U/L (14-36); Bilirubin,Total 0.8 mg/dL (0.2-1.3); Blood Urea Nitrogen 16 mg/dL (7-17); Calcium 8.1 mg/dL (8.4-10.2); Carbon Dioxide 31 mmol/L (22-30); Chloride 94 mmol/L (98-107); Estimated CRCL calculation 52 ml/min; Estimated Glomerular Filt Rate > 60; Glucose 89 mg/dL (65-110); Potassium 4.5 mmol/L (3.4-5.0); Sodium 128 mmol/L (137-145)
[2024-02-17] MEDS: CIPROFLOXACIN HC OTIC 10 ML 3 DROP LEFT EAR ×2 (08:13→20:28)
[2024-02-17] MEDS: TRIAMCINOLONE ACET 0.1% CREAM 80 GM TUBE 1 APPLIC TOPICAL ×2 (08:14→20:33)
[2024-02-17] MEDS: NITROFURANTOIN MONOHYD MACROCR 100 MG CAP PO ×2 (08:16→20:27)
[2024-02-17] MEDS: POTASSIUM CHLORIDE 10 MEQ ER TABLET PO (08:16)
[2024-02-17] MEDS: MAGNESIUM OXIDE 400 MG TABLET PO (08:17)
[2024-02-17] MEDS: CHOLECALCIFEROL 1,000 UNITS TABLET 2000 UNITS PO (08:17)
[2024-02-17] MEDS: CALCIUM CARBONATE (OSCAL) 500 MG TABLET PO (08:17)
[2024-02-17] MEDS: FERROUS SULFATE 325 MG TABLET DR BY MOUTH ×2 (08:17→17:33)
[2024-02-17] MEDS: PANTOPRAZOLE 40 MG TABLET PO ×2 (08:17→20:27)
[2024-02-17] MEDS: busPIRone HCL 10 MG TABLET PO ×3 (08:17→17:33)
[2024-02-17] MEDS: oxyBUTYnin CHLORIDE XL 5 MG TAB.ER.24 10 MG PO ×2 (08:17→17:33)
[2024-02-17] MEDS: ESCITALOPRAM OXALATE 10 MG TABLET 20 MG PO (08:17)
[2024-02-17] MEDS: GABAPENTIN 300 MG CAPSULE PO ×3 (08:24→20:27)
--- NOTE | 2024-02-17 09:05 | P.PNIM_ITS ---
Progress Note: A&P Assessment and Plan (1) Heme positive stool: Code(s): R19.5 - Other fecal abnormalities Status: Acute Assessment and Plan: * GI will follow up on a outpatient basis * Patient went for EGD shown gastritis with a non bleeding duodenal ulcer * Continue Protonix 40 mg b.i.d. per GI recommendation * H/H remain stable, no signs of active bleeding (2) Anemia: Code(s): D64.9 - Anemia, unspecified Status: Acute Assessment and Plan: * Likely secondary to bleeding ulcer * Hemoglobin today is 9.1 * On 01/29/2024 she was 14.8 * Continue ferrous sulfate * GI following * See above plan of care (3) Frequent falls: Code(s): R29.6 - Repeated falls Status: Acute Assessment and Plan: * Reporting frequent falls at home * PT and OT ordered and recommending SNF * TLSO brace while out of bed * Case coordination working on SNF placement (4) Acute urinary tract infection: Code(s): N39.0 - Urinary tract infection, site not specified Status: Acute Assessment and Plan: * UA showed cloudy appearance, positive nitrate, 1+ leukocyte, 6-10 urine WBC, 4+ urine bacteria * Urine culture showing e. coli on final read * Finishing of nitrofurantoin today. * Repeat UA showing 1+ leukocyte * Repeat urine culture pending (5) Compression fracture of T3 vertebra: Code(s): S22.030A - Wedge compression fracture of third thoracic vertebra, initial encounter for closed fracture Status: Acute Assessment and Plan: * Continue to wear TLSO brace while out of bed * Continue PT and OT (6) Diastolic congestive heart failure: Code(s): I50.30 - Unspecified diastolic (congestive) heart failure Status: Acute Assessment and Plan: * Echo from 01/24/24 shown normal LV systolic function with an estimated EF of 55-60%, grade 1 diastolic dysfunction, flattening of the septum in systole consistent with right ventricle pressure overload, severe pulmonary hypertension with an estimated pulmonary arterial systolic pressure of 69 mm Hg, severe biatrial enlargement right greater than left * Lasix 40 mg on hold due to low blood pressures * Continue metoprolol ER (7) Chronic kidney disease, stage 3a: Code(s): N18.31 - Chronic kidney disease, stage 3a Status: Acute Assessment and Plan: * Creatinine 0.7, EGFR 60 * Baseline creatinine around 0.9-1.0 * Continue to trend (8) Chronic obstructive pulmonary disease with hypoxia: Code(s): J44.9 - Chronic obstructive pulmonary disease, unspecified Status: Acute Assessment and Plan: * Continue albuterol rescue inhaler as needed (9) Coronary artery disease: Onset Date: 10/2018 Qualifiers: Associated angina: without angina Coronary Disease-Associated Artery/Lesion type: [place] artery [place] vs. transplanted heart: [place] heart Qualified Code(s): I25.10 - Atherosclerotic heart disease of [place] coronary artery without angina pectoris Code(s): I25.10 - Atherosclerotic heart disease of [place] coronary artery without angina pectoris Status: Acute Assessment and Plan: * Continue atorvastatin (10) Hypertension: Qualifiers: Hypertension type: primary hypertension Qualified Code(s): I10 - Essential (primary) hypertension Code(s): I10 - Essential (primary) hypertension Status: Chronic Assessment and Plan: * Blood pressures are soft again today * Metoprolol and Lasix held today (11) Pneumonia: Qualifiers: Laterality: bilateral Lung location: lower lobe of lung Pneumonia type: due to unspecified organism Qualified Code(s): J18.9 - Pneumonia, unspecified organism Code(s): J18.9 - Pneumonia, unspecified organism Status: Inactive Assessment and Plan: * Chest x-ray showing pulmonary edema however white blood cell count increased today as well as her temperature. She also has been coughing up mucus. She is currently on 7 L of high-flow nasal cannula * Levaquin started for pneumonia coverage * Blood cultures obtained. * Mucinex started Time Spent With Patient Time with patient: Greater than 35 minutes Subjective Date/time seen: 02/17/24 09:05 Interval history: No events overnight. White blood cell count increased to 14.3 today, she also had a low-grade temperature overnight. UA obtained and only showed 1+ leukocyte . Urine and blood culture is currently pending. Chest x-ray showing pulmonary edema. She is currently on 7 L nasal cannula and reports that she has been coughing up mucus today. Review of Systems Review of Systems: All systems reviewed & are unremarkable except as noted in HPI and below Constitutional: Constitutional: Reports as per HPI and Reports no additional constitutional complaints Eyes: Eyes: Reports as per HPI and Reports no additional eye complaints ENT: Reports system reviewed and no additional complaints, except as documented and Reports as per HPI Cardiovascular: Cardiovascular: Reports as per HPI and Reports no additional cardiovascular complaints Respiratory: Respiratory: Reports as per HPI and Reports no additional respiratory complaints Gastrointestinal: Gastrointestinal: Reports as per HPI and Reports no additional gastrointestinal complaints Genitourinary: Genitourinary: Reports no additional female genitourinary complaints and Reports as per HPI Musculoskeletal: Musculoskeletal: Reports no additional musculoskeletal complaints and Reports as per HPI Integumentary/Breasts: Skin/Breast: Reports system reviewed and no additional complaints, except as docu and Reports as per HPI Neurologic: Reports system reviewed and no additional complaints, except as documented and Reports as per HPI Psychiatric: Psychiatric: Reports no additional psychiatric complaints and Reports as per HPI Exam Narrative: General: In no acute distress Cardiac: Normal S1 and S2. No murmur, gallops or friction rubs, peripheral pulses intact. Respiratory: Lungs clear to auscultation, no adventitious lung sounds, currently on 7L NC Gastrointestinal: soft, non-distended, non-tender, normoactive bowel sounds. Skin: Bruising noted to her forehead, bilateral arms, and back. She also has open wounds bilateral lower extremity with redness which is chronic. Neuro: Alert and oriented x3 Objective Data Vital Signs Vital Signs: Vital Signs - 24 hr 02/16/24 09:09 02/16/24 09:10 02/16/24 09:10 Temperature 97.5 F L 97.5 F L Pulse Rate 59 L 68 67 Respiratory Rate 20 20 Blood Pressure 95/70 L 86/67 L Pulse Oximetry 94 95 Oxygen Delivery Oxygen Flow Rate 02/16/24 12:00 02/16/24 16:00 02/16/24 20:33 Temperature 98.9 F 98.1 F Pulse Rate 59 L 64 72 Respiratory Rate 20 18 Blood Pressure 90/47 L 113/64 Pulse Oximetry 100 98 Oxygen Delivery Oxygen Flow Rate 02/16/24 20:00 02/16/24 20:00 02/16/24 20:00 Temperature 98.8 F 98.8 F 98.8 F Pulse Rate 67 64 71 Respiratory Rate 22 H 22 H 22 H Blood Pressure 100/67 98/63 L 103/62 Pulse Oximetry 93 91 91 Oxygen Delivery Oxygen Flow Rate 02/16/24 20:00 02/16/24 23:42 02/17/24 04:00 Temperature 98.6 F 97.9 F Pulse Rate 64 84 Respiratory Rate 22 H 20 Blood Pressure 104/54 L 107/58 L Pulse Oximetry 91 93 92 Oxygen Delivery High Flow Nasal Cannula Oxygen Flow Rate 7 02/17/24 08:00 02/17/24 08:47 Temperature 100.1 F H Pulse Rate 65 63 Respiratory Rate 18 Blood Pressure Pulse Oximetry 96 Oxygen Delivery Oxygen Flow Rate Intake/Output Intake/Output: Intake & Output 02/14/24 02/15/24 02/16/24 02/17/24 23:59 23:59 23:59 23:59 Intake Total 240 1400 2295 350 Balance 240 1400 2295 350 Meds/Results Medications: Active Medications Generic Name Dose Route Start Last Admin Trade Name Freq PRN Reason Stop Dose Admin Acetaminophen 650 mg 02/10/24 13:22 02/15/24 20:19 Acetaminophen 325 Mg Tablet PO 650 mg Q6H PRN Administration Mild Pain (1-3) or Fever Albuterol 1 - 2 puff 02/10/24 13:26 Albuterol Sulfate (*Sp) Aerosol 1 Puff INHALATION Q4HRT PRN shortness of breath or wheezing Atorvastatin Calcium 40 mg 02/10/24 21:00 02/16/24 20:34 Atorvastatin 40 Mg Tablet PO 40 mg QHS KATE Administration Buspirone HCl 10 mg 02/10/24 17:00 02/17/24 08:17 Buspirone Hcl 10 Mg Tablet PO 10 mg TID KATE Administration Calcium Carbonate 500 mg 02/11/24 09:00 02/17/24 08:17 Calcium Carbonate (Oscal) 500 Mg Tablet PO 500 mg QAM KATE Administration Ciprofloxacin/Hydrocortisone 3 drop 02/12/24 14:40 02/17/24 08:13 Ciprofloxacin Hc Otic 10 Ml LEFT EAR 3 drop Q12HR KATE Administration Escitalopram Oxalate 20 mg 02/11/24 09:00 02/17/24 08:17 Escitalopram Oxalate 10 Mg Tablet PO 20 mg DAILY KATE Administration Ferrous Sulfate 325 mg 02/10/24 17:00 02/17/24 08:17 Ferrous Sulfate [address] BY MOUTH 325 mg BID KATE Administration Furosemide 40 mg 02/11/24 09:00 02/14/24 10:25 Furosemide 40 Mg Tablet PO Not Given DAILY KATE Gabapentin 300 mg 02/10/24 13:30 02/17/24 08:24 Gabapentin 300 Mg Capsule PO 300 mg DAILY@0800,1200,2000 [facility] Administration Hydroxyzine HCl 25 mg 02/10/24 13:26 02/12/24 20:29 Hydroxyzine Hcl 25 Mg Tablet PO 25 mg Q8H PRN Administration anxiety Loratadine 10 mg 02/10/24 13:26 Loratadine 10 Mg Tablet PO DAILY PRN allergic symptoms Magnesium Oxide 400 mg 02/11/24 09:00 02/17/24 08:17 Magnesium Oxide 400 Mg Tablet PO 400 mg DAILY KATE Administration Melatonin 10 mg 02/10/24 21:00 02/16/24 20:34 Melatonin 5 Mg Tablet PO 10 mg QHS [facility] Administration Metoprolol Succinate 50 mg 02/10/24 21:00 02/17/24 08:47 Metoprolol Succinate Ext Rel 50 Mg Tabcr PO Not Given Q12HR [facility] Nitrofurantoin Macrocrystals 100 mg 02/12/24 21:00 02/17/24 08:16 Nitrofurantoin Monohyd Macrocr 100 Mg Cap PO 100 mg Q12HR [facility] Administration Ondansetron HCl 4 mg 02/10/24 11:12 Ondansetron Inj 4 Mg/2 Ml Vial IV PUSH Q4H PRN Nausea Oxybutynin Chloride 10 mg 02/10/24 17:00 02/17/24 08:17 Oxybutynin Chloride Xl 5 Mg Tab.Er.24 PO 10 mg BID [facility] Administration Pantoprazole Sodium 40 mg 02/12/24 21:00 02/17/24 08:17 Pantoprazole 40 Mg Tablet PO 40 mg Q12HR [facility] Administration Potassium Chloride 10 meq 02/11/24 09:00 02/17/24 08:16 Potassium Chloride 10 Meq Er Tablet PO 03/12/24 08:59 10 meq DAILY [facility] Administration Sodium Chloride 1 spray 02/13/24 20:58 02/13/24 21:32 Saline 0.65% Aj Soln 44 Ml Btl NASAL 1 spray Q6HR PRN Administration Congestion Tramadol HCl 50 mg 02/10/24 13:26 02/16/24 20:34 Tramadol Hcl (*Crx) 50 Mg Tablet PO 50 mg BID PRN Administration pain 4-10 Triamcinolone Acetonide 1 applic 02/12/24 09:00 02/17/24 08:14 Triamcinolone Acet 0.1% Cream 80 Gm Tube TOPICAL 1 applic Q12HR KATE Administration Vitamin D 2,000 units 02/11/24 09:00 02/17/24 08:17 Cholecalciferol 1,000 Units Tablet PO 2,000 units DAILY KATE Administration Radiology Results: ITS Impressions Head CT 02/10/24 10:23 IMPRESSION: 1. Stable moderate nonspecific cerebral white matter disease, which likely represents chronic small vessel ischemic disease. Head/Cervical Spine/Facial Bones CT 02/10/24 10:25 IMPRESSION: 1. T3 compression fracture, likely acute or subacute. 2. Severe cervical spondylosis. 3. Cervical levoscoliosis. Elbow X-Ray 02/10/24 11:53 IMPRESSION: 1. Mild elbow joint osteoarthritis. Abdomen/Pelvis CT 02/11/24 20:17 IMPRESSION: Mild pulmonary edema and small bilateral pleural effusions. Gallbladder mucosal hyperemia with pericholecystic fluid, correlate with biliary labs and right upper quadrant pain. Consider right upper quadrant ultrasound for further evaluation. Mild ascites. No acute traumatic finding in the abdomen. Chest X-Ray 02/15/24 17:14 IMPRESSION: Findings suggesting chronic interstitial lung disease without focal infiltrate or effusion. If clinical suspicion persists, cross-sectional imaging (noncontrast enhanced CT examination of the chest) is suggested for further evaluation. Labs Labs: Laboratory Results - last 24 hr 02/17/24 06:55 WBC 14.3 H RBC 2.90 L Hgb 9.4 L Hct 28.6 L MCV 98.6 MCH 32.4 MCHC 32.9 RDW 17.0 H Plt Count 84 L MPV 9.9 Immature Gran % (Auto) 1.1 H Neut % (Auto) 81.2 H Lymph % (Auto) 5.9 L [place] % (Auto) 9.8 H Eos % (Auto) 1.7 Baso % (Auto) 0.3 Lymph # (Auto) 0.85 L [place] # (Auto) 1.4 H Eos # (Auto) 0.3 Baso # (Auto) 0.0 Abs Immat Gran (auto) 0.16 H Absolute Neuts (auto) 11.6 H Absolute Nucleated RBC 0.000 Nucleated RBC % 0.0 % Immature Plt Fraction 3.0 Sodium 128 L Potassium 4.5 Chloride 94 L Carbon Dioxide 31 H Anion Gap 3 L BUN 16 Creatinine 0.70 Estim Creat Clear Calc 52 Estimated GFR > 60 Glucose 89 Calcium 8.1 L Total Bilirubin 0.8 AST 36 ALT 26 Alkaline Phosphatase 140 H Total Protein 6.0 L Albumin 3.1 L Quality VTE Prophylaxis VTE prophylaxis: mechanical ordered
[2024-02-17 09:57] LABS: Add Urine Microscopic? YES; Appearance Urine Clear (Clear); Bacteria Urine None Seen /hpf; Bilirubin Urine Negative (Negative); Blood Urine Negative (Negative); Color Urine Dark Yellow (Yellow); Glucose Urine UA Negative (Negative); Ketones Urine Negative (Negative); Leukocyte Esterase Ur 1+ LEU/UL (Negative); Need Manual Microscopic Reviewed; Nitrate Urine Negative (Negative); Non Pathogenic Casts 0-2; Protein Urine Trace mg/dL (Negative); RBC Urine 0-2 /hpf (0-2); Specific Grav Ur 1.016 (1.001-1.035); Squamous Epithelial Cell Urine Few /hpf (Few); WBC Urine 0-5 /hpf (0-3)
[2024-02-17] MEDS: polyethylene glycoL 3350 17 GM POWD.PACK PO (12:36)
[2024-02-17] MEDS: traMADol HCL (*CRX) 50 MG TABLET PO ×2 (12:38→20:27)
[2024-02-17] MEDS: levoFLOXacin 750 MG TABLET PO (15:43)
[2024-02-17] MEDS: guaiFENesin 12 HR 600 MG TABCR 1200 MG PO (16:02)
[2024-02-17] MEDS: SODIUM CHLORIDE NASAL GEL 14.1 GM 1 APPLIC NASAL (17:33)
[2024-02-17] MEDS: IPRATROPIUM 0.5 MG/ALBUTEROL SULFATE 2.5 MG AMPUL.NEB 3 ML INHALATION (20:12)
[2024-02-17] MEDS: MELATONIN 5 MG TABLET 10 MG PO (20:26)
[2024-02-17] MEDS: ATORVASTATIN 40 MG TABLET PO (20:27)
[2024-02-18] VITALS (18 sets, daily range): BP systolic 89–118; BP diastolic 42–69; PULSE 58–88; RESP 14–20; TEMP 36.4–37.6; O2SAT 90–99
[2024-02-18] MEDS: IPRATROPIUM 0.5 MG/ALBUTEROL SULFATE 2.5 MG AMPUL.NEB 3 ML INHALATION ×4 (01:59→20:56)
[2024-02-18 06:57] LABS: Alanine Aminotransferase 29 U/L (6-35); Albumin Level 3.3 g/dL (3.5-5.1); Alkaline Phosphatase 119 U/L (38-126); Anion Gap 7 mmol/L (4-12); Aspartate Amino Transferase 44 U/L (14-36); Bilirubin,Total 0.9 mg/dL (0.2-1.3); Blood Urea Nitrogen 21 mg/dL (7-17); Calcium 8.5 mg/dL (8.4-10.2); Carbon Dioxide 29 mmol/L (22-30); Chloride 89 mmol/L (98-107); Estimated CRCL calculation 46 ml/min; Estimated Glomerular Filt Rate > 60; Glucose 94 mg/dL (65-110); Potassium 5.1 mmol/L (3.4-5.0); Sodium 125 mmol/L (137-145)
[2024-02-18 07:00] LABS: Basophils Absolute Auto 0.1 K/mm3 (0.0-0.1); Basophils Percent Auto 0.3 % (0.2-1.2); Eosinophils Absolute Auto 0.1 K/mm3 (0-0.3); Eosinophils Percent Auto 0.5 % (0-4.4); Hematocrit 28.8 % (37.0-47.0); Hemoglobin 9.4 g/dL (12.0-15.0); Immature Granulocyte Absolute 0.25 K/mm3 (0.00-0.031); Immature Granulocyte Percent A 1.2 % (0-0.5); Immature Platelet Fraction Pct 5.3 % (0.9-11.2); Lymphocytes Absolute Auto 0.85 K/mm3 (0.9-3.2); Lymphocytes Percent Auto 4.1 % (18.3-44.2); Mean Corpuscular HGB Conc 32.6 g/dl (32-36); Mean Corpuscular Hemoglobin 32.6 pg (26-34); Mean Platelet Volume 10.9 fl (7.4-10.4); Monocytes Absolute Auto 1.8 K/mm3 (0.1-0.6); Monocytes Percent Auto 8.8 % (2.6-8.5); Neutrophils Absolute Auto 17.5 K/mm3 (1.3-6.7); Neutrophils Percent Auto 85.1 % (45.5-73.1); Platelet Count Result 74 k/mm3 (150-375); Red Blood Count 2.88 M/mm3 (4.2-5.4); Red Cell Distribution Width 16.8 % (11.5-14.5); White Blood Count 20.6 K/mm3 (4.5-10.0)
[2024-02-18] MEDS: GABAPENTIN 300 MG CAPSULE PO ×3 (09:00→20:39)
[2024-02-18] MEDS: CHOLECALCIFEROL 1,000 UNITS TABLET 2000 UNITS PO (09:03)
[2024-02-18] MEDS: CALCIUM CARBONATE (OSCAL) 500 MG TABLET PO (09:03)
[2024-02-18] MEDS: guaiFENesin 12 HR 600 MG TABCR 1200 MG PO ×2 (09:03→20:40)
[2024-02-18] MEDS: ESCITALOPRAM OXALATE 10 MG TABLET 20 MG PO (09:03)
[2024-02-18] MEDS: FERROUS SULFATE 325 MG TABLET DR BY MOUTH ×2 (09:03→17:27)
[2024-02-18] MEDS: polyethylene glycoL 3350 17 GM POWD.PACK PO (09:03)
[2024-02-18] MEDS: busPIRone HCL 10 MG TABLET PO ×3 (09:03→17:27)
[2024-02-18] MEDS: SODIUM CHLORIDE 500 MG TABLET PO (09:04)
[2024-02-18] MEDS: oxyBUTYnin CHLORIDE XL 5 MG TAB.ER.24 10 MG PO ×2 (09:04→17:27)
[2024-02-18] MEDS: levoFLOXacin 750 MG TABLET PO (09:04)
[2024-02-18] MEDS: MAGNESIUM OXIDE 400 MG TABLET PO (09:04)
[2024-02-18] MEDS: METOPROLOL SUCCINATE EXT REL 50 MG TABCR PO ×2 (09:04→20:40)
[2024-02-18] MEDS: PANTOPRAZOLE 40 MG TABLET PO ×2 (09:05→20:40)
[2024-02-18] MEDS: LORATADINE 10 MG TABLET PO (09:14)
[2024-02-18] MEDS: hydrOXYzine HCL 25 MG TABLET PO ×2 (09:14→17:59)
[2024-02-18] MEDS: traMADol HCL (*CRX) 50 MG TABLET PO ×2 (09:14→17:26)
[2024-02-18 10:12] LABS: Influenza A QL RT-PCR Negative (Negative); Influenza B QL RT-PCR Negative (Negative); RSV RNA, RT-PCR Negative (Negative); SARS-CoV-2 RNA PCR Negative (Negative)
[2024-02-18] MEDS: TRIAMCINOLONE ACET 0.1% CREAM 80 GM TUBE 1 APPLIC TOPICAL ×2 (12:10→20:40)
[2024-02-18] MEDS: CIPROFLOXACIN HC OTIC 10 ML 3 DROP LEFT EAR ×2 (12:10→20:40)
--- NOTE | 2024-02-18 12:41 | P.PNIM_ITS ---
Progress Note: A&P Assessment and Plan (1) Heme positive stool: Code(s): R19.5 - Other fecal abnormalities Status: Acute Assessment and Plan: * GI will follow up on a outpatient basis * Patient went for EGD shown gastritis with a non bleeding duodenal ulcer * Continue Protonix 40 mg b.i.d. per GI recommendation * H/H remain stable, no signs of active bleeding (2) Anemia: Code(s): D64.9 - Anemia, unspecified Status: Acute Assessment and Plan: * Likely secondary to bleeding ulcer * Hemoglobin today is 9.4 * On 01/29/2024 she was 14.8 * Continue ferrous sulfate * GI following * See above plan of care (3) Frequent falls: Code(s): R29.6 - Repeated falls Status: Acute Assessment and Plan: * Reporting frequent falls at home * PT and OT ordered and recommending SNF * TLSO brace while out of bed * Case coordination working on SNF placement (4) Acute urinary tract infection: Code(s): N39.0 - Urinary tract infection, site not specified Status: Acute Assessment and Plan: * UA showed cloudy appearance, positive nitrate, 1+ leukocyte, 6-10 urine WBC, 4+ urine bacteria * Urine culture showing e. coli on final read * Finishing of nitrofurantoin today. * Repeat UA showing 1+ leukocyte * Repeat urine culture pending (5) Compression fracture of T3 vertebra: Code(s): S22.030A - Wedge compression fracture of third thoracic vertebra, initial encounter for closed fracture Status: Acute Assessment and Plan: * Continue to wear TLSO brace while out of bed * Continue PT and OT (6) Diastolic congestive heart failure: Code(s): I50.30 - Unspecified diastolic (congestive) heart failure Status: Acute Assessment and Plan: * Echo from 01/24/24 shown normal LV systolic function with an estimated EF of 55-60%, grade 1 diastolic dysfunction, flattening of the septum in systole consistent with right ventricle pressure overload, severe pulmonary hypertension with an estimated pulmonary arterial systolic pressure of 69 mm Hg, severe biatrial enlargement right greater than left * Lasix 40 mg on hold due to low blood pressures * Continue metoprolol ER (7) Chronic kidney disease, stage 3a: Code(s): N18.31 - Chronic kidney disease, stage 3a Status: Acute Assessment and Plan: * Creatinine 0.7, EGFR 60 * Baseline creatinine around 0.9-1.0 * Continue to trend (8) Chronic obstructive pulmonary disease with hypoxia: Code(s): J44.9 - Chronic obstructive pulmonary disease, unspecified Status: Acute Assessment and Plan: * Continue albuterol rescue inhaler as needed (9) Coronary artery disease: Onset Date: 10/2018 Qualifiers: Associated angina: without angina Coronary Disease-Associated Artery/Lesion type: [place] artery [place] vs. transplanted heart: [place] heart Qualified Code(s): I25.10 - Atherosclerotic heart disease of [place]vas[place] coronary artery without angina pectoris Code(s): I25.10 - Atherosclerotic heart disease of [place] coronary artery without angina pectoris Status: Acute Assessment and Plan: * Continue atorvastatin (10) Hypertension: Qualifiers: Hypertension type: primary hypertension Qualified Code(s): I10 - Essential (primary) hypertension Code(s): I10 - Essential (primary) hypertension Status: Chronic Assessment and Plan: * Blood pressures are soft again today * Metoprolol and Lasix held today (11) Pneumonia: Qualifiers: Laterality: bilateral Lung location: lower lobe of lung Pneumonia type: due to unspecified organism Qualified Code(s): J18.9 - Pneumonia, unspecified organism Code(s): J18.9 - Pneumonia, unspecified organism Status: Inactive Assessment and Plan: * Chest x-ray showing pulmonary edema however white blood cell count increased today as well as her temperature. She also has been coughing up mucus. She is currently on 7 L of high-flow nasal cannula * Continue Levaquin * Blood cultures obtained. * Mucinex started * Will check MRSA * Will get a CTA of the chest abdomen and pelvis considering the cell count increased to 20.6 Time Spent With Patient Time with patient: Greater than 35 minutes Subjective Date/time seen: 02/18/24 12:41 Interval history: No events overnight. White blood cell count continues to climb to 20.6, low grade temp overnight again. UA obtained and only showed 1+ leukocyte. Urine and blood culture is currently no growth to date Chest x-ray showing pulmonary edema. She is currently on 7 L nasal cannula and continues to cough up mucous. Appears more short of breath today when assessing. Review of Systems Review of Systems: 12 systems were reviewed and are negativ e except for as per HPI. All systems reviewed & are unremarkable except as noted in HPI and below Constitutional: Constitutional: Reports as per HPI and Reports no additional constitutional complaints Eyes: Eyes: Reports as per HPI and Reports no additional eye complaints ENT: Reports system reviewed and no additional complaints, except as documented and Reports as per HPI Cardiovascular: Cardiovascular: Reports as per HPI and Reports no additional cardiovascular complaints Respiratory: Respiratory: Reports as per HPI and Reports no additional respiratory complaints Gastrointestinal: Gastrointestinal: Reports as per HPI and Reports no additional gastrointestinal complaints Genitourinary: Genitourinary: Reports no additional female genitourinary complaints and Reports as per HPI Musculoskeletal: Musculoskeletal: Reports no additional musculoskeletal complaints and Reports as per HPI Integumentary/Breasts: Skin/Breast: Reports system reviewed and no additional complaints, except as docu and Reports as per HPI Neurologic: Reports system reviewed and no additional complaints, except as documented and Reports as per HPI Psychiatric: Psychiatric: Reports no additional psychiatric complaints and Reports as per HPI Exam Narrative: General: In no acute distress Cardiac: Normal S1 and S2. No murmur, gallops or friction rubs, peripheral pulses intact. Respiratory: Lungs clear to auscultation, no adventitious lung sounds, currently on 7L NC Gastrointestinal: soft, non-distended, non-tender, normoactive bowel sounds. Skin: Bruising noted to her forehead, bilateral arms, and back. She also has open wounds bilateral lower extremity with redness which is chronic. Neuro: Alert and oriented x3 Objective Data Vital Signs Vital Signs: Vital Signs - 24 hr 02/17/24 16:00 02/17/24 20:13 02/17/24 20:19 Temperature 98.1 F Pulse Rate 66 72 Respiratory Rate 18 18 Blood Pressure Pulse Oximetry 94 93 Oxygen Delivery High Flow Nasal Cannula Oxygen Flow Rate 7 02/17/24 20:25 02/17/24 20:34 02/17/24 20:00 Temperature 98.5 F Pulse Rate 74 82 82 Respiratory Rate 18 16 Blood Pressure 105/82 Pulse Oximetry 95 Oxygen Delivery Oxygen Flow Rate 02/17/24 20:00 02/18/24 00:00 02/18/24 02:00 Temperature 98.3 F Pulse Rate 70 77 Respiratory Rate 16 18 Blood Pressure 111/69 Pulse Oximetry 93 90 Oxygen Delivery High Flow Nasal Cannula Oxygen Flow Rate 7 02/18/24 02:12 02/18/24 04:00 02/18/24 07:46 Temperature 99.6 F Pulse Rate 75 78 Respiratory Rate 18 18 Blood Pressure 118/65 Pulse Oximetry 90 90 Oxygen Delivery High Flow Nasal Cannula Oxygen Flow Rate 7 02/18/24 07:46 02/18/24 07:58 02/18/24 08:00 Temperature 99.0 F Pulse Rate 80 82 80 Respiratory Rate 20 20 18 Blood Pressure 114/42 L Pulse Oximetry 91 Oxygen Delivery Oxygen Flow Rate Intake/Output Intake/Output: Intake & Output 02/15/24 02/16/24 02/17/24 02/18/24 23:59 23:59 23:59 23:59 Intake Total 1400 2295 639 75 Balance 1400 2295 639 75 Meds/Results Medications: Active Medications Generic Name Dose Route Start Last Admin Trade Name Freq PRN Reason Stop Dose Admin Acetaminophen 650 mg 02/10/24 13:22 02/15/24 20:19 Acetaminophen 325 Mg Tablet PO 650 mg Q6H PRN Administration Mild Pain (1-3) or Fever Albuterol 1 - 2 puff 02/10/24 13:26 Albuterol Sulfate (*Sp) Aerosol 1 Puff INHALATION Q4HRT PRN shortness of breath or wheezing Albuterol/Ipratropium 3 ml 02/17/24 20:00 02/18/24 07:43 Ipratropium 0.5 Mg/Albuterol Sulfate 2.5 Mg Ampul.Neb 3 Ml INHALATION 3 ml Q6HRT KATE Administration Atorvastatin Calcium 40 mg 02/10/24 21:00 02/17/24 20:27 Atorvastatin 40 Mg Tablet PO 40 mg QHS KATE Administration Buspirone HCl 10 mg 02/10/24 17:00 02/18/24 09:03 Buspirone Hcl 10 Mg Tablet PO 10 mg TID KATE Administration Calcium Carbonate 500 mg 02/11/24 09:00 02/18/24 09:03 Calcium Carbonate (Oscal) 500 Mg Tablet PO 500 mg QAM KATE Administration Ciprofloxacin/Hydrocortisone 3 drop 02/12/24 14:40 02/18/24 12:10 Ciprofloxacin Hc Otic 10 Ml LEFT EAR 3 drop Q12HR KATE Administration Escitalopram Oxalate 20 mg 02/11/24 09:00 02/18/24 09:03 Escitalopram Oxalate 10 Mg Tablet PO 20 mg DAILY KATE Administration Ferrous Sulfate 325 mg 02/10/24 17:00 02/18/24 09:03 Ferrous Sulfate [address] BY MOUTH 325 mg BID KATE Administration Furosemide 40 mg 02/11/24 09:00 02/14/24 10:25 Furosemide 40 Mg Tablet PO Not Given DAILY KATE Gabapentin 300 mg 02/10/24 13:30 02/18/24 12:10 Gabapentin 300 Mg Capsule PO 300 mg DAILY@0800,1200,2000 KATE Administration Guaifenesin 1,200 mg 02/17/24 21:00 02/18/24 09:03 Guaifenesin 12 Hr 600 Mg Tabcr PO 1,200 mg Q12HR KATE Administration Hydroxyzine HCl 25 mg 02/10/24 13:26 02/18/24 09:14 Hydroxyzine Hcl 25 Mg Tablet PO 25 mg Q8H PRN Administration anxiety Levofloxacin 750 mg 02/17/24 15:30 02/18/24 09:04 Levofloxacin 750 Mg Tablet PO 02/21/24 09:00 750 mg DAILY KATE Administration Loratadine 10 mg 02/10/24 13:26 02/18/24 09:14 Loratadine 10 Mg Tablet PO 10 mg DAILY PRN Administration allergic symptoms Magnesium Oxide 400 mg 02/11/24 09:00 02/18/24 09:04 Magnesium Oxide 400 Mg Tablet PO 400 mg DAILY KATE Administration Melatonin 10 mg 02/10/24 21:00 02/17/24 20:26 Melatonin 5 Mg Tablet PO 10 mg QHS KATE Administration Metoprolol Succinate 50 mg 02/10/24 21:00 02/18/24 09:04 Metoprolol Succinate Ext Rel 50 Mg Tabcr PO 50 mg Q12HR KATE Administration Ondansetron HCl 4 mg 02/10/24 11:12 Ondansetron Inj 4 Mg/2 Ml Vial IV PUSH Q4H PRN Nausea Oxybutynin Chloride 10 mg 02/10/24 17:00 02/18/24 09:04 Oxybutynin Chloride Xl 5 Mg Tab.Er.24 PO 10 mg BID KATE Administration Pantoprazole Sodium 40 mg 02/12/24 21:00 02/18/24 09:05 Pantoprazole 40 Mg Tablet PO 40 mg Q12HR KATE Administration Polyethylene Glycol 17 gm 02/17/24 12:25 02/18/24 09:03 Polyethylene Glycol 3350 17 Gm Powd.Pack PO 17 gm QAM KATE Administration Potassium Chloride 10 meq 02/11/24 09:00 02/18/24 12:12 Potassium Chloride 10 Meq Er Tablet PO 03/12/24 08:59 Not Given DAILY KATE Sodium Chloride 1 spray 02/13/24 20:58 02/13/24 21:32 Saline 0.65% Aj Soln 44 Ml Btl NASAL 1 spray Q6HR PRN Administration Congestion Sodium Chloride 1 applic 02/17/24 15:54 02/17/24 17:33 Sodium Chloride Nasal Gel 14.1 Gm NASAL 1 applic PRN PRN Administration Dry Nasal Passages Sodium Chloride 500 mg 02/18/24 09:00 02/18/24 09:04 Sodium Chloride 500 Mg Tablet PO 500 mg QAM KATE Administration Tramadol HCl 50 mg 02/10/24 13:26 02/18/24 09:14 Tramadol Hcl (*Crx) 50 Mg Tablet PO 50 mg BID PRN Administration pain 4-10 Triamcinolone Acetonide 1 applic 02/12/24 09:00 02/18/24 12:10 Triamcinolone Acet 0.1% Cream 80 Gm Tube TOPICAL 1 applic Q12HR KATE Administration Vitamin D 2,000 units 02/11/24 09:00 02/18/24 09:03 Cholecalciferol 1,000 Units Tablet PO 2,000 units DAILY KATE Administration Radiology Results: ITS Impressions Head CT 02/10/24 10:23 IMPRESSION: 1. Stable moderate nonspecific cerebral white matter disease, which likely represents chronic small vessel ischemic disease. Head/Cervical Spine/Facial Bones CT 02/10/24 10:25 IMPRESSION: 1. T3 compression fracture, likely acute or subacute. 2. Severe cervical spondylosis. 3. Cervical levoscoliosis. Elbow X-Ray 02/10/24 11:53 IMPRESSION: 1. Mild elbow joint osteoarthritis. Abdomen/Pelvis CT 02/11/24 20:17 IMPRESSION: Mild pulmonary edema and small bilateral pleural effusions. Gallbladder mucosal hyperemia with pericholecystic fluid, correlate with biliary labs and right upper quadrant pain. Consider right upper quadrant ultrasound for further evaluation. Mild ascites. No acute traumatic finding in the abdomen. Chest X-Ray 02/17/24 09:40 IMPRESSION: 1. Diffuse lung disease, likely mild pulmonary edema. 2. Small right pleural effusion. 3. Cardiomegaly. Labs Labs: Laboratory Results - last 24 hr 11/16/24 11/16/24 06:24 09:16 WBC 20.6 H RBC 2.88 L Hgb 9.4 L Hct 28.8 L MCV 100.0 MCH 32.6 MCHC 32.6 RDW 16.8 H Plt Count 74 L MPV 10.9 H Immature Gran % (Auto) 1.2 H Neut % (Auto) 85.1 H Lymph % (Auto) 4.1 L [place] % (Auto) 8.8 H Eos % (Auto) 0.5 Baso % (Auto) 0.3 Lymph # (Auto) 0.85 L [place] # (Auto) 1.8 H Eos # (Auto) 0.1 Baso # (Auto) 0.1 Abs Immat Gran (auto) 0.25 H Absolute Neuts (auto) 17.5 H Absolute Nucleated RBC 0.000 Nucleated RBC % 0.0 % Immature Plt Fraction 5.3 Sodium 125 L Potassium 5.1 H Chloride 89 L Carbon Dioxide 29 Anion Gap 7 BUN 21 H Creatinine 0.80 Estim Creat Clear Calc 46 Estimated GFR > 60 Glucose 94 Calcium 8.5 Total Bilirubin 0.9 AST 44 H ALT 29 Alkaline Phosphatase 119 Total Protein 7.0 Albumin 3.3 L Influenza A (RT-PCR) Negative Influenza B (RT-PCR) Negative RSV (RT-PCR) Negative SARS-CoV-2 RNA (RT-PCR) Negative Quality VTE Prophylaxis VTE prophylaxis: mechanical ordered
[2024-02-18 13:24] LABS: Procalcitonin 0.2 ng/mL
[2024-02-18] MEDS: DICLOFENAC SODIUM 1% 100 GM GEL (*BKC) 1 APPLIC TOPICAL ×3 (14:08→20:40)
[2024-02-18 16:12] LABS: MRSA (PCR) DETECTED (NOT DETECTE)
[2024-02-18] MEDS: VANCOMYCIN 1,500 MG/NS 500 ML 1,500 MG/500 ML BAG 250 MG IVPB (17:58)
[2024-02-18] MEDS: FUROSEMIDE INJ 40 MG/4 ML VIAL 20 MG IV PUSH (17:59)
[2024-02-18 20:39] LABS: Glucose Point of Care 102 mg/dl (65-105)
[2024-02-18] MEDS: MELATONIN 5 MG TABLET 10 MG PO (20:39)
[2024-02-18] MEDS: ATORVASTATIN 40 MG TABLET PO (20:40)
[2024-02-19] VITALS (22 sets, daily range): BP systolic 98–115; BP diastolic 56–73; PULSE 60–98; RESP 16–20; TEMP 36.6–37.1; O2SAT 91–100
[2024-02-19] MEDS: IPRATROPIUM 0.5 MG/ALBUTEROL SULFATE 2.5 MG AMPUL.NEB 3 ML INHALATION ×4 (02:17→20:43)
[2024-02-19 06:38] LABS: Basophils Percent Auto 0.2 % (0.2-1.2); Eosinophils Absolute Auto 0.4 K/mm3 (0-0.3); Eosinophils Percent Auto 2.5 % (0-4.4); Hematocrit 25.7 % (37.0-47.0); Hemoglobin 8.5 g/dL (12.0-15.0); Immature Granulocyte Absolute 0.15 K/mm3 (0.00-0.031); Immature Platelet Fraction Pct 5.1 % (0.9-11.2); Lymphocytes Absolute Auto 1.47 K/mm3 (0.9-3.2); Mean Corpuscular HGB Conc 33.1 g/dl (32-36); Mean Corpuscular Volume 96.6 fl (80-100); Mean Platelet Volume 10.4 fl (7.4-10.4); Monocytes Absolute Auto 1.6 K/mm3 (0.1-0.6); Monocytes Percent Auto 10.9 % (2.6-8.5); Neutrophils Absolute Auto 11.1 K/mm3 (1.3-6.7); Neutrophils Percent Auto 75.4 % (45.5-73.1); Platelet Count Result 74 k/mm3 (150-375); Red Blood Count 2.66 M/mm3 (4.2-5.4); Red Cell Distribution Width 16.6 % (11.5-14.5); White Blood Count 14.7 K/mm3 (4.5-10.0)
[2024-02-19 06:53] LABS: Alanine Aminotransferase 32 U/L (6-35); Alkaline Phosphatase 124 U/L (38-126); Anion Gap 6 mmol/L (4-12); Aspartate Amino Transferase 44 U/L (14-36); Bilirubin,Total 0.7 mg/dL (0.2-1.3); Blood Urea Nitrogen 25 mg/dL (7-17); Calcium 8.3 mg/dL (8.4-10.2); Carbon Dioxide 28 mmol/L (22-30); Chloride 90 mmol/L (98-107); Estimated CRCL calculation 38 ml/min; Estimated Glomerular Filt Rate 54; Glucose 79 mg/dL (65-110); Sodium 124 mmol/L (137-145)
[2024-02-19] MEDS: ESCITALOPRAM OXALATE 10 MG TABLET 20 MG PO (09:47)
[2024-02-19] MEDS: oxyBUTYnin CHLORIDE XL 5 MG TAB.ER.24 10 MG PO ×2 (09:47→17:21)
[2024-02-19] MEDS: FERROUS SULFATE 325 MG TABLET DR BY MOUTH ×2 (09:48→17:22)
[2024-02-19] MEDS: PANTOPRAZOLE 40 MG TABLET PO ×2 (09:48→20:58)
[2024-02-19] MEDS: guaiFENesin 12 HR 600 MG TABCR 1200 MG PO ×2 (09:48→20:58)
[2024-02-19] MEDS: CALCIUM CARBONATE (OSCAL) 500 MG TABLET PO (09:48)
[2024-02-19] MEDS: SODIUM CHLORIDE 500 MG TABLET PO (09:48)
[2024-02-19] MEDS: FUROSEMIDE INJ 40 MG/4 ML VIAL 20 MG IV PUSH (09:48)
[2024-02-19] MEDS: MAGNESIUM OXIDE 400 MG TABLET PO (09:48)
[2024-02-19] MEDS: levoFLOXacin 750 MG TABLET PO (09:48)
[2024-02-19] MEDS: METOPROLOL SUCCINATE EXT REL 50 MG TABCR PO ×2 (09:48→20:57)
[2024-02-19] MEDS: busPIRone HCL 10 MG TABLET PO ×3 (09:48→17:22)
[2024-02-19] MEDS: CHOLECALCIFEROL 1,000 UNITS TABLET 2000 UNITS PO (09:48)
[2024-02-19] MEDS: polyethylene glycoL 3350 17 GM POWD.PACK PO (09:49)
[2024-02-19] MEDS: CIPROFLOXACIN HC OTIC 10 ML 3 DROP LEFT EAR ×2 (09:49→21:00)
[2024-02-19] MEDS: GABAPENTIN 300 MG CAPSULE PO ×3 (09:51→20:58)
[2024-02-19] MEDS: traMADol HCL (*CRX) 50 MG TABLET PO ×2 (13:48→21:04)
[2024-02-19] MEDS: DICLOFENAC SODIUM 1% 100 GM GEL (*BKC) 1 APPLIC TOPICAL ×3 (13:49→21:00)
--- NOTE | 2024-02-19 14:09 | P.PNIM_ITS ---
Progress Note: A&P Assessment and Plan (1) Heme positive stool: Code(s): R19.5 - Other fecal abnormalities Status: Acute Assessment and Plan: * GI will follow up on a outpatient basis * Patient went for EGD shown gastritis with a non bleeding duodenal ulcer * Continue Protonix 40 mg b.i.d. per GI recommendation * H/H remain stable, no signs of active bleeding (2) Anemia: Code(s): D64.9 - Anemia, unspecified Status: Acute Assessment and Plan: * Likely secondary to bleeding ulcer * Hemoglobin today is 8.5 * On 01/29/2024 she was 14.8 * Continue ferrous sulfate * GI following * See above plan of care (3) Frequent falls: Code(s): R29.6 - Repeated falls Status: Acute Assessment and Plan: * Reporting frequent falls at home * PT and OT ordered and recommending SNF * TLSO brace while out of bed * Case coordination working on SNF placement (4) Acute urinary tract infection: Code(s): N39.0 - Urinary tract infection, site not specified Status: Acute Assessment and Plan: * UA showed cloudy appearance, positive nitrate, 1+ leukocyte, 6-10 urine WBC, 4+ urine bacteria * Urine culture showing e. coli on final read * Finishing full course of antibiotics * Repeat UA showing 1+ leukocyte * Repeat urine culture negative (5) Compression fracture of T3 vertebra: Code(s): S22.030A - Wedge compression fracture of third thoracic vertebra, initial encounter for closed fracture Status: Acute Assessment and Plan: * Continue to wear TLSO brace while out of bed * Continue PT and OT (6) Diastolic congestive heart failure: Code(s): I50.30 - Unspecified diastolic (congestive) heart failure Status: Acute Assessment and Plan: * Echo from 01/24/24 shown normal LV systolic function with an estimated EF of 55-60%, grade 1 diastolic dysfunction, flattening of the septum in systole consistent with right ventricle pressure overload, severe pulmonary hypertension with an estimated pulmonary arterial systolic pressure of 69 mm Hg, severe biatrial enlargement right greater than left * Lasix 40 mg on hold due to low blood pressures * Continue metoprolol ER * Will give 20 mg IV lasix today CTA showing pulmonary edema (7) Chronic kidney disease, stage 3a: Code(s): N18.31 - Chronic kidney disease, stage 3a Status: Acute Assessment and Plan: * Creatinine 0.7, EGFR 60 * Baseline creatinine around 0.9-1.0 * Continue to trend (8) Chronic obstructive pulmonary disease with hypoxia: Code(s): J44.9 - Chronic obstructive pulmonary disease, unspecified Status: Acute Assessment and Plan: * Continue albuterol rescue inhaler as needed (9) Coronary artery disease: Onset Date: 10/2018 Qualifiers: Coronary Disease-Associated Artery/Lesion type: [place] artery [place] vs. transplanted heart: [place] heart Associated angina: without angina Qualified Code(s): I25.10 - Atherosclerotic heart disease of [place] coronary artery without angina pectoris Code(s): I25.10 - Atherosclerotic heart disease of [place] coronary artery without angina pectoris Status: Acute Assessment and Plan: * Continue atorvastatin (10) Hypertension: Qualifiers: Hypertension type: primary hypertension Qualified Code(s): I10 - Esse ntial (primary) hypertension Code(s): I10 - Essential (primary) hypertension Status: Chronic Assessment and Plan: * Blood pressures 98/73 to 105/57 * Continue metoprolol * Lasix 20 mg IV push given (11) Pneumonia: Qualifiers: Laterality: bilateral Lung location: lower lobe of lung Pneumonia type: due to unspecified organism Qualified Code(s): J18.9 - Pneumonia, unspecified organism Code(s): J18.9 - Pneumonia, unspecified organism Status: Inactive Assessment and Plan: * Chest x-ray showing pulmonary edema however white blood cell count increased today as well as her temperature. She also has been coughing up mucus. She is currently on 10 L of high-flow nasal cannula * Continue Levaquin * Blood cultures obtained. * Mucinex started * MRSA positive, vancomycin added * CTA of the chest abdomen pelvis show mediastinal and bilateral hilar lymphedema PAP the, negative for PE, negative for any acute abdominal/pelvic process, interstitial pulmonary edema with small bilateral pleural effusions. * Venous Doppler was negative for DVT * White blood cell count 14.7 * Continue DuoNebs Time Spent With Patient Time with patient: 25 - 35 minutes Subjective Date/time seen: 02/19/24 14:09 Interval history: No events overnight. WBC trending downward. Labs and imaging reviewed. Review of Systems Review of Systems: 12 systems were reviewed and are negativ e except for as per HPI. All systems reviewed & are unremarkable except as noted in HPI and below Constitutional: Constitutional: Reports as per HPI and Reports no additional constitutional complaints Eyes: Eyes: Reports as per HPI and Reports no additional eye complaints ENT: Reports system reviewed and no additional complaints, except as documented and Reports as per HPI Cardiovascular: Cardiovascular: Reports as per HPI and Reports no additional cardiovascular complaints Respiratory: Respiratory: Reports as per HPI and Reports no additional respiratory complaints Gastrointestinal: Gastrointestinal: Reports as per HPI and Reports no additional gastrointestinal complaints Genitourinary: Genitourinary: Reports no additional female genitourinary com plaints and Reports as per HPI Musculoskeletal: Musculoskeletal: Reports no additional musculoskeletal complaints and Reports as per HPI Integumentary/Breasts: Skin/Breast: Reports system reviewed and no additional complaints, except as docu and Reports as per HPI Neurologic: Reports system reviewed and no additional complaints, except as documented and Reports as per HPI Psychiatric: Psychiatric: Reports no additional psychiatric complaints and Reports as per HPI Exam Narrative: General: In no acute distress Cardiac: Normal S1 and S2. No murmur, gallops or friction rubs, peripheral pulses intact. Respiratory: Lungs clear to auscultation, no adventitious lung sounds, currently on 10L NC Gastrointestinal: soft, non-distended, non-tender, normoactive bowel sounds. Skin: Bruising noted to her forehead, bilateral arms, and back. She also has open wounds bilateral lower extremity with redness which is chronic. Neuro: Alert and oriented x3 Objective Data Vital Signs Vital Signs: Vital Signs - 24 hr 02/18/24 15:07 02/18/24 16:00 02/18/24 18:49 Temperature 97.6 F Pulse Rate 74 Respiratory Rate 18 Blood Pressure 105/52 L 105/52 L Pulse Oximetry 93 99 Oxygen Delivery High Flow Nasal Cannula Oxygen Flow Rate 10 02/18/24 18:49 02/18/24 18:49 02/18/24 20:56 Temperature Pulse Rate 58 L Respiratory Rate 20 Blood Pressure 98/57 L 89/49 L Pulse Oximetry Oxygen Delivery Oxygen Flow Rate 02/18/24 20:40 02/18/24 20:00 02/18/24 20:00 Temperature 98.2 F Pulse Rate 69 Respiratory Rate 17 Blood Pressure 104/54 L Pulse Oximetry 90 96 96 Oxygen Delivery High Flow Nasal Cannula High Flow Nasal Cannula Oxygen Flow Rate 10 10 02/18/24 23:38 02/19/24 02:17 02/18/24 21:05 Temperature 98.2 F Pulse Rate 72 67 69 Respiratory Rate 14 20 20 Blood Pressure 105/56 L Pulse Oximetry 93 Oxygen Delivery Oxygen Flow Rate 02/19/24 02:26 02/19/24 04:00 02/19/24 08:00 Temperature 98.6 F 97.8 F Pulse Rate 65 69 63 Respiratory Rate 20 18 18 Blood Pressure 106/59 L 105/57 L Pulse Oximetry 93 96 Oxygen Delivery Oxygen Flow Rate 02/19/24 08:51 02/19/24 08:52 02/19/24 09:01 Temperature Pulse Rate 65 60 Respiratory Rate 20 20 Blood Pressure Pulse Oximetry 91 Oxygen Delivery High Flow Nasal Cannula Oxygen Flow Rate 10 02/19/24 11:48 Temperature 97.8 F Pulse Rate 98 Respiratory Rate 18 Blood Pressure 98/73 L Pulse Oximetry 93 Oxygen Delivery Oxygen Flow Rate Intake/Output Intake/Output: Intake & Output 02/16/24 02/17/24 02/18/24 02/19/24 23:59 23:59 23:59 23:59 Intake Total 2295 639 795 840 Balance 2295 639 795 840 Meds/Results Medications: Active Medications Generic Name Dose Route Start Last Admin Trade Name Freq PRN Reason Stop Dose Admin Acetaminophen 650 mg 02/10/24 13:22 02/15/24 20:19 Acetaminophen 325 Mg Tablet PO 650 mg Q6H PRN Administration Mild Pain (1-3) or Fever Albuterol 1 - 2 puff 02/10/24 13:26 Albuterol Sulfate (*Sp) Aerosol 1 Puff INHALATION Q4HRT PRN shortness of breath or wheezing Albuterol/Ipratropium 3 ml 02/17/24 20:00 02/19/24 08:48 Ipratropium 0.5 Mg/Albuterol Sulfate 2.5 Mg Ampul.Neb 3 Ml INHALATION 3 ml Q6HRT KATE Administration Atorvastatin Calcium 40 mg 02/10/24 21:00 02/18/24 20:40 Atorvastatin 40 Mg Tablet PO 40 mg QHS KATE Administration Buspirone HCl 10 mg 02/10/24 17:00 02/19/24 13:49 Buspirone Hcl 10 Mg Tablet PO 10 mg TID KATE Administration Calcium Carbonate 500 mg 02/11/24 09:00 02/19/24 09:48 Calcium Carbonate (Oscal) 500 Mg Tablet PO 500 mg QAM KATE Administration Ciprofloxacin/Hydrocortisone 3 drop 02/12/24 14:40 02/19/24 09:49 Ciprofloxacin Hc Otic 10 Ml LEFT EAR 3 drop Q12HR KATE Administration Diclofenac Sodium 1 applic 02/18/24 13:00 02/19/24 13:49 Diclofenac Sodium 1% 100 Gm Gel (*Bkc) TOPICAL 1 applic QID [facility] Administration Escitalopram Oxalate 20 mg 02/11/24 09:00 02/19/24 09:47 Escitalopram Oxalate 10 Mg Tablet PO 20 mg DAILY [facility] Administration Ferrous Sulfate 325 mg 02/10/24 17:00 02/19/24 09:48 Ferrous Sulfate [address] BY MOUTH 325 mg BID [facility] Administration Furosemide 40 mg 02/11/24 09:00 02/14/24 10:25 Furosemide 40 Mg Tablet PO Not Given DAILY [facility] Gabapentin 300 mg 02/10/24 13:30 02/19/24 13:49 Gabapentin 300 Mg Capsule PO 300 mg DAILY@0800,1200,2000 [facility] Administration Guaifenesin 1,200 mg 02/17/24 21:00 02/19/24 09:48 Guaifenesin 12 Hr 600 Mg Tabcr PO 1,200 mg Q12HR [facility] Administration Hydroxyzine HCl 25 mg 02/10/24 13:26 02/18/24 17:59 Hydroxyzine Hcl 25 Mg Tablet PO 25 mg Q8H PRN Administration anxiety Vancomycin HCl 1,000 mg in 250 mls @ 250 mls/hr 02/19/24 18:00 Vancomycin 1,000 Mg/Ns 250 Ml IVPB Q24H [facility] Levofloxacin 750 mg 02/17/24 15:30 02/19/24 09:48 Levofloxacin 750 Mg Tablet PO 02/21/24 09:00 750 mg DAILY [facility] Administration Loratadine 10 mg 02/10/24 13:26 02/18/24 09:14 Loratadine 10 Mg Tablet PO 10 mg DAILY PRN Administration allergic symptoms Magnesium Oxide 400 mg 02/11/24 09:00 02/19/24 09:48 Magnesium Oxide 400 Mg Tablet PO 400 mg DAILY [facility] Administration Melatonin 10 mg 02/10/24 21:00 02/18/24 20:39 Melatonin 5 Mg Tablet PO 10 mg QHS [facility] Administration Metoprolol Succinate 50 mg 02/10/24 21:00 02/19/24 09:48 Metoprolol Succinate Ext Rel 50 Mg Tabcr PO 50 mg Q12HR [facility] Administration Miscellaneous Information 1 each 02/18/24 00:01 02/19/24 02:05 Diclofenac Gel- Add Site Of Application To The Order Please XX 03/19/24 00:00 Not Given CLARIFY KATE Miscellaneous Information 1 each 02/19/24 00:01 Tramadol Needs To Be Renewed Or It Will Automatically Discontinue. XX 03/20/24 00:00 CLARIFY KATE Ondansetron HCl 4 mg 02/10/24 11:12 Ondansetron Inj 4 Mg/2 Ml Vial IV PUSH Q4H PRN Nausea Oxybutynin Chloride 10 mg 02/10/24 17:00 02/19/24 09:47 Oxybutynin Chloride Xl 5 Mg Tab.Er.24 PO 10 mg BID [facility] Administration Pantoprazole Sodium 40 mg 02/12/24 21:00 02/19/24 09:48 Pantoprazole 40 Mg Tablet PO 40 mg Q12HR [facility] Administration Polyethylene Glycol 17 gm 02/17/24 12:25 02/19/24 09:49 Polyethylene Glycol 3350 17 Gm Powd.Pack PO 17 gm QAM [facility] Administration Potassium Chloride 10 meq 02/11/24 09:00 02/18/24 12:12 Potassium Chloride 10 Meq Er Tablet PO 03/12/24 08:59 Not Given DAILY [facility] Sodium Chloride 1 spray 02/13/24 20:58 02/13/24 21:32 Saline 0.65% Aj Soln 44 Ml Btl NASAL 1 spray Q6HR PRN Administration Congestion Sodium Chloride 1 applic 02/17/24 15:54 02/17/24 17:33 Sodium Chloride Nasal Gel 14.1 Gm NASAL 1 applic PRN PRN Administration Dry Nasal Passages Sodium Chloride 500 mg 02/18/24 09:00 02/19/24 09:48 Sodium Chloride 500 Mg Tablet PO 500 mg QAM K[facility] Administration Tramadol HCl 50 mg 02/10/24 13:26 02/19/24 13:48 Tramadol Hcl (*Crx) 50 Mg Tablet PO 50 mg BID PRN Administration pain 4-10 Triamcinolone Acetonide 1 applic 02/12/24 09:00 02/19/24 13:49 Triamcinolone Acet 0.1% Cream 80 Gm Tube TOPICAL Not Given Q12HR [facility] Vitamin D 2,000 units 02/11/24 09:00 02/19/24 09:48 Cholecalciferol 1,000 Units Tablet PO 2,000 units DAILY [facility] Administration Radiology Results: ITS Impressions Head CT 02/10/24 10:23 IMPRESSION: 1. Stable moderate nonspecific cerebral white matter disease, which likely represents chronic small vessel ischemic disease. Head/Cervical Spine/Facial Bones CT 02/10/24 10:25 IMPRESSION: 1. T3 compression fracture, likely acute or subacute. 2. Severe cervical spondylosis. 3. Cervical levoscoliosis. Elbow X-Ray 02/10/24 11:53 IMPRESSION: 1. Mild elbow joint osteoarthritis. Abdomen/Pelvis CT 02/11/24 20:17 IMPRESSION: Mild pulmonary edema and small bilateral pleural effusions. Gallbladder mucosal hyperemia with pericholecystic fluid, correlate with biliary labs and right upper quadrant pain. Consider right upper quadrant ultrasound for further evaluation. Mild ascites. No acute traumatic finding in the abdomen. Chest X-Ray 02/17/24 09:40 IMPRESSION: 1. Diffuse lung disease, likely mild pulmonary edema. 2. Small right pleural effusion. 3. Cardiomegaly. Chest/Abdomen/Pelvis CTA 02/18/24 17:01 IMPRESSION: Interstitial pulmonary edema with small bilateral pleural effusions. Cardiomegaly. Mediastinal and bilateral hilar lymphadenopathy. No CT evidence of aortic dissection or aneurysm. No acute process detected in the abdomen/pelvis. Mild body wall edema. Venous Doppler Study 02/18/24 17:29 IMPRESSION: Patent bilateral lower extremity veins. No evidence of deep venous thrombosis. Labs Labs: Laboratory Results - last 24 hr 02/18/24 02/18/24 02/19/24 14:25 20:12 06:14 WBC 14.7 H RBC 2.66 L Hgb 8.5 L Hct 25.7 L MCV 96.6 MCH 32.0 MCHC 33.1 RDW 16.6 H Plt Count 74 L MPV 10.4 Immature Gran % (Auto) 1.0 H Neut % (Auto) 75.4 H Lymph % (Auto) 10.0 L [place] % (Auto) 10.9 H Eos % (Auto) 2.5 Baso % (Auto) 0.2 Lymph # (Auto) 1.47 [place] # (Auto) 1.6 H Eos # (Auto) 0.4 H Baso # (Auto) 0.0 Abs Immat Gran (auto) 0.15 H Absolute Neuts (auto) 11.1 H Absolute Nucleated RBC 0.000 Nucleated RBC % 0.0 % Immature Plt Fraction 5.1 Sodium 124 L Potassium 5.0 Chloride 90 L Carbon Dioxide 28 Anion Gap 6 BUN 25 H Creatinine 1.00 Estim Creat Clear Calc 38 Estimated GFR 54 L Glucose 79 POC Capillary Glucose 102 Calcium 8.3 L Total Bilirubin 0.7 AST 44 H ALT 32 Alkaline Phosphatase 124 Total Protein 6.0 L Albumin 3.0 L Nasal MRSA (PCR) Detected A* Quality VTE Prophylaxis VTE prophylaxis: mechanical ordered
[2024-02-19] MEDS: VANCOMYCIN 1,000 MG/NS 250 ML 1,000 MG/250 ML BAG 250 MG IVPB (17:22)
[2024-02-19] MEDS: MELATONIN 5 MG TABLET 10 MG PO (20:58)
[2024-02-19] MEDS: ATORVASTATIN 40 MG TABLET PO (20:58)
[2024-02-19] MEDS: SALINE 0.65% NAS SOLN 44 ML BTL 1 SPRAY NASAL (20:59)
[2024-02-19] MEDS: TRIAMCINOLONE ACET 0.1% CREAM 80 GM TUBE 1 APPLIC TOPICAL (21:00)
[2024-02-20] VITALS (18 sets, daily range): BP systolic 96–119; BP diastolic 46–69; PULSE 53–95; RESP 18–21; TEMP 35.8–37.1; O2SAT 90–100
[2024-02-20] MEDS: IPRATROPIUM 0.5 MG/ALBUTEROL SULFATE 2.5 MG AMPUL.NEB 3 ML INHALATION ×4 (01:51→20:11)
[2024-02-20 06:28] LABS: Basophils Absolute Auto 0.1 K/mm3 (0.0-0.1); Basophils Percent Auto 0.5 % (0.2-1.2); Eosinophils Absolute Auto 0.4 K/mm3 (0-0.3); Eosinophils Percent Auto 2.7 % (0-4.4); Hematocrit 26.9 % (37.0-47.0); Hemoglobin 8.7 g/dL (12.0-15.0); Immature Granulocyte Absolute 0.15 K/mm3 (0.00-0.031); Immature Granulocyte Percent A 1.1 % (0-0.5); Immature Platelet Fraction Pct 5.8 % (0.9-11.2); Lymphocytes Percent Auto 11.9 % (18.3-44.2); Mean Corpuscular HGB Conc 32.3 g/dl (32-36); Mean Corpuscular Hemoglobin 31.4 pg (26-34); Mean Corpuscular Volume 97.1 fl (80-100); Mean Platelet Volume 10.3 fl (7.4-10.4); Monocytes Absolute Auto 1.4 K/mm3 (0.1-0.6); Neutrophils Absolute Auto 9.9 K/mm3 (1.3-6.7); Neutrophils Percent Auto 73.8 % (45.5-73.1); Platelet Count Result 116 k/mm3 (150-375); Red Blood Count 2.77 M/mm3 (4.2-5.4); Red Cell Distribution Width 16.2 % (11.5-14.5); White Blood Count 13.5 K/mm3 (4.5-10.0)
[2024-02-20 06:38] LABS: Alanine Aminotransferase 53 U/L (6-35); Albumin Level 3.3 g/dL (3.5-5.1); Alkaline Phosphatase 165 U/L (38-126); Anion Gap 7 mmol/L (4-12); Aspartate Amino Transferase 74 U/L (14-36); Bilirubin,Total 0.6 mg/dL (0.2-1.3); Blood Urea Nitrogen 28 mg/dL (7-17); Calcium 8.2 mg/dL (8.4-10.2); Carbon Dioxide 24 mmol/L (22-30); Chloride 90 mmol/L (98-107); Estimated CRCL calculation 38 ml/min; Estimated Glomerular Filt Rate 54; Glucose 88 mg/dL (65-110); Potassium 5.7 mmol/L (3.4-5.0); Sodium 121 mmol/L (137-145)
[2024-02-20] MEDS: CHOLECALCIFEROL 1,000 UNITS TABLET 2000 UNITS PO (08:52)
[2024-02-20] MEDS: polyethylene glycoL 3350 17 GM POWD.PACK PO (08:52)
[2024-02-20] MEDS: traMADol HCL (*CRX) 50 MG TABLET PO ×2 (08:53→17:42)
[2024-02-20] MEDS: MAGNESIUM OXIDE 400 MG TABLET PO (08:54)
[2024-02-20] MEDS: GABAPENTIN 300 MG CAPSULE PO ×3 (08:54→20:18)
[2024-02-20] MEDS: busPIRone HCL 10 MG TABLET PO ×3 (08:54→17:38)
[2024-02-20] MEDS: SODIUM CHLORIDE 500 MG TABLET PO (08:54)
[2024-02-20] MEDS: FERROUS SULFATE 325 MG TABLET DR BY MOUTH ×2 (08:54→17:38)
[2024-02-20] MEDS: levoFLOXacin 750 MG TABLET PO (08:54)
[2024-02-20] MEDS: CALCIUM CARBONATE (OSCAL) 500 MG TABLET PO (08:54)
[2024-02-20] MEDS: ESCITALOPRAM OXALATE 10 MG TABLET 20 MG PO (08:54)
[2024-02-20] MEDS: oxyBUTYnin CHLORIDE XL 5 MG TAB.ER.24 10 MG PO ×2 (08:55→17:38)
[2024-02-20] MEDS: PANTOPRAZOLE 40 MG TABLET PO ×2 (08:55→20:19)
[2024-02-20] MEDS: METOPROLOL SUCCINATE EXT REL 50 MG TABCR PO (08:55)
[2024-02-20] MEDS: CIPROFLOXACIN HC OTIC 10 ML 3 DROP LEFT EAR ×2 (08:57→20:38)
[2024-02-20] MEDS: DICLOFENAC SODIUM 1% 100 GM GEL (*BKC) 1 APPLIC TOPICAL ×4 (08:57→20:37)
[2024-02-20] MEDS: TRIAMCINOLONE ACET 0.1% CREAM 80 GM TUBE 1 APPLIC TOPICAL ×2 (08:58→20:38)
[2024-02-20] MEDS: guaiFENesin 12 HR 600 MG TABCR 1200 MG PO ×2 (09:12→20:19)
--- NOTE | 2024-02-20 11:32 | PCNFU ---
Nutrition Follow-Up Complete: Severe malnutrition related to chronic loss of appetite, self care deficit as evidenced by weight loss 12%/1 month; inadequate intake <75% needs >1 month; moderate muscle wasting and fat loss Goal:Adequate PO intake when diet is advanced Pt meeting goal. Pt current nutrition is Heart healthy, Ensure compact BID. Nutrition recommendation: continue with current plan of care Last recorded weight is 66.6 kg. Bowel Motility:+BM 02/17 Labs Reviewed: Hgb:8.7, HCT:26.9, Alb:3.3, NA:121, K:5.7, GFR:54, BUN:28 Meds Noted: lasix, KCL Skin: WNL Additional Notes: Pt continues on a heart healthy diet, intake 100%, Ensure compact in place. Encourage good po intake. Agree with orders. Monitoring diet order, intakes, weights, labs, plan of care Follow up in 7 days
--- NOTE | 2024-02-20 11:52 | PCOTNOTE ---
Attempted to see Patient, Patient declined, stated not now, come back later, Will attempt again.
--- NOTE | 2024-02-20 14:05 | P.PNIM_ITS ---
Progress Note: A&P Assessment and Plan (1) Heme positive stool: Code(s): R19.5 - Other fecal abnormalities Status: Acute Assessment and Plan: * GI will follow up on a outpatient basis * Patient went for EGD shown gastritis with a non bleeding duodenal ulcer * Continue Protonix 40 mg b.i.d. per GI recommendation * H/H remain stable, no signs of active bleeding (2) Anemia: Code(s): D64.9 - Anemia, unspecified Status: Acute Assessment and Plan: * Likely secondary to bleeding ulcer * Hemoglobin today is 8.5 * On 01/29/2024 she was 14.8 * Continue ferrous sulfate * GI following * See above plan of care (3) Frequent falls: Code(s): R29.6 - Repeated falls Status: Acute Assessment and Plan: * Reporting frequent falls at home * PT and OT ordered and recommending SNF * TLSO brace while out of bed * Case coordination working on SNF placement (4) Acute urinary tract infection: Code(s): N39.0 - Urinary tract infection, site not specified Status: Acute Assessment and Plan: * UA showed cloudy appearance, positive nitrate, 1+ leukocyte, 6-10 urine WBC, 4+ urine bacteria * Urine culture showing e. coli on final read * Finishing full course of antibiotics * Repeat UA showing 1+ leukocyte * Repeat urine culture negative (5) Compression fracture of T3 vertebra: Code(s): S22.030A - Wed[place] compression fracture of third thoracic vertebra, initial encounter for closed fracture Status: Acute Assessment and Plan: * Continue to wear TLSO brace while out of bed * Continue PT and OT (6) Diastolic congestive heart failure: Code(s): I50.30 - Unspecified diastolic (congestive) heart failure Status: Acute Assessment and Plan: * Echo from 01/24/24 shown normal LV systolic function with an estimated EF of 55-60%, grade 1 diastolic dysfunction, flattening of the septum in systole consistent with right ventricle pressure overload, severe pulmonary hypertension with an estimated pulmonary arterial systolic pressure of 69 mm Hg, severe biatrial enlargement right greater than left * will decrease metoprolol to 25 mg BID due to low blood pressures and need for diuresis * 20mg of IV Lasix again today ordered (7) Chronic kidney disease, stage 3a: Code(s): N18.31 - Chronic kidney disease, stage 3a Status: Acute Assessment and Plan: * Creatinine 1.0, EGFR 54 * Baseline creatinine around 0.9-1.0 * Continue to trend (8) Chronic obstructive pulmonary disease with hypoxia: Code(s): J44.9 - Chronic obstructive pulmonary disease, unspecified Status: Acute Assessment and Plan: * Continue albuterol rescue inhaler as needed (9) Coronary artery disease: Onset Date: 10/2018 Qualifiers: Coronary Disease-Associated Artery/Lesion type: [place] artery [place] vs. transplanted heart: [place] heart Associated angina: without angina Qualified Code(s): I25.10 - Atherosclerotic heart disease of [place] coronary artery without angina pectoris Code(s): I25.10 - Atherosclerotic heart disease of [place] coronary artery without angina pectoris Status: Acute Assessment and Plan: * Continue atorvastatin (10) Hypertension: Qualifiers: Hypertension type: primary hypertension Qualified Code(s): I10 - Essential (primary) hypertension Code(s): I10 - Essential (primary) hypertension Status: Chronic Assessment and Plan: * Blood pressures 98/73 to 105/57 * Continue metoprolol * Lasix 20 mg IV push given (11) Pneumonia: Qualifiers: Laterality: bilateral Lung location: lower lobe of lung Pneumonia type: due to unspecified organism Qualified Code(s): J18.9 - Pneumonia, unspecified organism Code(s): J18.9 - Pneumonia, unspecified organism Status: Inactive Assessment and Plan: * Chest x-ray showing pulmonary edema however white blood cell count increased today as well as her temperature. She also has been coughing up mucus. She is currently on 8 L of high-flow nasal cannula * Continue Levaquin * Blood cultures obtained. * Mucinex started * MRSA positive, vancomycin added * CTA of the chest abdomen pelvis show mediastinal and bilateral hilar lymphedema PAP the, negative for PE, negative for any acute abdominal/pelvic process, interstitial pulmonary edema with small bilateral pleural effusions. * Venous Doppler was negative for DVT * White blood cell count 13.5 * Continue DuoNebs (12) Nasal folliculitis: Code(s): L73.9 - Follicular disorder, unspecified Status: Resolved Assessment and Plan: * Gentamicin ointment ordered Time Spent With Patient Time with patient: 25 - 35 minutes Subjective Date/time seen: 02/20/24 14:05 Interval history: No events overnight. WBC continues to trend downward. Labs and imaging reviewed. Review of Systems Review of Systems: 12 systems were reviewed and are negativ e except for as per HPI. All systems reviewed & are unremarkable except as noted in HPI and below Constitutional: Constitutional: Reports as per HPI and Reports no additional constitutional complaints Eyes: Eyes: Reports as per HPI and Reports no additional eye complaints ENT: Reports system reviewed and no additional complaints, except as documented and Reports as per HPI Cardiovascular: Cardiovascular: Reports as per HPI and Reports no additional cardiovascular complaints Respiratory: Respiratory: Reports as per HPI and Reports no additional respiratory complaints Gastrointestinal: Gastrointestinal: Reports as per HPI and Reports no additional gastrointestinal complaints Genitourinary: Genitourinary: Reports no additional female genitourinary complaints and Reports as per HPI Musculoskeletal: Musculoskeletal: Reports no additional musculoskeletal complaints and Reports as per HPI Integumentary/Breasts: Skin/Breast: Reports system reviewed and no additional complaints, except as docu and Reports as per HPI Neurologic: Reports system reviewed and no additional complaints, except as documented and Reports as per HPI Psychiatric: Psychiatric: Reports no additional psychiatric complaints and Reports as per HPI Exam Narrative: General: In no acute distress Cardiac: Normal S1 and S2. No murmur, gallops or friction rubs, peripheral pulses intact. ENT: nasal passages dry, clogged Respiratory: crackles noted on L>R lung, mild wheezing right base, no other adventitious lung sounds, currently on 8L NC Gastrointestinal: soft, non-distended, non-tender, normoactive bowel sounds. Skin: Bruising noted to her forehead, bilateral arms, and back. She also has open wounds bilateral lower extremity with redness which is chronic. Neuro: Alert and oriented x3 Objective Data Vital Signs Vital Signs: Vital Signs - 24 hr 02/19/24 14:31 02/19/24 14:43 02/19/24 16:00 Temperature 97.8 F Pulse Rate 66 62 88 Respiratory Rate 20 20 18 Blood Pressure 113/56 L Pulse Oximetry 100 Oxygen Delivery Oxygen Flow Rate 02/19/24 16:57 02/19/24 16:58 02/19/24 17:34 Temperature Pulse Rate Respiratory Rate Blood Pressure 98/73 L 113/56 L Pulse Oximetry 100 Oxygen Delivery High Flow Nasal Cannula Oxygen Flow Rate 10 02/19/24 17:37 02/19/24 18:08 02/19/24 20:43 Temperature Pulse Rate 62 Respiratory Rate 20 Blood Pressure Pulse Oximetry 100 96 Oxygen Delivery High Flow Nasal Cannula High Flow Nasal Cannula Oxygen Flow Rate 8 8 02/19/24 20:54 02/19/24 20:57 02/19/24 20:00 Temperature 97.8 F Pulse Rate 66 64 64 Respiratory Rate 20 16 Blood Pressure 115/56 L Pulse Oximetry 100 Oxygen Delivery Oxygen Flow Rate 02/19/24 23:49 02/19/24 21:30 02/20/24 01:51 Temperature 98.7 F Pulse Rate 69 70 Respiratory Rate 18 21 H Blood Pressure 104/69 Pulse Oximetry 93 97 Oxygen Delivery High Flow Nasal Cannula Oxygen Flow Rate 8 02/20/24 02:03 02/20/24 04:00 02/20/24 07:52 Temperature 98.8 F Pulse Rate 65 65 Respiratory Rate 21 H 18 Blood Pressure 113/69 Pulse Oximetry 93 94 Oxygen Delivery High Flow Nasal Cannula Oxygen Flow Rate 8 02/20/24 07:52 02/20/24 08:01 02/20/24 08:00 Temperature 96.5 F L Pulse Rate 58 L 59 L 62 Respiratory Rate 20 20 18 Blood Pressure 112/46 L Pulse Oximetry 90 Oxygen Delivery Oxygen Flow Rate 02/20/24 08:55 02/20/24 08:00 02/20/24 12:00 Temperature 96.7 F L Pulse Rate 62 74 Respiratory Rate 18 Blood Pressure 96/54 L Pulse Oximetry 90 90 Oxygen Delivery High Flow Nasal Cannula Oxygen Flow Rate 8 Intake/Output Intake/Output: Intake & Output 02/17/24 02/18/24 02/19/24 02/20/24 23:59 23:59 23:59 23:59 Intake Total 954 104 9959 490 Balance 040 338 8448 490 Meds/Results Medications: Active Medications Generic Name Dose Route Start Last Admin Trade Name Freq PRN Reason Stop Dose Admin Acetaminophen 650 mg 02/10/24 13:22 02/15/24 20:19 Acetaminophen 325 Mg Tablet PO 650 mg Q6H PRN Administration Mild Pain (1-3) or Fever Albuterol 1 - 2 puff 02/10/24 13:26 Albuterol Sulfate (*Sp) Aerosol 1 Puff INHALATION Q4HRT PRN shortness of breath or wheezing Albuterol/Ipratropium 3 ml 02/17/24 20:00 02/20/24 14:01 Ipratropium 0.5 Mg/Albuterol Sulfate 2.5 Mg Ampul.Neb 3 Ml INHALATION 3 ml Q6HRT KATE Administration Atorvastatin Calcium 40 mg 02/10/24 21:00 02/19/24 20:58 Atorvastatin 40 Mg Tablet PO 40 mg QHS KAET Administration Buspirone HCl 10 mg 02/10/24 17:00 02/20/24 13:06 Buspirone Hcl 10 Mg Tablet PO 10 mg TID KATE Administration Calcium Carbonate 500 mg 02/11/24 09:00 02/20/24 08:54 Calcium Carbonate (Oscal) 500 Mg Tablet PO 500 mg QAM KATE Administration Ciprofloxacin/Hydrocortisone 3 drop 02/12/24 14:40 02/20/24 08:57 Ciprofloxacin Hc Otic 10 Ml LEFT EAR 3 drop Q12HR KATE Administration Diclofenac Sodium 1 applic 02/18/24 13:00 02/20/24 08:57 Diclofenac Sodium 1% 100 Gm Gel (*Bkc) TOPICAL 1 applic QID KATE Administration Escitalopram Oxalate 20 mg 02/11/24 09:00 02/20/24 08:54 Escitalopram Oxalate 10 Mg Tablet PO 20 mg DAILY KATE Administration Ferrous Sulfate 325 mg 02/10/24 17:00 02/20/24 08:54 Ferrous Sulfate [address] BY MOUTH 325 mg BID KATE Administration Furosemide 40 mg 02/11/24 09:00 02/14/24 10:25 Furosemide 40 Mg Tablet PO Not Given DAILY [facility] Gabapentin 300 mg 02/10/24 13:30 02/20/24 13:06 Gabapentin 300 Mg Capsule PO 300 mg DAILY@0800,1200,2000 [facility] Administration Guaifenesin 1,200 mg 02/17/24 21:00 02/20/24 09:12 Guaifenesin 12 Hr 600 Mg Tabcr PO 1,200 mg Q12HR KATE Administration Hydroxyzine HCl 25 mg 02/10/24 13:26 02/18/24 17:59 Hydroxyzine Hcl 25 Mg Tablet PO 25 mg Q8H PRN Administration anxiety Vancomycin HCl 1,000 mg in 250 mls @ 250 mls/hr 02/19/24 18:00 02/19/24 17:22 Vancomycin 1,000 Mg/Ns 250 Ml IVPB 250 mls/hr Q24H KATE Administration Levofloxacin 750 mg 02/17/24 15:30 02/20/24 08:54 Levofloxacin 750 Mg Tablet PO 02/21/24 09:00 750 mg DAILY AKTE Administration Loratadine 10 mg 02/10/24 13:26 02/18/24 09:14 Loratadine 10 Mg Tablet PO 10 mg DAILY PRN Administration allergic symptoms Magnesium Oxide 400 mg 02/11/24 09:00 02/20/24 08:54 Magnesium Oxide 400 Mg Tablet PO 400 mg DAILY KATE Administration Melatonin 10 mg 02/10/24 21:00 02/19/24 20:58 Melatonin 5 Mg Tablet PO 10 mg QHS KATE Administration Metoprolol Succinate 50 mg 02/10/24 21:00 02/20/24 08:55 Metoprolol Succinate Ext Rel 50 Mg Tabcr PO 50 mg Q12HR KATE Administration Miscellaneous Information 1 each 02/18/24 00:01 02/19/24 02:05 Diclofenac Gel- Add Site Of Application To The Order Please XX 03/19/24 00:00 Not Given CLARIFY KATE Miscellaneous Information 1 each 02/19/24 00:01 Tramadol Needs To Be Renewed Or It Will Automatically Discontinue. XX 03/20/24 00:00 CLARIFY KATE Ondansetron HCl 4 mg 02/10/24 11:12 Ondansetron Inj 4 Mg/2 Ml Vial IV PUSH Q4H PRN Nausea Oxybutynin Chloride 10 mg 02/10/24 17:00 02/20/24 08:55 Oxybutynin Chloride Xl 5 Mg Tab.Er.24 PO 10 mg BID KATE Administration Pantoprazole Sodium 40 mg 02/12/24 21:00 02/20/24 08:55 Pantoprazole 40 Mg Tablet PO 40 mg Q12HR KATE Administration Polyethylene Glycol 17 gm 02/17/24 12:25 02/20/24 08:52 Polyethylene Glycol 3350 17 Gm Powd.Pack PO 17 gm QAM KATE Administration Potassium Chloride 10 meq 02/11/24 09:00 02/18/24 12:12 Potassium Chloride 10 Meq Er Tablet PO 03/12/24 08:59 Not Given DAILY KATE Sodium Chloride 1 spray 02/13/24 20:58 02/19/24 20:59 Saline 0.65% Aj Soln 44 Ml Btl NASAL 1 spray Q6HR PRN Administration Congestion Sodium Chloride 1 applic 02/17/24 15:54 02/17/24 17:33 Sodium Chloride Nasal Gel 14.1 Gm NASAL 1 applic PRN PRN Administration Dry Nasal Passages Sodium Chloride 1 gm 02/20/24 17:00 Sodium Chloride 1 Gm Tablet PO BID [facility] Triamcinolone Acetonide 1 applic 02/12/24 09:00 02/20/24 08:58 Triamcinolone Acet 0.1% Cream 80 Gm Tube TOPICAL 1 applic Q12HR KATE Administration Vitamin D 2,000 units 02/11/24 09:00 02/20/24 08:52 Cholecalciferol 1,000 Units Tablet PO 2,000 units DAILY KATE Administration Radiology Results: ITS Impressions Head CT 02/10/24 10:23 IMPRESSION: 1. Stable moderate nonspecific cerebral white matter disease, which likely represents chronic small vessel ischemic disease. Head/Cervical Spine/Facial Bones CT 02/10/24 10:25 IMPRESSION: 1. T3 compression fracture, likely acute or subacute. 2. Severe cervical spondylosis. 3. Cervical levoscoliosis. Elbow X-Ray 02/10/24 11:53 IMPRESSION: 1. Mild elbow joint osteoarthritis. Abdomen/Pelvis CT 02/11/24 20:17 IMPRESSION: Mild pulmonary edema and small bilateral pleural effusions. Gallbladder mucosal hyperemia with pericholecystic fluid, correlate with biliary labs and right upper quadrant pain. Consider right upper quadrant ultrasound for further evaluation. Mild ascites. No acute traumatic finding in the abdomen. Chest X-Ray 02/17/24 09:40 IMPRESSION: 1. Diffuse lung disease, likely mild pulmonary edema. 2. Small right pleural effusion. 3. Cardiomegaly. Chest/Abdomen/Pelvis CTA 02/18/24 17:01 IMPRESSION: Interstitial pulmonary edema with small bilateral pleural effusions. Cardiomegaly. Mediastinal and bilateral hilar lymphadenopathy. No CT evidence of aortic dissection or aneurysm. No acute process detected in the abdomen/pelvis. Mild body wall edema. Venous Doppler Study 02/18/24 17:29 IMPRESSION: Patent bilateral lower extremity veins. No evidence of deep venous thrombosis. Labs Labs: Laboratory Results - last 24 hr 02/20/24 06:19 WBC 13.5 H RBC 2.77 L Hgb 8.7 L Hct 26.9 L MCV 97.1 MCH 31.4 MCHC 32.3 RDW 16.2 H Plt Count 116 L D MPV 10.3 Immature Gran % (Auto) 1.1 H Neut % (Auto) 73.8 H Lymph % (Auto) 11.9 L Spink % (Auto) 10.0 H Eos % (Auto) 2.7 Baso % (Auto) 0.5 Lymph # (Auto) 1.60 Spink # (Auto) 1.4 H Eos # (Auto) 0.4 H Baso # (Auto) 0.1 Abs Immat Gran (auto) 0.15 H Absolute Neuts (auto) 9.9 H Absolute Nucleated RBC 0.000 Nucleated RBC % 0.0 % Immature Plt Fraction 5.8 Sodium 121 L Potassium 5.7 H Chloride 90 L Carbon Dioxide 24 Anion Gap 7 BUN 28 H Creatinine 1.00 Estim Creat Clear Calc 38 Estimated GFR 54 L Glucose 88 Calcium 8.2 L Total Bilirubin 0.6 AST 74 H ALT 53 H Alkaline Phosphatase 165 H Total Protein 7.0 Albumin 3.3 L Quality VTE Prophylaxis VTE prophylaxis: mechanical ordered
[2024-02-20] MEDS: FUROSEMIDE INJ 40 MG/4 ML VIAL 20 MG IM (15:04)
[2024-02-20] MEDS: SODIUM ZIRCONIUM CYCLOSILICATE 10 GM POWD.PACK PO (15:07)
--- NOTE | 2024-02-20 15:08 | PM.CNNEP ---
Assessment and Plan Assessment and plan (1) Hyponatremia: Code(s): E87.1 - Hypo-osmolality and hyponatremia Status: Resolved History of Present Illness Reason for Consult Consult date: 02/20/24 Reason for consult: hyponatremia Chief Complaint Chief complaint: Frequent falls, GI Bleed, Anemia Review of Systems Review of Systems: As per HPI. [facility] Past Medical History Medical History (Updated 02/12/24 @ 12:23 by Leroy Cleveland MD) Chronic kidney disease Chronic low back pain Chronic respiratory failure with hypoxia, on home oxygen therapy Chronic venous insufficiency of lower extremity Cochlear implant in place right ear Coronary artery disease (10/2018) Depression with anxiety Diastolic congestive heart failure Duodenal ulcer Environmental allergies Hearing loss Hyperlipidemia Hypertension Insomnia Melena Moderate mitral valve regurgitation Normal colonoscopy (07/2010) Normal mammography (06/03/20) Osteoarthritis Osteopenia Overactive bladder Peripheral neuropathy Pulmonary hypertension Right ventricular systolic dysfunction Severe tricuspid valve regurgitation Tobacco abuse Surgical History Surgical History History of arthroscopy of right knee History of cochlear implant History of coronary artery bypass graft x 3 (10/09/18) History of ear surgery x4 History of open reduction and internal fixation (ORIF) procedure Repair left knee fracture in 2017. Repair left wrist fracture in 2018. Family History Family History Father Family history of alcoholism Family history of malignant neoplasm Heart disease Mother Diabetes mellitus Social History Social History Social History: Surrogate medical decision maker: Trevor Kc, marlena. Code status: Do not resuscitate. Smoking packs per day: 2 Smoking cigarettes per day: 40.0 Years smoked: 30 Smoking pack-years: 60.00 Smoking status: Former smoker Additional smoking assessment comments: 3-4 cigarettes a day Alcohol intake: current Drinks per week: 1 Substance use: former Substance use type: marijuana and prescription drug Do You Feel Safe in your Home?: Yes Lack of Transportation: YES Lack of Food: Never True Current Housing: I Have Housing Concerned About Future Housing: No Difficulty Paying Gas/Electric Bills: No Difficulty Paying for Meds: No Currently Unemployed: No Education: High School Diploma/GED Difficulty w/ Childcare or Family Care: No Living arrangements: assisted living Additional living arrangements comments: [facility] in [place]. Occupation/Education: retired Spiritual care concerns: No Agree to blood products: Yes Meds Home Medications and Allergies Home Medications Medication Instructions Recorded Confirmed Type aspirin 81 mg tablet,delayed 81 mg PO DAILY 04/05/19 02/11/24 History release (Adult Aspirin Regimen) cholecalciferol (vitamin D3) 50 50 mcg PO DAILY 03/07/20 02/11/24 History mcg (2,000 unit) capsule acetaminophen 650 mg 1,300 mg PO Q12H 10/23/20 02/11/24 History tablet,extended release oxybutynin chloride 10 mg 10 mg PO BID #180 tabs 02/04/21 02/11/24 Rx tablet,extended release 24 hr magnesium oxide 400 mg PO DAILY #90 tabs 04/06/21 02/11/24 Rx clopidogrel 75 mg tablet 75 mg PO DAILY #90 tabs 05/26/21 02/11/24 Rx buspirone 10 mg tablet 10 mg PO TID #270 tabs 09/03/21 02/11/24 Rx escitalopram oxalate 20 mg tablet 20 mg PO DAILY #90 tabs 09/03/21 02/11/24 Rx (Lexapro) metoprolol succinate 50 mg 50 mg PO BID #180 tabs 09/21/21 02/11/24 Rx tablet,extended release 24 hr atorvastatin 40 mg tablet (Lipitor) 40 mg PO QHS #90 tabs 10/23/21 02/11/24 Rx melatonin 10 mg tablet 10 mg PO QHS 03/16/22 02/11/24 History triamcinolone acetonide 0.1 % 1 applic topical BID #30 grams 03/16/22 02/11/24 Rx topical cream loratadine 10 mg tablet 10 mg PO DAILY PRN allergic 05/10/22 02/11/24 Rx symptoms #30 tabs calcium carbonate 600 mg PO DAILY #90 tabs 06/28/22 02/11/24 Rx portable oxygen concentrator #1 ea 09/14/22 02/11/24 Rx ferrous sulfate 325 mg (65 mg 325 mg PO BID #180 tabs 09/14/22 02/11/24 Rx iron) tablet hydroxyzine HCl 25 mg tablet 25 mg PO Q8H PRN anxiety #90 tabs 01/18/23 02/11/24 Rx albuterol sulfate 90 mcg/actuation 1 - 2 puff inhalation Q4-6H PRN 01/04/24 02/11/24 Rx aerosol inhaler shortness of breath or wheezing #8.5 grams tramadol 50 mg tablet 50 mg PO BID PRN pain #60 tabs 01/10/24 02/11/24 Rx gabapentin 300 mg capsule 300 mg PO USEASDIRECTD 01/17/24 02/11/24 History potassium chloride 10 mEq 10 meq PO DAILY #90 caps 01/17/24 02/11/24 Rx capsule,extended release furosemide 40 mg tablet 40 mg PO DAILY #60 tabs 01/25/24 02/11/24 Rx Allergies Allergy/AdvReac Type Severity Reaction Status Date / Time Penicillins Allergy Unknown Urticaria Verified 02/11/24 07:25 Vital Signs Vital Signs Temp Pulse Resp BP Pulse Ox O2 Del Method O2 Flow Rate 02/20/24 14:48 91 High Flow Nasal Cannula 6 02/20/24 14:09 53 L 20 02/20/24 14:01 53 L 20 02/20/24 14:01 100 High Flow Nasal Cannula 8 02/20/24 12:00 96.7 F L 74 18 96/54 L 90 02/20/24 08:00 90 High Flow Nasal Cannula 8 02/20/24 08:55 62 02/20/24 08:00 96.5 F L 62 18 112/46 L 90 02/20/24 08:01 59 L 20 02/20/24 07:52 58 L 20 02/20/24 07:52 94 High Flow Nasal Cannula 8 Exam Narrative: GENERAL APPEARANCE: elderly and ill-appearing female in mild distress HEENT: normocephalic, atraumatic, normal conjunctiva and sclera, nares patient NECK: no lymphadenopathy, thyromegaly, or JVD MOUTH: normal lips, teeth, and gums CARDIOVASCULAR: RRR, normal S1 and S2, no rub detected RESPIRATORY: bibasilar crackles with some scattered wheezes ABDOMEN: soft, nontender, nondistended, positive bowel sounds present EXTREMITIES: no evidence of cyanosis, clubbing, or edema; wounds noted NEUROLOGICAL: awake and alert; no focal deficits noted Results Lab Results 02/20/24 06:19 02/20/24 17:06 Lab results: Most recent lab results Calcium 8.2 mg/dL (8.4-10.2) L 02/20/24 06:19 Magnesium 2.4 mg/dL (1.6-2.3) H 02/11/24 00:59
[2024-02-20 17:29] LABS: Potassium 5.1 mmol/L (3.4-5.0)
[2024-02-20] MEDS: SODIUM CHLORIDE 1 GM TABLET PO (17:38)
[2024-02-20] MEDS: GENTAMICIN SULFATE 0.1% CR 15 GM TUBE 1 APPLIC TOPICAL (17:39)
[2024-02-20] MEDS: VANCOMYCIN 1,250 MG/NS 250 ML 1,250 MG/250 ML BAG 166.67 MG IVPB (20:17)
[2024-02-20] MEDS: ONDANSETRON INJ 4 MG/2 ML VIAL IV PUSH (20:18)
[2024-02-20] MEDS: ATORVASTATIN 40 MG TABLET PO (20:19)
[2024-02-20] MEDS: MELATONIN 5 MG TABLET 10 MG PO (20:31)
[2024-02-20 21:07] LABS: Sodium Urine Random 23 meq/L
[2024-02-21] MEDS: IPRATROPIUM 0.5 MG/ALBUTEROL SULFATE 2.5 MG AMPUL.NEB 3 ML INHALATION (01:30)
[2024-02-21 01:31] VITALS: PULSE 61; RESP 20
[2024-02-21 01:39] VITALS: PULSE 62; RESP 20
--- NOTE | 2024-02-21 06:43 | PC.NURSE ---
During routine rounds Pt found by PCT. Family notified and en route. community youth secretary notified medical staff.
--- NOTE | 2024-02-21 08:31 | PM.DS ---
DS: Admitting Diagnosis Discharge Date 02/21/24 Admitting Diagnosis Heme-positive stool Following anemia Frequent falls Compression fracture of T3 vertebrae Right ventricular systolic function Diastolic congestive heart failure Chronic kidney disease stage IIIA Chronic obstructive pulmonary disease hypoxia Coronary artery disease Hypertension DS: Summary Hospital Course Reason for hospitalization: Heme-positive stool Following anemia Frequent falls Compression fracture of T3 vertebrae Right ventricular systolic function Diastolic congestive heart failure Chronic kidney disease stage IIIA Chronic obstructive pulmonary disease hypoxia Coronary artery disease Hypertension Hospital Course: Final diagnosis: Time Spent with Patient Time attestation: Total time spent providing and/or coordinating discharge services: DS: Data Data Completed and Pending Completed studies during hospitalization: Pending at discharge 02/11/24 07:46 Surgical [PTH] Routine Labs on day of discharge: Labs from last 24 hours 02/20/24 02/20/24 02/20/24 20:42 17:06 06:19 Potassium 5.1 H Serum Osmolality Pending Urine Osmolality Pending Ur Random Sodium 23 Vancomycin Trough 13.0 Preliminary micro results at discharge 02/17/24 10:19 Blood Culture - Preliminary Blood 02/17/24 10:10 Blood Culture - Preliminary Blood Discharge Plan Discharge Consulting providers: Amanda White Discharge Medications: New pantoprazole 40 mg Tablet,Delayed Release (Dr/Ec) 40 mg PO Q12HR 30 Days Qty: 60 11RF No Action aspirin [Adult Aspirin Regimen] 81 mg tablet,delayed release (DR/EC) 81 mg PO DAILY acetaminophen 650 mg tablet extended release 1,300 mg PO Q12H melatonin 10 mg tablet 10 mg PO QHS buspirone 10 mg tablet 10 mg PO TID Qty: 270 1RF escitalopram oxalate [Lexapro] 20 mg tablet 20 mg PO DAILY Qty: 90 0RF albuterol sulfate 90 mcg/actuation HFA aerosol inhaler 1 - 2 puff INHALATION Q4-6H PRN (Reason: shortness of breath or wheezing) Qty: 8.5 5RF Rx Instructions: [facility] STAFF: PLEASE ALLOW PATIENT TO KEEP ALBUTEROL ON HAND WITH HER TO USE PRN. cholecalciferol (vitamin D3) 50 mcg (2,000 unit) capsule 50 mcg PO DAILY triamcinolone acetonide 0.1 % cream 1 applic topical BID Qty: 30 1RF Rx Instructions: apply to B/L lower extremities ferrous sulfate 325 mg (65 mg iron) tablet 325 mg PO BID Qty: 180 1RF (DME) portable oxygen concentrator See Rx Instructions .Route .MEDSUPPLY Qty: 1 0RF Rx Instructions: use 3 L of oxygen per minute. pulsed dose is okay gabapentin 300 mg capsule 300 mg PO USEASDIRECTD Rx Instructions: Take 1 capsule at 0800 and 1200, and at 2000 potassium chloride 10 mEq capsule, extended release 10 meq PO DAILY Qty: 90 0RF Hold Instructions: Patient Condition furosemide 40 mg Tablet 40 mg PO DAILY Qty: 60 0RF oxybutynin chloride 10 mg tablet extended release 24hr 10 mg PO BID Qty: 180 1RF magnesium oxide 400 mg magnesium tablet 400 mg PO DAILY Qty: 90 1RF clopidogrel 75 mg tablet 75 mg PO DAILY Qty: 90 1RF metoprolol succinate 50 mg tablet extended release 24 hr 50 mg PO BID Qty: 180 2RF atorvastatin [Lipitor] 40 mg tablet 40 mg PO QHS Qty: 90 1RF loratadine 10 mg tablet 10 mg PO DAILY PRN (Reason: allergic symptoms) Qty: 30 0RF calcium carbonate 600 mg calcium (1,500 mg) tablet 600 mg PO DAILY Qty: 90 0RF hydroxyzine HCl 25 mg tablet 25 mg PO Q8H PRN (Reason: anxiety) Qty: 90 1RF tramadol 50 mg tablet 50 mg PO BID PRN (Reason: pain) Qty: 60 1RF Date of admission: 02/14/24 10:07 Primary Care Provider: Benito Armstrong Admitting Provider: Derrick Barker Attending physician on admission: Melissa Tyson Condition: Stable
--- NOTE | 2024-02-21 08:41 | PM.DDS ---
Discharge Summary Date and Time Date of : 02/21/24 Time of : 05:20 Provider Pronounced By: 2 RNs Name of First RN That Pronounced: Torres Farmer RN Name of Second RN That Pronounced: Cedric Estrada RN Probable Cause of Probable Cause of : Hospital acquired pneumonia Acute respiratory failure with hypoxia Acute on chronic diastolic congestive heart failure Summary Hospital Course: This is a 73-year-old female with significant past medical history of COPD requiring 3 L nasal cannula at home, pulmonary hypertension, coronary artery disease status post bypass, right ventricular systolic dysfunction, grade 1 diastolic dysfunction, moderate mitral valve and severe tricuspid valve regurgitation, chronic kidney disease, hypertension, hyperlipidemia who presented to the emergency room via EMS from [facility] for evaluation after a ground level fall. Workup in the hospital included a head CT which was negative for any acute changes, showed stable moderate nonspecific cerebral white matter disease representing chronic small-vessel ischemic disease. Head/cervical spine/facial bone CT showed T3 compression fracture likely acute or subacute, severe cervical spondylosis, severe levo sclerosis. Right elbow x-ray showed mild elbow joint osteoarthritis, no fracture. Chest x-ray showed cardiomegaly with mild interstitial edema. Abdomen/pelvis CT showed mild pulmonary edema and small bilateral pleural effusion, gallbladder mucosal hyperemia with elia cholecystic fluid, mild ascites. She had repeat chest x-rays on 02/13, 02/14, 02/16 which showed mild pulmonary edema, cardiomegaly, small right pleural effusion. Initial labs shown a hemoglobin drop of 8.6 from 14.8 on previous labs and she was Hemoccult stool positive. GI was consulted and took patient on 02/10 for an EGD which showed esophagitis with no ulcers or masses or varices, moderate gastritis with for deep benign a ulcers ranging in size from 5 mm to 8 mm in the duodenal bulb with flat spots noted on the ulcer craters. Biopsies were taken of the tissue. Her hemoglobin improved over the next few days and she did not require any blood transfusion during her stay. She was working with PT and OT and case management had been working on rehab placement over the course of her stay. She then started having upper respiratory symptoms including congestion, productive cough, shortness of breath requiring a repeat CTA of the chest abdomen and pelvis on 02/18/2024 due to increased white blood cell count and low-grade temp and showed interstitial pulmonary edema with small bilateral pleural effusion, cardiomegaly, mediastinal and bilateral hilar lymphedema PAP the, negative for PE, aortic dissection, or aneurysm. Venous Doppler study was also obtained because patient was complaining of left lower extremity cramping and it did not show any evidence of DVT at that time. Her white blood cell count increased from 14.3 on 02 16-20.6 on 02/17 along with low-grade temp, and considering she had increased O2 requirement we treated her for hospitalized acquired pneumonia and she was started on Rocephin azithromycin and vancomycin as her MRSA was positive. Her white count improved and was 13.5 on her last set of labs as well as her O2 requirement decreased from 10 L down to 6 L was a last recorded O2. Yesterday we got Nephrology on board due to her low sodium level of 121 and potassium of 5.7. She was given Lokelma 1 time dose which corrected her to 5.1. She also received Lasix yesterday. For her sodium we checked a urine sodium, urine osmolarity, serum osmolarity which are still pending. We also put her on a fluid restriction. Patient does have chronic hyponatremia at baseline. Early this morning when patient nurse wound care went into the patient's room she found the patient without her oxygen on and without a pulse or respirations. Nursing was notified. Patient was already a DNR DNI in our system and she did not receive any CPR. Nursing notified Dr. Galeana overnight of patient's and called the family in. Time of was 5:20 a.m. and was pronounced by 2 bedside RN is as stated above. Final diagnosis: Acute blood loss anemia, hospital-acquired pneumonia, urinary tract infection, acute respiratory failure with hypoxia, acute on chronic diastolic congestive heart failure Additional Data Confirmation of as documented by pronouncing clinician: Pupillary Reflex, Palpable Pulses, Response to Stimuli, Heart Tones and Breath Sounds Name of Provider Notified: Dr. Galeana Time Provider Notified: 05:28 Provider Requests Autopsy: No [employer] Notified: Yes Date [facility] Notified of : 02/21/24 Time [facility] Notified of : 05:55 Hospice patient?: No
[2024-02-22 16:03] LABS: Osmolality, Urine 198 mOsm/kg (50-1200)
== END 2024-02-21 05:20 | disposition expired | DRG 377 ==
LOC: ANHED 10:48 → ANH3MEDSUR 11:32
PROVIDERS: Anesthesiology; Internal Medicine Gastroenterology; Physician Assistant; Admitting Provider Internal Medicine; Emergency Provider Emergency Medicine; PCP Family Medicine; Visit Provider Nurse Practitioner Acute Care
PROC: 0DJ08ZZ Inspection of Upper Intestinal Tract, Via Natural or Artificial Opening Endoscopic (ICD-10-PCS; CPT 43235; principal; 2024-02-11 07:30)
DX: K26.4 Chronic or unspecified duodenal ulcer with hemorrhage (principal); I50.33 Acute on chronic diastolic (congestive) heart failure; J18.9 Pneumonia, unspecified organism; J96.21 Acute and chronic respiratory failure with hypoxia; D62 Acute posthemorrhagic anemia; I13.0 Hypertensive heart and chronic kidney disease with heart failure and stage 1 through stage 4 chronic kidney disease, or unspecified chronic kidney disease; S22.039A Unspecified fracture of third thoracic vertebra, initial encounter for closed fracture; N39.0 Urinary tract infection, site not specified; E87.1 Hypo-osmolality and hyponatremia; N18.31 Chronic kidney disease, stage 3a; I87.2 Venous insufficiency (chronic) (peripheral); I25.10 Atherosclerotic heart disease of native coronary artery without angina pectoris; I27.20 Pulmonary hypertension, unspecified; I34.0 Nonrheumatic mitral (valve) insufficiency; I36.1 Nonrheumatic tricuspid (valve) insufficiency; J44.9 Chronic obstructive pulmonary disease, unspecified; Y95 Nosocomial condition; K29.70 Gastritis, unspecified, without bleeding; E78.5 Hyperlipidemia, unspecified; L73.9 Follicular disorder, unspecified; B96.20 Unspecified Escherichia coli [E. coli] as the cause of diseases classified elsewhere; Z20.822 Contact with and (suspected) exposure to COVID-19; N32.81 Overactive bladder; M19.90 Unspecified osteoarthritis, unspecified site; M85.80 Other specified disorders of bone density and structure, unspecified site; M54.50 Low back pain, unspecified; G89.29 Other chronic pain; G62.9 Polyneuropathy, unspecified; R29.6 Repeated falls; F41.9 Anxiety disorder, unspecified; F32.A Depression, unspecified; W18.11XA Fall from or off toilet without subsequent striking against object, initial encounter; Z96.21 Cochlear implant status; Z99.81 Dependence on supplemental oxygen; Z79.82 Long term (current) use of aspirin; Z95.1 Presence of aortocoronary bypass graft; Z79.02 Long term (current) use of antithrombotics/antiplatelets; Z87.891 Personal history of nicotine dependence
CPT/HCPCS: 36415; 36600; 70450; 70486; 71045; 71046; 71275; 72125; 73080; 74174; 74177; 80053; 80202; 81001; 82607; 82728; 82746; 82948; 83540; 83550; 83735; 83930; 83935; 84132; 84145; 84300; 84439; 84443; 84480; 85014; 85018; 85025; 85027; 85055; 86850; 86900; 86901; 87040; 87077; 87081; 87086; 87186; 87637; 87641; 88305; 93970; 94002; 94003; 94640; 96361; 97110; 97161; 97165; 97530; 97535; 99285; A9270; G0378; J0696; J1940; J2003; J2405; J2470; J2704; J3370; J7120; Q9967